=== PATIENT | female | born 1940 | race American Indian/Alaskan Native ===

== ENCOUNTER 2018-04-25 12:19 | Inpatient (IN) | payer MEDICARE ==
--- NOTE | 2018-04-25 12:48 | ED PDOC ---
Arrival/HPI - General Chief Complaint: Shortness Of Breath Time Seen by Provider: 04/25/18 12:19 Historian: Patient, Family (daughter), EMS - Critical Care Critical Care Minutes: 30 minutes - History of Present Illness Narrative History of Present Illness (Text): 04/25/18 12:19 77 year old female, on Eliquis, whose past medical history includes COPD, CHF, and DVT, s/p kidney transplant who presents to the emergency department complaining of shortness of breath. Daughter states her mother was short of breath earlier this morning, patient took medication and had breakfast, but her symptoms progressively worsened, daughter called 911. EMS found patient in rapid A-fib at 170bpm, tachypenic at 40, and short of breath. EMS placed her on bipap, gave her a nitro drip, and 20mg of Lasix. Patient symptoms improved after medication. Daughter notes her mother is compliant with home O2. She denies fevers, chills, headache, dizziness, chest pain, abdominal pain, nausea, vomiting, diarrhea, back pain, neck pain, or any other complaint. PMD: DR. Whipple 04/25/18 15:20 Time/Duration: Prior to Arrival Symptom Onset: Gradual Symptom Course: Improving Activities at Onset: Light Context: Home Past Medical History - Provider Review Nursing Documentation Reviewed: Yes - Cardiac Hx Congestive Heart Failure: Yes Hx Hypertension: Yes - Endocrine/Metabolic Hx Systemic Lupus Erythematosus: Yes - Musculoskeletal/Rheumatological Hx Arthritis: Yes - Psychiatric Hx Substance Use: No - Surgical History Hx Kidney Transplant: Yes (2007 / no longer dyalisis pt) - Anesthesia Hx Anesthesia: Yes Hx Anesthesia Reactions: No Hx Malignant Hyperthermia: No Family/Social History - Physician Review Nursing Documentation Reviewed: Yes Family/Social History: No Known Family HX Smoking Status: Never Smoked Hx Alcohol Use: No Hx Substance Use: No Allergies/Home Meds Allergies/Adverse Reactions: Allergies No Known Allergies Allergy (Verified 04/25/18 12:21) Home Medications: Home Meds Medication Instructions Recorded Confirmed Cinacalcet [Sensipar] 90 mg PO DAILY 04/25/18 04/25/18 Prednisone 10 mg PO DAILY 04/25/18 04/25/18 RX: Apixaban [Eliquis] 1 tab PO BID 04/25/18 04/25/18 RX: Furosemide [Lasix] 1 tab PO DAILY 04/25/18 04/25/18 RX: Polyethylene Glycol [Polyox 17 g PO BID 04/25/18 04/25/18 [id number] RX: Tacrolimus [Prograf Cap] 3 mg PO BID 04/25/18 04/25/18 RX: cloNIDine [Catapres] 1 mg PO BID 04/25/18 04/25/18 Sevelamer Carbonate [Renvela] 0.8 gm PO DAILY 04/25/18 04/25/18 Sodium Bicarbonate 1 tab PO BID 04/25/18 04/25/18 Review of Systems - Review of Systems Systems not reviewed;Unavailable: Respiratory Distress Constitutional: absent: Fevers Eyes: absent: Vision Changes ENT: absent: Sore Throat Respiratory: SOB Cardiovascular: absent: Chest Pain Gastrointestinal: absent: Abdominal Pain, Diarrhea, Nausea, Vomiting Genitourinary Female: absent: Dysuria, Frequency Musculoskeletal: absent: Back Pain, Neck Pain Skin: absent: Rash Neurological: absent: Headache, Dizziness Endocrine: absent: Diaphoresis Physical Exam Vital Signs Reviewed: Yes Temperature: Afebrile Blood Pressure: Normal Pulse: Tachycardic Respiratory Rate: Tachypneic Appearance: Positive for: Non-Toxic, Ill-Appearing Pain Distress: None Mental Status: Positive for: Alert and Oriented X 3 - Systems Exam Head: Present: Atraumatic, Normocephalic Pupils: Present: PERRL Extroacular Muscles: Present: EOMI Conjunctiva: Present: Normal Mouth: Present: Moist Mucous Membranes Neck: Present: Normal Range of Motion Respiratory/Chest: Present: Decreased Breath Sounds, Rales, Tachypneic, Other (speaking in 2 word sentences) Cardiovascular: Present: Irregular Rhythm. No: Regular Rate and Rhythm (irregularly irregular), Murmurs Abdomen: No: Tenderness, Distention, Peritoneal Signs Back: Present: Normal Inspection Upper Extremity: Present: Other (right AV fistula). No: Cyanosis, Edema Lower Extremity: Present: Normal Inspection. No: Edema Neurological: Present: GCS=15, CN II-XII Intact, Speech Normal Skin: Present: Warm, Dry, Normal Color. No: Rashes Psychiatric: Present: Alert, Oriented x 3, Normal Insight, Normal Concentration Medical Decision Making ED Course and Treatment: 04/25/18 12:19 Impression: 77 year old female who presents to the emergency department complaining of shortness of breath. Plan: -- ABG -- EKG -- Labs -- Chest X-ray -- Aspirin -- Lasix -- Nitrostat -- Blood Culture -- Urine Culture -- BIPAP/CPAP -- Urinalysis -- Reassess and disposition Progress Notes: 04/25/18 12:59 Chest X-ray reviewed by radiologist, shows: IMPRESSION: Limited portable examination. Sever cardiomegaly and moderate pulmonary venous congestion. 04/25/18 13:03 Patient's lactate is elevated to 2.7, SIRS criteria are tachypneic and tachycardia but think this is more likely secondary to the CHF as both are improving with bipap. Temp 99.3 rectally 04/25/18 13:19 Records reviewed from [facility]. Patient had admission in [facility] for COPD and pna. Patient has hx of DVT of LUE, on eliquis, SLE and was anemia from 7.8 to 8.6 and creatinine of 2.8 on chart review 04/25/18 14:[address] Lobo, tree and shrub worker, who will evaluate patient at bedside. 04/25/18 14:26 Accepted by ICU - Critical Care Critical Care Minutes: 30 minutes - Lab Interpretations I have reviewed the lab results: Yes - RAD Interpretation Radiology Orders: 04/25/18 12:26 CHEST PORTABLE [RAD] Stat - Medication Orders Current Medication Orders: Discontinued Medications Aspirin (Aspirin Chewable) 81 mg PO STAT STA Stop: 04/25/18 12:28 Furosemide (Lasix) 20 mg IVP STAT STA Stop: 04/25/18 12:28 Nitroglycerin (Nitrostat Sl Tab) 0.3 mg SL STAT STA Stop: 04/25/18 12:32 - Scribe Statement The provider has reviewed the documentation as recorded by the Ivory Thomas Provider Scribe Attestation: All medical record entries made by the Scribe were at my direction and personally dictated by me. I have reviewed the chart and agree that the record accurately reflects my personal performance of the history, physical exam, medical decision making, and the department course for this patient. I have also personally directed, reviewed, and agree with the discharge instructions and disposition. Disposition/Present on Arrival - Present on Arrival Any Indicators Present on Arrival: No History of DVT/PE: No History of Uncontrolled Diabetes: No Urinary Catheter: No History of Decub. Ulcer: No History Surgical Site Infection Following: None - Disposition Have Diagnosis and Disposition been Completed?: Yes Diagnosis: CHF (congestive heart failure), NSTEMI (non-ST elevated myocardial infarction), Respiratory distress Disposition: HOSPITALIZED Disposition Time: 12:29 Patient Plan: Admission, ICU Patient Problems: Current Active Problems Problem Status Onset CHF (congestive heart failure) Acute NSTEMI (non-ST elevated myocardial infarction) Acute Respiratory distress Acute Condition: CRITICAL
[2018-04-25 12:54] LABS: ARTERIAL BLOOD GAS HCO3 33.7 mmol/L (21-28); ARTERIAL BLOOD GAS O2 SAT 27.8 % (95-98); ARTERIAL BLOOD GAS PCO2 61 mm/Hg (35-45); ARTERIAL BLOOD GAS PH 7.35 (7.35-7.45); ARTERIAL BLOOD GAS TCO2 35.6 mmol.L (22-28)
--- NOTE | 2018-04-25 12:56 | RAD ---
Date of service: 04/25/2018 HISTORY: shortness of breath COMPARISON: No prior. FINDINGS: LUNGS: There is moderate pulmonary venous congestion. Examination is limited due to portable technique and patient positioning. PLEURA: Question of small effusions. No pneumothorax CARDIOVASCULAR: Severe cardiomegaly and prominent central vasculature. No aortic atherosclerotic calcifications present. OSSEOUS STRUCTURES: Within normal limits for the patient's age. VISUALIZED UPPER ABDOMEN: Normal. OTHER FINDINGS: None. IMPRESSION: Limited portable examination. Severe cardiomegaly and moderate pulmonary venous congestion.
[2018-04-25] MEDS ORDERED: Albuterol 0.042% Inhal Sol (1.25 mg/3 mL) UD IH STA (12:58)
[2018-04-25 13:04] LABS: BASO # 0.03 K/mm3 (0.0-2.0); BASO % 0.3 % (0.0-3.0); EOS % 0.1 % (1.5-5.0); HEMOGLOBIN 7.4 g/dL (12.0-16.0); LYMPH # 1.5 (1.2-3.4); LYMPH % 12.2 % (22.0-35.0); MEAN CELL VOLUME 105.2 fl (80.0-105.0); MEAN CORPUSCULAR HEMOGLOBIN 32.2 pg (25.0-35.0); MEAN CORPUSCULAR HGB CONC 30.6 g/dl (31.0-37.0); MEAN PLATELET VOLUME 10.7 fl (7.0-11.0); RBC 2.3 10^6/uL (3.5-6.1); RED CELL DISTRIBUTION WIDTH 14.9 % (11.5-14.5); WHITE BLOOD COUNT 11.9 10^3/uL (4.5-11.0)
[2018-04-25 13:13] LABS: ALB/GLOB RATIO 1.1 (1.1-1.8); ALBUMIN 3.6 g/dL (3.0-4.8); CALCIUM 10.5 mg/dL (8.4-10.5)
[2018-04-25 13:14] LABS: INR 1.88; PARTIAL THROMBOPLASTIN TIME 31.5 Seconds (26.9-38.3); PROTHROMBIN TIME 21.2 SECONDS (9.4-12.5)
[2018-04-25 13:46] LABS: TROPONIN I 0.27 ng/mL
[2018-04-25 14:18] LABS: ARTERIAL BLOOD GAS HCO3 31.1 mmol/L (21-28); ARTERIAL BLOOD GAS HEMOGLOBIN 6.7 g/dL (11.7-17.4); ARTERIAL BLOOD GAS O2 CAPACITY 10.2 mL/dl (16-24); ARTERIAL BLOOD GAS O2 CONTENT 10.3 ML/dl (15-23); ARTERIAL BLOOD GAS PCO2 48 mm/Hg (35-45); ARTERIAL BLOOD GAS PH 7.42 (7.35-7.45); ARTERIAL BLOOD GAS TCO2 32.6 mmol.L (22-28)
[2018-04-25] MEDS ORDERED: cefTRIAXone 1 gm 1 GM/100 ML BAG IVPB SCH (15:00)
[2018-04-25 15:51] LABS: VENOUS BLOOD GAS BASE EXCESS 5.2 mmol/L (0.0-2.0); VENOUS BLOOD GAS PO2 37 mm/Hg (30-55); VENOUS BLOOD PH 7.35 (7.32-7.43)
[2018-04-25 16:02] LABS: URINE BILIRUBIN NEGATIVE (NEGATIVE); URINE BLOOD TRACE-INTACT (NEGATIVE); URINE GLUCOSE (UA) 100 mg/dL (NEGATIVE); URINE LEUKOCYTE ESTERASE NEGATIVE Leu/uL (NEGATIVE); URINE PROTEIN 30 mg/dL (<30 mg/dL); URINE UROBILINOGEN 0.2 E.U./dL (<1 E.U./dL)
[2018-04-25 16:03] LABS: URINE APPEARANCE CLEAR (CLEAR); URINE COLOR YELLOW (YELLOW)
[2018-04-25 16:07] LABS: URINE BACTERIA NEG /hpf; URINE EPITHELIAL CELLS 0 - 2 /hpf (0-5); URINE HYALINE CAST 0 - 2 /hpf; URINE RBC 0 - 2 /hpf (0-2)
--- NOTE | 2018-04-25 16:14 | CP.PCM.HP ---
History of Present Illness - History of Present Illness History of Present Illness: Miguel A Means DO, PGY-1 Hospitalist Admission History and Physical for Dr. Hinton CC: worsening SOB HPI: Patient is a 77 year old female with PMH of CHF (last Echo with EF of 50%), COPD, LUE DVT (on eliquis), SLE, lupus nephritis (previously on dialysis, s/p renal transplant), and osteoporosis was BIBA per daughter's request for concern of worsening, labored breathing. Per daughter, patient has not been at her baseline since a recent, long hospitalization at [facility] where she was admitted for similar concerns. Daughter states that patient was admitted at [facility] from January 2018 through March 2018. Patient has not been ambulatory since then even though her breathing improved initially. Since this AM, patient's daughter became concerned that her breathing was labored and she was wheezing. She did not complain of recent fever/chills, sick contacts, CP, cough, abdominal pain/nausea/vomiting, or urinary complaints. PMD: [facility] Past Medical Hx: CHF, COPD, LUE DVT, SLE, lupus nephritis, and osteoporosis Past Surgical Hx: kidney transplant in 2007 Allergies: NKA Home medications: Prograf 3 mg BID, Sodium bicarbonate 325 mg daily, Sevelamer 0.8 gm PO TID w/meals, prednisone 10 mg daily, polyethylene glycol 17 g BID, clonidine 0.1 mg BID, Lasix 40 mg daily, cinacalcet 90 mg daily, eliquis 5 mg BID Family Hx: daughter has SLE Social Hx: denies current or prior tobacco, EtOH, illicit drug use Present on Admission - Present on Admission Any Indicators Present on Admission: Yes History of DVT/PE: Yes History of Uncontrolled Diabetes: No Urinary Catheter: No Decubitus Ulcer Present: No Review of Systems - Constitutional Constitutional: absent: Chills, Fever - EENT Eyes: absent: Change in Vision - Cardiovascular Cardiovascular: Diaphoresis, Dyspnea, Dyspnea on Exertion. absent: Chest Pain, Palpitations - Respiratory Respiratory: Dyspnea, Wheezing. absent: Cough - Gastrointestinal Gastrointestinal: absent: Abdominal Pain, Nausea, Vomiting - Genitourinary Genitourinary: absent: Change in Urinary Stream, Difficulty Urinating Past Patient History - Past Social History Smoking Status: Never Smoked - CARDIAC Hx Congestive Heart Failure: Yes Hx Hypertension: Yes - ENDOCRINE/METABOLIC Hx Systemic Lupus Erythematosus: Yes - MUSCULOSKELETAL/RHEUMATOLOGICAL Hx Arthritis: Yes - PSYCHIATRIC Hx Substance Use: No - SURGICAL HISTORY Hx Kidney Transplant: Yes (2008 / no longer dyalisis pt) - ANESTHESIA Hx Anesthesia: Yes Hx Anesthesia Reactions: No Hx Malignant Hyperthermia: No Meds Allergies/Adverse Reactions: Allergies Allergy/AdvReac Type Severity Reaction Status Date / Time No Known Allergies Allergy Verified 04/25/18 12:21 Physical Exam - Constitutional Additional comments: on Bipap, responsive to verbal stimuli, opens eyes, but somnolent - Head Exam Head Exam: ATRAUMATIC, NORMOCEPHALIC - Eye Exam Eye Exam: EOMI, PERRL Pupil Exam: PERRL - ENT Exam ENT Exam: Mucous Membranes Dry - Neck Exam Neck exam: Negative for: Tenderness - Respiratory Exam Respiratory Exam: Accessory Muscle Use, Decreased Breath Sounds, Rhonchi (coarse breath sounds b/l), Wheezes (faint end expiratory wheezes b/l). absent: Chest Wall Tenderness, Rales - Cardiovascular Exam Cardiovascular Exam: REGULAR RHYTHM, RRR, +S1, +S2. absent: Diastolic murmur, Gallop, Rubs, Systolic Murmur - GI/Abdominal Exam GI & Abdominal Exam: Normal Bowel Sounds, Soft. absent: Organomegaly - Extremities Exam Extremities exam: Positive for: normal capillary refill, pedal pulses present. Negative for: calf tenderness, pedal edema - Neurological Exam Neurological exam: Alert - Psychiatric Exam Psychiatric exam: Flat Affect - Skin Skin Exam: Dry, Intact, Warm Results - Vital Signs Recent Vital Signs: Last Vital Signs Temp 99.3 F 04/25/18 13:35 Pulse 93 H 04/25/18 15:34 Resp 27 H 04/25/18 15:34 BP 162/82 H 04/25/18 15:34 Pulse Ox 100 04/25/18 15:34 - Labs Result Diagrams: 04/25/18 12:35 04/25/18 12:35 Labs: Laboratory Results - last 24 hr 04/25/18 04/25/18 04/25/18 12:35 12:35 12:35 WBC 11.9 H RBC 2.30 L Hgb 7.4 L Hct 24.2 L MCV 105.2 H MCH 32.2 MCHC 30.6 L RDW 14.9 H Plt Count 183 MPV 10.7 Neut % (Auto) 79.4 H Lymph % (Auto) 12.2 L Sierra % (Auto) 8.0 H Eos % (Auto) 0.1 L Baso % (Auto) 0.3 Lymph # (Auto) 1.5 Sierra # (Auto) 1.0 H Eos # (Auto) 0.0 Baso # (Auto) 0.03 Absolute Neuts (auto) 9.42 H PT 21.2 H INR 1.88 APTT 31.5 pCO2 pO2 HCO3 ABG pH ABG Total CO2 ABG O2 Saturation ABG O2 Content ABG Base Excess ABG Hemoglobin ABG Carboxyhemoglobin POC ABG HHb (Measured) ABG Methemoglobin ABG O2 Capacity ABG Potassium VBG pH VBG pCO2 VBG HCO3 VBG Total CO2 VBG O2 Sat (Calc) VBG Base Excess VBG Potassium Hgb O2 Saturation Glucose Lactate FiO2 Pressure Support Inspiratory BiPAP Blood Gas Comments Crit Value Called To Crit Value Called By Blood Gas Notified Time Sodium 140 Potassium 4.0 Chloride 100 Carbon Dioxide 30 Anion Gap 14 BUN 42 H Creatinine 2.6 H Est GFR ( Amer) 22 Est GFR (Non-Af Amer) 18 Random Glucose 134 H Calcium 10.5 Phosphorus 3.2 Magnesium 2.0 Total Bilirubin 0.5 AST 65 H ALT 52 Alkaline Phosphatase 107 Total Creatine Kinase 35 Troponin I 0.27 H* NT-Pro-B Natriuret Pep 43953 H Total Protein 6.8 Albumin 3.6 Globulin 3.3 Albumin/Globulin Ratio 1.1 Arterial Blood Potassium Venous Blood Potassium Urine Color Urine Appearance Urine pH Ur Specific [place] Urine Protein Urine Glucose (UA) Urine Ketones Urine Blood Urine Nitrate Urine Bilirubin Urine Urobilinogen Ur Leukocyte Esterase 04/25/18 04/25/18 04/25/18 12:40 14:10 15:30 WBC RBC Hgb Hct MCV MCH MCHC RDW Plt Count MPV Neut % (Auto) Lymph % (Auto) Sierra % (Auto) Eos % (Auto) Baso % (Auto) Lymph # (Auto) Sierra # (Auto) Eos # (Auto) Baso # (Auto) Absolute Neuts (auto) PT INR APTT pCO2 61 H 48 H pO2 18.0 L* 361.0 H 37 HCO3 33.7 H 31.1 H ABG pH 7.35 7.42 ABG Total CO2 35.6 H 32.6 H ABG O2 Saturation 27.8 L 101.0 H ABG O2 Content 10.3 L ABG Base Excess 6.1 H 6.0 H ABG Hemoglobin 6.7 L ABG Carboxyhemoglobin 1.9 H POC ABG HHb (Measured) -1.0 L ABG Methemoglobin 0.2 ABG O2 Capacity 10.2 L ABG Potassium 4.1 VBG pH 7.35 VBG pCO2 59.0 VBG HCO3 32.6 H VBG Total CO2 34.4 H VBG O2 Sat (Calc) 78.2 H VBG Base Excess 5.2 H VBG Potassium 4.3 Hgb O2 Saturation 98.9 H Glucose 130 H 129 H Lactate 2.7 H 1.6 FiO2 100.0 100.0 21.0 Pressure Support 7 Inspiratory BiPAP 12 Blood Gas Comments Possible venous. notified po2,pco2,lactate cv reported Crit Value Called To Chris alarcon Crit Value Called By Rst Blood Gas Notified Time 1250 Sodium 142.0 141.0 Potassium Chloride 106.0 105.0 Carbon Dioxide Anion Gap BUN Creatinine Est GFR ( Amer) Est GFR (Non-Af Amer) Random Glucose Calcium Phosphorus Magnesium Total Bilirubin AST ALT Alkaline Phosphatase Total Creatine Kinase Troponin I NT-Pro-B Natriuret Pep Total Protein Albumin Globulin Albumin/Globulin Ratio Arterial Blood Potassium 4.1 Venous Blood Potassium 4.3 Urine Color Urine Appearance Urine pH Ur Specific [place] Urine Protein Urine Glucose (UA) Urine Ketones Urine Blood Urine Nitrate Urine Bilirubin Urine Urobilinogen Ur Leukocyte Esterase 04/25/18 15:52 WBC RBC Hgb Hct MCV MCH MCHC RDW Plt Count MPV Neut % (Auto) Lymph % (Auto) Sierra % (Auto) Eos % (Auto) Baso % (Auto) Lymph # (Auto) Sierra # (Auto) Eos # (Auto) Baso # (Auto) Absolute Neuts (auto) PT INR APTT pCO2 pO2 HCO3 ABG pH ABG Total CO2 ABG O2 Saturation ABG O2 Content ABG Base Excess ABG Hemoglobin ABG Carboxyhemoglobin POC ABG HHb (Measured) ABG Methemoglobin ABG O2 Capacity ABG Potassium VBG pH VBG pCO2 VBG HCO3 VBG Total CO2 VBG O2 Sat (Calc) VBG Base Excess VBG Potassium Hgb O2 Saturation Glucose Lactate FiO2 Pressure Support Inspiratory BiPAP Blood Gas Comments Crit Value Called To Crit Value Called By Blood Gas Notified Time Sodium Potassium Chloride Carbon Dioxide Anion Gap BUN Creatinine Est GFR ( Amer) Est GFR (Non-Af Amer) Random Glucose Calcium Phosphorus Magnesium Total Bilirubin AST ALT Alkaline Phosphatase Total Creatine Kinase Troponin I NT-Pro-B Natriuret Pep Total Protein Albumin Globulin Albumin/Globulin Ratio Arterial Blood Potassium Venous Blood Potassium Urine Color Yellow Urine Appearance Clear Urine pH 6.0 Ur Specific [place] 1.020 Urine Protein 30 H Urine Glucose (UA) 100 H Urine Ketones Negative Urine Blood Trace-intact H Urine Nitrate Negative Urine Bilirubin Negative Urine Urobilinogen 0.2 Ur Leukocyte Esterase Negative Assessment & Plan - Assessment and Plan (Free Text) Assessment: 77 yo F with PMH of CHF, COPD, LUE DVT, SLE, lupus nephritis, and osteoporosis presents in acute hypoxic respiratory failure 2/2 worsening pulmonary edema likely from uncontrolled CHF. Patient also has positive troponin and AFib on admission. She was evaluated and accepted by ICU for monitoring. Plan: Acute hypoxic respiratory failure Likely 2/2 pulmonary edema from uncontrolled CHF vs NSTEMI vs PNA Bipap management per ICU team Add PRN duo-neb in addition to scheduled Will start lasix 40 mg IVP q12h, hold if SBP < 100 Also started on solumedrol 20 mg IVP q12h per ICU F/u influenza, legionella, procal Start empiric doxycycline, rocephin for PNA, f/u procal and serology results F/u additional ID recs Monitor airway closely NSTEMI Trop positive at 0.27 BNP also elevated Will trend trop q6h overnight Consider heparin drip if worsening, continue home eliquis until then F/u additional cardiology recs AFib Found on EKG on admission, may be contributing to positive trop Anticoagulation with home eliquis Hold if starting heparin drip F/u additional cardiology recs Hx Lupus nephritis s/p renal transplant Restart prograf, will likely be on additional steroids per ICU management Will restart phosphate binders once patient is more stable Monitor UOP closely BUN/Cr appear to be close to baseline per [facility] records Continue to monitor closely Nephrology consulted, recs appreciated Hx LUE DVT Restart home eliquis, but hold if heparin drip started for NSTEMI Hx COPD Duo-neb scheduled and PRN Likely contributing to worsening respiratory status, although CXR shows b/l pulmonary edema Repeat CXR Continue Bipap management per ICU team DVT/GI PPX: Home eliquis/protonix Full Code NPO Monitor in MICU Patient seen, examined, and plan discussed with my attending Dr. Jamaal Means D.O. IM Resident PGY-1 Pager: [phone]
[2018-04-25] MEDS: Albuterol-Ipratrop 3 mg / 0.5 (3 ml) UD IH SCH ×2 (16:25→21:03)
[2018-04-25 17:49] VITALS: BMI 10.6
--- NOTE | 2018-04-25 22:08 | CARD ---
APPROVED REPORT Date of service: 04/25/2018 EKG Measurement Heart [id number] <Conclusion> Atrial fibrillation Diffuse NDSTT abnormalities Abnormal ECG
--- NOTE | 2018-04-25 22:09 | CARD ---
APPROVED REPORT Date of service: 04/25/2018 EKG Measurement Heart [id number] <Conclusion> Atrial fibrillation Nonspecific T wave abnormalities Abnormal ECG
[2018-04-25] MEDS: MethylPREDNISolone 40 mg Vial IVP SCH (22:30)
[2018-04-25] MEDS ORDERED: Heparin25000 units/250ml 1/2NS 25,000 UNITS/250 ML BAG IV SCH (23:45)
--- NOTE | 2018-04-26 02:29 | CON ---
DATE: 04/25/2018 HISTORY OF PRESENT ILLNESS: The patient is a 77-year-old lady with history of kidney transplant in 2007, on immunosuppressive regimen including tacrolimus 3 mg p.o. b.i.d. and prednisone 10 mg daily, who started feeling shortness of breath yesterday morning without any associated, alleviating or aggravating factors. During the course of the day, her shortness of breath deteriorated to the point that she had hard time to breathe even at rest. In the emergency room, the patient was put on BiPAP, given Lasix, and nitro drip started. The patient was found to have proBNP in 10,000s and troponin elevated. The patient is on Eliquis at home for stroke prevention in the setting of atrial fibrillation. The patient also reports substantial sweats associated with it, but no fever. PAST MEDICAL HISTORY: COPD, CHF, DVT, status post kidney transplant. ALLERGIES: NKDA. SOCIAL HISTORY: The patient is a lifelong nonsmoker. No alcohol or illicit drug abuse. FAMILY HISTORY: Noncontributory. REVIEW OF SYSTEMS: Review of 12-organ system other than mentioned in history of present illness is negative. HOME MEDICATIONS: Eliquis, Sensipar, Lasix, prednisone 10 mg p.o. daily, sevelamer, sodium bicarbonate, clonidine, tacrolimus. PHYSICAL EXAMINATION: VITAL SIGNS: Blood pressure 118/75; heart rate, atrial fibrillation, varies between 70 and 90; oxygen saturation 100% on 60% FiO2. The patient is on BiPAP 14/5 with FiO2 60%. She is pulling about 750-780 tidal volume and respiratory rate is 14. ENT, HEAD AND NECK: Atraumatic. LUNGS: Few crackles bibasilar. HEART: Irregular rate and rhythm. S1, S2 distant. ABDOMEN: Soft, nontender, nondistended. MUSCULOSKELETAL: No C/C/E. NEUROLOGIC: The patient moves all extremities spontaneously. SKIN: Moist. PSYCHIATRIC: The patient is somnolent, however, easily arousable, and when so, alert, awake and oriented x3. LABORATORY DATA: WBC 11.9, hemoglobin 7.4, platelet count 183, eosinophil 0.1. Sodium 140, potassium 4, chloride 100, carbon dioxide 20, BUN 42, creatinine 2.6, glucose 134, calcium 10.5. Troponin 0.27. ProBNP 34,900. AST 65, ALT 52 with total bilirubin 0.5. ABG: pH of 7.42 (up from 7.35), pCO2 of 48 (down from 61), pO2 of 361 on 100% FiO2 (FiO2 went down to 60%). Lactic acid 2.7. EKG, no specific ischemic changes, atrial fibrillation with controlled heart rate. Chest x-ray showed cardiomegaly with bilateral vascular congestion. ASSESSMENT AND PLAN: This is a 78-year-old lady who presented with increased shortness of breath and hypercapnic respiratory failure requiring BiPAP in the setting of what appears to be congestive heart failure exacerbation versus bilobar community-acquired/interstitial pneumonia in the setting of immunosuppressive therapy for transplanted kidney in 2007. At present time, we will proceed with continuation of BiPAP, low-dose steroids and nebulizers. The doses of immunosuppressive regimen were run by Nephrology service, and we will continue with tacrolimus 3 mg p.o. b.i.d. I will continue with conservative fluid management. The patient received dose of Lasix. Pierson catheter will be placed. Echocardiogram ordered. Cardiology consult ordered. Aspirin will be continued. If heart rate is controlled, I will hold on beta-blockers, and because of potential for substantial piix-gb-luka interaction, I will hold statins as well until commented on by Cardiology service and Nephrology service together. We will also proceed with antibiotics and septic workup including blood and urine culture, procalcitonin, urine for Legionella and streptococcal antigen. We will have low threshold for intubation. We will continue to target euvolemia, euglycemia, normothermia and oxygen saturation more than 90%. We will try to avoid hyperchloremia and maintain mean arterial pressure more than 65. We will try to avoid nephrotoxic medication but not at expense of treating underlying disease. We will maintain blood glucose within 140-180 range according to night sugar trial. The patient will be on GI prophylaxis and n.p.o. for now until her respiratory status stabilizes enough to wean off noninvasive positive pressure ventilation. The patient is on therapeutic anticoagulation with adjusted dose of Eliquis. Further dose adjustment will be as per Nephrology and Cardiology service based on renal function and potential interaction with immunosuppressive medication. We will also get ID consult. Cole Lobo MD
[2018-04-26] MEDS: Albuterol-Ipratrop 3 mg / 0.5 (3 ml) UD IH SCH (03:00)
[2018-04-26] MEDS ORDERED: Vancomycin 750mg 750 MG/250 ML BAG IVPB STA (06:38)
[2018-04-26] MEDS: Albuterol-Ipratrop 3 mg / 0.5 (3 ml) UD IH PRN ×2 (07:09→19:20)
[2018-04-26 07:18] LABS: BASO # 0.01 K/mm3 (0.0-2.0); BASO % 0.1 % (0.0-3.0); LYMPH # 1.3 (1.2-3.4); LYMPH % 16.5 % (22.0-35.0); MEAN CELL VOLUME 105.7 fl (80.0-105.0); MEAN CORPUSCULAR HEMOGLOBIN 32.1 pg (25.0-35.0); MEAN CORPUSCULAR HGB CONC 30.4 g/dl (31.0-37.0); MEAN PLATELET VOLUME 10.8 fl (7.0-11.0); MONO # 0.1 (0.1-0.6); MONO % 1.6 % (1.0-6.0); PLATELET COUNT 158 10^3/uL (120.0-450.0); RBC 2.12 10^6/uL (3.5-6.1); WHITE BLOOD COUNT 7.6 10^3/uL (4.5-11.0)
[2018-04-26 07:25] LABS: IRON 62 ug/dL (45-180)
[2018-04-26 07:34] LABS: % IRON SATURATION 33 % (20-55); ALB/GLOB RATIO 1.1 (1.1-1.8); ALBUMIN 3.4 g/dL (3.0-4.8); CALCIUM 10.2 mg/dL (8.4-10.5); TOTAL IRON BINDING CAPACITY 187 ug/dL (265-497)
[2018-04-26 07:41] LABS: HEMOGLOBIN 6.8 g/dL (12.0-16.0)
[2018-04-26] MEDS: Cefepime 1gm in NS 100ml 1 GM/100 ML BAG IVPB SCH (07:49)
[2018-04-26 08:16] LABS: TROPONIN I 1.21 ng/mL
--- NOTE | 2018-04-26 08:59 | CP.CCUPN ---
<Marivel Simental - Last Filed: 04/26/18 10:07> CCU Subjective - Physician Review Subjective (Free Text): Marivel Simental, PGY-1, ICU Progress Note for Dr. Gutierrez Patient seen and evaluated at bedside. Patient had no acute overnight events. Patient is AAOx1 at bedside and has diffuse tremor. Patient reports feeling "woozy" but has no other complaints at this time including shortness of breath, chest pain, nausea, vomiting, constipation, diarrhea, dysuria, hematuria. 12- point ROS was unreliable due to patient's mental status. CCU Objective - Vital Signs / Intake & Output Vital Signs (Last 4 hours): Vital Signs Pulse Resp BP Pulse Ox 04/26/18 07:00 83 28 H 139/78 100 04/26/18 06:00 76 33 H 128/76 100 04/26/18 05:40 123/74 04/26/18 05:39 79 19 126/74 100 04/26/18 05:00 97 H 32 H 92 L Intake and Output (Last 8hrs): Intake & Output 04/25/18 04/26/18 04/26/18 22:59 06:59 14:59 Intake Total 160 7 Output Total 50 500 Balance 110 -493 Weight 50 lb 12.8 oz 50 lb Intake: IV 100 7 Left Antecubital 100 7 Oral 60 Output: Urine 50 500 Urethral (Pierson) 50 500 Stool 0 Other: Voiding Method Indwelling Catheter # Bowel Movements 0 - Physical Exam Head: Positive for: Atraumatic, Normocephalic Pupils: Positive for: PERRL Extroacular Muscles: Positive for: EOMI Conjunctiva: Positive for: Normal Mouth: Positive for: Moist Mucous Membranes Neck: Positive for: Normal Range of Motion Respiratory/Chest: Positive for: Clear to Auscultation. Negative for: Good Air Exchange Cardiovascular: Positive for: Regular Rate and Rhythm (irregularly irregular). Negative for: Murmurs Abdomen: Positive for: Normal Bowel Sounds. Negative for: Tenderness, Distention, Peritoneal Signs Back: Positive for: Other (kyphosis) Upper Extremity: Positive for: Other (right AV fistula). Negative for: Cya nosis, Edema Lower Extremity: Positive for: Normal Inspection. Negative for: Edema Neurological: Positive for: GCS=15, CN II-XII Intact, Speech Normal Skin: Positive for: Warm, Dry, Normal Color. Negative for: Rashes Psychiatric: Positive for: Alert. Negative for: Oriented x 3, Normal Insight, Normal Concentration - Medications Active Medications: Active Medications Generic Name Dose Route Start Last Admin Trade Name Freq PRN Reason Stop Dose Admin Albuterol/Ipratropium 3 ml 04/25/18 15:35 04/26/18 07:09 Duoneb 3 Mg/0.5 Mg (3 Ml) Ud IH 3 ml Q4H PRN Administration Shortness of Breath Apixaban 2.5 mg 04/25/18 18:00 04/25/18 17:03 Eliquis PO 2.5 mg BID BIJAN Administration Protocol Aspirin 81 mg 04/26/18 10:00 Aspirin Chewable PO DAILY BIJAN Furosemide 40 mg 04/25/18 18:00 04/26/18 05:40 Lasix IVP 40 mg Q12H BIJAN Administration Doxycycline Hyclate 100 mg/ 100 mls @ 100 mls/hr 04/25/18 22:00 04/25/18 22:30 Sodium Chloride IVPB 100 mls/hr Q12 BIJAN Administration Protocol Heparin Sodium/Sodium Chloride 25,000 units in 250 mls @ 2.765 mls/hr 04/25/18 23:45 04/26/18 00:36 Heparin 09109 Units/250ml 1/2 Normal Saline IV 12 units/kg/hr .Q24H BIJAN 2.765 mls/hr Administration Protocol 12 UNITS/KG/HR Cefepime HCl 1 gm in 100 mls @ 100 mls/hr 04/26/18 06:45 04/26/18 07:49 Maxipime 1gm IVPB 100 mls/hr Q24H BIJAN Administration Protocol Methylprednisolone 20 mg 04/25/18 22:00 04/25/18 22:30 Solu-Medrol IVP 20 mg Q12 BIJAN Administration Oseltamivir Phosphate 30 mg 04/25/18 15:15 04/25/18 16:14 Tamiflu Cap PO 30 mg DAILY BIJAN Administration Protocol Pantoprazole Sodium 40 mg 04/25/18 15:15 04/25/18 16:15 Protonix Inj IVP 40 mg DAILY BIJAN Administration Sodium Bicarbonate 325 mg 04/25/18 16:00 04/25/18 17:01 Sodium Bicarbonate Tab PO Not Given BID BIJAN Tacrolimus 3 mg 04/25/18 18:00 04/25/18 17:03 Prograf Cap PO 3 mg BID BIJAN Administration - Patient Studies Lab Studies: Lab Studies 04/26/18 04/26/18 04/26/18 Range/Units 06:44 06:01 06:00 WBC (4.5-11.0) 10^3/uL RBC (3.5-6.1) 10^6/uL Hgb (12.0-16.0) g/dL Hct (36.0-48.0) % MCV (80.0-105.0) fl MCH (25.0-35.0) pg MCHC (31.0-37.0) g/dl RDW (11.5-14.5) % Plt Count (120.0-450.0) 10^3/uL MPV (7.0-11.0) fl Neut % (Auto) (50.0-68.0) % Lymph % (Auto) (22.0-35.0) % [place] % (Auto) (1.0-6.0) % Eos % (Auto) (1.5-5.0) % Baso % (Auto) (0.0-3.0) % Lymph # (Auto) (1.2-3.4) [place] # (Auto) (0.1-0.6) Eos # (Auto) (0.0-0.7) Baso # (Auto) (0.0-2.0) K/mm3 Absolute Neuts (auto) (1.4-6.5) Retic Count (0.5-1.5) % PT (9.4-12.5) SECONDS INR APTT (26.9-38.3) Seconds pCO2 (35-45) mm/Hg pO2 (80-100) mm/Hg HCO3 (21-28) mmol/L ABG pH (7.35-7.45) ABG Total CO2 (22-28) mmol.L ABG O2 Saturation (95-98) % ABG O2 Content (15-23) ML/dl ABG Base Excess (-2.0-3.0) mmol/L ABG Hemoglobin (11.7-17.4) g/dL ABG Carboxyhemoglobin (0.5-1.5) % POC ABG HHb (Measured) (0-5) % ABG Methemoglobin (0.0-3.0) % ABG O2 Capacity (16-24) mL/dl ABG Potassium (3.6-5.2) mmol/L VBG pH (7.32-7.43) VBG pCO2 (40-60) VBG HCO3 (21-28) mmol/l VBG Total CO2 (22-28) mmol.L VBG O2 Sat (Calc) (40-65) % VBG Base Excess (0.0-2.0) mmol/L VBG Potassium (3.6-5.2) mmol/L Hgb O2 Saturation (95.0-98.0) % Glucose (65-105) mg/dl Lactate (0.7-2.1) mmol/L FiO2 % Pressure Support Inspiratory BiPAP Blood Gas Comments Crit Value Called To Crit Value Called By Blood Gas Notified Time Sodium (132-148) mmol/L Potassium (3.6-5.0) mmol/L Chloride (98-107) mmol/L Carbon Dioxide (21-33) mmol/L Anion Gap (10-20) BUN (7-21) mg/dL Creatinine (0.7-1.2) mg/dl Est GFR ( Amer) Est GFR (Non-Af Amer) POC Glucose (mg/dL) 117 H (65-110) mg/dL Random Glucose (70-110) mg/dL Calcium (8.4-10.5) mg/dL Phosphorus (2.5-4.5) mg/dL Magnesium (1.7-2.2) mg/dL Iron (45-180) ug/dL TIBC (265-497) ug/dL % Saturation (20-55) % Total Bilirubin (0.2-1.3) mg/dL AST (14-36) U/L ALT (7-56) U/L Alkaline Phosphatase (38-126) U/L Lactate Dehydrogenase 630 (333-699) U/L Total Creatine Kinase (35-230) U/L Troponin I ng/mL NT-Pro-B Natriuret Pep (0-450) pg/mL Total Protein (5.8-8.3) g/dL Albumin (3.0-4.8) g/dL Globulin gm/dL Albumin/Globulin Ratio (1.1-1.8) Procalcitonin (0.19-0.49) NG/ML TSH 3rd Generation (0.46-4.68) mIU/mL Arterial Blood Potassium (3.6-5.2) mmol/L Venous Blood Potassium (3.6-5.2) mmol/L Urine Color (YELLOW) Urine Appearance (CLEAR) Urine pH (4.7-8.0) Ur Specific Scheller (1.005-1.035) Urine Protein (<30 mg/dL) mg/dL Urine Glucose (UA) (NEGATIVE) mg/dL Urine Ketones (NEGATIVE) mg/dL Urine Blood (NEGATIVE) Urine Nitrate (NEGATIVE) Urine Bilirubin (NEGATIVE) Urine Urobilinogen (<1 E.U./dL) E.U./dL Ur Leukocyte Esterase (NEGATIVE) Nicky/uL Urine RBC (0-2) /hpf Urine WBC (0-6) /hpf Ur Epithelial Cells (0-5) /hpf Urine Bacteria (NONE) /hpf Hyaline Casts (NONE) /hpf Influenza Typ A,B (EIA) (NEGATIVE) Ur L.pneumophila Ag (NEGATIVE) Blood Type O POSITIVE Antibody Screen Negative Crossmatch See Detail BBK History Checked No verified bt 04/26/18 04/26/18 04/26/18 Range/Units 06:00 05:50 05:50 WBC (4.5-11.0) 10^3/uL RBC (3.5-6.1) 10^6/uL Hgb (12.0-16.0) g/dL Hct (36.0-48.0) % MCV (80.0-105.0) fl MCH (25.0-35.0) pg MCHC (31.0-37.0) g/dl RDW (11.5-14.5) % Plt Count (120.0-450.0) 10^3/uL MPV (7.0-11.0) fl Neut % (Auto) (50.0-68.0) % Lymph % (Auto) (22.0-35.0) % [place] % (Auto) (1.0-6.0) % Eos % (Auto) (1.5-5.0) % Baso % (Auto) (0.0-3.0) % Lymph # (Auto) (1.2-3.4) [place] # (Auto) (0.1-0.6) Eos # (Auto) (0.0-0.7) Baso # (Auto) (0.0-2.0) K/mm3 Absolute Neuts (auto) (1.4-6.5) Retic Count 2.44 H (0.5-1.5) % PT (9.4-12.5) SECONDS INR APTT 35.1 (26.9-38.3) Seconds pCO2 (35-45) mm/Hg pO2 (80-100) mm/Hg HCO3 (21-28) mmol/L ABG pH (7.35-7.45) ABG Total CO2 (22-28) mmol.L ABG O2 Saturation (95-98) % ABG O2 Content (15-23) ML/dl ABG Base Excess (-2.0-3.0) mmol/L ABG Hemoglobin (11.7-17.4) g/dL ABG Carboxyhemoglobin (0.5-1.5) % POC ABG HHb (Measured) (0-5) % ABG Methemoglobin (0.0-3.0) % ABG O2 Capacity (16-24) mL/dl ABG Potassium (3.6-5.2) mmol/L VBG pH (7.32-7.43) VBG pCO2 (40-60) VBG HCO3 (21-28) mmol/l VBG Total CO2 (22-28) mmol.L VBG O2 Sat (Calc) (40-65) % VBG Base Excess (0.0-2.0) mmol/L VBG Potassium (3.6-5.2) mmol/L Hgb O2 Saturation (95.0-98.0) % Glucose (65-105) mg/dl Lactate (0.7-2.1) mmol/L FiO2 % Pressure Support Inspiratory BiPAP Blood Gas Comments Crit Value Called To Crit Value Called By Blood Gas Notified Time Sodium (132-148) mmol/L Potassium (3.6-5.0) mmol/L Chloride (98-107) mmol/L Carbon Dioxide (21-33) mmol/L Anion Gap (10-20) BUN (7-21) mg/dL Creatinine (0.7-1.2) mg/dl Est GFR ( Amer) Est GFR (Non-Af Amer) POC Glucose (mg/dL) (65-110) mg/dL Random Glucose (70-110) mg/dL Calcium (8.4-10.5) mg/dL Phosphorus (2.5-4.5) mg/dL Magnesium (1.7-2.2) mg/dL Iron 62 (45-180) ug/dL TIBC 187 L (265-497) ug/dL % Saturation 33 (20-55) % Total Bilirubin (0.2-1.3) mg/dL AST (14-36) U/L ALT (7-56) U/L Alkaline Phosphatase (38-126) U/L Lactate Dehydrogenase (333-699) U/L Total Creatine Kinase (35-230) U/L Troponin I ng/mL NT-Pro-B Natriuret Pep (0-450) pg/mL Total Protein (5.8-8.3) g/dL Albumin (3.0-4.8) g/dL Globulin gm/dL Albumin/Globulin Ratio (1.1-1.8) Procalcitonin (0.19-0.49) NG/ML TSH 3rd Generation (0.46-4.68) mIU/mL Arterial Blood Potassium (3.6-5.2) mmol/L Venous Blood Potassium (3.6-5.2) mmol/L Urine Color (YELLOW) Urine Appearance (CLEAR) Urine pH (4.7-8.0) Ur Specific Scheller (1.005-1.035) Urine Protein (<30 mg/dL) mg/dL Urine Glucose (UA) (NEGATIVE) mg/dL Urine Ketones (NEGATIVE) mg/dL Urine Blood (NEGATIVE) Urine Nitrate (NEGATIVE) Urine Bilirubin (NEGATIVE) Urine Urobilinogen (<1 E.U./dL) E.U./dL Ur Leukocyte Esterase (NEGATIVE) Nicky/uL Urine RBC (0-2) /hpf Urine WBC (0-6) /hpf Ur Epithelial Cells (0-5) /hpf Urine Bacteria (NONE) /hpf Hyaline Casts (NONE) /hpf Influenza Typ A,B (EIA) (NEGATIVE) Ur L.pneumophila Ag (NEGATIVE) Blood Type Antibody Screen Crossmatch BBK History Checked 04/26/18 04/26/1819 Range/Units 05:50 05:50 05:50 WBC 7.6 D (4.5-11.0) 10^3/uL RBC 2.12 L (3.5-6.1) 10^6/uL Hgb 6.8 L* (12.0-16.0) g/dL Hct 22.4 L (36.0-48.0) % MCV 105.7 H (80.0-105.0) fl MCH 32.1 (25.0-35.0) pg MCHC 30.4 L (31.0-37.0) g/dl RDW 15.0 H (11.5-14.5) % Plt Count 158 (120.0-450.0) 10^3/uL MPV 10.8 (7.0-11.0) fl Neut % (Auto) 81.8 H (50.0-68.0) % Lymph % (Auto) 16.5 L (22.0-35.0) % [place] % (Auto) 1.6 (1.0-6.0) % Eos % (Auto) 0.0 L (1.5-5.0) % Baso % (Auto) 0.1 (0.0-3.0) % Lymph # (Auto) 1.3 (1.2-3.4) [place] # (Auto) 0.1 (0.1-0.6) Eos # (Auto) 0.0 (0.0-0.7) Baso # (Auto) 0.01 (0.0-2.0) K/mm3 Absolute Neuts (auto) 6.21 (1.4-6.5) Retic Count (0.5-1.5) % PT (9.4-12.5) SECONDS INR APTT (26.9-38.3) Seconds pCO2 (35-45) mm/Hg pO2 (80-100) mm/Hg HCO3 (21-28) mmol/L ABG pH (7.35-7.45) ABG Total CO2 (22-28) mmol.L ABG O2 Saturation (95-98) % ABG O2 Content (15-23) ML/dl ABG Base Excess (-2.0-3.0) mmol/L ABG Hemoglobin (11.7-17.4) g/dL ABG Carboxyhemoglobin (0.5-1.5) % POC ABG HHb (Measured) (0-5) % ABG Methemoglobin (0.0-3.0) % ABG O2 Capacity (16-24) mL/dl ABG Potassium (3.6-5.2) mmol/L VBG pH (7.32-7.43) VBG pCO2 (40-60) VBG HCO3 (21-28) mmol/l VBG Total CO2 (22-28) mmol.L VBG O2 Sat (Calc) (40-65) % VBG Base Excess (0.0-2.0) mmol/L VBG Potassium (3.6-5.2) mmol/L Hgb O2 Saturation (95.0-98.0) % Glucose (65-105) mg/dl Lactate (0.7-2.1) mmol/L FiO2 % Pressure Support Inspiratory BiPAP Blood Gas Comments Crit Value Called To Crit Value Called By Blood Gas Notified Time Sodium 141 (132-148) mmol/L Potassium 4.9 (3.6-5.0) mmol/L Chloride 101 (98-107) mmol/L Carbon Dioxide 29 (21-33) mmol/L Anion Gap 16 (10-20) BUN 46 H (7-21) mg/dL Creatinine 3.2 H (0.7-1.2) mg/dl Est GFR ( Amer) 17 Est GFR (Non-Af Amer) 14 POC Glucose (mg/dL) (65-110) mg/dL Random Glucose 103 (70-110) mg/dL Calcium 10.2 (8.4-10.5) mg/dL Phosphorus 3.7 (2.5-4.5) mg/dL Magnesium 2.0 (1.7-2.2) mg/dL Iron (45-180) ug/dL TIBC (265-497) ug/dL % Saturation (20-55) % Total Bilirubin 0.5 (0.2-1.3) mg/dL AST 48 H D (14-36) U/L ALT 49 (7-56) U/L Alkaline Phosphatase 97 (38-126) U/L Lactate Dehydrogenase (333-699) U/L Total Creatine Kinase (35-230) U/L Troponin I 1.21 H* D ng/mL NT-Pro-B Natriuret Pep (0-450) pg/mL Total Protein 6.3 (5.8-8.3) g/dL Albumin 3.4 (3.0-4.8) g/dL Globulin 2.9 gm/dL Albumin/Globulin Ratio 1.1 (1.1-1.8) Procalcitonin (0.19-0.49) NG/ML TSH 3rd Generation 1.11 (0.46-4.68) mIU/mL Arterial Blood Potassium (3.6-5.2) mmol/L Venous Blood Potassium (3.6-5.2) mmol/L Urine Color (YELLOW) Urine Appearance (CLEAR) Urine pH (4.7-8.0) Ur Specific Scheller (1.005-1.035) Urine Protein (<30 mg/dL) mg/dL Urine Glucose (UA) (NEGATIVE) mg/dL Urine Ketones (NEGATIVE) mg/dL Urine Blood (NEGATIVE) Urine Nitrate (NEGATIVE) Urine Bilirubin (NEGATIVE) Urine Urobilinogen (<1 E.U./dL) E.U./dL Ur Leukocyte Esterase (NEGATIVE) Nicky/uL Urine RBC (0-2) /hpf Urine WBC (0-6) /hpf Ur Epithelial Cells (0-5) /hpf Urine Bacteria (NONE) /hpf Hyaline Casts (NONE) /hpf Influenza Typ A,B (EIA) (NEGATIVE) Ur L.pneumophila Ag (NEGATIVE) Blood Type Antibody Screen Crossmatch BBK History Checked 04/26/18 04/26/18 04/25/18 Range/Units 00:25 00:25 23:59 WBC (4.5-11.0) 10^3/uL RBC (3.5-6.1) 10^6/uL Hgb (12.0-16.0) g/dL Hct (36.0-48.0) % MCV (80.0-105.0) fl MCH (25.0-35.0) pg MCHC (31.0-37.0) g/dl RDW (11.5-14.5) % Plt Count (120.0-450.0) 10^3/uL MPV (7.0-11.0) fl Neut % (Auto) (50.0-68.0) % Lymph % (Auto) (22.0-35.0) % [place] % (Auto) (1.0-6.0) % Eos % (Auto) (1.5-5.0) % Baso % (Auto) (0.0-3.0) % Lymph # (Auto) (1.2-3.4) [place] # (Auto) (0.1-0.6) Eos # (Auto) (0.0-0.7) Baso # (Auto) (0.0-2.0) K/mm3 Absolute Neuts (auto) (1.4-6.5) Retic Count (0.5-1.5) % PT (9.4-12.5) SECONDS INR APTT 35.7 (26.9-38.3) Seconds pCO2 (35-45) mm/Hg pO2 (80-100) mm/Hg HCO3 (21-28) mmol/L ABG pH (7.35-7.45) ABG Total CO2 (22-28) mmol.L ABG O2 Saturation (95-98) % ABG O2 Content (15-23) ML/dl ABG Base Excess (-2.0-3.0) mmol/L ABG Hemoglobin (11.7-17.4) g/dL ABG Carboxyhemoglobin (0.5-1.5) % POC ABG HHb (Measured) (0-5) % ABG Methemoglobin (0.0-3.0) % ABG O2 Capacity (16-24) mL/dl ABG Potassium (3.6-5.2) mmol/L VBG pH (7.32-7.43) VBG pCO2 (40-60) VBG HCO3 (21-28) mmol/l VBG Total CO2 (22-28) mmol.L VBG O2 Sat (Calc) (40-65) % VBG Base Excess (0.0-2.0) mmol/L VBG Potassium (3.6-5.2) mmol/L Hgb O2 Saturation (95.0-98.0) % Glucose (65-105) mg/dl Lactate (0.7-2.1) mmol/L FiO2 % Pressure Support Inspiratory BiPAP Blood Gas Comments Crit Value Called To Crit Value Called By Blood Gas Notified Time Sodium (132-148) mmol/L Potassium (3.6-5.0) mmol/L Chloride (98-107) mmol/L Carbon Dioxide (21-33) mmol/L Anion Gap (10-20) BUN (7-21) mg/dL Creatinine (0.7-1.2) mg/dl Est GFR ( Amer) Est GFR (Non-Af Amer) POC Glucose (mg/dL) 127 H (65-110) mg/dL Random Glucose (70-110) mg/dL Calcium (8.4-10.5) mg/dL Phosphorus (2.5-4.5) mg/dL Magnesium (1.7-2.2) mg/dL Iron (45-180) ug/dL TIBC (265-497) ug/dL % Saturation (20-55) % Total Bilirubin (0.2-1.3) mg/dL AST (14-36) U/L ALT (7-56) U/L Alkaline Phosphatase (38-126) U/L Lactate Dehydrogenase (333-699) U/L Total Creatine Kinase (35-230) U/L Troponin I 1.72 H* ng/mL NT-Pro-B Natriuret Pep (0-450) pg/mL Total Protein (5.8-8.3) g/dL Albumin (3.0-4.8) g/dL Globulin gm/dL Albumin/Globulin Ratio (1.1-1.8) Procalcitonin (0.19-0.49) NG/ML TSH 3rd Generation (0.46-4.68) mIU/mL Arterial Blood Potassium (3.6-5.2) mmol/L Venous Blood Potassium (3.6-5.2) mmol/L Urine Color (YELLOW) Urine Appearance (CLEAR) Urine pH (4.7-8.0) Ur Specific Scheller (1.005-1.035) Urine Protein (<30 mg/dL) mg/dL Urine Glucose (UA) (NEGATIVE) mg/dL Urine Ketones (NEGATIVE) mg/dL Urine Blood (NEGATIVE) Urine Nitrate (NEGATIVE) Urine Bilirubin (NEGATIVE) Urine Urobilinogen (<1 E.U./dL) E.U./dL Ur Leukocyte Esterase (NEGATIVE) Nicky/uL Urine RBC (0-2) /hpf Urine WBC (0-6) /hpf Ur Epithelial Cells (0-5) /hpf Urine Bacteria (NONE) /hpf Hyaline Casts (NONE) /hpf Influenza Typ A,B (EIA) (NEGATIVE) Ur L.pneumophila Ag (NEGATIVE) Blood Type Antibody Screen Crossmatch BBK History Checked 04/25/18 04/25/18 04/25/18 Range/Units 18:30 18:30 18:22 WBC (4.5-11.0) 10^3/uL RBC (3.5-6.1) 10^6/uL Hgb (12.0-16.0) g/dL Hct (36.0-48.0) % MCV (80.0-105.0) fl MCH (25.0-35.0) pg MCHC (31.0-37.0) g/dl RDW (11.5-14.5) % Plt Count (120.0-450.0) 10^3/uL MPV (7.0-11.0) fl Neut % (Auto) (50.0-68.0) % Lymph % (Auto) (22.0-35.0) % [place] % (Auto) (1.0-6.0) % Eos % (Auto) (1.5-5.0) % Baso % (Auto) (0.0-3.0) % Lymph # (Auto) (1.2-3.4) [place] # (Auto) (0.1-0.6) Eos # (Auto) (0.0-0.7) Baso # (Auto) (0.0-2.0) K/mm3 Absolute Neuts (auto) (1.4-6.5) Retic Count (0.5-1.5) % PT (9.4-12.5) SECONDS INR APTT (26.9-38.3) Seconds pCO2 (35-45) mm/Hg pO2 (80-100) mm/Hg HCO3 (21-28) mmol/L ABG pH (7.35-7.45) ABG Total CO2 (22-28) mmol.L ABG O2 Saturation (95-98) % ABG O2 Content (15-23) ML/dl ABG Base Excess (-2.0-3.0) mmol/L ABG Hemoglobin (11.7-17.4) g/dL ABG Carboxyhemoglobin (0.5-1.5) % POC ABG HHb (Measured) (0-5) % ABG Methemoglobin (0.0-3.0) % ABG O2 Capacity (16-24) mL/dl ABG Potassium (3.6-5.2) mmol/L VBG pH (7.32-7.43) VBG pCO2 (40-60) VBG HCO3 (21-28) mmol/l VBG Total CO2 (22-28) mmol.L VBG O2 Sat (Calc) (40-65) % VBG Base Excess (0.0-2.0) mmol/L VBG Potassium (3.6-5.2) mmol/L Hgb O2 Saturation (95.0-98.0) % Glucose (65-105) mg/dl Lactate (0.7-2.1) mmol/L FiO2 % Pressure Support Inspiratory BiPAP Blood Gas Comments Crit Value Called To Crit Value Called By Blood Gas Notified Time Sodium (132-148) mmol/L Potassium (3.6-5.0) mmol/L Chloride (98-107) mmol/L Carbon Dioxide (21-33) mmol/L Anion Gap (10-20) BUN (7-21) mg/dL Creatinine (0.7-1.2) mg/dl Est GFR ( Amer) Est GFR (Non-Af Amer) POC Glucose (mg/dL) 127 H (65-110) mg/dL Random Glucose (70-110) mg/dL Calcium (8.4-10.5) mg/dL Phosphorus (2.5-4.5) mg/dL Magnesium (1.7-2.2) mg/dL Iron (45-180) ug/dL TIBC (265-497) ug/dL % Saturation (20-55) % Total Bilirubin (0.2-1.3) mg/dL AST (14-36) U/L ALT (7-56) U/L Alkaline Phosphatase (38-126) U/L Lactate Dehydrogenase (333-699) U/L Total Creatine Kinase (35-230) U/L Troponin I 1.64 H* D ng/mL NT-Pro-B Natriuret Pep (0-450) pg/mL Total Protein (5.8-8.3) g/dL Albumin (3.0-4.8) g/dL Globulin gm/dL Albumin/Globulin Ratio (1.1-1.8) Procalcitonin (0.19-0.49) NG/ML TSH 3rd Generation (0.46-4.68) mIU/mL Arterial Blood Potassium (3.6-5.2) mmol/L Venous Blood Potassium (3.6-5.2) mmol/L Urine Color (YELLOW) Urine Appearance (CLEAR) Urine pH (4.7-8.0) Ur Specific Scheller (1.005-1.035) Urine Protein (<30 mg/dL) mg/dL Urine Glucose (UA) (NEGATIVE) mg/dL Urine Ketones (NEGATIVE) mg/dL Urine Blood (NEGATIVE) Urine Nitrate (NEGATIVE) Urine Bilirubin (NEGATIVE) Urine Urobilinogen (<1 E.U./dL) E.U./dL Ur Leukocyte Esterase (NEGATIVE) Nicky/uL Urine RBC (0-2) /hpf Urine WBC (0-6) /hpf Ur Epithelial Cells (0-5) /hpf Urine Bacteria (NONE) /hpf Hyaline Casts (NONE) /hpf Influenza Typ A,B (EIA) Negative for flu a/b (NEGATIVE) Ur L.pneumophila Ag (NEGATIVE) Blood Type Antibody Screen Crossmatch BBK History Checked 04/25/18 04/25/18 04/25/18 Range/Units 15:52 15:52 15:30 WBC (4.5-11.0) 10^3/uL RBC (3.5-6.1) 10^6/uL Hgb (12.0-16.0) g/dL Hct (36.0-48.0) % MCV (80.0-105.0) fl MCH (25.0-35.0) pg MCHC (31.0-37.0) g/dl RDW (11.5-14.5) % Plt Count (120.0-450.0) 10^3/uL MPV (7.0-11.0) fl Neut % (Auto) (50.0-68.0) % Lymph % (Auto) (22.0-35.0) % [place] % (Auto) (1.0-6.0) % Eos % (Auto) (1.5-5.0) % Baso % (Auto) (0.0-3.0) % Lymph # (Auto) (1.2-3.4) [place] # (Auto) (0.1-0.6) Eos # (Auto) (0.0-0.7) Baso # (Auto) (0.0-2.0) K/mm3 Absolute Neuts (auto) (1.4-6.5) Retic Count (0.5-1.5) % PT (9.4-12.5) SECONDS INR APTT (26.9-38.3) Seconds pCO2 (35-45) mm/Hg pO2 37 (80-100) mm/Hg HCO3 (21-28) mmol/L ABG pH (7.35-7.45) ABG Total CO2 (22-28) mmol.L ABG O2 Saturation (95-98) % ABG O2 Content (15-23) ML/dl ABG Base Excess (-2.0-3.0) mmol/L ABG Hemoglobin (11.7-17.4) g/dL ABG Carboxyhemoglobin (0.5-1.5) % POC ABG HHb (Measured) (0-5) % ABG Methemoglobin (0.0-3.0) % ABG O2 Capacity (16-24) mL/dl ABG Potassium (3.6-5.2) mmol/L VBG pH 7.35 (7.32-7.43) VBG pCO2 59.0 (40-60) VBG HCO3 32.6 H (21-28) mmol/l VBG Total CO2 34.4 H (22-28) mmol.L VBG O2 Sat (Calc) 78.2 H (40-65) % VBG Base Excess 5.2 H (0.0-2.0) mmol/L VBG Potassium 4.3 (3.6-5.2) mmol/L Hgb O2 Saturation (95.0-98.0) % Glucose 129 H (65-105) mg/dl Lactate 1.6 (0.7-2.1) mmol/L FiO2 21.0 % Pressure Support Inspiratory BiPAP Blood Gas Comments Crit Value Called To Crit Value Called By Blood Gas Notified Time Sodium 141.0 (132-148) mmol/L Potassium (3.6-5.0) mmol/L Chloride 105.0 (98-107) mmol/L Carbon Dioxide (21-33) mmol/L Anion Gap (10-20) BUN (7-21) mg/dL Creatinine (0.7-1.2) mg/dl Est GFR ( Amer) Est GFR (Non-Af Amer) POC Glucose (mg/dL) (65-110) mg/dL Random Glucose (70-110) mg/dL Calcium (8.4-10.5) mg/dL Phosphorus (2.5-4.5) mg/dL Magnesium (1.7-2.2) mg/dL Iron (45-180) ug/dL TIBC (265-497) ug/dL % Saturation (20-55) % Total Bilirubin (0.2-1.3) mg/dL AST (14-36) U/L ALT (7-56) U/L Alkaline Phosphatase (38-126) U/L Lactate Dehydrogenase (333-699) U/L Total Creatine Kinase (35-230) U/L Troponin I ng/mL NT-Pro-B Natriuret Pep (0-450) pg/mL Total Protein (5.8-8.3) g/dL Albumin (3.0-4.8) g/dL Globulin gm/dL Albumin/Globulin Ratio (1.1-1.8) Procalcitonin (0.19-0.49) NG/ML TSH 3rd Generation (0.46-4.68) mIU/mL Arterial Blood Potassium (3.6-5.2) mmol/L Venous Blood Potassium 4.3 (3.6-5.2) mmol/L Urine Color Yellow (YELLOW) Urine Appearance Clear (CLEAR) Urine pH 6.0 (4.7-8.0) Ur Specific Scheller 1.020 (1.005-1.035) Urine Protein 30 H (<30 mg/dL) mg/dL Urine Glucose (UA) 100 H (NEGATIVE) mg/dL Urine Ketones Negative (NEGATIVE) mg/dL Urine Blood Trace-intact H (NEGATIVE) Urine Nitrate Negative (NEGATIVE) Urine Bilirubin Negative (NEGATIVE) Urine Urobilinogen 0.2 (<1 E.U./dL) E.U./dL Ur Leukocyte Esterase Negative (NEGATIVE) Nicky/uL Urine RBC 0 - 2 (0-2) /hpf Urine WBC None (0-6) /hpf Ur Epithelial Cells 0 - 2 (0-5) /hpf Urine Bacteria Neg (NONE) /hpf Hyaline Casts 0 - 2 (NONE) /hpf Influenza Typ A,B (EIA) (NEGATIVE) Ur L.pneumophila Ag Negative (NEGATIVE) Blood Type Antibody Screen Crossmatch BBK History Checked 04/25/18 04/25/18 04/25/18 Range/Units 14:10 14:00 12:40 WBC (4.5-11.0) 10^3/uL RBC (3.5-6.1) 10^6/uL Hgb (12.0-16.0) g/dL Hct (36.0-48.0) % MCV (80.0-105.0) fl MCH (25.0-35.0) pg MCHC (31.0-37.0) g/dl RDW (11.5-14.5) % Plt Count (120.0-450.0) 10^3/uL MPV (7.0-11.0) fl Neut % (Auto) (50.0-68.0) % Lymph % (Auto) (22.0-35.0) % [place] % (Auto) (1.0-6.0) % Eos % (Auto) (1.5-5.0) % Baso % (Auto) (0.0-3.0) % Lymph # (Auto) (1.2-3.4) [place] # (Auto) (0.1-0.6) Eos # (Auto) (0.0-0.7) Baso # (Auto) (0.0-2.0) K/mm3 Absolute Neuts (auto) (1.4-6.5) Retic Count (0.5-1.5) % PT (9.4-12.5) SECONDS INR APTT (26.9-38.3) Seconds pCO2 48 H 61 H (35-45) mm/Hg pO2 361.0 H 18.0 L* (80-100) mm/Hg HCO3 31.1 H 33.7 H (21-28) mmol/L ABG pH 7.42 7.35 (7.35-7.45) ABG Total CO2 32.6 H 35.6 H (22-28) mmol.L ABG O2 Saturation 101.0 H 27.8 L (95-98) % ABG O2 Content 10.3 L (15-23) ML/dl ABG Base Excess 6.0 H 6.1 H (-2.0-3.0) mmol/L ABG Hemoglobin 6.7 L (11.7-17.4) g/dL ABG Carboxyhemoglobin 1.9 H (0.5-1.5) % POC ABG HHb (Measured) -1.0 L (0-5) % ABG Methemoglobin 0.2 (0.0-3.0) % ABG O2 Capacity 10.2 L (16-24) mL/dl ABG Potassium 4.1 (3.6-5.2) mmol/L VBG pH (7.32-7.43) VBG pCO2 (40-60) VBG HCO3 (21-28) mmol/l VBG Total CO2 (22-28) mmol.L VBG O2 Sat (Calc) (40-65) % VBG Base Excess (0.0-2.0) mmol/L VBG Potassium (3.6-5.2) mmol/L Hgb O2 Saturation 98.9 H (95.0-98.0) % Glucose 130 H (65-105) mg/dl Lactate 2.7 H (0.7-2.1) mmol/L FiO2 100.0 100.0 % Pressure Support 7 Inspiratory BiPAP 12 Blood Gas Comments Possible venous. notified po2,pco2,lactate cv reported Crit Value Called To Chris alarcon Crit Value Called By Rst Blood Gas Notified Time 1250 Sodium 142.0 (132-148) mmol/L Potassium (3.6-5.0) mmol/L Chloride 106.0 (98-107) mmol/L Carbon Dioxide (21-33) mmol/L Anion Gap (10-20) BUN (7-21) mg/dL Creatinine (0.7-1.2) mg/dl Est GFR ( Amer) Est GFR (Non-Af Amer) POC Glucose (mg/dL) (65-110) mg/dL Random Glucose (70-110) mg/dL Calcium (8.4-10.5) mg/dL Phosphorus (2.5-4.5) mg/dL Magnesium (1.7-2.2) mg/dL Iron (45-180) ug/dL TIBC (265-497) ug/dL % Saturation (20-55) % Total Bilirubin (0.2-1.3) mg/dL AST (14-36) U/L ALT (7-56) U/L Alkaline Phosphatase (38-126) U/L Lactate Dehydrogenase (333-699) U/L Total Creatine Kinase (35-230) U/L Troponin I ng/mL NT-Pro-B Natriuret Pep (0-450) pg/mL Total Protein (5.8-8.3) g/dL Albumin (3.0-4.8) g/dL Globulin gm/dL Albumin/Globulin Ratio (1.1-1.8) Procalcitonin 0.69 H (0.19-0.49) NG/ML TSH 3rd Generation (0.46-4.68) mIU/mL Arterial Blood Potassium 4.1 (3.6-5.2) mmol/L Venous Blood Potassium (3.6-5.2) mmol/L Urine Color (YELLOW) Urine Appearance (CLEAR) Urine pH (4.7-8.0) Ur Specific Scheller (1.005-1.035) Urine Protein (<30 mg/dL) mg/dL Urine Glucose (UA) (NEGATIVE) mg/dL Urine Ketones (NEGATIVE) mg/dL Urine Blood (NEGATIVE) Urine Nitrate (NEGATIVE) Urine Bilirubin (NEGATIVE) Urine Urobilinogen (<1 E.U./dL) E.U./dL Ur Leukocyte Esterase (NEGATIVE) Nicky/uL Urine RBC (0-2) /hpf Urine WBC (0-6) /hpf Ur Epithelial Cells (0-5) /hpf Urine Bacteria (NONE) /hpf Hyaline Casts (NONE) /hpf Influenza Typ A,B (EIA) (NEGATIVE) Ur L.pneumophila Ag (NEGATIVE) Blood Type Antibody Screen Crossmatch BBK History Checked 04/25/18 04/25/18 04/25/18 Range/Units 12:35 12:35 12:35 WBC 11.9 H (4.5-11.0) 10^3/uL RBC 2.30 L (3.5-6.1) 10^6/uL Hgb 7.4 L (12.0-16.0) g/dL Hct 24.2 L (36.0-48.0) % MCV 105.2 H (80.0-105.0) fl MCH 32.2 (25.0-35.0) pg MCHC 30.6 L (31.0-37.0) g/dl RDW 14.9 H (11.5-14.5) % Plt Count 183 (120.0-450.0) 10^3/uL MPV 10.7 (7.0-11.0) fl Neut % (Auto) 79.4 H (50.0-68.0) % Lymph % (Auto) 12.2 L (22.0-35.0) % [place] % (Auto) 8.0 H (1.0-6.0) % Eos % (Auto) 0.1 L (1.5-5.0) % Baso % (Auto) 0.3 (0.0-3.0) % Lymph # (Auto) 1.5 (1.2-3.4) [place] # (Auto) 1.0 H (0.1-0.6) Eos # (Auto) 0.0 (0.0-0.7) Baso # (Auto) 0.03 (0.0-2.0) K/mm3 Absolute Neuts (auto) 9.42 H (1.4-6.5) Retic Count (0.5-1.5) % PT 21.2 H (9.4-12.5) SECONDS INR 1.88 APTT 31.5 (26.9-38.3) Seconds pCO2 (35-45) mm/Hg pO2 (80-100) mm/Hg HCO3 (21-28) mmol/L ABG pH (7.35-7.45) ABG Total CO2 (22-28) mmol.L ABG O2 Saturation (95-98) % ABG O2 Content (15-23) ML/dl ABG Base Excess (-2.0-3.0) mmol/L ABG Hemoglobin (11.7-17.4) g/dL ABG Carboxyhemoglobin (0.5-1.5) % POC ABG HHb (Measured) (0-5) % ABG Methemoglobin (0.0-3.0) % ABG O2 Capacity (16-24) mL/dl ABG Potassium (3.6-5.2) mmol/L VBG pH (7.32-7.43) VBG pCO2 (40-60) VBG HCO3 (21-28) mmol/l VBG Total CO2 (22-28) mmol.L VBG O2 Sat (Calc) (40-65) % VBG Base Excess (0.0-2.0) mmol/L VBG Potassium (3.6-5.2) mmol/L Hgb O2 Saturation (95.0-98.0) % Glucose (65-105) mg/dl Lactate (0.7-2.1) mmol/L FiO2 % Pressure Support Inspiratory BiPAP Blood Gas Comments Crit Value Called To Crit Value Called By Blood Gas Notified Time Sodium 140 (132-148) mmol/L Potassium 4.0 (3.6-5.0) mmol/L Chloride 100 (98-107) mmol/L Carbon Dioxide 30 (21-33) mmol/L Anion Gap 14 (10-20) BUN 42 H (7-21) mg/dL Creatinine 2.6 H (0.7-1.2) mg/dl Est GFR ( Amer) 22 Est GFR (Non-Af Amer) 18 POC Glucose (mg/dL) (65-110) mg/dL Random Glucose 134 H (70-110) mg/dL Calcium 10.5 (8.4-10.5) mg/dL Phosphorus 3.2 (2.5-4.5) mg/dL Magnesium 2.0 (1.7-2.2) mg/dL Iron (45-180) ug/dL TIBC (265-497) ug/dL % Saturation (20-55) % Total Bilirubin 0.5 (0.2-1.3) mg/dL AST 65 H (14-36) U/L ALT 52 (7-56) U/L Alkaline Phosphatase 107 (38-126) U/L Lactate Dehydrogenase (333-699) U/L Total Creatine Kinase 35 (35-230) U/L Troponin I 0.27 H* ng/mL NT-Pro-B Natriuret Pep [id number] H (0-450) pg/mL Total Protein 6.8 (5.8-8.3) g/dL Albumin 3.6 (3.0-4.8) g/dL Globulin 3.3 gm/dL Albumin/Globulin Ratio 1.1 (1.1-1.8) Procalcitonin (0.19-0.49) NG/ML TSH 3rd Generation (0.46-4.68) mIU/mL Arterial Blood Potassium (3.6-5.2) mmol/L Venous Blood Potassium (3.6-5.2) mmol/L Urine Color (YELLOW) Urine Appearance (CLEAR) Urine pH (4.7-8.0) Ur Specific Scheller (1.005-1.035) Urine Protein (<30 mg/dL) mg/dL Urine Glucose (UA) (NEGATIVE) mg/dL Urine Ketones (NEGATIVE) mg/dL Urine Blood (NEGATIVE) Urine Nitrate (NEGATIVE) Urine Bilirubin (NEGATIVE) Urine Urobilinogen (<1 E.U./dL) E.U./dL Ur Leukocyte Esterase (NEGATIVE) Nicky/uL Urine RBC (0-2) /hpf Urine WBC (0-6) /hpf Ur Epithelial Cells (0-5) /hpf Urine Bacteria (NONE) /hpf Hyaline Casts (NONE) /hpf Influenza Typ A,B (EIA) (NEGATIVE) Ur L.pneumophila Ag (NEGATIVE) Blood Type Antibody Screen Crossmatch BBK History Checked Laboratory Results - last 24 hr 04/25/18 04/25/18 04/25/18 12:35 12:35 12:35 WBC 11.9 H RBC 2.30 L Hgb 7.4 L Hct 24.2 L MCV 105.2 H MCH 32.2 MCHC 30.6 L RDW 14.9 H Plt Count 183 MPV 10.7 Neut % (Auto) 79.4 H Lymph % (Auto) 12.2 L [place] % (Auto) 8.0 H Eos % (Auto) 0.1 L Baso % (Auto) 0.3 Lymph # (Auto) 1.5 [place] # (Auto) 1.0 H Eos # (Auto) 0.0 Baso # (Auto) 0.03 Absolute Neuts (auto) 9.42 H Retic Count PT 21.2 H INR 1.88 APTT 31.5 pCO2 pO2 HCO3 ABG pH ABG Total CO2 ABG O2 Saturation ABG O2 Content ABG Base Excess ABG Hemoglobin ABG Carboxyhemoglobin POC ABG HHb (Measured) ABG Methemoglobin ABG O2 Capacity ABG Potassium VBG pH VBG pCO2 VBG HCO3 VBG Total CO2 VBG O2 Sat (Calc) VBG Base Excess VBG Potassium Hgb O2 Saturation Glucose Lactate FiO2 Pressure Support Inspiratory BiPAP Blood Gas Comments Crit Value Called To Crit Value Called By Blood Gas Notified Time Sodium 140 Potassium 4.0 Chloride 100 Carbon Dioxide 30 Anion Gap 14 BUN 42 H Creatinine 2.6 H Est GFR ( Amer) 22 Est GFR (Non-Af Amer) 18 POC Glucose (mg/dL) Random Glucose 134 H Calcium 10.5 Phosphorus 3.2 Magnesium 2.0 Iron TIBC % Saturation Total Bilirubin 0.5 AST 65 H ALT 52 Alkaline Phosphatase 107 Lactate Dehydrogenase Total Creatine Kinase 35 Troponin I 0.27 H* NT-Pro-B Natriuret Pep 58229 H Total Protein 6.8 Albumin 3.6 Globulin 3.3 Albumin/Globulin Ratio 1.1 Procalcitonin TSH 3rd Generation Arterial Blood Potassium Venous Blood Potassium Urine Color Urine Appearance Urine pH Ur Specific Scheller Urine Protein Urine Glucose (UA) Urine Ketones Urine Blood Urine Nitrate Urine Bilirubin Urine Urobilinogen Ur Leukocyte Esterase Urine RBC Urine WBC Ur Epithelial Cells Urine Bacteria Hyaline Casts Influenza Typ A,B (EIA) Ur L.pneumophila Ag Blood Type Antibody Screen Crossmatch BBK History Checked 04/25/18 04/25/18 04/25/18 12:40 14:00 14:10 WBC RBC Hgb Hct MCV MCH MCHC RDW Plt Count MPV Neut % (Auto) Lymph % (Auto) [place] % (Auto) Eos % (Auto) Baso % (Auto) Lymph # (Auto) [place] # (Auto) Eos # (Auto) Baso # (Auto) Absolute Neuts (auto) Retic Count PT INR APTT pCO2 61 H 48 H pO2 18.0 L* 361.0 H HCO3 33.7 H 31.1 H ABG pH 7.35 7.42 ABG Total CO2 35.6 H 32.6 H ABG O2 Saturation 27.8 L 101.0 H ABG O2 Content 10.3 L ABG Base Excess 6.1 H 6.0 H ABG Hemoglobin 6.7 L ABG Carboxyhemoglobin 1.9 H POC ABG HHb (Measured) -1.0 L ABG Methemoglobin 0.2 ABG O2 Capacity 10.2 L ABG Potassium 4.1 VBG pH VBG pCO2 VBG HCO3 VBG Total CO2 VBG O2 Sat (Calc) VBG Base Excess VBG Potassium Hgb O2 Saturation 98.9 H Glucose 130 H Lactate 2.7 H FiO2 100.0 100.0 Pressure Support 7 Inspiratory BiPAP 12 Blood Gas Comments Possible venous. notified po2,pco2,lactate cv reported Crit Value Called To Chris alarcon Crit Value Called By Rst Blood Gas Notified Time 1250 Sodium 142.0 Potassium Chloride 106.0 Carbon Dioxide Anion Gap BUN Creatinine Est GFR ( Amer) Est GFR (Non-Af Amer) POC Glucose (mg/dL) Random Glucose Calcium Phosphorus Magnesium Iron TIBC % Saturation Total Bilirubin AST ALT Alkaline Phosphatase Lactate Dehydrogenase Total Creatine Kinase Troponin I NT-Pro-B Natriuret Pep Total Protein Albumin Globulin Albumin/Globulin Ratio Procalcitonin 0.69 H TSH 3rd Generation Arterial Blood Potassium 4.1 Venous Blood Potassium Urine Color Urine Appearance Urine pH Ur Specific Scheller Urine Protein Urine Glucose (UA) Urine Ketones Urine Blood Urine Nitrate Urine Bilirubin Urine Urobilinogen Ur Leukocyte Esterase Urine RBC Urine WBC Ur Epithelial Cells Urine Bacteria Hyaline Casts Influenza Typ A,B (EIA) Ur L.pneumophila Ag Blood Type Antibody Screen Crossmatch BBK History Checked 04/25/18 04/25/18 04/25/18 15:30 15:52 15:52 WBC RBC Hgb Hct MCV MCH MCHC RDW Plt Count MPV Neut % (Auto) Lymph % (Auto) [place] % (Auto) Eos % (Auto) Baso % (Auto) Lymph # (Auto) [place] # (Auto) Eos # (Auto) Baso # (Auto) Absolute Neuts (auto) Retic Count PT INR APTT pCO2 pO2 37 HCO3 ABG pH ABG Total CO2 ABG O2 Saturation ABG O2 Content ABG Base Excess ABG Hemoglobin ABG Carboxyhemoglobin POC ABG HHb (Measured) ABG Methemoglobin ABG O2 Capacity ABG Potassium VBG pH 7.35 VBG pCO2 59.0 VBG HCO3 32.6 H VBG Total CO2 34.4 H VBG O2 Sat (Calc) 78.2 H VBG Base Excess 5.2 H VBG Potassium 4.3 Hgb O2 Saturation Glucose 129 H Lactate 1.6 FiO2 21.0 Pressure Support Inspiratory BiPAP Blood Gas Comments Crit Value Called To Crit Value Called By Blood Gas Notified Time Sodium 141.0 Potassium Chloride 105.0 Carbon Dioxide Anion Gap BUN Creatinine Est GFR ( Amer) Est GFR (Non-Af Amer) POC Glucose (mg/dL) Random Glucose Calcium Phosphorus Magnesium Iron TIBC % Saturation Total Bilirubin AST ALT Alkaline Phosphatase Lactate Dehydrogenase Total Creatine Kinase Troponin I NT-Pro-B Natriuret Pep Total Protein Albumin Globulin Albumin/Globulin Ratio Procalcitonin TSH 3rd Generation Arterial Blood Potassium Venous Blood Potassium 4.3 Urine Color Yellow Urine Appearance Clear Urine pH 6.0 Ur Specific Scheller 1.020 Urine Protein 30 H Urine Glucose (UA) 100 H Urine Ketones Negative Urine Blood Trace-intact H Urine Nitrate Negative Urine Bilirubin Negative Urine Urobilinogen 0.2 Ur Leukocyte Esterase Negative Urine RBC 0 - 2 Urine WBC None Ur Epithelial Cells 0 - 2 Urine Bacteria Neg Hyaline Casts 0 - 2 Influenza Typ A,B (EIA) Ur L.pneumophila Ag Negative Blood Type Antibody Screen Crossmatch BBK History Checked 04/25/18 04/25/18 04/25/18 18:22 18:30 18:30 WBC RBC Hgb Hct MCV MCH MCHC RDW Plt Count MPV Neut % (Auto) Lymph % (Auto) [place] % (Auto) Eos % (Auto) Baso % (Auto) Lymph # (Auto) [place] # (Auto) Eos # (Auto) Baso # (Auto) Absolute Neuts (auto) Retic Count PT INR APTT pCO2 pO2 HCO3 ABG pH ABG Total CO2 ABG O2 Saturation ABG O2 Content ABG Base Excess ABG Hemoglobin ABG Carboxyhemoglobin POC ABG HHb (Measured) ABG Methemoglobin ABG O2 Capacity ABG Potassium VBG pH VBG pCO2 VBG HCO3 VBG Total CO2 VBG O2 Sat (Calc) VBG Base Excess VBG Potassium Hgb O2 Saturation Glucose Lactate FiO2 Pressure Support Inspiratory BiPAP Blood Gas Comments Crit Value Called To Crit Value Called By Blood Gas Notified Time Sodium Potassium Chloride Carbon Dioxide Anion Gap BUN Creatinine Est GFR ( Amer) Est GFR (Non-Af Amer) POC Glucose (mg/dL) 127 H Random Glucose Calcium Phosphorus Magnesium Iron TIBC % Saturation Total Bilirubin AST ALT Alkaline Phosphatase Lactate Dehydrogenase Total Creatine Kinase Troponin I 1.64 H* D NT-Pro-B Natriuret Pep Total Protein Albumin Globulin Albumin/Globulin Ratio Procalcitonin TSH 3rd Generation Arterial Blood Potassium Venous Blood Potassium Urine Color Urine Appearance Urine pH Ur Specific Scheller Urine Protein Urine Glucose (UA) Urine Ketones Urine Blood Urine Nitrate Urine Bilirubin Urine Urobilinogen Ur Leukocyte Esterase Urine RBC Urine WBC Ur Epithelial Cells Urine Bacteria Hyaline Casts Influenza Typ A,B (EIA) Negative for flu a/b Ur L.pneumophila Ag Blood Type Antibody Screen Crossmatch BBK History Checked 04/25/18 04/26/18 04/26/18 23:59 00:25 00:25 WBC RBC Hgb Hct MCV MCH MCHC RDW Plt Count MPV Neut % (Auto) Lymph % (Auto) [place] % (Auto) Eos % (Auto) Baso % (Auto) Lymph # (Auto) [place] # (Auto) Eos # (Auto) Baso # (Auto) Absolute Neuts (auto) Retic Count PT INR APTT 35.7 pCO2 pO2 HCO3 ABG pH ABG Total CO2 ABG O2 Saturation ABG O2 Content ABG Base Excess ABG Hemoglobin ABG Carboxyhemoglobin POC ABG HHb (Measured) ABG Methemoglobin ABG O2 Capacity ABG Potassium VBG pH VBG pCO2 VBG HCO3 VBG Total CO2 VBG O2 Sat (Calc) VBG Base Excess VBG Potassium Hgb O2 Saturation Glucose Lactate FiO2 Pressure Support Inspiratory BiPAP Blood Gas Comments Crit Value Called To Crit Value Called By Blood Gas Notified Time Sodium Potassium Chloride Carbon Dioxide Anion Gap BUN Creatinine Est GFR ( Amer) Est GFR (Non-Af Amer) POC Glucose (mg/dL) 127 H Random Glucose Calcium Phosphorus Magnesium Iron TIBC % Saturation Total Bilirubin AST ALT Alkaline Phosphatase Lactate Dehydrogenase Total Creatine Kinase Troponin I 1.72 H* NT-Pro-B Natriuret Pep Total Protein Albumin Globulin Albumin/Globulin Ratio Procalcitonin TSH 3rd Generation Arterial Blood Potassium Venous Blood Potassium Urine Color Urine Appearance Urine pH Ur Specific Scheller Urine Protein Urine Glucose (UA) Urine Ketones Urine Blood Urine Nitrate Urine Bilirubin Urine Urobilinogen Ur Leukocyte Esterase Urine RBC Urine WBC Ur Epithelial Cells Urine Bacteria Hyaline Casts Influenza Typ A,B (EIA) Ur L.pneumophila Ag Blood Type Antibody Screen Crossmatch BBK History Checked 04/26/18 04/26/18 04/26/18 05:50 05:50 05:50 WBC 7.6 D RBC 2.12 L Hgb 6.8 L* Hct 22.4 L MCV 105.7 H MCH 32.1 MCHC 30.4 L RDW 15.0 H Plt Count 158 MPV 10.8 Neut % (Auto) 81.8 H Lymph % (Auto) 16.5 L [place] % (Auto) 1.6 Eos % (Auto) 0.0 L Baso % (Auto) 0.1 Lymph # (Auto) 1.3 [place] # (Auto) 0.1 Eos # (Auto) 0.0 Baso # (Auto) 0.01 Absolute Neuts (auto) 6.21 Retic Count PT INR APTT pCO2 pO2 HCO3 ABG pH ABG Total CO2 ABG O2 Saturation ABG O2 Content ABG Base Excess ABG Hemoglobin ABG Carboxyhemoglobin POC ABG HHb (Measured) ABG Methemoglobin ABG O2 Capacity ABG Potassium VBG pH VBG pCO2 VBG HCO3 VBG Total CO2 VBG O2 Sat (Calc) VBG Base Excess VBG Potassium Hgb O2 Saturation Glucose Lactate FiO2 Pressure Support Inspiratory BiPAP Blood Gas Comments Crit Value Called To Crit Value Called By Blood Gas Notified Time Sodium 141 Potassium 4.9 Chloride 101 Carbon Dioxide 29 Anion Gap 16 BUN 46 H Creatinine 3.2 H Est GFR ( Amer) 17 Est GFR (Non-Af Amer) 14 POC Glucose (mg/dL) Random Glucose 103 Calcium 10.2 Phosphorus 3.7 Magnesium 2.0 Iron TIBC % Saturation Total Bilirubin 0.5 AST 48 H D ALT 49 Alkaline Phosphatase 97 Lactate Dehydrogenase Total Creatine Kinase Troponin I 1.21 H* D NT-Pro-B Natriuret Pep Total Protein 6.3 Albumin 3.4 Globulin 2.9 Albumin/Globulin Ratio 1.1 Procalcitonin TSH 3rd Generation 1.11 Arterial Blood Potassium Venous Blood Potassium Urine Color Urine Appearance Urine pH Ur Specific Scheller Urine Protein Urine Glucose (UA) Urine Ketones Urine Blood Urine Nitrate Urine Bilirubin Urine Urobilinogen Ur Leukocyte Esterase Urine RBC Urine WBC Ur Epithelial Cells Urine Bacteria Hyaline Casts Influenza Typ A,B (EIA) Ur L.pneumophila Ag Blood Type Antibody Screen Crossmatch BBK History Checked 04/26/18 04/26/18 04/26/18 05:50 05:50 06:00 WBC RBC Hgb Hct MCV MCH MCHC RDW Plt Count MPV Neut % (Auto) Lymph % (Auto) [place] % (Auto) Eos % (Auto) Baso % (Auto) Lymph # (Auto) [place] # (Auto) Eos # (Auto) Baso # (Auto) Absolute Neuts (auto) Retic Count 2.44 H PT INR APTT 35.1 pCO2 pO2 HCO3 ABG pH ABG Total CO2 ABG O2 Saturation ABG O2 Content ABG Base Excess ABG Hemoglobin ABG Carboxyhemoglobin POC ABG HHb (Measured) ABG Methemoglobin ABG O2 Capacity ABG Potassium VBG pH VBG pCO2 VBG HCO3 VBG Total CO2 VBG O2 Sat (Calc) VBG Base Excess VBG Potassium Hgb O2 Saturation Glucose Lactate FiO2 Pressure Support Inspiratory BiPAP Blood Gas Comments Crit Value Called To Crit Value Called By Blood Gas Notified Time Sodium Potassium Chloride Carbon Dioxide Anion Gap BUN Creatinine Est GFR ( Amer) Est GFR (Non-Af Amer) POC Glucose (mg/dL) Random Glucose Calcium Phosphorus Magnesium Iron 62 TIBC 187 L % Saturation 33 Total Bilirubin AST ALT Alkaline Phosphatase Lactate Dehydrogenase Total Creatine Kinase Troponin I NT-Pro-B Natriuret Pep Total Protein Albumin Globulin Albumin/Globulin Ratio Procalcitonin TSH 3rd Generation Arterial Blood Potassium Venous Blood Potassium Urine Color Urine Appearance Urine pH Ur Specific Scheller Urine Protein Urine Glucose (UA) Urine Ketones Urine Blood Urine Nitrate Urine Bilirubin Urine Urobilinogen Ur Leukocyte Esterase Urine RBC Urine WBC Ur Epithelial Cells Urine Bacteria Hyaline Casts Influenza Typ A,B (EIA) Ur L.pneumophila Ag Blood Type Antibody Screen Crossmatch BBK History Checked 04/26/18 04/26/18 04/26/18 06:00 06:01 06:44 WBC RBC Hgb Hct MCV MCH MCHC RDW Plt Count MPV Neut % (Auto) Lymph % (Auto) [place] % (Auto) Eos % (Auto) Baso % (Auto) Lymph # (Auto) [place] # (Auto) Eos # (Auto) Baso # (Auto) Absolute Neuts (auto) Retic Count PT INR APTT pCO2 pO2 HCO3 ABG pH ABG Total CO2 ABG O2 Saturation ABG O2 Content ABG Base Excess ABG Hemoglobin ABG Carboxyhemoglobin POC ABG HHb (Measured) ABG Methemoglobin ABG O2 Capacity ABG Potassium VBG pH VBG pCO2 VBG HCO3 VBG Total CO2 VBG O2 Sat (Calc) VBG Base Excess VBG Potassium Hgb O2 Saturation Glucose Lactate FiO2 Pressure Support Inspiratory BiPAP Blood Gas Comments Crit Value Called To Crit Value Called By Blood Gas Notified Time Sodium Potassium Chloride Carbon Dioxide Anion Gap BUN Creatinine Est GFR ( Amer) Est GFR (Non-Af Amer) POC Glucose (mg/dL) 117 H Random Glucose Calcium Phosphorus Magnesium Iron TIBC % Saturation Total Bilirubin AST ALT Alkaline Phosphatase Lactate Dehydrogenase 630 Total Creatine Kinase Troponin I NT-Pro-B Natriuret Pep Total Protein Albumin Globulin Albumin/Globulin Ratio Procalcitonin TSH 3rd Generation Arterial Blood Potassium Venous Blood Potassium Urine Color Urine Appearance Urine pH Ur Specific Scheller Urine Protein Urine Glucose (UA) Urine Ketones Urine Blood Urine Nitrate Urine Bilirubin Urine Urobilinogen Ur Leukocyte Esterase Urine RBC Urine WBC Ur Epithelial Cells Urine Bacteria Hyaline Casts Influenza Typ A,B (EIA) Ur L.pneumophila Ag Blood Type O POSITIVE Antibody Screen Negative Crossmatch See Detail BBK History Checked No verified bt Radiology Impressions: Radiology Impressions Chest X-Ray 04/25/18 12:26 IMPRESSION: Limited portable examination. Severe cardiomegaly and moderate pulmonary venous congestion. EKG/Cardiology Studies: Cardiology / EKG Studies 04/25/18 12:33 EKG [ELECTROCARDIOGRAM] Stat Comment: Reason For Exam: SOB 04/25/18 14:02 EKG [ELECTROCARDIOGRAM] Stat Comment: Reason For Exam: SOB Fingerstick Blood Sugar Results: 117 Review of Systems - Review of Systems Systems not reviewed;Unavailable: Altered Mental Status Review of Systems: negative except for what was mentioned in HPI Critical Care Progress Note - Ventilator Checklist Head of Bed 30 Degrees: Yes PUD Prophalyxis: Yes DVT Prophylaxis: Yes - Nutrition Nutrition: Nutrition Category Date Time Status NPO Diet [DIET] Diets 04/25/18 Dinner Ordered Assessment/Plan - Assessment and Plan (Free Text) Assessment: 77 year old female with past medical history of questionable congestive heart failure with last EF of 50%, COPD, LUE DVT currently on eliquis, SLE, lupus nephritis (currently on prednisone and prograf), and osteoporosis presents with worsened, labored breathing. Patient was admitted for hypoxic, hypercarbic respiratory failure 2/2 to CHF exacerbation vs. bilobar pneumonia in the setting of immunosuppresive therapy vs. COPD exacerbation. Plan: Hypoxic, hypercarbic respiratory failure likely 2/2 to CHF Exacerbation -Currently saturating well on 1 L of NC -CXR: severe cardiomegaly and pulmonary venous congestion, bilateral lower lobe effusion -BNP upon admission was 6[address] with baseline of around 3000 on prior admissions -Last echocardiogram from prior admission in 02/2018 showed EF of 50% with no diastolic dysfunction -Follow up CT chest without contrast ordered for better evaluation of cardiomegaly -Follow up echocardiogram due to new elevation in BNP -Repeat ABG to monitor for improvement. -Standing lasix stopped due to CKD with renal transplant -Lasix should be given as needed, however, and should be given between units of PRBCs given for anemia -Consider beta blockers for congestive heart failure -BiPap was stopped this morning. Atrial Fibrillation -Patient with documented history of atrial fibrillation -Heparin drip was stopped due to decrease in hemoglobin to less than 7 -Continue with cardizem 30 mg Q8 NSTEMI -EKG: atrial fibrillation with HR: 93 -Troponin: 0.27, 1.64, 1.72, 1.21 -Continue with aspirin, cardizem Q8 -Held heparin drip due to reduced hemoglobin. Normocytic Anemia -Hgb: 6.8 -Will transfuse 2 U of PRBCs -Unremarkable iron and ferritin levels. Low TIBC at 187. -Stool guiaic ordered to rule out GI bleed -Goal hemoglobin>8 due to cardiac issues Bilateral Interstitial Pneumonia -CXR: bilateral lower lobe effusion -Negative influenza, urine legionella -Procalcitonin: 0.69 -Lactate: last was 1.6 from 2.7 -Follow up BCx, UCx, strep urine antigen -Continue with doxycycline and cefepime day 2. Continue with renally dose vancomycin as per Dr. Jackelyn PALM COPD -Patient currently has hypoxic, hypercarbic respiratory failure. Likely COPD component involved -Continue with solumedrol 20 mg Q12, duonebs, and pulmicort -Taper down steroids daily as tolerated -Due to patient saturating at 100% while having a diagnosis of COPD, patient's O2 NC was reduced to 1L this morning. CKD Stage IV s/p renal transplant -BUN/Cr: 46/3.2 elevated from creatinine of 2.6 yesterday -Continue with home tacrolimus and prednisone -Avoid nephrotoxic agents such as lisinopril, losartan, IV contrast -Administer lasix on as needed basis. Standing dose discontinued GI prophylaxis: protonix 40 mg daily DVT prophylaxis: held due to possibility of active GI bleed Disposition: Palliative care has been consulted for further clarification of code status. Patient plan was discussed with attending. - Date & Time Date: 04/26/18 Time: 08:55 <Dequan Gutierrez - Last Filed: 04/26/18 11:11> CCU Objective - Vital Signs / Intake & Output Vital Signs (Last 4 hours): Vital Signs Temp Pulse Resp BP Pulse Ox 04/26/18 08:00 98.2 F 130/79 04/26/18 07:59 98 H 17 100 Intake and Output (Last 8hrs): Intake & Output 04/25/18 04/26/18 04/26/18 22:59 06:59 14:59 Intake Total 160 7 Output Total 50 500 Balance 110 -493 Weight 50 lb 12.8 oz 50 lb 111 lb 3.698 oz Intake: IV 100 7 Left Antecubital 100 7 Oral 60 Output: Urine 50 500 Urethral ([place]) 50 500 Stool 0 Other: Voiding Method Indwelling Catheter # Bowel Movements 0 - Medications Active Medications: Active Medications Generic Name Dose Route Start Last Admin Trade Name Freq PRN Reason Stop Dose Admin Albuterol/Ipratropium 3 ml 04/25/18 15:35 04/26/18 07:09 Duoneb 3 Mg/0.5 Mg (3 Ml) Ud IH 3 ml Q4H PRN Administration Shortness of Breath Apixaban 2.5 mg 04/25/18 18:00 04/25/18 17:03 Eliquis PO 2.5 mg BID BIJAN Administration Protocol Aspirin 81 mg 04/26/18 10:00 04/26/18 09:36 Aspirin Chewable PO 81 mg DAILY BIJAN Administration Budesonide 0.5 mg 04/26/18 20:00 Pulmicort Respules IH [id number] BIJAN Diltiazem HCl 30 mg 04/26/18 10:30 Cardizem PO Q8H BIJAN Doxycycline Hyclate 100 mg/ 100 mls @ 100 mls/hr 04/25/18 22:00 04/26/18 10:17 Sodium Chloride IVPB 100 mls/hr Q12 BIJAN Administration Protocol Heparin Sodium/Sodium Chloride 25,000 units in 250 mls @ 2.765 mls/hr 04/25/18 23:45 04/26/18 00:36 Heparin 27683 Units/250ml 1/2 Normal Saline IV 12 units/kg/hr .Q24H BIJAN 2.765 mls/hr Administration Protocol 12 UNITS/KG/HR Cefepime HCl 1 gm in 100 mls @ 100 mls/hr 04/26/18 06:45 04/26/18 07:49 Maxipime 1gm IVPB 100 mls/hr Q24H BIJAN Administration Protocol Methylprednisolone 20 mg 04/25/18 22:00 04/26/18 09:05 Solu-Medrol IVP 20 mg Q12 BIJAN Administration Oseltamivir Phosphate 30 mg 04/25/18 15:15 04/26/18 09:05 Tamiflu Cap PO 30 mg DAILY BIJAN Administration Protocol Pantoprazole Sodium 40 mg 04/25/18 15:15 04/26/18 09:05 Protonix Inj IVP 40 mg DAILY BIJAN Administration Sodium Bicarbonate 325 mg 04/25/18 16:00 04/26/18 09:04 Sodium Bicarbonate Tab PO 325 mg BID BIJAN Administration Tacrolimus 3 mg 04/25/18 18:00 04/26/18 09:05 Prograf Cap PO 3 mg BID BIJAN Administration - Patient Studies Lab Studies: Lab Studies 04/26/18 04/26/18 04/26/18 Range/Units 09:18 09:18 08:20 WBC (4.5-11.0) 10^3/uL RBC (3.5-6.1) 10^6/uL Hgb (12.0-16.0) g/dL Hct (36.0-48.0) % MCV (80.0-105.0) fl MCH (25.0-35.0) pg MCHC (31.0-37.0) g/dl RDW (11.5-14.5) % Plt Count (120.0-450.0) 10^3/uL MPV (7.0-11.0) fl Neut % (Auto) (50.0-68.0) % Lymph % (Auto) (22.0-35.0) % [place] % (Auto) (1.0-6.0) % Eos % (Auto) (1.5-5.0) % Baso % (Auto) (0.0-3.0) % Lymph # (Auto) (1.2-3.4) [place] # (Auto) (0.1-0.6) Eos # (Auto) (0.0-0.7) Baso # (Auto) (0.0-2.0) K/mm3 Absolute Neuts (auto) (1.4-6.5) Differential Comment Retic Count (0.5-1.5) % PT (9.4-12.5) SECONDS INR APTT (26.9-38.3) Seconds pCO2 (35-45) mm/Hg pO2 (80-100) mm/Hg HCO3 (21-28) mmol/L ABG pH (7.35-7.45) ABG Total CO2 (22-28) mmol.L ABG O2 Saturation (95-98) % ABG O2 Content (15-23) ML/dl ABG Base Excess (-2.0-3.0) mmol/L ABG Hemoglobin (11.7-17.4) g/dL ABG Carboxyhemoglobin (0.5-1.5) % POC ABG HHb (Measured) (0-5) % ABG Methemoglobin (0.0-3.0) % ABG O2 Capacity (16-24) mL/dl ABG Potassium (3.6-5.2) mmol/L VBG pH (7.32-7.43) VBG pCO2 (40-60) VBG HCO3 (21-28) mmol/l VBG Total CO2 (22-28) mmol.L VBG O2 Sat (Calc) (40-65) % VBG Base Excess (0.0-2.0) mmol/L VBG Potassium (3.6-5.2) mmol/L Hgb O2 Saturation (95.0-98.0) % Glucose (65-105) mg/dl Lactate (0.7-2.1) mmol/L FiO2 % Pressure Support Inspiratory BiPAP Blood Gas Comments Crit Value Called To Crit Value Called By Blood Gas Notified Time Sodium (132-148) mmol/L Potassium (3.6-5.0) mmol/L Chloride (98-107) mmol/L Carbon Dioxide (21-33) mmol/L Anion Gap (10-20) BUN (7-21) mg/dL Creatinine (0.7-1.2) mg/dl Est GFR ( Amer) Est GFR (Non-Af Amer) POC Glucose (mg/dL) (65-110) mg/dL Random Glucose (70-110) mg/dL Calcium (8.4-10.5) mg/dL Phosphorus (2.5-4.5) mg/dL Magnesium (1.7-2.2) mg/dL Iron (45-180) ug/dL TIBC (265-497) ug/dL % Saturation (20-55) % Total Bilirubin (0.2-1.3) mg/dL AST (14-36) U/L ALT (7-56) U/L Alkaline Phosphatase (38-126) U/L Lactate Dehydrogenase (333-699) U/L Total Creatine Kinase (35-230) U/L Troponin I ng/mL NT-Pro-B Natriuret Pep (0-450) pg/mL Total Protein (5.8-8.3) g/dL Albumin (3.0-4.8) g/dL Globulin gm/dL Albumin/Globulin Ratio (1.1-1.8) Procalcitonin (0.19-0.49) NG/ML TSH 3rd Generation (0.46-4.68) mIU/mL Arterial Blood Potassium (3.6-5.2) mmol/L Venous Blood Potassium (3.6-5.2) mmol/L Urine Color (YELLOW) Urine Appearance (CLEAR) Urine pH (4.7-8.0) Ur Specific Scheller (1.005-1.035) Urine Protein (<30 mg/dL) mg/dL Urine Glucose (UA) (NEGATIVE) mg/dL Urine Ketones (NEGATIVE) mg/dL Urine Blood (NEGATIVE) Urine Nitrate (NEGATIVE) Urine Bilirubin (NEGATIVE) Urine Urobilinogen (<1 E.U./dL) E.U./dL Ur Leukocyte Esterase (NEGATIVE) Nicky/uL Urine RBC (0-2) /hpf Urine WBC (0-6) /hpf Ur Epithelial Cells (0-5) /hpf Urine Bacteria (NONE) /hpf Hyaline Casts (NONE) /hpf Urine Eosinophils Negative Ur Random Creatinine 125 mg/dL U Random Total Protein 46 mg/L Influenza Typ A,B (EIA) (NEGATIVE) Ur L.pneumophila Ag (NEGATIVE) Blood Type Blood Type Confirm O POSITIVE Antibody Screen Crossmatch BBK History Checked 04/26/18 04/26/18 04/26/18 Range/Units 06:44 06:01 06:00 WBC (4.5-11.0) 10^3/uL RBC (3.5-6.1) 10^6/uL Hgb (12.0-16.0) g/dL Hct (36.0-48.0) % MCV (80.0-105.0) fl MCH (25.0-35.0) pg MCHC (31.0-37.0) g/dl RDW (11.5-14.5) % Plt Count (120.0-450.0) 10^3/uL MPV (7.0-11.0) fl Neut % (Auto) (50.0-68.0) % Lymph % (Auto) (22.0-35.0) % [place] % (Auto) (1.0-6.0) % Eos % (Auto) (1.5-5.0) % Baso % (Auto) (0.0-3.0) % Lymph # (Auto) (1.2-3.4) [place] # (Auto) (0.1-0.6) Eos # (Auto) (0.0-0.7) Baso # (Auto) (0.0-2.0) K/mm3 Absolute Neuts (auto) (1.4-6.5) Differential Comment Retic Count (0.5-1.5) % PT (9.4-12.5) SECONDS INR APTT (26.9-38.3) Seconds pCO2 (35-45) mm/Hg pO2 (80-100) mm/Hg HCO3 (21-28) mmol/L ABG pH (7.35-7.45) ABG Total CO2 (22-28) mmol.L ABG O2 Saturation (95-98) % ABG O2 Content (15-23) ML/dl ABG Base Excess (-2.0-3.0) mmol/L ABG Hemoglobin (11.7-17.4) g/dL ABG Carboxyhemoglobin (0.5-1.5) % POC ABG HHb (Measured) (0-5) % ABG Methemoglobin (0.0-3.0) % ABG O2 Capacity (16-24) mL/dl ABG Potassium (3.6-5.2) mmol/L VBG pH (7.32-7.43) VBG pCO2 (40-60) VBG HCO3 (21-28) mmol/l VBG Total CO2 (22-28) mmol.L VBG O2 Sat (Calc) (40-65) % VBG Base Excess (0.0-2.0) mmol/L VBG Potassium (3.6-5.2) mmol/L Hgb O2 Saturation (95.0-98.0) % Glucose (65-105) mg/dl Lactate (0.7-2.1) mmol/L FiO2 % Pressure Support Inspiratory BiPAP Blood Gas Comments Crit Value Called To Crit Value Called By Blood Gas Notified Time Sodium (132-148) mmol/L Potassium (3.6-5.0) mmol/L Chloride (98-107) mmol/L Carbon Dioxide (21-33) mmol/L Anion Gap (10-20) BUN (7-21) mg/dL Creatinine (0.7-1.2) mg/dl Est GFR ( Amer) Est GFR (Non-Af Amer) POC Glucose (mg/dL) 117 H (65-110) mg/dL Random Glucose (70-110) mg/dL Calcium (8.4-10.5) mg/dL Phosphorus (2.5-4.5) mg/dL Magnesium (1.7-2.2) mg/dL Iron (45-180) ug/dL TIBC (265-497) ug/dL % Saturation (20-55) % Total Bilirubin (0.2-1.3) mg/dL AST (14-36) U/L ALT (7-56) U/L Alkaline Phosphatase (38-126) U/L Lactate Dehydrogenase 630 (333-699) U/L Total Creatine Kinase (35-230) U/L Troponin I ng/mL NT-Pro-B Natriuret Pep (0-450) pg/mL Total Protein (5.8-8.3) g/dL Albumin (3.0-4.8) g/dL Globulin gm/dL Albumin/Globulin Ratio (1.1-1.8) Procalcitonin (0.19-0.49) NG/ML TSH 3rd Generation (0.46-4.68) mIU/mL Arterial Blood Potassium (3.6-5.2) mmol/L Venous Blood Potassium (3.6-5.2) mmol/L Urine Color (YELLOW) Urine Appearance (CLEAR) Urine pH (4.7-8.0) Ur Specific Scheller (1.005-1.035) Urine Protein (<30 mg/dL) mg/dL Urine Glucose (UA) (NEGATIVE) mg/dL Urine Ketones (NEGATIVE) mg/dL Urine Blood (NEGATIVE) Urine Nitrate (NEGATIVE) Urine Bilirubin (NEGATIVE) Urine Urobilinogen (<1 E.U./dL) E.U./dL Ur Leukocyte Esterase (NEGATIVE) Nicky/uL Urine RBC (0-2) /hpf Urine WBC (0-6) /hpf Ur Epithelial Cells (0-5) /hpf Urine Bacteria (NONE) /hpf Hyaline Casts (NONE) /hpf Urine Eosinophils Ur Random Creatinine mg/dL U Random Total Protein mg/L Influenza Typ A,B (EIA) (NEGATIVE) Ur L.pneumophila Ag (NEGATIVE) Blood Type O POSITIVE Blood Type Confirm Antibody Screen Negative Crossmatch See Detail BBK History Checked No verified bt 04/26/18 04/26/18 04/26/18 Range/Units 06:00 05:50 05:50 WBC (4.5-11.0) 10^3/uL RBC (3.5-6.1) 10^6/uL Hgb (12.0-16.0) g/dL Hct (36.0-48.0) % MCV (80.0-105.0) fl MCH (25.0-35.0) pg MCHC (31.0-37.0) g/dl RDW (11.5-14.5) % Plt Count (120.0-450.0) 10^3/uL MPV (7.0-11.0) fl Neut % (Auto) (50.0-68.0) % Lymph % (Auto) (22.0-35.0) % [place] % (Auto) (1.0-6.0) % Eos % (Auto) (1.5-5.0) % Baso % (Auto) (0.0-3.0) % Lymph # (Auto) (1.2-3.4) [place] # (Auto) (0.1-0.6) Eos # (Auto) (0.0-0.7) Baso # (Auto) (0.0-2.0) K/mm3 Absolute Neuts (auto) (1.4-6.5) Differential Comment Retic Count 2.44 H (0.5-1.5) % PT (9.4-12.5) SECONDS INR APTT 35.1 (26.9-38.3) Seconds pCO2 (35-45) mm/Hg pO2 (80-100) mm/Hg HCO3 (21-28) mmol/L ABG pH (7.35-7.45) ABG Total CO2 (22-28) mmol.L ABG O2 Saturation (95-98) % ABG O2 Content (15-23) ML/dl ABG Base Excess (-2.0-3.0) mmol/L ABG Hemoglobin (11.7-17.4) g/dL ABG Carboxyhemoglobin (0.5-1.5) % POC ABG HHb (Measured) (0-5) % ABG Methemoglobin (0.0-3.0) % ABG O2 Capacity (16-24) mL/dl ABG Potassium (3.6-5.2) mmol/L VBG pH (7.32-7.43) VBG pCO2 (40-60) VBG HCO3 (21-28) mmol/l VBG Total CO2 (22-28) mmol.L VBG O2 Sat (Calc) (40-65) % VBG Base Excess (0.0-2.0) mmol/L VBG Potassium (3.6-5.2) mmol/L Hgb O2 Saturation (95.0-98.0) % Glucose (65-105) mg/dl Lactate (0.7-2.1) mmol/L FiO2 % Pressure Support Inspiratory BiPAP Blood Gas Comments Crit Value Called To Crit Value Called By Blood Gas Notified Time Sodium (132-148) mmol/L Potassium (3.6-5.0) mmol/L Chloride (98-107) mmol/L Carbon Dioxide (21-33) mmol/L Anion Gap (10-20) BUN (7-21) mg/dL Creatinine (0.7-1.2) mg/dl Est GFR ( Amer) Est GFR (Non-Af Amer) POC Glucose (mg/dL) (65-110) mg/dL Random Glucose (70-110) mg/dL Calcium (8.4-10.5) mg/dL Phosphorus (2.5-4.5) mg/dL Magnesium (1.7-2.2) mg/dL Iron 62 (45-180) ug/dL TIBC 187 L (265-497) ug/dL % Saturation 33 (20-55) % Total Bilirubin (0.2-1.3) mg/dL AST (14-36) U/L ALT (7-56) U/L Alkaline Phosphatase (38-126) U/L Lactate Dehydrogenase (333-699) U/L Total Creatine Kinase (35-230) U/L Troponin I ng/mL NT-Pro-B Natriuret Pep (0-450) pg/mL Total Protein (5.8-8.3) g/dL Albumin (3.0-4.8) g/dL Globulin gm/dL Albumin/Globulin Ratio (1.1-1.8) Procalcitonin (0.19-0.49) NG/ML TSH 3rd Generation (0.46-4.68) mIU/mL Arterial Blood Potassium (3.6-5.2) mmol/L Venous Blood Potassium (3.6-5.2) mmol/L Urine Color (YELLOW) Urine Appearance (CLEAR) Urine pH (4.7-8.0) Ur Specific Scheller (1.005-1.035) Urine Protein (<30 mg/dL) mg/dL Urine Glucose (UA) (NEGATIVE) mg/dL Urine Ketones (NEGATIVE) mg/dL Urine Blood (NEGATIVE) Urine Nitrate (NEGATIVE) Urine Bilirubin (NEGATIVE) Urine Urobilinogen (<1 E.U./dL) E.U./dL Ur Leukocyte Esterase (NEGATIVE) Nicky/uL Urine RBC (0-2) /hpf Urine WBC (0-6) /hpf Ur Epithelial Cells (0-5) /hpf Urine Bacteria (NONE) /hpf Hyaline Casts (NONE) /hpf Urine Eosinophils Ur Random Creatinine mg/dL U Random Total Protein mg/L Influenza Typ A,B (EIA) (NEGATIVE) Ur L.pneumophila Ag (NEGATIVE) Blood Type Blood Type Confirm Antibody Screen Crossmatch BBK History Checked 04/26/18 04/26/18 04/26/18 Range/Units 05:50 05:50 05:50 WBC 7.6 D (4.5-11.0) 10^3/uL RBC 2.12 L (3.5-6.1) 10^6/uL Hgb 6.8 L* (12.0-16.0) g/dL Hct 22.4 L (36.0-48.0) % MCV 105.7 H (80.0-105.0) fl MCH 32.1 (25.0-35.0) pg MCHC 30.4 L (31.0-37.0) g/dl RDW 15.0 H (11.5-14.5) % Plt Count 158 (120.0-450.0) 10^3/uL MPV 10.8 (7.0-11.0) fl Neut % (Auto) 81.8 H (50.0-68.0) % Lymph % (Auto) 16.5 L (22.0-35.0) % [place] % (Auto) 1.6 (1.0-6.0) % Eos % (Auto) 0.0 L (1.5-5.0) % Baso % (Auto) 0.1 (0.0-3.0) % Lymph # (Auto) 1.3 (1.2-3.4) [place] # (Auto) 0.1 (0.1-0.6) Eos # (Auto) 0.0 (0.0-0.7) Baso # (Auto) 0.01 (0.0-2.0) K/mm3 Absolute Neuts (auto) 6.21 (1.4-6.5) Differential Comment See pathology report Retic Count (0.5-1.5) % PT (9.4-12.5) SECONDS INR APTT (26.9-38.3) Seconds pCO2 (35-45) mm/Hg pO2 (80-100) mm/Hg HCO3 (21-28) mmol/L ABG pH (7.35-7.45) ABG Total CO2 (22-28) mmol.L ABG O2 Saturation (95-98) % ABG O2 Content (15-23) ML/dl ABG Base Excess (-2.0-3.0) mmol/L ABG Hemoglobin (11.7-17.4) g/dL ABG Carboxyhemoglobin (0.5-1.5) % POC ABG HHb (Measured) (0-5) % ABG Methemoglobin (0.0-3.0) % ABG O2 Capacity (16-24) mL/dl ABG Potassium (3.6-5.2) mmol/L VBG pH (7.32-7.43) VBG pCO2 (40-60) VBG HCO3 (21-28) mmol/l VBG Total CO2 (22-28) mmol.L VBG O2 Sat (Calc) (40-65) % VBG Base Excess (0.0-2.0) mmol/L VBG Potassium (3.6-5.2) mmol/L Hgb O2 Saturation (95.0-98.0) % Glucose (65-105) mg/dl Lactate (0.7-2.1) mmol/L FiO2 % Pressure Support Inspiratory BiPAP Blood Gas Comments Crit Value Called To Crit Value Called By Blood Gas Notified Time Sodium 141 (132-148) mmol/L Potassium 4.9 (3.6-5.0) mmol/L Chloride 101 (98-107) mmol/L Carbon Dioxide 29 (21-33) mmol/L Anion Gap 16 (10-20) BUN 46 H (7-21) mg/dL Creatinine 3.2 H (0.7-1.2) mg/dl Est GFR ( Amer) 17 Est GFR (Non-Af Amer) 14 POC Glucose (mg/dL) (65-110) mg/dL Random Glucose 103 (70-110) mg/dL Calcium 10.2 (8.4-10.5) mg/dL Phosphorus 3.7 (2.5-4.5) mg/dL Magnesium 2.0 (1.7-2.2) mg/dL Iron (45-180) ug/dL TIBC (265-497) ug/dL % Saturation (20-55) % Total Bilirubin 0.5 (0.2-1.3) mg/dL AST 48 H D (14-36) U/L ALT 49 (7-56) U/L Alkaline Phosphatase 97 (38-126) U/L Lactate Dehydrogenase (333-699) U/L Total Creatine Kinase (35-230) U/L Troponin I 1.21 H* D ng/mL NT-Pro-B Natriuret Pep (0-450) pg/mL Total Protein 6.3 (5.8-8.3) g/dL Albumin 3.4 (3.0-4.8) g/dL Globulin 2.9 gm/dL Albumin/Globulin Ratio 1.1 (1.1-1.8) Procalcitonin (0.19-0.49) NG/ML TSH 3rd Generation 1.11 (0.46-4.68) mIU/mL Arterial Blood Potassium (3.6-5.2) mmol/L Venous Blood Potassium (3.6-5.2) mmol/L Urine Color (YELLOW) Urine Appearance (CLEAR) Urine pH (4.7-8.0) Ur Specific Scheller (1.005-1.035) Urine Protein (<30 mg/dL) mg/dL Urine Glucose (UA) (NEGATIVE) mg/dL Urine Ketones (NEGATIVE) mg/dL Urine Blood (NEGATIVE) Urine Nitrate (NEGATIVE) Urine Bilirubin (NEGATIVE) Urine Urobilinogen (<1 E.U./dL) E.U./dL Ur Leukocyte Esterase (NEGATIVE) Nicky/uL Urine RBC (0-2) /hpf Urine WBC (0-6) /hpf Ur Epithelial Cells (0-5) /hpf Urine Bacteria (NONE) /hpf Hyaline Casts (NONE) /hpf Urine Eosinophils Ur Random Creatinine mg/dL U Random Total Protein mg/L Influenza Typ A,B (EIA) (NEGATIVE) Ur L.pneumophila Ag (NEGATIVE) Blood Type Blood Type Confirm Antibody Screen Crossmatch BBK History Checked 04/26/18 04/26/18 04/25/18 Range/Units 00:25 00:25 23:59 WBC (4.5-11.0) 10^3/uL RBC (3.5-6.1) 10^6/uL Hgb (12.0-16.0) g/dL Hct (36.0-48.0) % MCV (80.0-105.0) fl MCH (25.0-35.0) pg MCHC (31.0-37.0) g/dl RDW (11.5-14.5) % Plt Count (120.0-450.0) 10^3/uL MPV (7.0-11.0) fl Neut % (Auto) (50.0-68.0) % Lymph % (Auto) (22.0-35.0) % [place] % (Auto) (1.0-6.0) % Eos % (Auto) (1.5-5.0) % Baso % (Auto) (0.0-3.0) % Lymph # (Auto) (1.2-3.4) [place] # (Auto) (0.1-0.6) Eos # (Auto) (0.0-0.7) Baso # (Auto) (0.0-2.0) K/mm3 Absolute Neuts (auto) (1.4-6.5) Differential Comment Retic Count (0.5-1.5) % PT (9.4-12.5) SECONDS INR APTT 35.7 (26.9-38.3) Seconds pCO2 (35-45) mm/Hg pO2 (80-100) mm/Hg HCO3 (21-28) mmol/L ABG pH (7.35-7.45) ABG Total CO2 (22-28) mmol.L ABG O2 Saturation (95-98) % ABG O2 Content (15-23) ML/dl ABG Base Excess (-2.0-3.0) mmol/L ABG Hemoglobin (11.7-17.4) g/dL ABG Carboxyhemoglobin (0.5-1.5) % POC ABG HHb (Measured) (0-5) % ABG Methemoglobin (0.0-3.0) % ABG O2 Capacity (16-24) mL/dl ABG Potassium (3.6-5.2) mmol/L VBG pH (7.32-7.43) VBG pCO2 (40-60) VBG HCO3 (21-28) mmol/l VBG Total CO2 (22-28) mmol.L VBG O2 Sat (Calc) (40-65) % VBG Base Excess (0.0-2.0) mmol/L VBG Potassium (3.6-5.2) mmol/L Hgb O2 Saturation (95.0-98.0) % Glucose (65-105) mg/dl Lactate (0.7-2.1) mmol/L FiO2 % Pressure Support Inspiratory BiPAP Blood Gas Comments Crit Value Called To Crit Value Called By Blood Gas Notified Time Sodium (132-148) mmol/L Potassium (3.6-5.0) mmol/L Chloride (98-107) mmol/L Carbon Dioxide (21-33) mmol/L Anion Gap (10-20) BUN (7-21) mg/dL Creatinine (0.7-1.2) mg/dl Est GFR ( Amer) Est GFR (Non-Af Amer) POC Glucose (mg/dL) 127 H (65-110) mg/dL Random Glucose (70-110) mg/dL Calcium (8.4-10.5) mg/dL Phosphorus (2.5-4.5) mg/dL Magnesium (1.7-2.2) mg/dL Iron (45-180) ug/dL TIBC (265-497) ug/dL % Saturation (20-55) % Total Bilirubin (0.2-1.3) mg/dL AST (14-36) U/L ALT (7-56) U/L Alkaline Phosphatase (38-126) U/L Lactate Dehydrogenase (333-699) U/L Total Creatine Kinase (35-230) U/L Troponin I 1.72 H* ng/mL NT-Pro-B Natriuret Pep (0-450) pg/mL Total Protein (5.8-8.3) g/dL Albumin (3.0-4.8) g/dL Globulin gm/dL Albumin/Globulin Ratio (1.1-1.8) Procalcitonin (0.19-0.49) NG/ML TSH 3rd Generation (0.46-4.68) mIU/mL Arterial Blood Potassium (3.6-5.2) mmol/L Venous Blood Potassium (3.6-5.2) mmol/L Urine Color (YELLOW) Urine Appearance (CLEAR) Urine pH (4.7-8.0) Ur Specific Scheller (1.005-1.035) Urine Protein (<30 mg/dL) mg/dL Urine Glucose (UA) (NEGATIVE) mg/dL Urine Ketones (NEGATIVE) mg/dL Urine Blood (NEGATIVE) Urine Nitrate (NEGATIVE) Urine Bilirubin (NEGATIVE) Urine Urobilinogen (<1 E.U./dL) E.U./dL Ur Leukocyte Esterase (NEGATIVE) Nicky/uL Urine RBC (0-2) /hpf Urine WBC (0-6) /hpf Ur Epithelial Cells (0-5) /hpf Urine Bacteria (NONE) /hpf Hyaline Casts (NONE) /hpf Urine Eosinophils Ur Random Creatinine mg/dL U Random Total Protein mg/L Influenza Typ A,B (EIA) (NEGATIVE) Ur L.pneumophila Ag (NEGATIVE) Blood Type Blood Type Confirm Antibody Screen Crossmatch BBK History Checked 04/25/18 04/25/18 04/25/18 Range/Units 18:30 18:30 18:22 WBC (4.5-11.0) 10^3/uL RBC (3.5-6.1) 10^6/uL Hgb (12.0-16.0) g/dL Hct (36.0-48.0) % MCV (80.0-105.0) fl MCH (25.0-35.0) pg MCHC (31.0-37.0) g/dl RDW (11.5-14.5) % Plt Count (120.0-450.0) 10^3/uL MPV (7.0-11.0) fl Neut % (Auto) (50.0-68.0) % Lymph % (Auto) (22.0-35.0) % [place] % (Auto) (1.0-6.0) % Eos % (Auto) (1.5-5.0) % Baso % (Auto) (0.0-3.0) % Lymph # (Auto) (1.2-3.4) [place] # (Auto) (0.1-0.6) Eos # (Auto) (0.0-0.7) Baso # (Auto) (0.0-2.0) K/mm3 Absolute Neuts (auto) (1.4-6.5) Differential Comment Retic Count (0.5-1.5) % PT (9.4-12.5) SECONDS INR APTT (26.9-38.3) Seconds pCO2 (35-45) mm/Hg pO2 (80-100) mm/Hg HCO3 (21-28) mmol/L ABG pH (7.35-7.45) ABG Total CO2 (22-28) mmol.L ABG O2 Saturation (95-98) % ABG O2 Content (15-23) ML/dl ABG Base Excess (-2.0-3.0) mmol/L ABG Hemoglobin (11.7-17.4) g/dL ABG Carboxyhemoglobin (0.5-1.5) % POC ABG HHb (Measured) (0-5) % ABG Methemoglobin (0.0-3.0) % ABG O2 Capacity (16-24) mL/dl ABG Potassium (3.6-5.2) mmol/L VBG pH (7.32-7.43) VBG pCO2 (40-60) VBG HCO3 (21-28) mmol/l VBG Total CO2 (22-28) mmol.L VBG O2 Sat (Calc) (40-65) % VBG Base Excess (0.0-2.0) mmol/L VBG Potassium (3.6-5.2) mmol/L Hgb O2 Saturation (95.0-98.0) % Glucose (65-105) mg/dl Lactate (0.7-2.1) mmol/L FiO2 % Pressure Support Inspiratory BiPAP Blood Gas Comments Crit Value Called To Crit Value Called By Blood Gas Notified Time Sodium (132-148) mmol/L Potassium (3.6-5.0) mmol/L Chloride (98-107) mmol/L Carbon Dioxide (21-33) mmol/L Anion Gap (10-20) BUN (7-21) mg/dL Creatinine (0.7-1.2) mg/dl Est GFR ( Amer) Est GFR (Non-Af Amer) POC Glucose (mg/dL) 127 H (65-110) mg/dL Random Glucose (70-110) mg/dL Calcium (8.4-10.5) mg/dL Phosphorus (2.5-4.5) mg/dL Magnesium (1.7-2.2) mg/dL Iron (45-180) ug/dL TIBC (265-497) ug/dL % Saturation (20-55) % Total Bilirubin (0.2-1.3) mg/dL AST (14-36) U/L ALT (7-56) U/L Alkaline Phosphatase (38-126) U/L Lactate Dehydrogenase (333-699) U/L Total Creatine Kinase (35-230) U/L Troponin I 1.64 H* D ng/mL NT-Pro-B Natriuret Pep (0-450) pg/mL Total Protein (5.8-8.3) g/dL Albumin (3.0-4.8) g/dL Globulin gm/dL Albumin/Globulin Ratio (1.1-1.8) Procalcitonin (0.19-0.49) NG/ML TSH 3rd Generation (0.46-4.68) mIU/mL Arterial Blood Potassium (3.6-5.2) mmol/L Venous Blood Potassium (3.6-5.2) mmol/L Urine Color (YELLOW) Urine Appearance (CLEAR) Urine pH (4.7-8.0) Ur Specific Scheller (1.005-1.035) Urine Protein (<30 mg/dL) mg/dL Urine Glucose (UA) (NEGATIVE) mg/dL Urine Ketones (NEGATIVE) mg/dL Urine Blood (NEGATIVE) Urine Nitrate (NEGATIVE) Urine Bilirubin (NEGATIVE) Urine Urobilinogen (<1 E.U./dL) E.U./dL Ur Leukocyte Esterase (NEGATIVE) Nicky/uL Urine RBC (0-2) /hpf Urine WBC (0-6) /hpf Ur Epithelial Cells (0-5) /hpf Urine Bacteria (NONE) /hpf Hyaline Casts (NONE) /hpf Urine Eosinophils Ur Random Creatinine mg/dL U Random Total Protein mg/L Influenza Typ A,B (EIA) Negative for flu a/b (NEGATIVE) Ur L.pneumophila Ag (NEGATIVE) Blood Type Blood Type Confirm Antibody Screen Crossmatch BBK History Checked 04/25/18 04/25/18 04/25/18 Range/Units 15:52 15:52 15:30 WBC (4.5-11.0) 10^3/uL RBC (3.5-6.1) 10^6/uL Hgb (12.0-16.0) g/dL Hct (36.0-48.0) % MCV (80.0-105.0) fl MCH (25.0-35.0) pg MCHC (31.0-37.0) g/dl RDW (11.5-14.5) % Plt Count (120.0-450.0) 10^3/uL MPV (7.0-11.0) fl Neut % (Auto) (50.0-68.0) % Lymph % (Auto) (22.0-35.0) % [place] % (Auto) (1.0-6.0) % Eos % (Auto) (1.5-5.0) % Baso % (Auto) (0.0-3.0) % Lymph # (Auto) (1.2-3.4) [place] # (Auto) (0.1-0.6) Eos # (Auto) (0.0-0.7) Baso # (Auto) (0.0-2.0) K/mm3 Absolute Neuts (auto) (1.4-6.5) Differential Comment Retic Count (0.5-1.5) % PT (9.4-12.5) SECONDS INR APTT (26.9-38.3) Seconds pCO2 (35-45) mm/Hg pO2 37 (80-100) mm/Hg HCO3 (21-28) mmol/L ABG pH (7.35-7.45) ABG Total CO2 (22-28) mmol.L ABG O2 Saturation (95-98) % ABG O2 Content (15-23) ML/dl ABG Base Excess (-2.0-3.0) mmol/L ABG Hemoglobin (11.7-17.4) g/dL ABG Carboxyhemoglobin (0.5-1.5) % POC ABG HHb (Measured) (0-5) % ABG Methemoglobin (0.0-3.0) % ABG O2 Capacity (16-24) mL/dl ABG Potassium (3.6-5.2) mmol/L VBG pH 7.35 (7.32-7.43) VBG pCO2 59.0 (40-60) VBG HCO3 32.6 H (21-28) mmol/l VBG Total CO2 34.4 H (22-28) mmol.L VBG O2 Sat (Calc) 78.2 H (40-65) % VBG Base Excess 5.2 H (0.0-2.0) mmol/L VBG Potassium 4.3 (3.6-5.2) mmol/L Hgb O2 Saturation (95.0-98.0) % Glucose 129 H (65-105) mg/dl Lactate 1.6 (0.7-2.1) mmol/L FiO2 21.0 % Pressure Support Inspiratory BiPAP Blood Gas Comments Crit Value Called To Crit Value Called By Blood Gas Notified Time Sodium 141.0 (132-148) mmol/L Potassium (3.6-5.0) mmol/L Chloride 105.0 (98-107) mmol/L Carbon Dioxide (21-33) mmol/L Anion Gap (10-20) BUN (7-21) mg/dL Creatinine (0.7-1.2) mg/dl Est GFR ( Amer) Est GFR (Non-Af Amer) POC Glucose (mg/dL) (65-110) mg/dL Random Glucose (70-110) mg/dL Calcium (8.4-10.5) mg/dL Phosphorus (2.5-4.5) mg/dL Magnesium (1.7-2.2) mg/dL Iron (45-180) ug/dL TIBC (265-497) ug/dL % Saturation (20-55) % Total Bilirubin (0.2-1.3) mg/dL AST (14-36) U/L ALT (7-56) U/L Alkaline Phosphatase (38-126) U/L Lactate Dehydrogenase (333-699) U/L Total Creatine Kinase (35-230) U/L Troponin I ng/mL NT-Pro-B Natriuret Pep (0-450) pg/mL Total Protein (5.8-8.3) g/dL Albumin (3.0-4.8) g/dL Globulin gm/dL Albumin/Globulin Ratio (1.1-1.8) Procalcitonin (0.19-0.49) NG/ML TSH 3rd Generation (0.46-4.68) mIU/mL Arterial Blood Potassium (3.6-5.2) mmol/L Venous Blood Potassium 4.3 (3.6-5.2) mmol/L Urine Color Yellow (YELLOW) Urine Appearance Clear (CLEAR) Urine pH 6.0 (4.7-8.0) Ur Specific Scheller 1.020 (1.005-1.035) Urine Protein 30 H (<30 mg/dL) mg/dL Urine Glucose (UA) 100 H (NEGATIVE) mg/dL Urine Ketones Negative (NEGATIVE) mg/dL Urine Blood Trace-intact H (NEGATIVE) Urine Nitrate Negative (NEGATIVE) Urine Bilirubin Negative (NEGATIVE) Urine Urobilinogen 0.2 (<1 E.U./dL) E.U./dL Ur Leukocyte Esterase Negative (NEGATIVE) Nicky/uL Urine RBC 0 - 2 (0-2) /hpf Urine WBC None (0-6) /hpf Ur Epithelial Cells 0 - 2 (0-5) /hpf Urine Bacteria Neg (NONE) /hpf Hyaline Casts 0 - 2 (NONE) /hpf Urine Eosinophils Ur Random Creatinine mg/dL U Random Total Protein mg/L Influenza Typ A,B (EIA) (NEGATIVE) Ur L.pneumophila Ag Negative (NEGATIVE) Blood Type Blood Type Confirm Antibody Screen Crossmatch BBK History Checked 04/25/18 04/25/18 04/25/18 Range/Units 14:10 14:00 12:40 WBC (4.5-11.0) 10^3/uL RBC (3.5-6.1) 10^6/uL Hgb (12.0-16.0) g/dL Hct (36.0-48.0) % MCV (80.0-105.0) fl MCH (25.0-35.0) pg MCHC (31.0-37.0) g/dl RDW (11.5-14.5) % Plt Count (120.0-450.0) 10^3/uL MPV (7.0-11.0) fl Neut % (Auto) (50.0-68.0) % Lymph % (Auto) (22.0-35.0) % [place] % (Auto) (1.0-6.0) % Eos % (Auto) (1.5-5.0) % Baso % (Auto) (0.0-3.0) % Lymph # (Auto) (1.2-3.4) [place] # (Auto) (0.1-0.6) Eos # (Auto) (0.0-0.7) Baso # (Auto) (0.0-2.0) K/mm3 Absolute Neuts (auto) (1.4-6.5) Differential Comment Retic Count (0.5-1.5) % PT (9.4-12.5) SECONDS INR APTT (26.9-38.3) Seconds pCO2 48 H 61 H (35-45) mm/Hg pO2 361.0 H 18.0 L* (80-100) mm/Hg HCO3 31.1 H 33.7 H (21-28) mmol/L ABG pH 7.42 7.35 (7.35-7.45) ABG Total CO2 32.6 H 35.6 H (22-28) mmol.L ABG O2 Saturation 101.0 H 27.8 L (95-98) % ABG O2 Content 10.3 L (15-23) ML/dl ABG Base Excess 6.0 H 6.1 H (-2.0-3.0) mmol/L ABG Hemoglobin 6.7 L (11.7-17.4) g/dL ABG Carboxyhemoglobin 1.9 H (0.5-1.5) % POC ABG HHb (Measured) -1.0 L (0-5) % ABG Methemoglobin 0.2 (0.0-3.0) % ABG O2 Capacity 10.2 L (16-24) mL/dl ABG Potassium 4.1 (3.6-5.2) mmol/L VBG pH (7.32-7.43) VBG pCO2 (40-60) VBG HCO3 (21-28) mmol/l VBG Total CO2 (22-28) mmol.L VBG O2 Sat (Calc) (40-65) % VBG Base Excess (0.0-2.0) mmol/L VBG Potassium (3.6-5.2) mmol/L Hgb O2 Saturation 98.9 H (95.0-98.0) % Glucose 130 H (65-105) mg/dl Lactate 2.7 H (0.7-2.1) mmol/L FiO2 100.0 100.0 % Pressure Support 7 Inspiratory BiPAP 12 Blood Gas Comments Possible venous. notified po2,pco2,lactate cv reported Crit Value Called To Chris alarcon Crit Value Called By Rst Blood Gas Notified Time 1250 Sodium 142.0 (132-148) mmol/L Potassium (3.6-5.0) mmol/L Chloride 106.0 (98-107) mmol/L Carbon Dioxide (21-33) mmol/L Anion Gap (10-20) BUN (7-21) mg/dL Creatinine (0.7-1.2) mg/dl Est GFR ( Amer) Est GFR (Non-Af Amer) POC Glucose (mg/dL) (65-110) mg/dL Random Glucose (70-110) mg/dL Calcium (8.4-10.5) mg/dL Phosphorus (2.5-4.5) mg/dL Magnesium (1.7-2.2) mg/dL Iron (45-180) ug/dL TIBC (265-497) ug/dL % Saturation (20-55) % Total Bilirubin (0.2-1.3) mg/dL AST (14-36) U/L ALT (7-56) U/L Alkaline Phosphatase (38-126) U/L Lactate Dehydrogenase (333-699) U/L Total Creatine Kinase (35-230) U/L Troponin I ng/mL NT-Pro-B Natriuret Pep (0-450) pg/mL Total Protein (5.8-8.3) g/dL Albumin (3.0-4.8) g/dL Globulin gm/dL Albumin/Globulin Ratio (1.1-1.8) Procalcitonin 0.69 H (0.19-0.49) NG/ML TSH 3rd Generation (0.46-4.68) mIU/mL Arterial Blood Potassium 4.1 (3.6-5.2) mmol/L Venous Blood Potassium (3.6-5.2) mmol/L Urine Color (YELLOW) Urine Appearance (CLEAR) Urine pH (4.7-8.0) Ur Specific Scheller (1.005-1.035) Urine Protein (<30 mg/dL) mg/dL Urine Glucose (UA) (NEGATIVE) mg/dL Urine Ketones (NEGATIVE) mg/dL Urine Blood (NEGATIVE) Urine Nitrate (NEGATIVE) Urine Bilirubin (NEGATIVE) Urine Urobilinogen (<1 E.U./dL) E.U./dL Ur Leukocyte Esterase (NEGATIVE) Nicky/uL Urine RBC (0-2) /hpf Urine WBC (0-6) /hpf Ur Epithelial Cells (0-5) /hpf Urine Bacteria (NONE) /hpf Hyaline Casts (NONE) /hpf Urine Eosinophils Ur Random Creatinine mg/dL U Random Total Protein mg/L Influenza Typ A,B (EIA) (NEGATIVE) Ur L.pneumophila Ag (NEGATIVE) Blood Type Blood Type Confirm Antibody Screen Crossmatch BBK History Checked 04/25/18 04/25/18 04/25/18 Range/Units 12:35 12:35 12:35 WBC 11.9 H (4.5-11.0) 10^3/uL RBC 2.30 L (3.5-6.1) 10^6/uL Hgb 7.4 L (12.0-16.0) g/dL Hct 24.2 L (36.0-48.0) % MCV 105.2 H (80.0-105.0) fl MCH 32.2 (25.0-35.0) pg MCHC 30.6 L (31.0-37.0) g/dl RDW 14.9 H (11.5-14.5) % Plt Count 183 (120.0-450.0) 10^3/uL MPV 10.7 (7.0-11.0) fl Neut % (Auto) 79.4 H (50.0-68.0) % Lymph % (Auto) 12.2 L (22.0-35.0) % [place] % (Auto) 8.0 H (1.0-6.0) % Eos % (Auto) 0.1 L (1.5-5.0) % Baso % (Auto) 0.3 (0.0-3.0) % Lymph # (Auto) 1.5 (1.2-3.4) [place] # (Auto) 1.0 H (0.1-0.6) Eos # (Auto) 0.0 (0.0-0.7) Baso # (Auto) 0.03 (0.0-2.0) K/mm3 Absolute Neuts (auto) 9.42 H (1.4-6.5) Differential Comment Retic Count (0.5-1.5) % PT 21.2 H (9.4-12.5) SECONDS INR 1.88 APTT 31.5 (26.9-38.3) Seconds pCO2 (35-45) mm/Hg pO2 (80-100) mm/Hg HCO3 (21-28) mmol/L ABG pH (7.35-7.45) ABG Total CO2 (22-28) mmol.L ABG O2 Saturation (95-98) % ABG O2 Content (15-23) ML/dl ABG Base Excess (-2.0-3.0) mmol/L ABG Hemoglobin (11.7-17.4) g/dL ABG Carboxyhemoglobin (0.5-1.5) % POC ABG HHb (Measured) (0-5) % ABG Methemoglobin (0.0-3.0) % ABG O2 Capacity (16-24) mL/dl ABG Potassium (3.6-5.2) mmol/L VBG pH (7.32-7.43) VBG pCO2 (40-60) VBG HCO3 (21-28) mmol/l VBG Total CO2 (22-28) mmol.L VBG O2 Sat (Calc) (40-65) % VBG Base Excess (0.0-2.0) mmol/L VBG Potassium (3.6-5.2) mmol/L Hgb O2 Saturation (95.0-98.0) % Glucose (65-105) mg/dl Lactate (0.7-2.1) mmol/L FiO2 % Pressure Support Inspiratory BiPAP Blood Gas Comments Crit Value Called To Crit Value Called By Blood Gas Notified Time Sodium 140 (132-148) mmol/L Potassium 4.0 (3.6-5.0) mmol/L Chloride 100 (98-107) mmol/L Carbon Dioxide 30 (21-33) mmol/L Anion Gap 14 (10-20) BUN 42 H (7-21) mg/dL Creatinine 2.6 H (0.7-1.2) mg/dl Est GFR ( Amer) 22 Est GFR (Non-Af Amer) 18 POC Glucose (mg/dL) (65-110) mg/dL Random Glucose 134 H (70-110) mg/dL Calcium 10.5 (8.4-10.5) mg/dL Phosphorus 3.2 (2.5-4.5) mg/dL Magnesium 2.0 (1.7-2.2) mg/dL Iron (45-180) ug/dL TIBC (265-497) ug/dL % Saturation (20-55) % Total Bilirubin 0.5 (0.2-1.3) mg/dL AST 65 H (14-36) U/L ALT 52 (7-56) U/L Alkaline Phosphatase 107 (38-126) U/L Lactate Dehydrogenase (333-699) U/L Total Creatine Kinase 35 (35-230) U/L Troponin I 0.27 H* ng/mL NT-Pro-B Natriuret Pep 97038 H (0-450) pg/mL Total Protein 6.8 (5.8-8.3) g/dL Albumin 3.6 (3.0-4.8) g/dL Globulin 3.3 gm/dL Albumin/Globulin Ratio 1.1 (1.1-1.8) Procalcitonin (0.19-0.49) NG/ML TSH 3rd Generation (0.46-4.68) mIU/mL Arterial Blood Potassium (3.6-5.2) mmol/L Venous Blood Potassium (3.6-5.2) mmol/L Urine Color (YELLOW) Urine Appearance (CLEAR) Urine pH (4.7-8.0) Ur Specific Scheller (1.005-1.035) Urine Protein (<30 mg/dL) mg/dL Urine Glucose (UA) (NEGATIVE) mg/dL Urine Ketones (NEGATIVE) mg/dL Urine Blood (NEGATIVE) Urine Nitrate (NEGATIVE) Urine Bilirubin (NEGATIVE) Urine Urobilinogen (<1 E.U./dL) E.U./dL Ur Leukocyte Esterase (NEGATIVE) Nicky/uL Urine RBC (0-2) /hpf Urine WBC (0-6) /hpf Ur Epithelial Cells (0-5) /hpf Urine Bacteria (NONE) /hpf Hyaline Casts (NONE) /hpf Urine Eosinophils Ur Random Creatinine mg/dL U Random Total Protein mg/L Influenza Typ A,B (EIA) (NEGATIVE) Ur L.pneumophila Ag (NEGATIVE) Blood Type Blood Type Confirm Antibody Screen Crossmatch BBK History Checked Laboratory Results - last 24 hr 04/25/18 04/25/18 04/25/18 12:35 12:35 12:35 WBC 11.9 H RBC 2.30 L Hgb 7.4 L Hct 24.2 L MCV 105.2 H MCH 32.2 MCHC 30.6 L RDW 14.9 H Plt Count 183 MPV 10.7 Neut % (Auto) 79.4 H Lymph % (Auto) 12.2 L [place] % (Auto) 8.0 H Eos % (Auto) 0.1 L Baso % (Auto) 0.3 Lymph # (Auto) 1.5 [place] # (Auto) 1.0 H Eos # (Auto) 0.0 Baso # (Auto) 0.03 Absolute Neuts (auto) 9.42 H Differential Comment Retic Count PT 21.2 H INR 1.88 APTT 31.5 pCO2 pO2 HCO3 ABG pH ABG Total CO2 ABG O2 Saturation ABG O2 Content ABG Base Excess ABG Hemoglobin ABG Carboxyhemoglobin POC ABG HHb (Measured) ABG Methemoglobin ABG O2 Capacity ABG Potassium VBG pH VBG pCO2 VBG HCO3 VBG Total CO2 VBG O2 Sat (Calc) VBG Base Excess VBG Potassium Hgb O2 Saturation Glucose Lactate FiO2 Pressure Support Inspiratory BiPAP Blood Gas Comments Crit Value Called To Crit Value Called By Blood Gas Notified Time Sodium 140 Potassium 4.0 Chloride 100 Carbon Dioxide 30 Anion Gap 14 BUN 42 H Creatinine 2.6 H Est GFR ( Amer) 22 Est GFR (Non-Af Amer) 18 POC Glucose (mg/dL) Random Glucose 134 H Calcium 10.5 Phosphorus 3.2 Magnesium 2.0 Iron TIBC % Saturation Total Bilirubin 0.5 AST 65 H ALT 52 Alkaline Phosphatase 107 Lactate Dehydrogenase Total Creatine Kinase 35 Troponin I 0.27 H* NT-Pro-B Natriuret Pep 19337 H Total Protein 6.8 Albumin 3.6 Globulin 3.3 Albumin/Globulin Ratio 1.1 Procalcitonin TSH 3rd Generation Arterial Blood Potassium Venous Blood Potassium Urine Color Urine Appearance Urine pH Ur Specific Scheller Urine Protein Urine Glucose (UA) Urine Ketones Urine Blood Urine Nitrate Urine Bilirubin Urine Urobilinogen Ur Leukocyte Esterase Urine RBC Urine WBC Ur Epithelial Cells Urine Bacteria Hyaline Casts Urine Eosinophils Ur Random Creatinine U Random Total Protein Influenza Typ A,B (EIA) Ur L.pneumophila Ag Blood Type Blood Type Confirm Antibody Screen Crossmatch BBK History Checked 04/25/18 04/25/18 04/25/18 12:40 14:00 14:10 WBC RBC Hgb Hct MCV MCH MCHC RDW Plt Count MPV Neut % (Auto) Lymph % (Auto) [place] % (Auto) Eos % (Auto) Baso % (Auto) Lymph # (Auto) [place] # (Auto) Eos # (Auto) Baso # (Auto) Absolute Neuts (auto) Differential Comment Retic Count PT INR APTT pCO2 61 H 48 H pO2 18.0 L* 361.0 H HCO3 33.7 H 31.1 H ABG pH 7.35 7.42 ABG Total CO2 35.6 H 32.6 H ABG O2 Saturation 27.8 L 101.0 H ABG O2 Content 10.3 L ABG Base Excess 6.1 H 6.0 H ABG Hemoglobin 6.7 L ABG Carboxyhemoglobin 1.9 H POC ABG HHb (Measured) -1.0 L ABG Methemoglobin 0.2 ABG O2 Capacity 10.2 L ABG Potassium 4.1 VBG pH VBG pCO2 VBG HCO3 VBG Total CO2 VBG O2 Sat (Calc) VBG Base Excess VBG Potassium Hgb O2 Saturation 98.9 H Glucose 130 H Lactate 2.7 H FiO2 100.0 100.0 Pressure Support 7 Inspiratory BiPAP 12 Blood Gas Comments Possible venous. notified po2,pco2,lactate cv reported Crit Value Called To Chris alarcon Crit Value Called By Rst Blood Gas Notified Time 1250 Sodium 142.0 Potassium Chloride 106.0 Carbon Dioxide Anion Gap BUN Creatinine Est GFR ( Amer) Est GFR (Non-Af Amer) POC Glucose (mg/dL) Random Glucose Calcium Phosphorus Magnesium Iron TIBC % Saturation Total Bilirubin AST ALT Alkaline Phosphatase Lactate Dehydrogenase Total Creatine Kinase Troponin I NT-Pro-B Natriuret Pep Total Protein Albumin Globulin Albumin/Globulin Ratio Procalcitonin 0.69 H TSH 3rd Generation Arterial Blood Potassium 4.1 Venous Blood Potassium Urine Color Urine Appearance Urine pH Ur Specific Scheller Urine Protein Urine Glucose (UA) Urine Ketones Urine Blood Urine Nitrate Urine Bilirubin Urine Urobilinogen Ur Leukocyte Esterase Urine RBC Urine WBC Ur Epithelial Cells Urine Bacteria Hyaline Casts Urine Eosinophils Ur Random Creatinine U Random Total Protein Influenza Typ A,B (EIA) Ur L.pneumophila Ag Blood Type Blood Type Confirm Antibody Screen Crossmatch BBK History Checked 04/25/18 04/25/18 04/25/18 15:30 15:52 15:52 WBC RBC Hgb Hct MCV MCH MCHC RDW Plt Count MPV Neut % (Auto) Lymph % (Auto) [place] % (Auto) Eos % (Auto) Baso % (Auto) Lymph # (Auto) [place] # (Auto) Eos # (Auto) Baso # (Auto) Absolute Neuts (auto) Differential Comment Retic Count PT INR APTT pCO2 pO2 37 HCO3 ABG pH ABG Total CO2 ABG O2 Saturation ABG O2 Content ABG Base Excess ABG Hemoglobin ABG Carboxyhemoglobin POC ABG HHb (Measured) ABG Methemoglobin ABG O2 Capacity ABG Potassium VBG pH 7.35 VBG pCO2 59.0 VBG HCO3 32.6 H VBG Total CO2 34.4 H VBG O2 Sat (Calc) 78.2 H VBG Base Excess 5.2 H VBG Potassium 4.3 Hgb O2 Saturation Glucose 129 H Lactate 1.6 FiO2 21.0 Pressure Support Inspiratory BiPAP Blood Gas Comments Crit Value Called To Crit Value Called By Blood Gas Notified Time Sodium 141.0 Potassium Chloride 105.0 Carbon Dioxide Anion Gap BUN Creatinine Est GFR ( Amer) Est GFR (Non-Af Amer) POC Glucose (mg/dL) Random Glucose Calcium Phosphorus Magnesium Iron TIBC % Saturation Total Bilirubin AST ALT Alkaline Phosphatase Lactate Dehydrogenase Total Creatine Kinase Troponin I NT-Pro-B Natriuret Pep Total Protein Albumin Globulin Albumin/Globulin Ratio Procalcitonin TSH 3rd Generation Arterial Blood Potassium Venous Blood Potassium 4.3 Urine Color Yellow Urine Appearance Clear Urine pH 6.0 Ur Specific [place] 1.020 Urine Protein 30 H Urine Glucose (UA) 100 H Urine Ketones Negative Urine Blood Trace-intact H Urine Nitrate Negative Urine Bilirubin Negative Urine Urobilinogen 0.2 Ur Leukocyte Esterase Negative Urine RBC 0 - 2 Urine WBC None Ur Epithelial Cells 0 - 2 Urine Bacteria Neg Hyaline Casts 0 - 2 Urine Eosinophils Ur Random Creatinine U Random Total Protein Influenza Typ A,B (EIA) Ur L.pneumophila Ag Negative Blood Type Blood Type Confirm Antibody Screen Crossmatch BBK History Checked 04/25/18 04/25/18 04/25/18 18:22 18:30 18:30 WBC RBC Hgb Hct MCV MCH MCHC RDW Plt Count MPV Neut % (Auto) Lymph % (Auto) [place] % (Auto) Eos % (Auto) Baso % (Auto) Lymph # (Auto) [place] # (Auto) Eos # (Auto) Baso # (Auto) Absolute Neuts (auto) Differential Comment Retic Count PT INR APTT pCO2 pO2 HCO3 ABG pH ABG Total CO2 ABG O2 Saturation ABG O2 Content ABG Base Excess ABG Hemoglobin ABG Carboxyhemoglobin POC ABG HHb (Measured) ABG Methemoglobin ABG O2 Capacity ABG Potassium VBG pH VBG pCO2 VBG HCO3 VBG Total CO2 VBG O2 Sat (Calc) VBG Base Excess VBG Potassium Hgb O2 Saturation Glucose Lactate FiO2 Pressure Support Inspiratory BiPAP Blood Gas Comments Crit Value Called To Crit Value Called By Blood Gas Notified Time Sodium Potassium Chloride Carbon Dioxide Anion Gap BUN Creatinine Est GFR ( Amer) Est GFR (Non-Af Amer) POC Glucose (mg/dL) 127 H Random Glucose Calcium Phosphorus Magnesium Iron TIBC % Saturation Total Bilirubin AST ALT Alkaline Phosphatase Lactate Dehydrogenase Total Creatine Kinase Troponin I 1.64 H* D NT-Pro-B Natriuret Pep Total Protein Albumin Globulin Albumin/Globulin Ratio Procalcitonin TSH 3rd Generation Arterial Blood Potassium Venous Blood Potassium Urine Color Urine Appearance Urine pH Ur Specific Scheller Urine Protein Urine Glucose (UA) Urine Ketones Urine Blood Urine Nitrate Urine Bilirubin Urine Urobilinogen Ur Leukocyte Esterase Urine RBC Urine WBC Ur Epithelial Cells Urine Bacteria Hyaline Casts Urine Eosinophils Ur Random Creatinine U Random Total Protein Influenza Typ A,B (EIA) Negative for flu a/b Ur L.pneumophila Ag Blood Type Blood Type Confirm Antibody Screen Crossmatch BBK History Checked 04/25/18 04/26/18 04/26/18 23:59 00:25 00:25 WBC RBC Hgb Hct MCV MCH MCHC RDW Plt Count MPV Neut % (Auto) Lymph % (Auto) [place] % (Auto) Eos % (Auto) Baso % (Auto) Lymph # (Auto) [place] # (Auto) Eos # (Auto) Baso # (Auto) Absolute Neuts (auto) Differential Comment Retic Count PT INR APTT 35.7 pCO2 pO2 HCO3 ABG pH ABG Total CO2 ABG O2 Saturation ABG O2 Content ABG Base Excess ABG Hemoglobin ABG Carboxyhemoglobin POC ABG HHb (Measured) ABG Methemoglobin ABG O2 Capacity ABG Potassium VBG pH VBG pCO2 VBG HCO3 VBG Total CO2 VBG O2 Sat (Calc) VBG Base Excess VBG Potassium Hgb O2 Saturation Glucose Lactate FiO2 Pressure Support Inspiratory BiPAP Blood Gas Comments Crit Value Called To Crit Value Called By Blood Gas Notified Time Sodium Potassium Chloride Carbon Dioxide Anion Gap BUN Creatinine Est GFR ( Amer) Est GFR (Non-Af Amer) POC Glucose (mg/dL) 127 H Random Glucose Calcium Phosphorus Magnesium Iron TIBC % Saturation Total Bilirubin AST ALT Alkaline Phosphatase Lactate Dehydrogenase Total Creatine Kinase Troponin I 1.72 H* NT-Pro-B Natriuret Pep Total Protein Albumin Globulin Albumin/Globulin Ratio Procalcitonin TSH 3rd Generation Arterial Blood Potassium Venous Blood Potassium Urine Color Urine Appearance Urine pH Ur Specific Scheller Urine Protein Urine Glucose (UA) Urine Ketones Urine Blood Urine Nitrate Urine Bilirubin Urine Urobilinogen Ur Leukocyte Esterase Urine RBC Urine WBC Ur Epithelial Cells Urine Bacteria Hyaline Casts Urine Eosinophils Ur Random Creatinine U Random Total Protein Influenza Typ A,B (EIA) Ur L.pneumophila Ag Blood Type Blood Type Confirm Antibody Screen Crossmatch BBK History Checked 04/26/18 04/26/18 04/26/18 05:50 05:50 05:50 WBC 7.6 D RBC 2.12 L Hgb 6.8 L* Hct 22.4 L MCV 105.7 H MCH 32.1 MCHC 30.4 L RDW 15.0 H Plt Count 158 MPV 10.8 Neut % (Auto) 81.8 H Lymph % (Auto) 16.5 L [place] % (Auto) 1.6 Eos % (Auto) 0.0 L Baso % (Auto) 0.1 Lymph # (Auto) 1.3 [place] # (Auto) 0.1 Eos # (Auto) 0.0 Baso # (Auto) 0.01 Absolute Neuts (auto) 6.21 Differential Comment See pathology report Retic Count PT INR APTT pCO2 pO2 HCO3 ABG pH ABG Total CO2 ABG O2 Saturation ABG O2 Content ABG Base Excess ABG Hemoglobin ABG Carboxyhemoglobin POC ABG HHb (Measured) ABG Methemoglobin ABG O2 Capacity ABG Potassium VBG pH VBG pCO2 VBG HCO3 VBG Total CO2 VBG O2 Sat (Calc) VBG Base Excess VBG Potassium Hgb O2 Saturation Glucose Lactate FiO2 Pressure Support Inspiratory BiPAP Blood Gas Comments Crit Value Called To Crit Value Called By Blood Gas Notified Time Sodium 141 Potassium 4.9 Chloride 101 Carbon Dioxide 29 Anion Gap 16 BUN 46 H Creatinine 3.2 H Est GFR ( Amer) 17 Est GFR (Non-Af Amer) 14 POC Glucose (mg/dL) Random Glucose 103 Calcium 10.2 Phosphorus 3.7 Magnesium 2.0 Iron TIBC % Saturation Total Bilirubin 0.5 AST 48 H D ALT 49 Alkaline Phosphatase 97 Lactate Dehydrogenase Total Creatine Kinase Troponin I 1.21 H* D NT-Pro-B Natriuret Pep Total Protein 6.3 Albumin 3.4 Globulin 2.9 Albumin/Globulin Ratio 1.1 Procalcitonin TSH 3rd Generation 1.11 Arterial Blood Potassium Venous Blood Potassium Urine Color Urine Appearance Urine pH Ur Specific Scheller Urine Protein Urine Glucose (UA) Urine Ketones Urine Blood Urine Nitrate Urine Bilirubin Urine Urobilinogen Ur Leukocyte Esterase Urine RBC Urine WBC Ur Epithelial Cells Urine Bacteria Hyaline Casts Urine Eosinophils Ur Random Creatinine U Random Total Protein Influenza Typ A,B (EIA) Ur L.pneumophila Ag Blood Type Blood Type Confirm Antibody Screen Crossmatch BBK History Checked 04/26/18 04/26/18 04/26/18 05:50 05:50 06:00 WBC RBC Hgb Hct MCV MCH MCHC RDW Plt Count MPV Neut % (Auto) Lymph % (Auto) [place] % (Auto) Eos % (Auto) Baso % (Auto) Lymph # (Auto) [place] # (Auto) Eos # (Auto) Baso # (Auto) Absolute Neuts (auto) Differential Comment Retic Count 2.44 H PT INR APTT 35.1 pCO2 pO2 HCO3 ABG pH ABG Total CO2 ABG O2 Saturation ABG O2 Content ABG Base Excess ABG Hemoglobin ABG Carboxyhemoglobin POC ABG HHb (Measured) ABG Methemoglobin ABG O2 Capacity ABG Potassium VBG pH VBG pCO2 VBG HCO3 VBG Total CO2 VBG O2 Sat (Calc) VBG Base Excess VBG Potassium Hgb O2 Saturation Glucose Lactate FiO2 Pressure Support Inspiratory BiPAP Blood Gas Comments Crit Value Called To Crit Value Called By Blood Gas Notified Time Sodium Potassium Chloride Carbon Dioxide Anion Gap BUN Creatinine Est GFR ( Amer) Est GFR (Non-Af Amer) POC Glucose (mg/dL) Random Glucose Calcium Phosphorus Magnesium Iron 62 TIBC 187 L % Saturation 33 Total Bilirubin AST ALT Alkaline Phosphatase Lactate Dehydrogenase Total Creatine Kinase Troponin I NT-Pro-B Natriuret Pep Total Protein Albumin Globulin Albumin/Globulin Ratio Procalcitonin TSH 3rd Generation Arterial Blood Potassium Venous Blood Potassium Urine Color Urine Appearance Urine pH Ur Specific Scheller Urine Protein Urine Glucose (UA) Urine Ketones Urine Blood Urine Nitrate Urine Bilirubin Urine Urobilinogen Ur Leukocyte Esterase Urine RBC Urine WBC Ur Epithelial Cells Urine Bacteria Hyaline Casts Urine Eosinophils Ur Random Creatinine U Random Total Protein Influenza Typ A,B (EIA) Ur L.pneumophila Ag Blood Type Blood Type Confirm Antibody Screen Crossmatch BBK History Checked 04/26/18 04/26/18 04/26/18 06:00 06:01 06:44 WBC RBC Hgb Hct MCV MCH MCHC RDW Plt Count MPV Neut % (Auto) Lymph % (Auto) [place] % (Auto) Eos % (Auto) Baso % (Auto) Lymph # (Auto) [place] # (Auto) Eos # (Auto) Baso # (Auto) Absolute Neuts (auto) Differential Comment Retic Count PT INR APTT pCO2 pO2 HCO3 ABG pH ABG Total CO2 ABG O2 Saturation ABG O2 Content ABG Base Excess ABG Hemoglobin ABG Carboxyhemoglobin POC ABG HHb (Measured) ABG Methemoglobin ABG O2 Capacity ABG Potassium VBG pH VBG pCO2 VBG HCO3 VBG Total CO2 VBG O2 Sat (Calc) VBG Base Excess VBG Potassium Hgb O2 Saturation Glucose Lactate FiO2 Pressure Support Inspiratory BiPAP Blood Gas Comments Crit Value Called To Crit Value Called By Blood Gas Notified Time Sodium Potassium Chloride Carbon Dioxide Anion Gap BUN Creatinine Est GFR ( Amer) Est GFR (Non-Af Amer) POC Glucose (mg/dL) 117 H Random Glucose Calcium Phosphorus Magnesium Iron TIBC % Saturation Total Bilirubin AST ALT Alkaline Phosphatase Lactate Dehydrogenase 630 Total Creatine Kinase Troponin I NT-Pro-B Natriuret Pep Total Protein Albumin Globulin Albumin/Globulin Ratio Procalcitonin TSH 3rd Generation Arterial Blood Potassium Venous Blood Potassium Urine Color Urine Appearance Urine pH Ur Specific Scheller Urine Protein Urine Glucose (UA) Urine Ketones Urine Blood Urine Nitrate Urine Bilirubin Urine Urobilinogen Ur Leukocyte Esterase Urine RBC Urine WBC Ur Epithelial Cells Urine Bacteria Hyaline Casts Urine Eosinophils Ur Random Creatinine U Random Total Protein Influenza Typ A,B (EIA) Ur L.pneumophila Ag Blood Type O POSITIVE Blood Type Confirm Antibody Screen Negative Crossmatch See Detail BBK History Checked No verified bt 04/26/18 04/26/18 04/26/18 08:20 09:18 09:18 WBC RBC Hgb Hct MCV MCH MCHC RDW Plt Count MPV Neut % (Auto) Lymph % (Auto) [place] % (Auto) Eos % (Auto) Baso % (Auto) Lymph # (Auto) [place] # (Auto) Eos # (Auto) Baso # (Auto) Absolute Neuts (auto) Differential Comment Retic Count PT INR APTT pCO2 pO2 HCO3 ABG pH ABG Total CO2 ABG O2 Saturation ABG O2 Content ABG Base Excess ABG Hemoglobin ABG Carboxyhemoglobin POC ABG HHb (Measured) ABG Methemoglobin ABG O2 Capacity ABG Potassium VBG pH VBG pCO2 VBG HCO3 VBG Total CO2 VBG O2 Sat (Calc) VBG Base Excess VBG Potassium Hgb O2 Saturation Glucose Lactate FiO2 Pressure Support Inspiratory BiPAP Blood Gas Comments Crit Value Called To Crit Value Called By Blood Gas Notified Time Sodium Potassium Chloride Carbon Dioxide Anion Gap BUN Creatinine Est GFR ( Amer) Est GFR (Non-Af Amer) POC Glucose (mg/dL) Random Glucose Calcium Phosphorus Magnesium Iron TIBC % Saturation Total Bilirubin AST ALT Alkaline Phosphatase Lactate Dehydrogenase Total Creatine Kinase Troponin I NT-Pro-B Natriuret Pep Total Protein Albumin Globulin Albumin/Globulin Ratio Procalcitonin TSH 3rd Generation Arterial Blood Potassium Venous Blood Potassium Urine Color Urine Appearance Urine pH Ur Specific Scheller Urine Protein Urine Glucose (UA) Urine Ketones Urine Blood Urine Nitrate Urine Bilirubin Urine Urobilinogen Ur Leukocyte Esterase Urine RBC Urine WBC Ur Epithelial Cells Urine Bacteria Hyaline Casts Urine Eosinophils Negative Ur Random Creatinine 125 U Random Total Protein 46 Influenza Typ A,B (EIA) Ur L.pneumophila Ag Blood Type Blood Type Confirm O POSITIVE Antibody Screen Crossmatch BBK History Checked Radiology Impressions: Radiology Impressions Chest X-Ray 04/25/18 12:26 IMPRESSION: Limited portable examination. Severe cardiomegaly and moderate pulmonary venous congestion. EKG/Cardiology Studies: Cardiology / EKG Studies 04/25/18 12:33 EKG [ELECTROCARDIOGRAM] Stat Comment: Reason For Exam: SOB 04/25/18 14:02 EKG [ELECTROCARDIOGRAM] Stat Comment: Reason For Exam: SOB Critical Care Progress Note - Nutrition Nutrition: Nutrition Category Date Time Status NPO Diet [DIET] Diets 04/25/18 Dinner Ordered Attending/Attestation - Attestation I have personally seen and examined this patient.: Yes I have fully participated in the care of the patient.: Yes I have reviewed all pertinent clinical information: Yes Notes (Text): 04/26/18 11:06 The patient was seen and examined at the bedside. Patient care was discussed with resident Medical records, lab studies were reviewed and management issues were discussed and formulated. Agree with above treatment plans as outlined in 's note with addition of the following: Acute Respiratory Failure \\ Hypoxemia \\ Hypercapnea \\ COPD \\ PNA \\ Afib with RVR \\ ho DVT \\ Renal Transplant \\ Anemia \\ NSTEMI \\ Lupus -hemodynamic monitoring to maintain MAP>65 -cardiology team f\\u -f\\u serial CE and ECG -continue ASA; start BBlocker and statin if OK by cardiology team -o2 supplementation and Bipap PRN and HS to maintain Spo2 90-92 Pao2>60 -f\\u repeat ABG -continue nebs and steroids -broad spectrum abx; f\\u cultures; ID eval -f\\u Bun\\Cr and U\\o; renal team f\\u -continu prograf -NPO diet; dysphagia eval and aspiration precautions -H\\H drop today to 6.8; hold heparin drip and monitor for bleeding -transfuse 2 PRBC; continue PPI and consider GI eval if signs of bleed -Palliative team eval -DVT \\ PUD prophylaxis CCM time 35min
[2018-04-26] MEDS: MethylPREDNISolone 40 mg Vial IVP SCH ×2 (09:05→21:35)
--- NOTE | 2018-04-26 09:10 | CP.PCM.PN ---
<Miguel A Means - Last Filed: 04/26/18 11:56> Subjective - Date & Time of Evaluation Date of Evaluation: 04/26/18 Time of Evaluation: 09:10 - Subjective Subjective: Miguel A Means DO, PGY-1 Hospitalist Progress Note for Dr. Choudhary Patient was seen and examined at bedside this AM. She appears more alert this AM and is no longer requiring bipap. She states she feels less short of breath this AM. 12-point ROS difficult to obtain as patient is still drowsy and has a history of dementia at baseline. Objective - Vital Signs/Intake and Output Vital Signs (last 24 hours): Temp Pulse Resp BP Pulse Ox 98.2 F 98 H 17 130/79 100 04/26/18 08:00 04/26/18 07:59 04/26/18 07:59 04/26/18 08:00 04/26/18 07:59 Intake and Output: 04/26/18 04/26/18 06:59 18:59 Intake Total 7 Output Total 500 Balance -493 - Medications Medications: Current Medications Albuterol/Ipratropium (Duoneb 3 Mg/0.5 Mg (3 Ml) Ud) 3 ml IH Q4H PRN PRN Reason: Shortness of Breath Last Admin: 04/26/18 07:09 Dose: 3 ml Apixaban (Eliquis) 2.5 mg PO BID [facility]; Protocol Last Admin: 04/25/18 17:03 Dose: 2.5 mg Aspirin (Aspirin Chewable) 81 mg PO DAILY [facility] Last Admin: 04/26/18 09:02 Dose: Not Given Doxycycline Hyclate 100 mg/ (Sodium Chloride) 100 mls @ 100 mls/hr IVPB Q12 [facility]; Protocol Last Admin: 04/25/18 22:30 Dose: 100 mls/hr Heparin Sodium/Sodium Chloride (Heparin 89392 Units/250ml 1/2 Normal Saline) 25,000 units in 250 mls @ 2.765 mls/hr IV .Q24H [facility]; Protocol Last Admin: 04/26/18 00:36 Dose: 12 units/kg/hr, 2.765 mls/hr Cefepime HCl (Maxipime 1gm) 1 gm in 100 mls @ 100 mls/hr IVPB Q24H [facility]; Protocol Last Admin: 04/26/18 07:49 Dose: 100 mls/hr Methylprednisolone (Solu-Medrol) 20 mg IVP Q12 [facility] Last Admin: 04/25/18 22:30 Dose: 20 mg Oseltamivir Phosphate (Tamiflu Cap) 30 mg PO DAILY [facility]; Protocol Last Admin: 04/25/18 16:14 Dose: 30 mg Pantoprazole Sodium (Protonix Inj) 40 mg IVP DAILY [facility] Last Admin: 04/25/18 16:15 Dose: 40 mg Sodium Bicarbonate (Sodium Bicarbonate Tab) 325 mg PO BID [facility] Last Admin: 04/25/18 17:01 Dose: Not Given Tacrolimus (Prograf Cap) 3 mg PO BID [facility] Last Admin: 04/25/18 17:03 Dose: 3 mg - Labs Labs: 04/26/18 05:50 04/26/18 05:50 PT 21.2 SECONDS (9.4-12.5) H 04/25/18 12:35 INR 1.88 04/25/18 12:35 APTT 35.1 Seconds (26.9-38.3) 04/26/18 05:50 - Constitutional Appears: Non-toxic, No Acute Distress - Head Exam Head Exam: ATRAUMATIC, NORMOCEPHALIC - Eye Exam Eye Exam: EOMI, PERRL - ENT Exam ENT Exam: Mucous Membranes Moist - Neck Exam Neck Exam: Full ROM - Respiratory Exam Respiratory Exam: Rhonchi (b/l coarse breath sounds). absent: Accessory Muscle Use, Chest Wall Tenderness, Rales, Wheezes, Respiratory Distress, Stridor - Cardiovascular Exam Cardiovascular Exam: Tachycardia, Irregular Rhythm. absent: Gallop, Rubs, Murmur - GI/Abdominal Exam GI & Abdominal Exam: Soft, Normal Bowel Sounds. absent: Tenderness - Extremities Exam Extremities Exam: Full ROM, Normal Inspection - Back Exam Back Exam: NORMAL INSPECTION - Neurological Exam Neurological Exam: Alert, Awake, Oriented x3 - Psychiatric Exam Psychiatric exam: Normal Affect, Normal Mood - Skin Skin Exam: Dry, Intact, Warm Assessment and Plan - Assessment and Plan (Free Text) Assessment: 77 yo F with PMH of CHF, COPD, LUE DVT, SLE, lupus nephritis, and osteoporosis presents in acute hypoxic respiratory failure 2/2 worsening pulmonary edema likely from uncontrolled CHF. Patient also has positive troponin and AFib on admission. She was evaluated and accepted by ICU for monitoring. Plan: Acute hypoxic respiratory failure Likely 2/2 pulmonary edema from uncontrolled CHF vs NSTEMI vs PNA Now off bipap, continue supplemental O2 Influenza, legionella serologies negative Lasix discontinued for concern of worsening renal function Continue empiric cefepime, doxycycline F/u additional ID recs Monitor airway closely Macrocytic Anemia H/H worsened this AM to 6.8/22.4 May be 2/2 anemia of chronic disease from renal failure/CHF vs nutrient deficiency Will transfuse 2 u PRBCs Recheck H/H 2 hours after transfusion Get iron studies, folate, B12 levels NSTEMI Trop increased this AM Heparin drip started Patient denies any symptoms of chest pain currently Will also start BB and statin Cardiology following, all recs appreciated AFib Found on EKG on admission and continued overnight when patient is awakened Start diltiazem 30 mg q8h Additional recs/adjustments per cardiology Hx Lupus nephritis s/p renal transplant BUN/Cr elevated above baseline this AM Continue prograf D/c lasix Obtaining complement levels, ANAI, anti-dsDNA per nephrology recs Monitor UOP closely Nephrology following, all recs appreciated Hx LUE DVT Continue heparin drip, eliquis when discontinued Hx COPD Continue duo-neb scheduled and PRN Chest CT completed, f/u official read DVT/GI PPX: Heparin drip/protonix Full Code NPO Monitor in MICU Patient seen, examined, and plan discussed with my attending Dr. Funmi Means, D.O. IM Resident PGY-1 Pager: [phone] <Carmine Choudhary - Last Filed: 04/26/18 17:28> Objective - Vital Signs/Intake and Output Vital Signs (last 24 hours): Temp Pulse Resp BP Pulse Ox 98.5 F 87 29 H 125/70 93 L 04/26/18 16:40 04/26/18 16:45 04/26/18 16:45 04/26/18 16:45 04/26/18 16:45 Intake and Output: 04/26/18 04/26/18 06:59 18:59 Intake Total 7 326 Output Total 500 Balance -493 326 - Medications Medications: Current Medications Albuterol/Ipratropium (Duoneb 3 Mg/0.5 Mg (3 Ml) Ud) 3 ml IH Q4H PRN PRN Reason: Shortness of Breath Last Admin: 04/26/18 07:09 Dose: 3 ml Apixaban (Eliquis) 2.5 mg PO BID [facility]; Protocol Last Admin: 04/25/18 17:03 Dose: 2.5 mg Aspirin (Aspirin Chewable) 81 mg PO DAILY [facility] Last Admin: 04/26/18 09:36 Dose: 81 mg Budesonide (Pulmicort Respules) 0.5 mg IH [id number] [facility] Diltiazem HCl (Cardizem) 30 mg PO Q8H [facility] Last Admin: 04/26/18 11:39 Dose: 30 mg Doxycycline Hyclate 100 mg/ (Sodium Chloride) 100 mls @ 100 mls/hr IVPB Q12 [facility]; Protocol Last Admin: 04/26/18 10:17 Dose: 100 mls/hr Heparin Sodium/Sodium Chloride (Heparin 82609 Units/250ml 1/2 Normal Saline) 25,000 units in 250 mls @ 2.765 mls/hr IV .Q24H [facility]; Protocol Last Admin: 04/26/18 00:36 Dose: 12 units/kg/hr, 2.765 mls/hr Cefepime HCl (Maxipime 1gm) 1 gm in 100 mls @ 100 mls/hr IVPB Q24H [facility]; Protocol Last Admin: 04/26/18 07:49 Dose: 100 mls/hr diltiaZEM IVPB 100mg in NS (Cardizem 100mg In Ns) 100 mls @ 5 mls/hr IV .Q20H PRN; Protocol PRN Reason: TITRATE PER MD ORDER Last Titration: 04/26/18 15:45 Dose: 10 mg/hr, 10 mls/hr Methylprednisolone (Solu-Medrol) 20 mg IVP Q12 [facility] Last Admin: 04/26/18 09:05 Dose: 20 mg Oseltamivir Phosphate (Tamiflu Cap) 30 mg PO DAILY [facility]; Protocol Last Admin: 04/26/18 09:05 Dose: 30 mg Pantoprazole Sodium (Protonix Inj) 40 mg IVP DAILY [facility] Last Admin: 04/26/18 09:05 Dose: 40 mg Sodium Bicarbonate (Sodium Bicarbonate Tab) 325 mg PO BID [facility] Last Admin: 04/26/18 09:04 Dose: 325 mg Tacrolimus (Prograf Cap) 3 mg PO BID [facility] Last Admin: 04/26/18 09:05 Dose: 3 mg - Labs Labs: 04/26/18 05:50 04/26/18 05:50 PT 21.2 SECONDS (9.4-12.5) H 04/25/18 12:35 INR 1.88 04/25/18 12:35 APTT 35.1 Seconds (26.9-38.3) 04/26/18 05:50 Attending/Attestation - Attestation I have personally seen and examined this patient.: Yes I have fully participated in the care of the patient.: Yes I have reviewed all pertinent clinical information, including history, physical exam and plan: Yes Notes (Text): 04/26/18 17:15 Acute hypoxemic resp failure 2/2 CHF exacerbation NSTEMI A.fib with RVR Start pt on cardizem PO Trop peaked at 1.72, trending down now f/u cardio c/w heparin gtt
[2018-04-26 09:51] LABS: CREATININE,RANDOM URINE 125 mg/dL; TOTAL PROTEIN,RANDOM URINE 46 mg/L
--- NOTE | 2018-04-26 11:22 | CP.PCM.CON ---
History of Present Illness - History of Present Illness History of Present Illness: Palliative consult requested by Dr Nimesh Nelson Reason: Goals of care 77 year old female with history of kidney transplant,COPD who was hospitalized([facility])with pneumonia one month ago. She presented to ED yesterday with weakness and increasing shortness if breath. BNP 15395 and troponins were elevated>0.27,1.64. Hgb 7.4. She was placed on BiPAP and transferred to MICU for further management Chest x ray: Severe cardiomegaly and moderate pulmonary hypertension Chest CT: Severe cardiomegaly> Small lung volumes. Bibasilar consolidation and small pleural effusions. PMHx: COPD on Cpap at home, CHF,A Fib on Elequis, DVT,CKD, SLE, kyphoscoliosis PSHx: kidney transplant, s/p dialysis in past Social History: Former smoker, no alcohol or drug use.Lives with family. Family History: Non contributory Advance Care Planning: The patient does not have and Advanced Directive Review of Systems: As per HPI, 12 point review negative Past Patient History - Past Social History Smoking Status: Never Smoked - CARDIAC Hx Congestive Heart Failure: Yes Hx Hypertension: Yes - PULMONARY Hx Respiratory Disorders: Yes Hx Asthma: No Hx Bronchitis: No Hx Chronic Obstructive Pulmonary Disease (COPD): Yes Hx Emphysema: No Hx Pneumonia: No Hx Respiratory Aspiration: No Hx Respiratory Tract Infection: Yes Hx Sleep Apnea: Yes (cpap at home) Hx Tuberculosis: No - NEUROLOGICAL Hx Neurological Disorder: No Hx Alzheimer's Disease: No HX Cerebrovascular Accident: No Hx Dementia: No Hx Dizziness: No Hx Meningitis: No Hx Migraine: No Hx Parkinson's Disease: No Hx Seizures: No Hx Transient Ischemic Attacks (TIA): No - HEENT Hx HEENT Problems: No Hx Blind: No Hx Cataracts: No Hx Deafness: No Hx Difficulty Chewing: No Hx Epistaxis: No Hx Glaucoma: No Hx Macular Degeneration: No - RENAL Hx Chronic Kidney Disease: No Hx Dialysis: No Hx Kidney Stones: No Hx Neurogenic Bladder: No Hx Pyelonephritis: No Hx Renal (Kidney) Cancer: No Hx Renal Failure: No - ENDOCRINE/METABOLIC Hx Systemic Lupus Erythematosus: Yes - HEMATOLOGICAL/ONCOLOGICAL Hx Blood Disorders: No Hx AIDS: No Hx Anemia: No Hx Cancer: No Hx Chemotherapy: No Hx Cirrhosis: No Hx Hemophilia: No Hx Hepatitis A: No Hx Hepatitis B: No Hx Hepatitis C: No Hx Human Immunodeficiency Virus (HIV): No Hx Metastesis: No Hx Shingles: No Hx Sickle Cell Disease: No Hx Unexplained Bleeding: No - INTEGUMENTARY Hx Dermatological Problems: No Hx Basil Cell: No Hx Eczema: No Hx Melanoma: No Hx Psoriasis: No Hx Squamous Cell: No - MUSCULOSKELETAL/RHEUMATOLOGICAL Hx Arthritis: Yes - GASTROINTESTINAL Hx Gastrointestinal Disorders: No Hx Colostomy: No Hx Crohn's Disease: No Hx Diverticulitis: No Hx Gall Bladder Disease: No Hx Gastroesophageal Reflux: No Hx Ileostomy: No Hx Liver Failure: No Hx Pancreatitis: No HX Swallowing Problems: No Hx Ulcer: No - GENITOURINARY/GYNECOLOGICAL Hx Genitourinary Disorders: No Hx Hematuria: No Hx Incontinence: No Hx Sexually Transmitted Disorders: No Hx Urinary Tract Infection: No - PSYCHIATRIC Hx Substance Use: No - SURGICAL HISTORY Hx Kidney Transplant: Yes (2007 / no longer dyalisis pt) - ANESTHESIA Hx Anesthesia: Yes Hx Anesthesia Reactions: No Hx Malignant Hyperthermia: No Meds Allergies/Adverse Reactions: Allergies Allergy/AdvReac Type Severity Reaction Status Date / Time No Known Allergies Allergy Verified 04/25/18 12:21 - Medications Medications: Current Medications Albuterol/Ipratropium (Duoneb 3 Mg/0.5 Mg (3 Ml) Ud) 3 ml IH Q4H PRN PRN Reason: Shortness of Breath Last Admin: 04/26/18 07:09 Dose: 3 ml Apixaban (Eliquis) 2.5 mg PO BID BIJAN; Protocol Last Admin: 04/25/18 17:03 Dose: 2.5 mg Aspirin (Aspirin Chewable) 81 mg PO DAILY [facility] Last Admin: 04/26/18 09:36 Dose: 81 mg Budesonide (Pulmicort Respules) 0.5 mg IH [id number] BIJAN Diltiazem HCl (Cardizem) 30 mg PO Q8H BIJAN Doxycycline Hyclate 100 mg/ (Sodium Chloride) 100 mls @ 100 mls/hr IVPB Q12 BIJAN; Protocol Last Admin: 04/26/18 10:17 Dose: 100 mls/hr Heparin Sodium/Sodium Chloride (Heparin 96718 Units/250ml 1/2 Normal Saline) 25,000 units in 250 mls @ 2.765 mls/hr IV .Q24H BIJAN; Protocol Last Admin: 04/26/18 00:36 Dose: 12 units/kg/hr, 2.765 mls/hr Cefepime HCl (Maxipime 1gm) 1 gm in 100 mls @ 100 mls/hr IVPB Q24H [facility]; Protocol Last Admin: 04/26/18 07:49 Dose: 100 mls/hr Methylprednisolone (Solu-Medrol) 20 mg IVP Q12 [facility] Last Admin: 04/26/18 09:05 Dose: 20 mg Oseltamivir Phosphate (Tamiflu Cap) 30 mg PO DAILY [facility]; Protocol Last Admin: 04/26/18 09:05 Dose: 30 mg Pantoprazole Sodium (Protonix Inj) 40 mg IVP DAILY [facility] Last Admin: 04/26/18 09:05 Dose: 40 mg Sodium Bicarbonate (Sodium Bicarbonate Tab) 325 mg PO BID [facility] Last Admin: 04/26/18 09:04 Dose: 325 mg Tacrolimus (Prograf Cap) 3 mg PO BID [facility] Last Admin: 04/26/18 09:05 Dose: 3 mg Physical Exam - Constitutional Appears: Cachectic, Chronically Ill - Head Exam Head Exam: NORMOCEPHALIC - Eye Exam Eye Exam: Normal appearance, PERRL - ENT Exam ENT Exam: Mucous Membranes Moist - Neck Exam Neck exam: Positive for: Normal Inspection - Respiratory Exam Respiratory Exam: Accessory Muscle Use, Decreased Breath Sounds, Rhonchi, Wheezes - Cardiovascular Exam Cardiovascular Exam: Irregular Rhythm, +S1 - GI/Abdominal Exam GI & Abdominal Exam: Normal Bowel Sounds, Soft - Extremities Exam Extremities exam: Positive for: pedal edema, pedal pulses present - Neurological Exam Neurological exam: Alert Additional comments: oriented to self - Skin Skin Exam: Dry, Pallor - Additional Findings Additional findings: Palliative performance scale rating 30% Results - Vital Signs Recent Vital Signs: Last Vital Signs Temp 98.2 F 04/26/18 08:00 Pulse 98 H 04/26/18 07:59 Resp 17 04/26/18 07:59 BP 130/79 04/26/18 08:00 Pulse Ox 100 04/26/18 07:59 - Labs Result Diagrams: 04/26/18 05:50 04/26/18 05:50 Labs: Laboratory Results - last 24 hr 04/25/18 04/25/18 04/25/18 12:35 12:35 12:35 WBC 11.9 H RBC 2.30 L Hgb 7.4 L Hct 24.2 L MCV 105.2 H MCH 32.2 MCHC 30.6 L RDW 14.9 H Plt Count 183 MPV 10.7 Neut % (Auto) 79.4 H Lymph % (Auto) 12.2 L [place] % (Auto) 8.0 H Eos % (Auto) 0.1 L Baso % (Auto) 0.3 Lymph # (Auto) 1.5 [place] # (Auto) 1.0 H Eos # (Auto) 0.0 Baso # (Auto) 0.03 Absolute Neuts (auto) 9.42 H Differential Comment Retic Count PT 21.2 H INR 1.88 APTT 31.5 pCO2 pO2 HCO3 ABG pH ABG Total CO2 ABG O2 Saturation ABG O2 Content ABG Base Excess ABG Hemoglobin ABG Carboxyhemoglobin POC ABG HHb (Measured) ABG Methemoglobin ABG O2 Capacity ABG Potassium VBG pH VBG pCO2 VBG HCO3 VBG Total CO2 VBG O2 Sat (Calc) VBG Base Excess VBG Potassium Hgb O2 Saturation Glucose Lactate FiO2 Pressure Support Inspiratory BiPAP Blood Gas Comments Crit Value Called To Crit Value Called By Blood Gas Notified Time Sodium 140 Potassium 4.0 Chloride 100 Carbon Dioxide 30 Anion Gap 14 BUN 42 H Creatinine 2.6 H Est GFR ( Amer) 22 Est GFR (Non-Af Amer) 18 POC Glucose (mg/dL) Random Glucose 134 H Calcium 10.5 Phosphorus 3.2 Magnesium 2.0 Iron TIBC % Saturation Total Bilirubin 0.5 AST 65 H ALT 52 Alkaline Phosphatase 107 Lactate Dehydrogenase Total Creatine Kinase 35 Troponin I 0.27 H* NT-Pro-B Natriuret Pep 07989 H Total Protein 6.8 Albumin 3.6 Globulin 3.3 Albumin/Globulin Ratio 1.1 Procalcitonin TSH 3rd Generation Arterial Blood Potassium Venous Blood Potassium Urine Color Urine Appearance Urine pH Ur Specific [place] Urine Protein Urine Glucose (UA) Urine Ketones Urine Blood Urine Nitrate Urine Bilirubin Urine Urobilinogen Ur Leukocyte Esterase Urine RBC Urine WBC Ur Epithelial Cells Urine Bacteria Hyaline Casts Urine Eosinophils Ur Random Creatinine U Random Total Protein Influenza Typ A,B (EIA) Ur L.pneumophila Ag Blood Type Blood Type Confirm Antibody Screen Crossmatch BBK History Checked 04/25/18 04/25/18 04/25/18 12:40 14:00 14:10 WBC RBC Hgb Hct MCV MCH MCHC RDW Plt Count MPV Neut % (Auto) Lymph % (Auto) [place] % (Auto) Eos % (Auto) Baso % (Auto) Lymph # (Auto) [place] # (Auto) Eos # (Auto) Baso # (Auto) Absolute Neuts (auto) Differential Comment Retic Count PT INR APTT pCO2 61 H 48 H pO2 18.0 L* 361.0 H HCO3 33.7 H 31.1 H ABG pH 7.35 7.42 ABG Total CO2 35.6 H 32.6 H ABG O2 Saturation 27.8 L 101.0 H ABG O2 Content 10.3 L ABG Base Excess 6.1 H 6.0 H ABG Hemoglobin 6.7 L ABG Carboxyhemoglobin 1.9 H POC ABG HHb (Measured) -1.0 L ABG Methemoglobin 0.2 ABG O2 Capacity 10.2 L ABG Potassium 4.1 VBG pH VBG pCO2 VBG HCO3 VBG Total CO2 VBG O2 Sat (Calc) VBG Base Excess VBG Potassium Hgb O2 Saturation 98.9 H Glucose 130 H Lactate 2.7 H FiO2 100.0 100.0 Pressure Support 7 Inspiratory BiPAP 12 Blood Gas Comments Possible venous. notified po2,pco2,lactate cv reported Crit Value Called To Chris alarcon Crit Value Called By Rst Blood Gas Notified Time 1250 Sodium 142.0 Potassium Chloride 106.0 Carbon Dioxide Anion Gap BUN Creatinine Est GFR ( Amer) Est GFR (Non-Af Amer) POC Glucose (mg/dL) Random Glucose Calcium Phosphorus Magnesium Iron TIBC % Saturation Total Bilirubin AST ALT Alkaline Phosphatase Lactate Dehydrogenase Total Creatine Kinase Troponin I NT-Pro-B Natriuret Pep Total Protein Albumin Globulin Albumin/Globulin Ratio Procalcitonin 0.69 H TSH 3rd Generation Arterial Blood Potassium 4.1 Venous Blood Potassium Urine Color Urine Appearance Urine pH Ur Specific [place] Urine Protein Urine Glucose (UA) Urine Ketones Urine Blood Urine Nitrate Urine Bilirubin Urine Urobilinogen Ur Leukocyte Esterase Urine RBC Urine WBC Ur Epithelial Cells Urine Bacteria Hyaline Casts Urine Eosinophils Ur Random Creatinine U Random Total Protein Influenza Typ A,B (EIA) Ur L.pneumophila Ag Blood Type Blood Type Confirm Antibody Screen Crossmatch BBK History Checked 04/25/18 04/25/18 04/25/18 15:30 15:52 15:52 WBC RBC Hgb Hct MCV MCH MCHC RDW Plt Count MPV Neut % (Auto) Lymph % (Auto) [place] % (Auto) Eos % (Auto) Baso % (Auto) Lymph # (Auto) [place] # (Auto) Eos # (Auto) Baso # (Auto) Absolute Neuts (auto) Differential Comment Retic Count PT INR APTT pCO2 pO2 37 HCO3 ABG pH ABG Total CO2 ABG O2 Saturation ABG O2 Content ABG Base Excess ABG Hemoglobin ABG Carboxyhemoglobin POC ABG HHb (Measured) ABG Methemoglobin ABG O2 Capacity ABG Potassium VBG pH 7.35 VBG pCO2 59.0 VBG HCO3 32.6 H VBG Total CO2 34.4 H VBG O2 Sat (Calc) 78.2 H VBG Base Excess 5.2 H VBG Potassium 4.3 Hgb O2 Saturation Glucose 129 H Lactate 1.6 FiO2 21.0 Pressure Support Inspiratory BiPAP Blood Gas Comments Crit Value Called To Crit Value Called By Blood Gas Notified Time Sodium 141.0 Potassium Chloride 105.0 Carbon Dioxide Anion Gap BUN Creatinine Est GFR ( Amer) Est GFR (Non-Af Amer) POC Glucose (mg/dL) Random Glucose Calcium Phosphorus Magnesium Iron TIBC % Saturation Total Bilirubin AST ALT Alkaline Phosphatase Lactate Dehydrogenase Total Creatine Kinase Troponin I NT-Pro-B Natriuret Pep Total Protein Albumin Globulin Albumin/Globulin Ratio Procalcitonin TSH 3rd Generation Arterial Blood Potassium Venous Blood Potassium 4.3 Urine Color Yellow Urine Appearance Clear Urine pH 6.0 Ur Specific [place] 1.020 Urine Protein 30 H Urine Glucose (UA) 100 H Urine Ketones Negative Urine Blood Trace-intact H Urine Nitrate Negative Urine Bilirubin Negative Urine Urobilinogen 0.2 Ur Leukocyte Esterase Negative Urine RBC 0 - 2 Urine WBC None Ur Epithelial Cells 0 - 2 Urine Bacteria Neg Hyaline Casts 0 - 2 Urine Eosinophils Ur Random Creatinine U Random Total Protein Influenza Typ A,B (EIA) Ur L.pneumophila Ag Negative Blood Type Blood Type Confirm Antibody Screen Crossmatch BBK History Checked 04/25/18 04/25/18 04/25/18 18:22 18:30 18:30 WBC RBC Hgb Hct MCV MCH MCHC RDW Plt Count MPV Neut % (Auto) Lymph % (Auto) [place] % (Auto) Eos % (Auto) Baso % (Auto) Lymph # (Auto) [place] # (Auto) Eos # (Auto) Baso # (Auto) Absolute Neuts (auto) Differential Comment Retic Count PT INR APTT pCO2 pO2 HCO3 ABG pH ABG Total CO2 ABG O2 Saturation ABG O2 Content ABG Base Excess ABG Hemoglobin ABG Carboxyhemoglobin POC ABG HHb (Measured) ABG Methemoglobin ABG O2 Capacity ABG Potassium VBG pH VBG pCO2 VBG HCO3 VBG Total CO2 VBG O2 Sat (Calc) VBG Base Excess VBG Potassium Hgb O2 Saturation Glucose Lactate FiO2 Pressure Support Inspiratory BiPAP Blood Gas Comments Crit Value Called To Crit Value Called By Blood Gas Notified Time Sodium Potassium Chloride Carbon Dioxide Anion Gap BUN Creatinine Est GFR ( Amer) Est GFR (Non-Af Amer) POC Glucose (mg/dL) 127 H Random Glucose Calcium Phosphorus Magnesium Iron TIBC % Saturation Total Bilirubin AST ALT Alkaline Phosphatase Lactate Dehydrogenase Total Creatine Kinase Troponin I 1.64 H* D NT-Pro-B Natriuret Pep Total Protein Albumin Globulin Albumin/Globulin Ratio Procalcitonin TSH 3rd Generation Arterial Blood Potassium Venous Blood Potassium Urine Color Urine Appearance Urine pH Ur Specific [place] Urine Protein Urine Glucose (UA) Urine Ketones Urine Blood Urine Nitrate Urine Bilirubin Urine Urobilinogen Ur Leukocyte Esterase Urine RBC Urine WBC Ur Epithelial Cells Urine Bacteria Hyaline Casts Urine Eosinophils Ur Random Creatinine U Random Total Protein Influenza Typ A,B (EIA) Negative for flu a/b Ur L.pneumophila Ag Blood Type Blood Type Confirm Antibody Screen Crossmatch BBK History Checked 04/25/18 04/26/18 04/26/18 23:59 00:25 00:25 WBC RBC Hgb Hct MCV MCH MCHC RDW Plt Count MPV Neut % (Auto) Lymph % (Auto) [place] % (Auto) Eos % (Auto) Baso % (Auto) Lymph # (Auto) [place] # (Auto) Eos # (Auto) Baso # (Auto) Absolute Neuts (auto) Differential Comment Retic Count PT INR APTT 35.7 pCO2 pO2 HCO3 ABG pH ABG Total CO2 ABG O2 Saturation ABG O2 Content ABG Base Excess ABG Hemoglobin ABG Carboxyhemoglobin POC ABG HHb (Measured) ABG Methemoglobin ABG O2 Capacity ABG Potassium VBG pH VBG pCO2 VBG HCO3 VBG Total CO2 VBG O2 Sat (Calc) VBG Base Excess VBG Potassium Hgb O2 Saturation Glucose Lactate FiO2 Pressure Support Inspiratory BiPAP Blood Gas Comments Crit Value Called To Crit Value Called By Blood Gas Notified Time Sodium Potassium Chloride Carbon Dioxide Anion Gap BUN Creatinine Est GFR ( Amer) Est GFR (Non-Af Amer) POC Glucose (mg/dL) 127 H Random Glucose Calcium Phosphorus Magnesium Iron TIBC % Saturation Total Bilirubin AST ALT Alkaline Phosphatase Lactate Dehydrogenase Total Creatine Kinase Troponin I 1.72 H* NT-Pro-B Natriuret Pep Total Protein Albumin Globulin Albumin/Globulin Ratio Procalcitonin TSH 3rd Generation Arterial Blood Potassium Venous Blood Potassium Urine Color Urine Appearance Urine pH Ur Specific [place] Urine Protein Urine Glucose (UA) Urine Ketones Urine Blood Urine Nitrate Urine Bilirubin Urine Urobilinogen Ur Leukocyte Esterase Urine RBC Urine WBC Ur Epithelial Cells Urine Bacteria Hyaline Casts Urine Eosinophils Ur Random Creatinine U Random Total Protein Influenza Typ A,B (EIA) Ur L.pneumophila Ag Blood Type Blood Type Confirm Antibody Screen Crossmatch BBK History Checked 04/26/18 04/26/18 04/26/18 05:50 05:50 05:50 WBC 7.6 D RBC 2.12 L Hgb 6.8 L* Hct 22.4 L MCV 105.7 H MCH 32.1 MCHC 30.4 L RDW 15.0 H Plt Count 158 MPV 10.8 Neut % (Auto) 81.8 H Lymph % (Auto) 16.5 L [place] % (Auto) 1.6 Eos % (Auto) 0.0 L Baso % (Auto) 0.1 Lymph # (Auto) 1.3 [place] # (Auto) 0.1 Eos # (Auto) 0.0 Baso # (Auto) 0.01 Absolute Neuts (auto) 6.21 Differential Comment See pathology report Retic Count PT INR APTT pCO2 pO2 HCO3 ABG pH ABG Total CO2 ABG O2 Saturation ABG O2 Content ABG Base Excess ABG Hemoglobin ABG Carboxyhemoglobin POC ABG HHb (Measured) ABG Methemoglobin ABG O2 Capacity ABG Potassium VBG pH VBG pCO2 VBG HCO3 VBG Total CO2 VBG O2 Sat (Calc) VBG Base Excess VBG Potassium Hgb O2 Saturation Glucose Lactate FiO2 Pressure Support Inspiratory BiPAP Blood Gas Comments Crit Value Called To Crit Value Called By Blood Gas Notified Time Sodium 141 Potassium 4.9 Chloride 101 Carbon Dioxide 29 Anion Gap 16 BUN 46 H Creatinine 3.2 H Est GFR ( Amer) 17 Est GFR (Non-Af Amer) 14 POC Glucose (mg/dL) Random Glucose 103 Calcium 10.2 Phosphorus 3.7 Magnesium 2.0 Iron TIBC % Saturation Total Bilirubin 0.5 AST 48 H D ALT 49 Alkaline Phosphatase 97 Lactate Dehydrogenase Total Creatine Kinase Troponin I 1.21 H* D NT-Pro-B Natriuret Pep Total Protein 6.3 Albumin 3.4 Globulin 2.9 Albumin/Globulin Ratio 1.1 Procalcitonin TSH 3rd Generation 1.11 Arterial Blood Potassium Venous Blood Potassium Urine Color Urine Appearance Urine pH Ur Specific [place] Urine Protein Urine Glucose (UA) Urine Ketones Urine Blood Urine Nitrate Urine Bilirubin Urine Urobilinogen Ur Leukocyte Esterase Urine RBC Urine WBC Ur Epithelial Cells Urine Bacteria Hyaline Casts Urine Eosinophils Ur Random Creatinine U Random Total Protein Influenza Typ A,B (EIA) Ur L.pneumophila Ag Blood Type Blood Type Confirm Antibody Screen Crossmatch BBK History Checked 04/26/18 04/26/18 04/26/18 05:50 05:50 06:00 WBC RBC Hgb Hct MCV MCH MCHC RDW Plt Count MPV Neut % (Auto) Lymph % (Auto) [place] % (Auto) Eos % (Auto) Baso % (Auto) Lymph # (Auto) [place] # (Auto) Eos # (Auto) Baso # (Auto) Absolute Neuts (auto) Differential Comment Retic Count 2.44 H PT INR APTT 35.1 pCO2 pO2 HCO3 ABG pH ABG Total CO2 ABG O2 Saturation ABG O2 Content ABG Base Excess ABG Hemoglobin ABG Carboxyhemoglobin POC ABG HHb (Measured) ABG Methemoglobin ABG O2 Capacity ABG Potassium VBG pH VBG pCO2 VBG HCO3 VBG Total CO2 VBG O2 Sat (Calc) VBG Base Excess VBG Potassium Hgb O2 Saturation Glucose Lactate FiO2 Pressure Support Inspiratory BiPAP Blood Gas Comments Crit Value Called To Crit Value Called By Blood Gas Notified Time Sodium Potassium Chloride Carbon Dioxide Anion Gap BUN Creatinine Est GFR ( Amer) Est GFR (Non-Af Amer) POC Glucose (mg/dL) Random Glucose Calcium Phosphorus Magnesium Iron 62 TIBC 187 L % Saturation 33 Total Bilirubin AST ALT Alkaline Phosphatase Lactate Dehydrogenase Total Creatine Kinase Troponin I NT-Pro-B Natriuret Pep Total Protein Albumin Globulin Albumin/Globulin Ratio Procalcitonin TSH 3rd Generation Arterial Blood Potassium Venous Blood Potassium Urine Color Urine Appearance Urine pH Ur Specific [place] Urine Protein Urine Glucose (UA) Urine Ketones Urine Blood Urine Nitrate Urine Bilirubin Urine Urobilinogen Ur Leukocyte Esterase Urine RBC Urine WBC Ur Epithelial Cells Urine Bacteria Hyaline Casts Urine Eosinophils Ur Random Creatinine U Random Total Protein Influenza Typ A,B (EIA) Ur L.pneumophila Ag Blood Type Blood Type Confirm Antibody Screen Crossmatch BBK History Checked 04/26/18 04/26/18 04/26/18 06:00 06:01 06:44 WBC RBC Hgb Hct MCV MCH MCHC RDW Plt Count MPV Neut % (Auto) Lymph % (Auto) [place] % (Auto) Eos % (Auto) Baso % (Auto) Lymph # (Auto) [place] # (Auto) Eos # (Auto) Baso # (Auto) Absolute Neuts (auto) Differential Comment Retic Count PT INR APTT pCO2 pO2 HCO3 ABG pH ABG Total CO2 ABG O2 Saturation ABG O2 Content ABG Base Excess ABG Hemoglobin ABG Carboxyhemoglobin POC ABG HHb (Measured) ABG Methemoglobin ABG O2 Capacity ABG Potassium VBG pH VBG pCO2 VBG HCO3 VBG Total CO2 VBG O2 Sat (Calc) VBG Base Excess VBG Potassium Hgb O2 Saturation Glucose Lactate FiO2 Pressure Support Inspiratory BiPAP Blood Gas Comments Crit Value Called To Crit Value Called By Blood Gas Notified Time Sodium Potassium Chloride Carbon Dioxide Anion Gap BUN Creatinine Est GFR ( Amer) Est GFR (Non-Af Amer) POC Glucose (mg/dL) 117 H Random Glucose Calcium Phosphorus Magnesium Iron TIBC % Saturation Total Bilirubin AST ALT Alkaline Phosphatase Lactate Dehydrogenase 630 Total Creatine Kinase Troponin I NT-Pro-B Natriuret Pep Total Protein Albumin Globulin Albumin/Globulin Ratio Procalcitonin TSH 3rd Generation Arterial Blood Potassium Venous Blood Potassium Urine Color Urine Appearance Urine pH Ur Specific [place] Urine Protein Urine Glucose (UA) Urine Ketones Urine Blood Urine Nitrate Urine Bilirubin Urine Urobilinogen Ur Leukocyte Esterase Urine RBC Urine WBC Ur Epithelial Cells Urine Bacteria Hyaline Casts Urine Eosinophils Ur Random Creatinine U Random Total Protein Influenza Typ A,B (EIA) Ur L.pneumophila Ag Blood Type O POSITIVE Blood Type Confirm Antibody Screen Negative Crossmatch See Detail BBK History Checked No verified bt 04/26/18 04/26/18 04/26/18 08:20 09:18 09:18 WBC RBC Hgb Hct MCV MCH MCHC RDW Plt Count MPV Neut % (Auto) Lymph % (Auto) [place] % (Auto) Eos % (Auto) Baso % (Auto) Lymph # (Auto) [place] # (Auto) Eos # (Auto) Baso # (Auto) Absolute Neuts (auto) Differential Comment Retic Count PT INR APTT pCO2 pO2 HCO3 ABG pH ABG Total CO2 ABG O2 Saturation ABG O2 Content ABG Base Excess ABG Hemoglobin ABG Carboxyhemoglobin POC ABG HHb (Measured) ABG Methemoglobin ABG O2 Capacity ABG Potassium VBG pH VBG pCO2 VBG HCO3 VBG Total CO2 VBG O2 Sat (Calc) VBG Base Excess VBG Potassium Hgb O2 Saturation Glucose Lactate FiO2 Pressure Support Inspiratory BiPAP Blood Gas Comments Crit Value Called To Crit Value Called By Blood Gas Notified Time Sodium Potassium Chloride Carbon Dioxide Anion Gap BUN Creatinine Est GFR ( Amer) Est GFR (Non-Af Amer) POC Glucose (mg/dL) Random Glucose Calcium Phosphorus Magnesium Iron TIBC % Saturation Total Bilirubin AST ALT Alkaline Phosphatase Lactate Dehydrogenase Total Creatine Kinase Troponin I NT-Pro-B Natriuret Pep Total Protein Albumin Globulin Albumin/Globulin Ratio Procalcitonin TSH 3rd Generation Arterial Blood Potassium Venous Blood Potassium Urine Color Urine Appearance Urine pH Ur Specific [place] Urine Protein Urine Glucose (UA) Urine Ketones Urine Blood Urine Nitrate Urine Bilirubin Urine Urobilinogen Ur Leukocyte Esterase Urine RBC Urine WBC Ur Epithelial Cells Urine Bacteria Hyaline Casts Urine Eosinophils Negative Ur Random Creatinine 125 U Random Total Protein 46 Influenza Typ A,B (EIA) Ur L.pneumophila Ag Blood Type Blood Type Confirm O POSITIVE Antibody Screen Crossmatch BBK History Checked Assessment & Plan - Assessment and Plan (Free Text) Assessment: 77 year old female with history of A Fib, SLE, kidney transplant,HTN, CKD who is admitted with bilobar pneumonia, CHF exacerbation, anemia, N STEMI, hypoxia and shortness of breath The patient is alert, confused. Able to follow simple command. Unable to tell me her wishes regarding CPR/intubation. Patient asked me to talk with her daughter Marbella. I spoke with patient's daughter Marbella Vazquez via phone. Daughter aware mother has "breathing problems but doesn't seem to understand the severity of her condition. Marbella admits that her mother's health has been declining. Advance care planning discussion ensued. I reminded Marbella that her mother was DNR/DNI in the past. Daughter states she 's not sure. Daughter expressed that if her mother were DNR/DNI, she would not receive any medical treatment. I explained that her mother would receive all treatment up until the point of resuscitation with CPR /intubation. Benefits and burdens of CPR/intubation explained in detail. Questions answered Marbella expressed that her mother is very delicate and is concerned that "CPR" would be to aggressive. She states she will discuss with her brothers and get back to me or the MICU staff. Time spent in goals of care and advance care planning discussion , 20 minutes Plan: Goals of care and advance care planning. Pulmonary: BiPAP on hold, presently on nasal cannula, monitor 02 sats. Negative H Flu and Legionella. Continue Solu medrol, nebulizers, Tamaflu, Cefepime and Doxycycline. N STEMI/ A Fib: Cardiology following Continue Heparin, diltiazem, Nicardipine. Lasix on hold Anemia: Transfuse as needed
--- NOTE | 2018-04-26 12:02 | CP.PCM.CON ---
<Kalani Giron - Last Filed: 04/26/18 17:01> History of Present Illness - History of Present Illness History of Present Illness: Nephrology Consult note for Dr. Yin Please note patient is a poor historian and history as per EMR 77 year old female with PMHx of CHF (last Echo with EF of 50%), COPD, LUE DVT (on eliquis), SLE, lupus nephritis (previously on dialysis, s/p renal transplant), and osteoporosis was BIBA per daughter's request for concern of worsening, labored breathing. Per EMR, patient's daughter noted the patient had not been at her baseline since a recent, long hospitalization at [facility] where she was admitted for similar concerns. Daughter states that patient was hospitalized Jan 2018 through Mar 2018. Patient has not been ambulatory since then even though her breathing improved initially. On day of admission, patient was showing concerning signs of labored breathing and wheezing. She did not complain of recent fever/chills, sick contacts, CP, cough, abdominal pain/nausea/vomiting, or urinary complaints. PMD: Sarabjit PMHx: CHF, COPD, LUE DVT, SLE, lupus nephritis, and osteoporosis PSurgHx: kidney transplant in 2007 All: NKDA Meds: Prograf 3 mg BID, Sodium bicarbonate 325 mg daily, Sevelamer 0.8 gm PO TID w/meals, prednisone 10 mg daily, polyethylene glycol 17 g BID, clonidine 0.1 mg BID, Lasix 40 mg daily, cinacalcet 90 mg daily, eliquis 5 mg BID FamHx: daughter has SLE SocHx: denies current or prior tobacco, EtOH, illicit drug use Review of Systems - Review of Systems All systems: reviewed and no additional remarkable complaints except Review of Systems: as per HPI Past Patient History - Past Social History Smoking Status: Never Smoked - CARDIAC Hx Congestive Heart Failure: Yes Hx Hypertension: Yes - PULMONARY Hx Respiratory Disorders: Yes Hx Asthma: No Hx Bronchitis: No Hx Chronic Obstructive Pulmonary Disease (COPD): Yes Hx Emphysema: No Hx Pneumonia: No Hx Respiratory Aspiration: No Hx Respiratory Tract Infection: Yes Hx Sleep Apnea: Yes (cpap at home) Hx Tuberculosis: No - NEUROLOGICAL Hx Neurological Disorder: No Hx Alzheimer's Disease: No HX Cerebrovascular Accident: No Hx Dementia: No Hx Dizziness: No Hx Meningitis: No Hx Migraine: No Hx Parkinson's Disease: No Hx Seizures: No Hx Transient Ischemic Attacks (TIA): No - HEENT Hx HEENT Problems: No Hx Blind: No Hx Cataracts: No Hx Deafness: No Hx Difficulty Chewing: No Hx Epistaxis: No Hx Glaucoma: No Hx Macular Degeneration: No - RENAL Hx Chronic Kidney Disease: No Hx Dialysis: No Hx Kidney Stones: No Hx Neurogenic Bladder: No Hx Pyelonephritis: No Hx Renal (Kidney) Cancer: No Hx Renal Failure: No - ENDOCRINE/METABOLIC Hx Systemic Lupus Erythematosus: Yes - HEMATOLOGICAL/ONCOLOGICAL Hx Blood Disorders: No Hx AIDS: No Hx Anemia: No Hx Cancer: No Hx Chemotherapy: No Hx Cirrhosis: No Hx Hemophilia: No Hx Hepatitis A: No Hx Hepatitis B: No Hx Hepatitis C: No Hx Human Immunodeficiency Virus (HIV): No Hx Metastesis: No Hx Shingles: No Hx Sickle Cell Disease: No Hx Unexplained Bleeding: No - INTEGUMENTARY Hx Dermatological Problems: No Hx Basil Cell: No Hx Eczema: No Hx Melanoma: No Hx Psoriasis: No Hx Squamous Cell: No - MUSCULOSKELETAL/RHEUMATOLOGICAL Hx Arthritis: Yes - GASTROINTESTINAL Hx Gastrointestinal Disorders: No Hx Colostomy: No Hx Crohn's Disease: No Hx Diverticulitis: No Hx Gall Bladder Disease: No Hx Gastroesophageal Reflux: No Hx Ileostomy: No Hx Liver Failure: No Hx Pancreatitis: No HX Swallowing Problems: No Hx Ulcer: No - GENITOURINARY/GYNECOLOGICAL Hx Genitourinary Disorders: No Hx Hematuria: No Hx Incontinence: No Hx Sexually Transmitted Disorders: No Hx Urinary Tract Infection: No - PSYCHIATRIC Hx Substance Use: No - SURGICAL HISTORY Hx Kidney Transplant: Yes (2007 / no longer dyalisis pt) - ANESTHESIA Hx Anesthesia: Yes Hx Anesthesia Reactions: No Hx Malignant Hyperthermia: No Meds Allergies/Adverse Reactions: Allergies Allergy/AdvReac Type Severity Reaction Status Date / Time No Known Allergies Allergy Verified 04/25/18 12:21 - Medications Medications: Current Medications Albuterol/Ipratropium (Duoneb 3 Mg/0.5 Mg (3 Ml) Ud) 3 ml IH Q4H PRN PRN Reason: Shortness of Breath Last Admin: 04/26/18 07:09 Dose: 3 ml Apixaban (Eliquis) 2.5 mg PO BID BIJAN; Protocol Last Admin: 04/25/18 17:03 Dose: 2.5 mg Aspirin (Aspirin Chewable) 81 mg PO DAILY [facility] Last Admin: 04/26/18 09:36 Dose: 81 mg Budesonide (Pulmicort Respules) 0.5 mg IH [id number] SCH Diltiazem HCl (Cardizem) 30 mg PO Q8H [facility] Last Admin: 04/26/18 11:39 Dose: 30 mg Doxycycline Hyclate 100 mg/ (Sodium Chloride) 100 mls @ 100 mls/hr IVPB Q12 [facility]; Protocol Last Admin: 04/26/18 10:17 Dose: 100 mls/hr Heparin Sodium/Sodium Chloride (Heparin 39711 Units/250ml 1/2 Normal Saline) 25,000 units in 250 mls @ 2.765 mls/hr IV .Q24H [facility]; Protocol Last Admin: 04/26/18 00:36 Dose: 12 units/kg/hr, 2.765 mls/hr Cefepime HCl (Maxipime 1gm) 1 gm in 100 mls @ 100 mls/hr IVPB Q24H [facility]; Protocol Last Admin: 04/26/18 07:49 Dose: 100 mls/hr Methylprednisolone (Solu-Medrol) 20 mg IVP Q12 [facility] Last Admin: 04/26/18 09:05 Dose: 20 mg Oseltamivir Phosphate (Tamiflu Cap) 30 mg PO DAILY [facility]; Protocol Last Admin: 04/26/18 09:05 Dose: 30 mg Pantoprazole Sodium (Protonix Inj) 40 mg IVP DAILY [facility] Last Admin: 04/26/18 09:05 Dose: 40 mg Sodium Bicarbonate (Sodium Bicarbonate Tab) 325 mg PO BID [facility] Last Admin: 04/26/18 09:04 Dose: 325 mg Tacrolimus (Prograf Cap) 3 mg PO BID [facility] Last Admin: 04/26/18 09:05 Dose: 3 mg Physical Exam - Constitutional Appears: Non-toxic, No Acute Distress, Chronically Ill - Head Exam Head Exam: ATRAUMATIC, NORMAL INSPECTION, NORMOCEPHALIC - Eye Exam Eye Exam: EOMI, Normal appearance. absent: Conjunctival injection, Scleral icterus - ENT Exam ENT Exam: Mucous Membranes Dry - Respiratory Exam Respiratory Exam: Rhonchi. absent: Accessory Muscle Use, Rales, Respiratory Distress - Cardiovascular Exam Cardiovascular Exam: Tachycardia, Irregular Rhythm, +S1, +S2 - GI/Abdominal Exam GI & Abdominal Exam: Normal Bowel Sounds, Soft. absent: Firm, Guarding, Rigid, Tenderness Additional comments: RLQ palpated kidney - Neurological Exam Neurological exam: Alert, CN II-XII Intact, Oriented x3 - Psychiatric Exam Psychiatric exam: Normal Affect, Normal Mood - Skin Skin Exam: Dry, Intact, Normal Color, Warm Results - Vital Signs Recent Vital Signs: Last Vital Signs Temp 97.6 F 04/26/18 11:58 Pulse 113 H 04/26/18 11:58 Resp 26 H 04/26/18 11:58 BP 123/77 04/26/18 11:58 Pulse Ox 100 04/26/18 07:59 - Labs Result Diagrams: 04/26/18 05:50 04/26/18 05:50 Labs: Laboratory Results - last 24 hr 04/25/18 04/25/18 04/25/18 12:35 12:35 12:35 WBC 11.9 H RBC 2.30 L Hgb 7.4 L Hct 24.2 L MCV 105.2 H MCH 32.2 MCHC 30.6 L RDW 14.9 H Plt Count 183 MPV 10.7 Neut % (Auto) 79.4 H Lymph % (Auto) 12.2 L E[place] % (Auto) 8.0 H Eos % (Auto) 0.1 L Baso % (Auto) 0.3 Lymph # (Auto) 1.5 Ector # (Auto) 1.0 H Eos # (Auto) 0.0 Baso # (Auto) 0.03 Absolute Neuts (auto) 9.42 H Differential Comment Retic Count Haptoglobin PT 21.2 H INR 1.88 APTT 31.5 pCO2 pO2 HCO3 ABG pH ABG Total CO2 ABG O2 Saturation ABG O2 Content ABG Base Excess ABG Hemoglobin ABG Carboxyhemoglobin POC ABG HHb (Measured) ABG Methemoglobin ABG O2 Capacity ABG Potassium VBG pH VBG pCO2 VBG HCO3 VBG Total CO2 VBG O2 Sat (Calc) VBG Base Excess VBG Potassium Hgb O2 Saturation Glucose Lactate FiO2 Pressure Support Inspiratory BiPAP Blood Gas Comments Crit Value Called To Crit Value Called By Blood Gas Notified Time Sodium 140 Potassium 4.0 Chloride 100 Carbon Dioxide 30 Anion Gap 14 BUN 42 H Creatinine 2.6 H Est GFR ( Amer) 22 Est GFR (Non-Af Amer) 18 POC Glucose (mg/dL) Random Glucose 134 H Calcium 10.5 Phosphorus 3.2 Magnesium 2.0 Iron TIBC % Saturation Total Bilirubin 0.5 AST 65 H ALT 52 Alkaline Phosphatase 107 Lactate Dehydrogenase Total Creatine Kinase 35 Troponin I 0.27 H* NT-Pro-B Natriuret Pep 70912 H Total Protein 6.8 Albumin 3.6 Globulin 3.3 Albumin/Globulin Ratio 1.1 Procalcitonin TSH 3rd Generation Arterial Blood Potassium Venous Blood Potassium Urine Color Urine Appearance Urine pH Ur Specific [place] Urine Protein Urine Glucose (UA) Urine Ketones Urine Blood Urine Nitrate Urine Bilirubin Urine Urobilinogen Ur Leukocyte Esterase Urine RBC Urine WBC Ur Epithelial Cells Urine Bacteria Hyaline Casts Urine Eosinophils Ur Random Creatinine U Random Total Protein Influenza Typ A,B (EIA) Ur L.pneumophila Ag Blood Type Blood Type Confirm Antibody Screen Crossmatch BBK History Checked 04/25/18 04/25/18 04/25/18 12:40 14:00 14:10 WBC RBC Hgb Hct MCV MCH MCHC RDW Plt Count MPV Neut % (Auto) Lymph % (Auto) [place] % (Auto) Eos % (Auto) Baso % (Auto) Lymph # (Auto) [place] # (Auto) Eos # (Auto) Baso # (Auto) Absolute Neuts (auto) Differential Comment Retic Count Haptoglobin PT INR APTT pCO2 61 H 48 H pO2 18.0 L* 361.0 H HCO3 33.7 H 31.1 H ABG pH 7.35 7.42 ABG Total CO2 35.6 H 32.6 H ABG O2 Saturation 27.8 L 101.0 H ABG O2 Content 10.3 L ABG Base Excess 6.1 H 6.0 H ABG Hemoglobin 6.7 L ABG Carboxyhemoglobin 1.9 H POC ABG HHb (Measured) -1.0 L ABG Methemoglobin 0.2 ABG O2 Capacity 10.2 L ABG Potassium 4.1 VBG pH VBG pCO2 VBG HCO3 VBG Total CO2 VBG O2 Sat (Calc) VBG Base Excess VBG Potassium Hgb O2 Saturation 98.9 H Glucose 130 H Lactate 2.7 H FiO2 100.0 100.0 Pressure Support 7 Inspiratory BiPAP 12 Blood Gas Comments Possible venous. notified po2,pco2,lactate cv reported Crit Value Called To Chris alarcon Crit Value Called By Rst Blood Gas Notified Time 1250 Sodium 142.0 Potassium Chloride 106.0 Carbon Dioxide Anion Gap BUN Creatinine Est GFR ( Amer) Est GFR (Non-Af Amer) POC Glucose (mg/dL) Random Glucose Calcium Phosphorus Magnesium Iron TIBC % Saturation Total Bilirubin AST ALT Alkaline Phosphatase Lactate Dehydrogenase Total Creatine Kinase Troponin I NT-Pro-B Natriuret Pep Total Protein Albumin Globulin Albumin/Globulin Ratio Procalcitonin 0.69 H TSH 3rd Generation Arterial Blood Potassium 4.1 Venous Blood Potassium Urine Color Urine Appearance Urine pH Ur Specific [place] Urine Protein Urine Glucose (UA) Urine Ketones Urine Blood Urine Nitrate Urine Bilirubin Urine Urobilinogen Ur Leukocyte Esterase Urine RBC Urine WBC Ur Epithelial Cells Urine Bacteria Hyaline Casts Urine Eosinophils Ur Random Creatinine U Random Total Protein Influenza Typ A,B (EIA) Ur L.pneumophila Ag Blood Type Blood Type Confirm Antibody Screen Crossmatch BBK History Checked 04/25/18 04/25/18 04/25/18 15:30 15:52 15:52 WBC RBC Hgb Hct MCV MCH MCHC RDW Plt Count MPV Neut % (Auto) Lymph % (Auto) [place] % (Auto) Eos % (Auto) Baso % (Auto) Lymph # (Auto) [place] # (Auto) Eos # (Auto) Baso # (Auto) Absolute Neuts (auto) Differential Comment Retic Count Haptoglobin PT INR APTT pCO2 pO2 37 HCO3 ABG pH ABG Total CO2 ABG O2 Saturation ABG O2 Content ABG Base Excess ABG Hemoglobin ABG Carboxyhemoglobin POC ABG HHb (Measured) ABG Methemoglobin ABG O2 Capacity ABG Potassium VBG pH 7.35 VBG pCO2 59.0 VBG HCO3 32.6 H VBG Total CO2 34.4 H VBG O2 Sat (Calc) 78.2 H VBG Base Excess 5.2 H VBG Potassium 4.3 Hgb O2 Saturation Glucose 129 H Lactate 1.6 FiO2 21.0 Pressure Support Inspiratory BiPAP Blood Gas Comments Crit Value Called To Crit Value Called By Blood Gas Notified Time Sodium 141.0 Potassium Chloride 105.0 Carbon Dioxide Anion Gap BUN Creatinine Est GFR ( Amer) Est GFR (Non-Af Amer) POC Glucose (mg/dL) Random Glucose Calcium Phosphorus Magnesium Iron TIBC % Saturation Total Bilirubin AST ALT Alkaline Phosphatase Lactate Dehydrogenase Total Creatine Kinase Troponin I NT-Pro-B Natriuret Pep Total Protein Albumin Globulin Albumin/Globulin Ratio Procalcitonin TSH 3rd Generation Arterial Blood Potassium Venous Blood Potassium 4.3 Urine Color Yellow Urine Appearance Clear Urine pH 6.0 Ur Specific [place] 1.020 Urine Protein 30 H Urine Glucose (UA) 100 H Urine Ketones Negative Urine Blood Trace-intact H Urine Nitrate Negative Urine Bilirubin Negative Urine Urobilinogen 0.2 Ur Leukocyte Esterase Negative Urine RBC 0 - 2 Urine WBC None Ur Epithelial Cells 0 - 2 Urine Bacteria Neg Hyaline Casts 0 - 2 Urine Eosinophils Ur Random Creatinine U Random Total Protein Influenza Typ A,B (EIA) Ur L.pneumophila Ag Negative Blood Type Blood Type Confirm Antibody Screen Crossmatch BBK History Checked 04/25/18 04/25/18 04/25/18 18:22 18:30 18:30 WBC RBC Hgb Hct MCV MCH MCHC RDW Plt Count MPV Neut % (Auto) Lymph % (Auto) [place] % (Auto) Eos % (Auto) Baso % (Auto) Lymph # (Auto) [place] # (Auto) Eos # (Auto) Baso # (Auto) Absolute Neuts (auto) Differential Comment Retic Count Haptoglobin PT INR APTT pCO2 pO2 HCO3 ABG pH ABG Total CO2 ABG O2 Saturation ABG O2 Content ABG Base Excess ABG Hemoglobin ABG Carboxyhemoglobin POC ABG HHb (Measured) ABG Methemoglobin ABG O2 Capacity ABG Potassium VBG pH VBG pCO2 VBG HCO3 VBG Total CO2 VBG O2 Sat (Calc) VBG Base Excess VBG Potassium Hgb O2 Saturation Glucose Lactate FiO2 Pressure Support Inspiratory BiPAP Blood Gas Comments Crit Value Called To Crit Value Called By Blood Gas Notified Time Sodium Potassium Chloride Carbon Dioxide Anion Gap BUN Creatinine Est GFR ( Amer) Est GFR (Non-Af Amer) POC Glucose (mg/dL) 127 H Random Glucose Calcium Phosphorus Magnesium Iron TIBC % Saturation Total Bilirubin AST ALT Alkaline Phosphatase Lactate Dehydrogenase Total Creatine Kinase Troponin I 1.64 H* D NT-Pro-B Natriuret Pep Total Protein Albumin Globulin Albumin/Globulin Ratio Procalcitonin TSH 3rd Generation Arterial Blood Potassium Venous Blood Potassium Urine Color Urine Appearance Urine pH Ur Specific [place] Urine Protein Urine Glucose (UA) Urine Ketones Urine Blood Urine Nitrate Urine Bilirubin Urine Urobilinogen Ur Leukocyte Esterase Urine RBC Urine WBC Ur Epithelial Cells Urine Bacteria Hyaline Casts Urine Eosinophils Ur Random Creatinine U Random Total Protein Influenza Typ A,B (EIA) Negative for flu a/b Ur L.pneumophila Ag Blood Type Blood Type Confirm Antibody Screen Crossmatch BBK History Checked 04/25/18 04/26/18 04/26/18 23:59 00:25 00:25 WBC RBC Hgb Hct MCV MCH MCHC RDW Plt Count MPV Neut % (Auto) Lymph % (Auto) [place] % (Auto) Eos % (Auto) Baso % (Auto) Lymph # (Auto) [place] # (Auto) Eos # (Auto) Baso # (Auto) Absolute Neuts (auto) Differential Comment Retic Count Haptoglobin PT INR APTT 35.7 pCO2 pO2 HCO3 ABG pH ABG Total CO2 ABG O2 Saturation ABG O2 Content ABG Base Excess ABG Hemoglobin ABG Carboxyhemoglobin POC ABG HHb (Measured) ABG Methemoglobin ABG O2 Capacity ABG Potassium VBG pH VBG pCO2 VBG HCO3 VBG Total CO2 VBG O2 Sat (Calc) VBG Base Excess VBG Potassium Hgb O2 Saturation Glucose Lactate FiO2 Pressure Support Inspiratory BiPAP Blood Gas Comments Crit Value Called To Crit Value Called By Blood Gas Notified Time Sodium Potassium Chloride Carbon Dioxide Anion Gap BUN Creatinine Est GFR ( Amer) Est GFR (Non-Af Amer) POC Glucose (mg/dL) 127 H Random Glucose Calcium Phosphorus Magnesium Iron TIBC % Saturation Total Bilirubin AST ALT Alkaline Phosphatase Lactate Dehydrogenase Total Creatine Kinase Troponin I 1.72 H* NT-Pro-B Natriuret Pep Total Protein Albumin Globulin Albumin/Globulin Ratio Procalcitonin TSH 3rd Generation Arterial Blood Potassium Venous Blood Potassium Urine Color Urine Appearance Urine pH Ur Specific [place] Urine Protein Urine Glucose (UA) Urine Ketones Urine Blood Urine Nitrate Urine Bilirubin Urine Urobilinogen Ur Leukocyte Esterase Urine RBC Urine WBC Ur Epithelial Cells Urine Bacteria Hyaline Casts Urine Eosinophils Ur Random Creatinine U Random Total Protein Influenza Typ A,B (EIA) Ur L.pneumophila Ag Blood Type Blood Type Confirm Antibody Screen Crossmatch BBK History Checked 04/26/18 04/26/18 04/26/18 05:50 05:50 05:50 WBC 7.6 D RBC 2.12 L Hgb 6.8 L* Hct 22.4 L MCV 105.7 H MCH 32.1 MCHC 30.4 L RDW 15.0 H Plt Count 158 MPV 10.8 Neut % (Auto) 81.8 H Lymph % (Auto) 16.5 L E[place] % (Auto) 1.6 Eos % (Auto) 0.0 L Baso % (Auto) 0.1 Lymph # (Auto) 1.3 E[place] # (Auto) 0.1 Eos # (Auto) 0.0 Baso # (Auto) 0.01 Absolute Neuts (auto) 6.21 Differential Comment See pathology report Retic Count Haptoglobin PT INR APTT pCO2 pO2 HCO3 ABG pH ABG Total CO2 ABG O2 Saturation ABG O2 Content ABG Base Excess ABG Hemoglobin ABG Carboxyhemoglobin POC ABG HHb (Measured) ABG Methemoglobin ABG O2 Capacity ABG Potassium VBG pH VBG pCO2 VBG HCO3 VBG Total CO2 VBG O2 Sat (Calc) VBG Base Excess VBG Potassium Hgb O2 Saturation Glucose Lactate FiO2 Pressure Support Inspiratory BiPAP Blood Gas Comments Crit Value Called To Crit Value Called By Blood Gas Notified Time Sodium 141 Potassium 4.9 Chloride 101 Carbon Dioxide 29 Anion Gap 16 BUN 46 H Creatinine 3.2 H Est GFR ( Amer) 17 Est GFR (Non-Af Amer) 14 POC Glucose (mg/dL) Random Glucose 103 Calcium 10.2 Phosphorus 3.7 Magnesium 2.0 Iron TIBC % Saturation Total Bilirubin 0.5 AST 48 H D ALT 49 Alkaline Phosphatase 97 Lactate Dehydrogenase Total Creatine Kinase Troponin I 1.21 H* D NT-Pro-B Natriuret Pep Total Protein 6.3 Albumin 3.4 Globulin 2.9 Albumin/Globulin Ratio 1.1 Procalcitonin TSH 3rd Generation 1.11 Arterial Blood Potassium Venous Blood Potassium Urine Color Urine Appearance Urine pH Ur Specific [place] Urine Protein Urine Glucose (UA) Urine Ketones Urine Blood Urine Nitrate Urine Bilirubin Urine Urobilinogen Ur Leukocyte Esterase Urine RBC Urine WBC Ur Epithelial Cells Urine Bacteria Hyaline Casts Urine Eosinophils Ur Random Creatinine U Random Total Protein Influenza Typ A,B (EIA) Ur L.pneumophila Ag Blood Type Blood Type Confirm Antibody Screen Crossmatch BBK History Checked 04/26/18 04/26/18 04/26/18 05:50 05:50 06:00 WBC RBC Hgb Hct MCV MCH MCHC RDW Plt Count MPV Neut % (Auto) Lymph % (Auto) [place] % (Auto) Eos % (Auto) Baso % (Auto) Lymph # (Auto) [place] # (Auto) Eos # (Auto) Baso # (Auto) Absolute Neuts (auto) Differential Comment Retic Count 2.44 H Haptoglobin PT INR APTT 35.1 pCO2 pO2 HCO3 ABG pH ABG Total CO2 ABG O2 Saturation ABG O2 Content ABG Base Excess ABG Hemoglobin ABG Carboxyhemoglobin POC ABG HHb (Measured) ABG Methemoglobin ABG O2 Capacity ABG Potassium VBG pH VBG pCO2 VBG HCO3 VBG Total CO2 VBG O2 Sat (Calc) VBG Base Excess VBG Potassium Hgb O2 Saturation Glucose Lactate FiO2 Pressure Support Inspiratory BiPAP Blood Gas Comments Crit Value Called To Crit Value Called By Blood Gas Notified Time Sodium Potassium Chloride Carbon Dioxide Anion Gap BUN Creatinine Est GFR ( Amer) Est GFR (Non-Af Amer) POC Glucose (mg/dL) Random Glucose Calcium Phosphorus Magnesium Iron 62 TIBC 187 L % Saturation 33 Total Bilirubin AST ALT Alkaline Phosphatase Lactate Dehydrogenase Total Creatine Kinase Troponin I NT-Pro-B Natriuret Pep Total Protein Albumin Globulin Albumin/Globulin Ratio Procalcitonin TSH 3rd Generation Arterial Blood Potassium Venous Blood Potassium Urine Color Urine Appearance Urine pH Ur Specific [place] Urine Protein Urine Glucose (UA) Urine Ketones Urine Blood Urine Nitrate Urine Bilirubin Urine Urobilinogen Ur Leukocyte Esterase Urine RBC Urine WBC Ur Epithelial Cells Urine Bacteria Hyaline Casts Urine Eosinophils Ur Random Creatinine U Random Total Protein Influenza Typ A,B (EIA) Ur L.pneumophila Ag Blood Type Blood Type Confirm Antibody Screen Crossmatch BBK History Checked 04/26/18 04/26/18 04/26/18 06:00 06:00 06:01 WBC RBC Hgb Hct MCV MCH MCHC RDW Plt Count MPV Neut % (Auto) Lymph % (Auto) [place] % (Auto) Eos % (Auto) Baso % (Auto) Lymph # (Auto) [place] # (Auto) Eos # (Auto) Baso # (Auto) Absolute Neuts (auto) Differential Comment Retic Count Haptoglobin 197.9 PT INR APTT pCO2 pO2 HCO3 ABG pH ABG Total CO2 ABG O2 Saturation ABG O2 Content ABG Base Excess ABG Hemoglobin ABG Carboxyhemoglobin POC ABG HHb (Measured) ABG Methemoglobin ABG O2 Capacity ABG Potassium VBG pH VBG pCO2 VBG HCO3 VBG Total CO2 VBG O2 Sat (Calc) VBG Base Excess VBG Potassium Hgb O2 Saturation Glucose Lactate FiO2 Pressure Support Inspiratory BiPAP Blood Gas Comments Crit Value Called To Crit Value Called By Blood Gas Notified Time Sodium Potassium Chloride Carbon Dioxide Anion Gap BUN Creatinine Est GFR ( Amer) Est GFR (Non-Af Amer) POC Glucose (mg/dL) Random Glucose Calcium Phosphorus Magnesium Iron TIBC % Saturation Total Bilirubin AST ALT Alkaline Phosphatase Lactate Dehydrogenase 630 Total Creatine Kinase Troponin I NT-Pro-B Natriuret Pep Total Protein Albumin Globulin Albumin/Globulin Ratio Procalcitonin TSH 3rd Generation Arterial Blood Potassium Venous Blood Potassium Urine Color Urine Appearance Urine pH Ur Specific [place] Urine Protein Urine Glucose (UA) Urine Ketones Urine Blood Urine Nitrate Urine Bilirubin Urine Urobilinogen Ur Leukocyte Esterase Urine RBC Urine WBC Ur Epithelial Cells Urine Bacteria Hyaline Casts Urine Eosinophils Ur Random Creatinine U Random Total Protein Influenza Typ A,B (EIA) Ur L.pneumophila Ag Blood Type O POSITIVE Blood Type Confirm Antibody Screen Negative Crossmatch See Detail BBK History Checked No verified bt 04/26/18 04/26/18 04/26/18 06:44 08:20 09:18 WBC RBC Hgb Hct MCV MCH MCHC RDW Plt Count MPV Neut % (Auto) Lymph % (Auto) [place] % (Auto) Eos % (Auto) Baso % (Auto) Lymph # (Auto) [place] # (Auto) Eos # (Auto) Baso # (Auto) Absolute Neuts (auto) Differential Comment Retic Count Haptoglobin PT INR APTT pCO2 pO2 HCO3 ABG pH ABG Total CO2 ABG O2 Saturation ABG O2 Content ABG Base Excess ABG Hemoglobin ABG Carboxyhemoglobin POC ABG HHb (Measured) ABG Methemoglobin ABG O2 Capacity ABG Potassium VBG pH VBG pCO2 VBG HCO3 VBG Total CO2 VBG O2 Sat (Calc) VBG Base Excess VBG Potassium Hgb O2 Saturation Glucose Lactate FiO2 Pressure Support Inspiratory BiPAP Blood Gas Comments Crit Value Called To Crit Value Called By Blood Gas Notified Time Sodium Potassium Chloride Carbon Dioxide Anion Gap BUN Creatinine Est GFR ( Amer) Est GFR (Non-Af Amer) POC Glucose (mg/dL) 117 H Random Glucose Calcium Phosphorus Magnesium Iron TIBC % Saturation Total Bilirubin AST ALT Alkaline Phosphatase Lactate Dehydrogenase Total Creatine Kinase Troponin I NT-Pro-B Natriuret Pep Total Protein Albumin Globulin Albumin/Globulin Ratio Procalcitonin TSH 3rd Generation Arterial Blood Potassium Venous Blood Potassium Urine Color Urine Appearance Urine pH Ur Specific [place] Urine Protein Urine Glucose (UA) Urine Ketones Urine Blood Urine Nitrate Urine Bilirubin Urine Urobilinogen Ur Leukocyte Esterase Urine RBC Urine WBC Ur Epithelial Cells Urine Bacteria Hyaline Casts Urine Eosinophils Ur Random Creatinine 125 U Random Total Protein 46 Influenza Typ A,B (EIA) Ur L.pneumophila Ag Blood Type Blood Type Confirm O POSITIVE Antibody Screen Crossmatch BBK History Checked 04/26/18 09:18 WBC RBC Hgb Hct MCV MCH MCHC RDW Plt Count MPV Neut % (Auto) Lymph % (Auto) [place] % (Auto) Eos % (Auto) Baso % (Auto) Lymph # (Auto) [place] # (Auto) Eos # (Auto) Baso # (Auto) Absolute Neuts (auto) Differential Comment Retic Count Haptoglobin PT INR APTT pCO2 pO2 HCO3 ABG pH ABG Total CO2 ABG O2 Saturation ABG O2 Content ABG Base Excess ABG Hemoglobin ABG Carboxyhemoglobin POC ABG HHb (Measured) ABG Methemoglobin ABG O2 Capacity ABG Potassium VBG pH VBG pCO2 VBG HCO3 VBG Total CO2 VBG O2 Sat (Calc) VBG Base Excess VBG Potassium Hgb O2 Saturation Glucose Lactate FiO2 Pressure Support Inspiratory BiPAP Blood Gas Comments Crit Value Called To Crit Value Called By Blood Gas Notified Time Sodium Potassium Chloride Carbon Dioxide Anion Gap BUN Creatinine Est GFR ( Amer) Est GFR (Non-Af Amer) POC Glucose (mg/dL) Random Glucose Calcium Phosphorus Magnesium Iron TIBC % Saturation Total Bilirubin AST ALT Alkaline Phosphatase Lactate Dehydrogenase Total Creatine Kinase Troponin I NT-Pro-B Natriuret Pep Total Protein Albumin Globulin Albumin/Globulin Ratio Procalcitonin TSH 3rd Generation Arterial Blood Potassium Venous Blood Potassium Urine Color Urine Appearance Urine pH Ur Specific [place] Urine Protein Urine Glucose (UA) Urine Ketones Urine Blood Urine Nitrate Urine Bilirubin Urine Urobilinogen Ur Leukocyte Esterase Urine RBC Urine WBC Ur Epithelial Cells Urine Bacteria Hyaline Casts Urine Eosinophils Negative Ur Random Creatinine U Random Total Protein Influenza Typ A,B (EIA) Ur L.pneumophila Ag Blood Type Blood Type Confirm Antibody Screen Crossmatch BBK History Checked Assessment & Plan - Assessment and Plan (Free Text) Assessment: -JAGDISH on CKD Stage IV -Anemia -NSTEMI -Rapid Afib -Respiratory tract infection- CAP vs HCAP -Acute on Chronic CHF exacerbation -Kidney transplant 2007 -COPD -LUE DVT -SLE -Lupus nephritis -Osteoporosis -Hard of hearing -Gait distrubance Plan: Patient's blood work, imaging, and vitals noted in chart. Patient is s/p kidney transplant at [facility] from donor. I attempted to call the transplant center to confirm transplant medications however the center is not open on Fridays. Will attempt calling on Sunday. As per chart patient had lupus nephritis. f/u urine Cr, urine protein, urine eosinophils, C3, C4, ANAI, dsDNA, AntiSmith, renal u/s. In light of JAGDISH will hold lasix. f/u anemia work up and recommend transfusing patient 2U PRBC. Elevated troponin noted- agree with heparin gtt. Apprecite cardio reccs. Patient on cardizem gtt for rapid Afib. Avoid nephrotoxic drugs and renally dose medications. Patient on IV abx for macy pected HCAP. f/u Echo ordered in light of acute CHF exacerbation. Maintain normotension, eurthermia, euglycemia. Continue management as per primary and MICU team. Appreciate reccs from Cardio and ID. Will continue to manage closely. Nephrology will continue to follow Discussed with Dr. Annamaria Giron PGY3 <Kenton Yin S - Last Filed: 04/29/18 21:04> Meds - Medications Medications: Current Medications Albuterol/Ipratropium (Duoneb 3 Mg/0.5 Mg (3 Ml) Ud) 3 ml IH Q4H PRN PRN Reason: Shortness of Breath Last Admin: 04/29/18 19:47 Dose: 3 ml Apixaban (Eliquis) 2.5 mg PO Q12 BIJAN; Protocol Last Admin: 04/29/18 09:58 Dose: 2.5 mg Aspirin (Aspirin Chewable) 81 mg PO DAILY BIJAN Last Admin: 04/29/18 10:02 Dose: 81 mg Budesonide (Pulmicort Respules) 0.5 mg IH [id number] [facility] Last Admin: 04/29/18 19:47 Dose: 0.5 mg Diltiazem HCl (Cardizem) 30 mg PO Q6H BIJAN Last Admin: 04/29/18 14:48 Dose: 30 mg Doxycycline Hyclate (Doryx) 100 mg PO Q12 BIJAN; Protocol Stop: 05/02/18 22:01 Last Admin: 04/29/18 10:01 Dose: 100 mg Cefepime HCl (Maxipime 1gm) 1 gm in 100 mls @ 100 mls/hr IVPB Q24H BIJAN; Protocol Last Admin: 04/29/18 06:15 Dose: 100 mls/hr diltiaZEM IVPB 100mg in NS (Cardizem 100mg In Ns) 100 mls @ 5 mls/hr IV .Q20H PRN; Protocol PRN Reason: TITRATE PER MD ORDER Last Admin: 04/29/18 12:42 Dose: 5 mg/hr, 5 mls/hr Methylprednisolone (Solu-Medrol) 20 mg IVP Q12 BIJAN Last Admin: 04/29/18 09:59 Dose: 20 mg Pantoprazole Sodium (Protonix Susp) 40 mg PO 0600 BIJAN Last Admin: 04/29/18 06:15 Dose: 40 mg Sodium Bicarbonate (Sodium Bicarbonate Tab) 325 mg PO BID BIJAN Last Admin: 04/29/18 17:46 Dose: 325 mg Tacrolimus (Prograf Cap) 3 mg PO BID [facility] Last Admin: 04/29/18 17:46 Dose: 3 mg Results - Vital Signs Recent Vital Signs: Last Vital Signs Temp 98.4 F 04/29/18 20:00 Pulse 108 H 04/29/18 20:00 Resp 25 H 04/29/18 20:00 BP 149/78 04/29/18 20:00 Pulse Ox 99 04/29/18 20:00 - Labs Result Diagrams: 04/29/18 06:30 04/29/18 06:30 Labs: Laboratory Results - last 24 hr 04/25/18 04/25/18 04/26/18 14:00 18:30 06:01 WBC RBC Hgb Hct MCV MCH MCHC RDW Plt Count MPV Neut % (Auto) Lymph % (Auto) Ector % (Auto) Eos % (Auto) Baso % (Auto) Lymph # (Auto) Ector # (Auto) Eos # (Auto) Baso # (Auto) Absolute Neuts (auto) pCO2 pO2 HCO3 ABG pH ABG Total CO2 ABG O2 Saturation ABG O2 Content ABG Base Excess ABG Hemoglobin ABG Carboxyhemoglobin POC ABG HHb (Measured) ABG Methemoglobin ABG O2 Capacity Hgb O2 Saturation FiO2 Sodium Potassium Chloride Carbon Dioxide Anion Gap BUN Creatinine Est GFR ( Amer) Est GFR (Non-Af Amer) POC Glucose (mg/dL) Random Glucose Calcium Total Bilirubin AST ALT Alkaline Phosphatase Total Protein Albumin Globulin Albumin/Globulin Ratio Influenza Type A Ab 1:64 H Influenza Type B Ab 1:16 H Pneumocystis Source Serum S. pneumoniae Antigen Not detected Crossmatch See Detail 04/28/18 04/29/18 04/29/18 21:54 06:30 06:30 WBC 8.9 D RBC 3.16 L Hgb 9.7 L Hct 31.8 L MCV 100.6 MCH 30.7 MCHC 30.5 L RDW 17.8 H Plt Count 156 MPV 11.3 H Neut % (Auto) 87.2 H Lymph % (Auto) 9.1 L Ector % (Auto) 3.6 Eos % (Auto) 0.0 L Baso % (Auto) 0.1 Lymph # (Auto) 0.8 L Ector # (Auto) 0.3 Eos # (Auto) 0.0 Baso # (Auto) 0.01 Absolute Neuts (auto) 7.76 H pCO2 pO2 HCO3 ABG pH ABG Total CO2 ABG O2 Saturation ABG O2 Content ABG Base Excess ABG Hemoglobin ABG Carboxyhemoglobin POC ABG HHb (Measured) ABG Methemoglobin ABG O2 Capacity Hgb O2 Saturation FiO2 Sodium 142 Potassium 4.7 Chloride 106 Carbon Dioxide 25 Anion Gap 16 BUN 69 H Creatinine 4.1 H Est GFR ( Amer) 13 Est GFR (Non-Af Amer) 11 POC Glucose (mg/dL) 180 H Random Glucose 184 H Calcium 10.1 Total Bilirubin 0.8 AST 46 H D ALT 61 H Alkaline Phosphatase 88 Total Protein 6.9 Albumin 3.8 Globulin 3.1 Albumin/Globulin Ratio 1.2 Influenza Type A Ab Influenza Type B Ab Pneumocystis Source S. pneumoniae Antigen Crossmatch 04/29/18 04/29/18 04/29/18 07:32 11:00 11:04 WBC RBC Hgb Hct MCV MCH MCHC RDW Plt Count MPV Neut % (Auto) Lymph % (Auto) Ector % (Auto) Eos % (Auto) Baso % (Auto) Lymph # (Auto) Ector # (Auto) Eos # (Auto) Baso # (Auto) Absolute Neuts (auto) pCO2 39 pO2 86.0 HCO3 24.2 ABG pH 7.40 ABG Total CO2 25.4 ABG O2 Saturation 99.2 H ABG O2 Content 13.0 L ABG Base Excess -0.5 ABG Hemoglobin 9.5 L ABG Carboxyhemoglobin 2.0 H POC ABG HHb (Measured) 0.8 ABG Methemoglobin 0.7 ABG O2 Capacity 13.1 L Hgb O2 Saturation 96.5 FiO2 28.0 Sodium Potassium Chloride Carbon Dioxide Anion Gap BUN Creatinine Est GFR ( Amer) Est GFR (Non-Af Amer) POC Glucose (mg/dL) 180 H 188 H Random Glucose Calcium Total Bilirubin AST ALT Alkaline Phosphatase Total Protein Albumin Globulin Albumin/Globulin Ratio Influenza Type A Ab Influenza Type B Ab Pneumocystis Source S. pneumoniae Antigen Crossmatch Assessment & Plan - Assessment and Plan (Free Text) Plan: Pt seen and examined by me. This is a late entry.I have reviewed the note of the director medical writing and I agree with it. I have discussed the assessment and plan with the resident. I have reviewed the medications and the last labs.Pt with kidney transplant. On steroids and Tacrolimus. Pt was given 2U transfusion. On Cardizem for A fib. follow Cr. Pt with Flu.
--- NOTE | 2018-04-26 12:23 | CT ---
Date of service: 04/26/2018 PROCEDURE: CT Chest without contrast HISTORY: evaluate lungs COMPARISON: None available. TECHNIQUE: Contiguous axial images were obtained through the chest without intravenous contrast enhancement. Sagittal and coronal reconstructions were performed. Radiation dose: Total exam DLP = 322.26 mGy-cm. This CT exam was performed using one or more of the following dose reduction techniques: Automated exposure control, adjustment of the mA and/or kV according to patient size, and/or use of iterative reconstruction technique. FINDINGS: LUNGS: Bibasilar infiltrates and small effusions are seen. Lung volumes are small. There is severe cardiomegaly MEDIASTINUM: Unremarkable thoracic aorta. No aneurysm. Severe cardiomegaly. Main pulmonary artery unremarkable. No vascular congestion. No lymphadenopathy. Aortic and coronary artery calcification PLEURA: No pleural fluid. No pneumothorax. BONES: There is a pattern of bony sclerosis in the vertebral bodies that is suggestive of Paget's disease. UPPER ABDOMEN: Grossly unremarkable. OTHER FINDINGS: None. IMPRESSION: Severe cardiomegaly. Small lung volumes. Bibasilar consolidation and small pleural effusions.
[2018-04-26 12:53] LABS: FOLATE > 20.0 ng/mL
[2018-04-26] MEDS ORDERED: Nicardipine 20 MG/200 ML 20 MG/200 ML BAG IV PRN (13:00)
--- NOTE | 2018-04-26 13:28 | CP.PCM.CON ---
<Sage Ford - Last Filed: 04/26/18 13:24> History of Present Illness - History of Present Illness History of Present Illness: Infectious disease consult note: 77-year-old female Past medical history of CHF with EF of 50%, COPD, DVT on Eliquis, lupus nephritis status post renal transplant, and osteoporosis presents with worsening shortness of breath. Patient is a poor historian therefore much of the HPI has been taken from prior notes and nursing notes. Patient was reportedly short of breath with labored breathing at home worse in the past few days. Her daughter also noted her with labored breathing and wheezing therefore she came to the ED. Of note patient was here from January 2018 until March 2018 for similar symptoms. Patient denies any coughing, fever, chills, body a ches, chest pain, abdominal pain, nausea, vomiting, diarrhea. ID was consulted for possible CAP. 12 point ROS performed however limited. PMH: As above PSH: Transplant of the kidney in 2007 Allergies: No known allergies FH: Denies SH: Denies any smoking, drug, alcohol use Review of Systems - Review of Systems All systems: reviewed and no additional remarkable complaints except Past Patient History - Past Social History Smoking Status: Never Smoked - CARDIAC Hx Congestive Heart Failure: Yes Hx Hypertension: Yes - PULMONARY Hx Chronic Obstructive Pulmonary Disease (COPD): Yes - NEUROLOGICAL Hx Neurological Disorder: No Hx Alzheimer's Disease: No HX Cerebrovascular Accident: No Hx Dementia: No Hx Dizziness: No Hx Meningitis: No Hx Migraine: No Hx Parkinson's Disease: No Hx Seizures: No Hx Transient Ischemic Attacks (TIA): No - HEENT Hx HEENT Problems: No Hx Blind: No Hx Cataracts: No Hx Deafness: No Hx Difficulty Chewing: No Hx Epistaxis: No Hx Glaucoma: No Hx Macular Degeneration: No - RENAL Hx Renal Failure: Yes (lupus nephritis; kidney transplant) - ENDOCRINE/METABOLIC Hx Systemic Lupus Erythematosus: Yes - HEMATOLOGICAL/ONCOLOGICAL Hx Blood Disorders: No Hx AIDS: No Hx Anemia: No Hx Cancer: No Hx Chemotherapy: No Hx Cirrhosis: No Hx Hemophilia: No Hx Hepatitis A: No Hx Hepatitis B: No Hx Hepatitis C: No Hx Human Immunodeficiency Virus (HIV): No Hx Metastesis: No Hx Shingles: No Hx Sickle Cell Disease: No Hx Unexplained Bleeding: No - INTEGUMENTARY Hx Dermatological Problems: No Hx Basil Cell: No Hx Eczema: No Hx Melanoma: No Hx Psoriasis: No Hx Squamous Cell: No - MUSCULOSKELETAL/RHEUMATOLOGICAL Hx Arthritis: Yes - GASTROINTESTINAL Hx Gastrointestinal Disorders: No Hx Colostomy: No Hx Crohn's Disease: No Hx Diverticulitis: No Hx Gall Bladder Disease: No Hx Gastroesophageal Reflux: No Hx Ileostomy: No Hx Liver Failure: No Hx Pancreatitis: No HX Swallowing Problems: No Hx Ulcer: No - GENITOURINARY/GYNECOLOGICAL Hx Genitourinary Disorders: No Hx Hematuria: No Hx Incontinence: No Hx Sexually Transmitted Disorders: No Hx Urinary Tract Infection: No - PSYCHIATRIC Hx Substance Use: No - SURGICAL HISTORY Hx Kidney Transplant: Yes (2007 / no longer dyalisis pt) - ANESTHESIA Hx Anesthesia: Yes Hx Anesthesia Reactions: No Hx Malignant Hyperthermia: No Meds Allergies/Adverse Reactions: Allergies Allergy/AdvReac Type Severity Reaction Status Date / Time No Known Allergies Allergy Verified 04/25/18 12:21 - Medications Medications: Current Medications Albuterol/Ipratropium (Duoneb 3 Mg/0.5 Mg (3 Ml) Ud) 3 ml IH Q4H PRN PRN Reason: Shortness of Breath Last Admin: 04/26/18 07:09 Dose: 3 ml Apixaban (Eliquis) 2.5 mg PO BID BIJAN; Protocol Last Admin: 04/25/18 17:03 Dose: 2.5 mg Aspirin (Aspirin Chewable) 81 mg PO DAILY [facility] Last Admin: 04/26/18 09:36 Dose: 81 mg Budesonide (Pulmicort Respules) 0.5 mg IH [id number] [facility] Diltiazem HCl (Cardizem) 30 mg PO Q8H BIJAN Last Admin: 04/26/18 11:39 Dose: 30 mg Doxycycline Hyclate 100 mg/ (Sodium Chloride) 100 mls @ 100 mls/hr IVPB Q12 BIJAN; Protocol Last Admin: 04/26/18 10:17 Dose: 100 mls/hr Heparin Sodium/Sodium Chloride (Heparin 56893 Units/250ml 1/2 Normal Saline) 25,000 units in 250 mls @ 2.765 mls/hr IV .Q24H BIJAN; Protocol Last Admin: 04/26/18 00:36 Dose: 12 units/kg/hr, 2.765 mls/hr Cefepime HCl (Maxipime 1gm) 1 gm in 100 mls @ 100 mls/hr IVPB Q24H BIJAN; Protocol Last Admin: 04/26/18 07:49 Dose: 100 mls/hr Nicardipine HCl (Cardene Iv Premix) 20 mg in 200 mls @ 50 mls/hr IV .Q4H PRN; Protocol PRN Reason: TITRATE PER MD ORDER diltiaZEM IVPB 100mg in NS (Cardizem 100mg In Ns) 100 mls @ 5 mls/hr IV .Q20H PRN; Protocol PRN Reason: TITRATE PER MD ORDER Methylprednisolone (Solu-Medrol) 20 mg IVP Q12 [facility] Last Admin: 04/26/18 09:05 Dose: 20 mg Oseltamivir Phosphate (Tamiflu Cap) 30 mg PO DAILY [facility]; Protocol Last Admin: 04/26/18 09:05 Dose: 30 mg Pantoprazole Sodium (Protonix Inj) 40 mg IVP DAILY [facility] Last Admin: 04/26/18 09:05 Dose: 40 mg Sodium Bicarbonate (Sodium Bicarbonate Tab) 325 mg PO BID [facility] Last Admin: 04/26/18 09:04 Dose: 325 mg Tacrolimus (Prograf Cap) 3 mg PO BID [facility] Last Admin: 04/26/18 09:05 Dose: 3 mg Physical Exam - Constitutional Appears: No Acute Distress - Head Exam Head Exam: ATRAUMATIC, NORMOCEPHALIC - Eye Exam Eye Exam: EOMI, PERRL - ENT Exam ENT Exam: Mucous Membranes Moist - Respiratory Exam Respiratory Exam: Clear to Auscultation Bilateral, Rales. absent: Wheezes Additional comments: mild, bases - Cardiovascular Exam Cardiovascular Exam: REGULAR RHYTHM, +S1, +S2 - GI/Abdominal Exam GI & Abdominal Exam: Normal Bowel Sounds, Soft. absent: Tenderness - Extremities Exam Extremities exam: Positive for: pedal edema. Negative for: calf tenderness Additional comments: 1+ - Neurological Exam Neurological exam: Alert, CN II-XII Intact - Psychiatric Exam Psychiatric exam: Normal Mood - Skin Skin Exam: Dry, Warm Results - Vital Signs Recent Vital Signs: Last Vital Signs Temp 97.6 F 04/26/18 13:02 Pulse 150 H 04/26/18 13:02 Resp 37 H 04/26/18 13:02 BP 143/93 H 04/26/18 13:02 Pulse Ox 100 04/26/18 07:59 - Labs Result Diagrams: 04/26/18 05:50 04/26/18 05:50 Labs: Laboratory Results - last 24 hr 04/25/18 04/25/18 04/25/18 12:35 14:00 14:10 WBC RBC Hgb Hct MCV MCH MCHC RDW Plt Count MPV Neut % (Auto) Lymph % (Auto) [place] % (Auto) Eos % (Auto) Baso % (Auto) Lymph # (Auto) [place] # (Auto) Eos # (Auto) Baso # (Auto) Absolute Neuts (auto) Differential Comment Retic Count Haptoglobin APTT pCO2 48 H pO2 361.0 H HCO3 31.1 H ABG pH 7.42 ABG Total CO2 32.6 H ABG O2 Saturation 101.0 H ABG O2 Content 10.3 L ABG Base Excess 6.0 H ABG Hemoglobin 6.7 L ABG Carboxyhemoglobin 1.9 H POC ABG HHb (Measured) -1.0 L ABG Methemoglobin 0.2 ABG O2 Capacity 10.2 L VBG pH VBG pCO2 VBG HCO3 VBG Total CO2 VBG O2 Sat (Calc) VBG Base Excess VBG Potassium Hgb O2 Saturation 98.9 H Sodium Chloride Glucose Lactate FiO2 100.0 Potassium Carbon Dioxide Anion Gap BUN Creatinine Est GFR ( Amer) Est GFR (Non-Af Amer) POC Glucose (mg/dL) Random Glucose Calcium Phosphorus Magnesium Iron TIBC % Saturation Total Bilirubin AST ALT Alkaline Phosphatase Lactate Dehydrogenase Troponin I 0.27 H* NT-Pro-B Natriuret Pep 89762 H Total Protein Albumin Globulin Albumin/Globulin Ratio Vitamin B12 Folate Procalcitonin 0.69 H TSH 3rd Generation Venous Blood Potassium Urine Color Urine Appearance Urine pH Ur Specific [place] Urine Protein Urine Glucose (UA) Urine Ketones Urine Blood Urine Nitrate Urine Bilirubin Urine Urobilinogen Ur Leukocyte Esterase Urine RBC Urine WBC Ur Epithelial Cells Urine Bacteria Hyaline Casts Urine Eosinophils Ur Random Creatinine U Random Total Protein Influenza Typ A,B (EIA) Ur L.pneumophila Ag Blood Type Blood Type Confirm Antibody Screen Crossmatch BBK History Checked 04/25/18 04/25/18 04/25/18 15:30 15:52 15:52 WBC RBC Hgb Hct MCV MCH MCHC RDW Plt Count MPV Neut % (Auto) Lymph % (Auto) [place] % (Auto) Eos % (Auto) Baso % (Auto) Lymph # (Auto) [place] # (Auto) Eos # (Auto) Baso # (Auto) Absolute Neuts (auto) Differential Comment Retic Count Haptoglobin APTT pCO2 pO2 37 HCO3 ABG pH ABG Total CO2 ABG O2 Saturation ABG O2 Content ABG Base Excess ABG Hemoglobin ABG Carboxyhemoglobin POC ABG HHb (Measured) ABG Methemoglobin ABG O2 Capacity VBG pH 7.35 VBG pCO2 59.0 VBG HCO3 32.6 H VBG Total CO2 34.4 H VBG O2 Sat (Calc) 78.2 H VBG Base Excess 5.2 H VBG Potassium 4.3 Hgb O2 Saturation Sodium 141.0 Chloride 105.0 Glucose 129 H Lactate 1.6 FiO2 21.0 Potassium Carbon Dioxide Anion Gap BUN Creatinine Est GFR ( Amer) Est GFR (Non-Af Amer) POC Glucose (mg/dL) Random Glucose Calcium Phosphorus Magnesium Iron TIBC % Saturation Total Bilirubin AST ALT Alkaline Phosphatase Lactate Dehydrogenase Troponin I NT-Pro-B Natriuret Pep Total Protein Albumin Globulin Albumin/Globulin Ratio Vitamin B12 Folate Procalcitonin TSH 3rd Generation Venous Blood Potassium 4.3 Urine Color Yellow Urine Appearance Clear Urine pH 6.0 Ur Specific [place] 1.020 Urine Protein 30 H Urine Glucose (UA) 100 H Urine Ketones Negative Urine Blood Trace-intact H Urine Nitrate Negative Urine Bilirubin Negative Urine Urobilinogen 0.2 Ur Leukocyte Esterase Negative Urine RBC 0 - 2 Urine WBC None Ur Epithelial Cells 0 - 2 Urine Bacteria Neg Hyaline Casts 0 - 2 Urine Eosinophils Ur Random Creatinine U Random Total Protein Influenza Typ A,B (EIA) Ur L.pneumophila Ag Negative Blood Type Blood Type Confirm Antibody Screen Crossmatch BBK History Checked 04/25/18 04/25/18 04/25/18 18:22 18:30 18:30 WBC RBC Hgb Hct MCV MCH MCHC RDW Plt Count MPV Neut % (Auto) Lymph % (Auto) [place] % (Auto) Eos % (Auto) Baso % (Auto) Lymph # (Auto) [place] # (Auto) Eos # (Auto) Baso # (Auto) Absolute Neuts (auto) Differential Comment Retic Count Haptoglobin APTT pCO2 pO2 HCO3 ABG pH ABG Total CO2 ABG O2 Saturation ABG O2 Content ABG Base Excess ABG Hemoglobin ABG Carboxyhemoglobin POC ABG HHb (Measured) ABG Methemoglobin ABG O2 Capacity VBG pH VBG pCO2 VBG HCO3 VBG Total CO2 VBG O2 Sat (Calc) VBG Base Excess VBG Potassium Hgb O2 Saturation Sodium Chloride Glucose Lactate FiO2 Potassium Carbon Dioxide Anion Gap BUN Creatinine Est GFR ( Amer) Est GFR (Non-Af Amer) POC Glucose (mg/dL) 127 H Random Glucose Calcium Phosphorus Magnesium Iron TIBC % Saturation Total Bilirubin AST ALT Alkaline Phosphatase Lactate Dehydrogenase Troponin I 1.64 H* D NT-Pro-B Natriuret Pep Total Protein Albumin Globulin Albumin/Globulin Ratio Vitamin B12 Folate Procalcitonin TSH 3rd Generation Venous Blood Potassium Urine Color Urine Appearance Urine pH Ur Specific [place] Urine Protein Urine Glucose (UA) Urine Ketones Urine Blood Urine Nitrate Urine Bilirubin Urine Urobilinogen Ur Leukocyte Esterase Urine RBC Urine WBC Ur Epithelial Cells Urine Bacteria Hyaline Casts Urine Eosinophils Ur Random Creatinine U Random Total Protein Influenza Typ A,B (EIA) Negative for flu a/b Ur L.pneumophila Ag Blood Type Blood Type Confirm Antibody Screen Crossmatch BBK History Checked 04/25/18 04/26/18 04/26/18 23:59 00:25 00:25 WBC RBC Hgb Hct MCV MCH MCHC RDW Plt Count MPV Neut % (Auto) Lymph % (Auto) [place] % (Auto) Eos % (Auto) Baso % (Auto) Lymph # (Auto) [place] # (Auto) Eos # (Auto) Baso # (Auto) Absolute Neuts (auto) Differential Comment Retic Count Haptoglobin APTT 35.7 pCO2 pO2 HCO3 ABG pH ABG Total CO2 ABG O2 Saturation ABG O2 Content ABG Base Excess ABG Hemoglobin ABG Carboxyhemoglobin POC ABG HHb (Measured) ABG Methemoglobin ABG O2 Capacity VBG pH VBG pCO2 VBG HCO3 VBG Total CO2 VBG O2 Sat (Calc) VBG Base Excess VBG Potassium Hgb O2 Saturation Sodium Chloride Glucose Lactate FiO2 Potassium Carbon Dioxide Anion Gap BUN Creatinine Est GFR ( Amer) Est GFR (Non-Af Amer) POC Glucose (mg/dL) 127 H Random Glucose Calcium Phosphorus Magnesium Iron TIBC % Saturation Total Bilirubin AST ALT Alkaline Phosphatase Lactate Dehydrogenase Troponin I 1.72 H* NT-Pro-B Natriuret Pep Total Protein Albumin Globulin Albumin/Globulin Ratio Vitamin B12 Folate Procalcitonin TSH 3rd Generation Venous Blood Potassium Urine Color Urine Appearance Urine pH Ur Specific [place] Urine Protein Urine Glucose (UA) Urine Ketones Urine Blood Urine Nitrate Urine Bilirubin Urine Urobilinogen Ur Leukocyte Esterase Urine RBC Urine WBC Ur Epithelial Cells Urine Bacteria Hyaline Casts Urine Eosinophils Ur Random Creatinine U Random Total Protein Influenza Typ A,B (EIA) Ur L.pneumophila Ag Blood Type Blood Type Confirm Antibody Screen Crossmatch BBK History Checked 04/26/18 04/26/18 04/26/18 05:50 05:50 05:50 WBC 7.6 D RBC 2.12 L Hgb 6.8 L* Hct 22.4 L MCV 105.7 H MCH 32.1 MCHC 30.4 L RDW 15.0 H Plt Count 158 MPV 10.8 Neut % (Auto) 81.8 H Lymph % (Auto) 16.5 L [place] % (Auto) 1.6 Eos % (Auto) 0.0 L Baso % (Auto) 0.1 Lymph # (Auto) 1.3 [place] # (Auto) 0.1 Eos # (Auto) 0.0 Baso # (Auto) 0.01 Absolute Neuts (auto) 6.21 Differential Comment See pathology report Retic Count Haptoglobin APTT pCO2 pO2 HCO3 ABG pH ABG Total CO2 ABG O2 Saturation ABG O2 Content ABG Base Excess ABG Hemoglobin ABG Carboxyhemoglobin POC ABG HHb (Measured) ABG Methemoglobin ABG O2 Capacity VBG pH VBG pCO2 VBG HCO3 VBG Total CO2 VBG O2 Sat (Calc) VBG Base Excess VBG Potassium Hgb O2 Saturation Sodium 141 Chloride 101 Glucose Lactate FiO2 Potassium 4.9 Carbon Dioxide 29 Anion Gap 16 BUN 46 H Creatinine 3.2 H Est GFR ( Amer) 17 Est GFR (Non-Af Amer) 14 POC Glucose (mg/dL) Random Glucose 103 Calcium 10.2 Phosphorus 3.7 Magnesium 2.0 Iron TIBC % Saturation Total Bilirubin 0.5 AST 48 H D ALT 49 Alkaline Phosphatase 97 Lactate Dehydrogenase Troponin I 1.21 H* D NT-Pro-B Natriuret Pep Total Protein 6.3 Albumin 3.4 Globulin 2.9 Albumin/Globulin Ratio 1.1 Vitamin B12 Folate Procalcitonin TSH 3rd Generation 1.11 Venous Blood Potassium Urine Color Urine Appearance Urine pH Ur Specific [place] Urine Protein Urine Glucose (UA) Urine Ketones Urine Blood Urine Nitrate Urine Bilirubin Urine Urobilinogen Ur Leukocyte Esterase Urine RBC Urine WBC Ur Epithelial Cells Urine Bacteria Hyaline Casts Urine Eosinophils Ur Random Creatinine U Random Total Protein Influenza Typ A,B (EIA) Ur L.pneumophila Ag Blood Type Blood Type Confirm Antibody Screen Crossmatch BBK History Checked 04/26/18 04/26/18 04/26/18 05:50 05:50 06:00 WBC RBC Hgb Hct MCV MCH MCHC RDW Plt Count MPV Neut % (Auto) Lymph % (Auto) [place] % (Auto) Eos % (Auto) Baso % (Auto) Lymph # (Auto) [place] # (Auto) Eos # (Auto) Baso # (Auto) Absolute Neuts (auto) Differential Comment Retic Count 2.44 H Haptoglobin APTT 35.1 pCO2 pO2 HCO3 ABG pH ABG Total CO2 ABG O2 Saturation ABG O2 Content ABG Base Excess ABG Hemoglobin ABG Carboxyhemoglobin POC ABG HHb (Measured) ABG Methemoglobin ABG O2 Capacity VBG pH VBG pCO2 VBG HCO3 VBG Total CO2 VBG O2 Sat (Calc) VBG Base Excess VBG Potassium Hgb O2 Saturation Sodium Chloride Glucose Lactate FiO2 Potassium Carbon Dioxide Anion Gap BUN Creatinine Est GFR ( Amer) Est GFR (Non-Af Amer) POC Glucose (mg/dL) Random Glucose Calcium Phosphorus Magnesium Iron 62 TIBC 187 L % Saturation 33 Total Bilirubin AST ALT Alkaline Phosphatase Lactate Dehydrogenase Troponin I NT-Pro-B Natriuret Pep Total Protein Albumin Globulin Albumin/Globulin Ratio Vitamin B12 Folate Procalcitonin TSH 3rd Generation Venous Blood Potassium Urine Color Urine Appearance Urine pH Ur Specific [place] Urine Protein Urine Glucose (UA) Urine Ketones Urine Blood Urine Nitrate Urine Bilirubin Urine Urobilinogen Ur Leukocyte Esterase Urine RBC Urine WBC Ur Epithelial Cells Urine Bacteria Hyaline Casts Urine Eosinophils Ur Random Creatinine U Random Total Protein Influenza Typ A,B (EIA) Ur L.pneumophila Ag Blood Type Blood Type Confirm Antibody Screen Crossmatch BBK History Checked 04/26/18 04/26/18 04/26/18 06:00 06:00 06:00 WBC RBC Hgb Hct MCV MCH MCHC RDW Plt Count MPV Neut % (Auto) Lymph % (Auto) [place] % (Auto) Eos % (Auto) Baso % (Auto) Lymph # (Auto) [place] # (Auto) Eos # (Auto) Baso # (Auto) Absolute Neuts (auto) Differential Comment Retic Count Haptoglobin 197.9 APTT pCO2 pO2 HCO3 ABG pH ABG Total CO2 ABG O2 Saturation ABG O2 Content ABG Base Excess ABG Hemoglobin ABG Carboxyhemoglobin POC ABG HHb (Measured) ABG Methemoglobin ABG O2 Capacity VBG pH VBG pCO2 VBG HCO3 VBG Total CO2 VBG O2 Sat (Calc) VBG Base Excess VBG Potassium Hgb O2 Saturation Sodium Chloride Glucose Lactate FiO2 Potassium Carbon Dioxide Anion Gap BUN Creatinine Est GFR ( Amer) Est GFR (Non-Af Amer) POC Glucose (mg/dL) Random Glucose Calcium Phosphorus Magnesium Iron TIBC % Saturation Total Bilirubin AST ALT Alkaline Phosphatase Lactate Dehydrogenase 630 Troponin I NT-Pro-B Natriuret Pep Total Protein Albumin Globulin Albumin/Globulin Ratio Vitamin B12 913 Folate > 20.0 Procalcitonin TSH 3rd Generation Venous Blood Potassium Urine Color Urine Appearance Urine pH Ur Specific [place] Urine Protein Urine Glucose (UA) Urine Ketones Urine Blood Urine Nitrate Urine Bilirubin Urine Urobilinogen Ur Leukocyte Esterase Urine RBC Urine WBC Ur Epithelial Cells Urine Bacteria Hyaline Casts Urine Eosinophils Ur Random Creatinine U Random Total Protein Influenza Typ A,B (EIA) Ur L.pneumophila Ag Blood Type Blood Type Confirm Antibody Screen Crossmatch BBK History Checked 04/26/18 04/26/18 04/26/18 06:01 06:44 08:20 WBC RBC Hgb Hct MCV MCH MCHC RDW Plt Count MPV Neut % (Auto) Lymph % (Auto) [place] % (Auto) Eos % (Auto) Baso % (Auto) Lymph # (Auto) [place] # (Auto) Eos # (Auto) Baso # (Auto) Absolute Neuts (auto) Differential Comment Retic Count Haptoglobin APTT pCO2 pO2 HCO3 ABG pH ABG Total CO2 ABG O2 Saturation ABG O2 Content ABG Base Excess ABG Hemoglobin ABG Carboxyhemoglobin POC ABG HHb (Measured) ABG Methemoglobin ABG O2 Capacity VBG pH VBG pCO2 VBG HCO3 VBG Total CO2 VBG O2 Sat (Calc) VBG Base Excess VBG Potassium Hgb O2 Saturation Sodium Chloride Glucose Lactate FiO2 Potassium Carbon Dioxide Anion Gap BUN Creatinine Est GFR ( Amer) Est GFR (Non-Af Amer) POC Glucose (mg/dL) 117 H Random Glucose Calcium Phosphorus Magnesium Iron TIBC % Saturation Total Bilirubin AST ALT Alkaline Phosphatase Lactate Dehydrogenase Troponin I NT-Pro-B Natriuret Pep Total Protein Albumin Globulin Albumin/Globulin Ratio Vitamin B12 Folate Procalcitonin TSH 3rd Generation Venous Blood Potassium Urine Color Urine Appearance Urine pH Ur Specific [place] Urine Protein Urine Glucose (UA) Urine Ketones Urine Blood Urine Nitrate Urine Bilirubin Urine Urobilinogen Ur Leukocyte Esterase Urine RBC Urine WBC Ur Epithelial Cells Urine Bacteria Hyaline Casts Urine Eosinophils Ur Random Creatinine U Random Total Protein Influenza Typ A,B (EIA) Ur L.pneumophila Ag Blood Type O POSITIVE Blood Type Confirm O POSITIVE Antibody Screen Negative Crossmatch See Detail BBK History Checked No verified bt 04/26/18 04/26/18 09:18 09:18 WBC RBC Hgb Hct MCV MCH MCHC RDW Plt Count MPV Neut % (Auto) Lymph % (Auto) [place] % (Auto) Eos % (Auto) Baso % (Auto) Lymph # (Auto) [place] # (Auto) Eos # (Auto) Baso # (Auto) Absolute Neuts (auto) Differential Comment Retic Count Haptoglobin APTT pCO2 pO2 HCO3 ABG pH ABG Total CO2 ABG O2 Saturation ABG O2 Content ABG Base Excess ABG Hemoglobin ABG Carboxyhemoglobin POC ABG HHb (Measured) ABG Methemoglobin ABG O2 Capacity VBG pH VBG pCO2 VBG HCO3 VBG Total CO2 VBG O2 Sat (Calc) VBG Base Excess VBG Potassium Hgb O2 Saturation Sodium Chloride Glucose Lactate FiO2 Potassium Carbon Dioxide Anion Gap BUN Creatinine Est GFR ( Amer) Est GFR (Non-Af Amer) POC Glucose (mg/dL) Random Glucose Calcium Phosphorus Magnesium Iron TIBC % Saturation Total Bilirubin AST ALT Alkaline Phosphatase Lactate Dehydrogenase Troponin I NT-Pro-B Natriuret Pep Total Protein Albumin Globulin Albumin/Globulin Ratio Vitamin B12 Folate Procalcitonin TSH 3rd Generation Venous Blood Potassium Urine Color Urine Appearance Urine pH Ur Specific [place] Urine Protein Urine Glucose (UA) Urine Ketones Urine Blood Urine Nitrate Urine Bilirubin Urine Urobilinogen Ur Leukocyte Esterase Urine RBC Urine WBC Ur Epithelial Cells Urine Bacteria Hyaline Casts Urine Eosinophils Negative Ur Random Creatinine 125 U Random Total Protein 46 Influenza Typ A,B (EIA) Ur L.pneumophila Ag Blood Type Blood Type Confirm Antibody Screen Crossmatch BBK History Checked Assessment & Plan - Assessment and Plan (Free Text) Assessment: 77-year-old female Past medical history of CHF with EF of 50%, COPD, DVT on Eliquis, lupus nephritis status post renal transplant, and osteoporosis presents with worsening shortness of breath. Patient is found to have elevated troponin and CHF exacerbation with BNP of 34,000. R/o CAP or any other respiratory tract infection. Continue Vanc, cefepime, and doxycycline Continue Tamiflu for 5 days Follow-up septic workup Pro-calcitonin of 0.69 however the patient has an JAGDISH Follow-up cardiology recommendations Chest x-ray shows severe cardiomegaly, and moderate pulmonary vascular congestion Follow-up CT chest pending read Continue to monitor for any changes Case and plan was reviewed and discussed with Dr. Hayden <Noah Hayden - Last Filed: 04/26/18 14:17> Meds - Medications Medications: Current Medications Albuterol/Ipratropium (Duoneb 3 Mg/0.5 Mg (3 Ml) Ud) 3 ml IH Q4H PRN PRN Reason: Shortness of Breath Last Admin: 04/26/18 07:09 Dose: 3 ml Apixaban (Eliquis) 2.5 mg PO BID BIJAN; Protocol Last Admin: 04/25/18 17:03 Dose: 2.5 mg Aspirin (Aspirin Chewable) 81 mg PO DAILY BIJAN Last Admin: 04/26/18 09:36 Dose: 81 mg Budesonide (Pulmicort Respules) 0.5 mg IH [id number] BIJAN Diltiazem HCl (Cardizem) 30 mg PO Q8H BIJAN Last Admin: 04/26/18 11:39 Dose: 30 mg Doxycycline Hyclate 100 mg/ (Sodium Chloride) 100 mls @ 100 mls/hr IVPB Q12 BIJAN; Protocol Last Admin: 04/26/18 10:17 Dose: 100 mls/hr Heparin Sodium/Sodium Chloride (Heparin 20837 Units/250ml 1/2 Normal Saline) 25,000 units in 250 mls @ 2.765 mls/hr IV .Q24H BIJAN; Protocol Last Admin: 04/26/18 00:36 Dose: 12 units/kg/hr, 2.765 mls/hr Cefepime HCl (Maxipime 1gm) 1 gm in 100 mls @ 100 mls/hr IVPB Q24H BIJAN; Protocol Last Admin: 04/26/18 07:49 Dose: 100 mls/hr diltiaZEM IVPB 100mg in NS (Cardizem 100mg In Ns) 100 mls @ 5 mls/hr IV .Q20H PRN; Protocol PRN Reason: TITRATE PER MD ORDER Methylprednisolone (Solu-Medrol) 20 mg IVP Q12 [facility] Last Admin: 04/26/18 09:05 Dose: 20 mg Oseltamivir Phosphate (Tamiflu Cap) 30 mg PO DAILY [facility]; Protocol Last Admin: 04/26/18 09:05 Dose: 30 mg Pantoprazole Sodium (Protonix Inj) 40 mg IVP DAILY [facility] Last Admin: 04/26/18 09:05 Dose: 40 mg Sodium Bicarbonate (Sodium Bicarbonate Tab) 325 mg PO BID BIJAN Last Admin: 04/26/18 09:04 Dose: 325 mg Tacrolimus (Prograf Cap) 3 mg PO BID [facility] Last Admin: 04/26/18 09:05 Dose: 3 mg Results - Vital Signs Recent Vital Signs: Last Vital Signs Temp 97.6 F 04/26/18 13:02 Pulse 150 H 04/26/18 13:02 Resp 37 H 04/26/18 13:02 BP 143/93 H 04/26/18 13:02 Pulse Ox 100 04/26/18 07:59 - Labs Result Diagrams: 04/26/18 05:50 04/26/18 05:50 Labs: Laboratory Results - last 24 hr 04/25/18 04/25/18 04/25/18 14:00 14:10 15:30 WBC RBC Hgb Hct MCV MCH MCHC RDW Plt Count MPV Neut % (Auto) Lymph % (Auto) [place] % (Auto) Eos % (Auto) Baso % (Auto) Lymph # (Auto) [place] # (Auto) Eos # (Auto) Baso # (Auto) Absolute Neuts (auto) Differential Comment Retic Count Haptoglobin APTT pCO2 48 H pO2 361.0 H 37 HCO3 31.1 H ABG pH 7.42 ABG Total CO2 32.6 H ABG O2 Saturation 101.0 H ABG O2 Content 10.3 L ABG Base Excess 6.0 H ABG Hemoglobin 6.7 L ABG Carboxyhemoglobin 1.9 H POC ABG HHb (Measured) -1.0 L ABG Methemoglobin 0.2 ABG O2 Capacity 10.2 L VBG pH 7.35 VBG pCO2 59.0 VBG HCO3 32.6 H VBG Total CO2 34.4 H VBG O2 Sat (Calc) 78.2 H VBG Base Excess 5.2 H VBG Potassium 4.3 Hgb O2 Saturation 98.9 H Sodium 141.0 Chloride 105.0 Glucose 129 H Lactate 1.6 FiO2 100.0 21.0 Potassium Carbon Dioxide Anion Gap BUN Creatinine Est GFR ( Amer) Est GFR (Non-Af Amer) POC Glucose (mg/dL) Random Glucose Calcium Phosphorus Magnesium Iron TIBC % Saturation Total Bilirubin AST ALT Alkaline Phosphatase Lactate Dehydrogenase Troponin I Total Protein Albumin Globulin Albumin/Globulin Ratio Vitamin B12 Folate Procalcitonin 0.69 H TSH 3rd Generation Venous Blood Potassium 4.3 Urine Color Urine Appearance Urine pH Ur Specific [place] Urine Protein Urine Glucose (UA) Urine Ketones Urine Blood Urine Nitrate Urine Bilirubin Urine Urobilinogen Ur Leukocyte Esterase Urine RBC Urine WBC Ur Epithelial Cells Urine Bacteria Hyaline Casts Urine Eosinophils Ur Random Creatinine U Random Total Protein Influenza Typ A,B (EIA) Ur L.pneumophila Ag Blood Type Blood Type Confirm Antibody Screen Crossmatch BBK History Checked 04/25/18 04/25/18 04/25/18 15:52 15:52 18:22 WBC RBC Hgb Hct MCV MCH MCHC RDW Plt Count MPV Neut % (Auto) Lymph % (Auto) [place] % (Auto) Eos % (Auto) Baso % (Auto) Lymph # (Auto) [place] # (Auto) Eos # (Auto) Baso # (Auto) Absolute Neuts (auto) Differential Comment Retic Count Haptoglobin APTT pCO2 pO2 HCO3 ABG pH ABG Total CO2 ABG O2 Saturation ABG O2 Content ABG Base Excess ABG Hemoglobin ABG Carboxyhemoglobin POC ABG HHb (Measured) ABG Methemoglobin ABG O2 Capacity VBG pH VBG pCO2 VBG HCO3 VBG Total CO2 VBG O2 Sat (Calc) VBG Base Excess VBG Potassium Hgb O2 Saturation Sodium Chloride Glucose Lactate FiO2 Potassium Carbon Dioxide Anion Gap BUN Creatinine Est GFR ( Amer) Est GFR (Non-Af Amer) POC Glucose (mg/dL) 127 H Random Glucose Calcium Phosphorus Magnesium Iron TIBC % Saturation Total Bilirubin AST ALT Alkaline Phosphatase Lactate Dehydrogenase Troponin I Total Protein Albumin Globulin Albumin/Globulin Ratio Vitamin B12 Folate Procalcitonin TSH 3rd Generation Venous Blood Potassium Urine Color Yellow Urine Appearance Clear Urine pH 6.0 Ur Specific [place] 1.020 Urine Protein 30 H Urine Glucose (UA) 100 H Urine Ketones Negative Urine Blood Trace-intact H Urine Nitrate Negative Urine Bilirubin Negative Urine Urobilinogen 0.2 Ur Leukocyte Esterase Negative Urine RBC 0 - 2 Urine WBC None Ur Epithelial Cells 0 - 2 Urine Bacteria Neg Hyaline Casts 0 - 2 Urine Eosinophils Ur Random Creatinine U Random Total Protein Influenza Typ A,B (EIA) Ur L.pneumophila Ag Negative Blood Type Blood Type Confirm Antibody Screen Crossmatch BBK History Checked 04/25/18 04/25/18 04/25/18 18:30 18:30 23:59 WBC RBC Hgb Hct MCV MCH MCHC RDW Plt Count MPV Neut % (Auto) Lymph % (Auto) [place] % (Auto) Eos % (Auto) Baso % (Auto) Lymph # (Auto) [place] # (Auto) Eos # (Auto) Baso # (Auto) Absolute Neuts (auto) Differential Comment Retic Count Haptoglobin APTT pCO2 pO2 HCO3 ABG pH ABG Total CO2 ABG O2 Saturation ABG O2 Content ABG Base Excess ABG Hemoglobin ABG Carboxyhemoglobin POC ABG HHb (Measured) ABG Methemoglobin ABG O2 Capacity VBG pH VBG pCO2 VBG HCO3 VBG Total CO2 VBG O2 Sat (Calc) VBG Base Excess VBG Potassium Hgb O2 Saturation Sodium Chloride Glucose Lactate FiO2 Potassium Carbon Dioxide Anion Gap BUN Creatinine Est GFR ( Amer) Est GFR (Non-Af Amer) POC Glucose (mg/dL) 127 H Random Glucose Calcium Phosphorus Magnesium Iron TIBC % Saturation Total Bilirubin AST ALT Alkaline Phosphatase Lactate Dehydrogenase Troponin I 1.64 H* D Total Protein Albumin Globulin Albumin/Globulin Ratio Vitamin B12 Folate Procalcitonin TSH 3rd Generation Venous Blood Potassium Urine Color Urine Appearance Urine pH Ur Specific [place] Urine Protein Urine Glucose (UA) Urine Ketones Urine Blood Urine Nitrate Urine Bilirubin Urine Urobilinogen Ur Leukocyte Esterase Urine RBC Urine WBC Ur Epithelial Cells Urine Bacteria Hyaline Casts Urine Eosinophils Ur Random Creatinine U Random Total Protein Influenza Typ A,B (EIA) Negative for flu a/b Ur L.pneumophila Ag Blood Type Blood Type Confirm Antibody Screen Crossmatch BBK History Checked 04/26/18 04/26/18 04/26/18 00:25 00:25 05:50 WBC 7.6 D RBC 2.12 L Hgb 6.8 L* Hct 22.4 L MCV 105.7 H MCH 32.1 MCHC 30.4 L RDW 15.0 H Plt Count 158 MPV 10.8 Neut % (Auto) 81.8 H Lymph % (Auto) 16.5 L [place] % (Auto) 1.6 Eos % (Auto) 0.0 L Baso % (Auto) 0.1 Lymph # (Auto) 1.3 [place] # (Auto) 0.1 Eos # (Auto) 0.0 Baso # (Auto) 0.01 Absolute Neuts (auto) 6.21 Differential Comment See pathology report Retic Count Haptoglobin APTT 35.7 pCO2 pO2 HCO3 ABG pH ABG Total CO2 ABG O2 Saturation ABG O2 Content ABG Base Excess ABG Hemoglobin ABG Carboxyhemoglobin POC ABG HHb (Measured) ABG Methemoglobin ABG O2 Capacity VBG pH VBG pCO2 VBG HCO3 VBG Total CO2 VBG O2 Sat (Calc) VBG Base Excess VBG Potassium Hgb O2 Saturation Sodium Chloride Glucose Lactate FiO2 Potassium Carbon Dioxide Anion Gap BUN Creatinine Est GFR ( Amer) Est GFR (Non-Af Amer) POC Glucose (mg/dL) Random Glucose Calcium Phosphorus Magnesium Iron TIBC % Saturation Total Bilirubin AST ALT Alkaline Phosphatase Lactate Dehydrogenase Troponin I 1.72 H* Total Protein Albumin Globulin Albumin/Globulin Ratio Vitamin B12 Folate Procalcitonin TSH 3rd Generation Venous Blood Potassium Urine Color Urine Appearance Urine pH Ur Specific [place] Urine Protein Urine Glucose (UA) Urine Ketones Urine Blood Urine Nitrate Urine Bilirubin Urine Urobilinogen Ur Leukocyte Esterase Urine RBC Urine WBC Ur Epithelial Cells Urine Bacteria Hyaline Casts Urine Eosinophils Ur Random Creatinine U Random Total Protein Influenza Typ A,B (EIA) Ur L.pneumophila Ag Blood Type Blood Type Confirm Antibody Screen Crossmatch BBK History Checked 04/26/18 04/26/18 04/26/18 05:50 05:50 05:50 WBC RBC Hgb Hct MCV MCH MCHC RDW Plt Count MPV Neut % (Auto) Lymph % (Auto) [place] % (Auto) Eos % (Auto) Baso % (Auto) Lymph # (Auto) [place] # (Auto) Eos # (Auto) Baso # (Auto) Absolute Neuts (auto) Differential Comment Retic Count Haptoglobin APTT 35.1 pCO2 pO2 HCO3 ABG pH ABG Total CO2 ABG O2 Saturation ABG O2 Content ABG Base Excess ABG Hemoglobin ABG Carboxyhemoglobin POC ABG HHb (Measured) ABG Methemoglobin ABG O2 Capacity VBG pH VBG pCO2 VBG HCO3 VBG Total CO2 VBG O2 Sat (Calc) VBG Base Excess VBG Potassium Hgb O2 Saturation Sodium 141 Chloride 101 Glucose Lactate FiO2 Potassium 4.9 Carbon Dioxide 29 Anion Gap 16 BUN 46 H Creatinine 3.2 H Est GFR ( Amer) 17 Est GFR (Non-Af Amer) 14 POC Glucose (mg/dL) Random Glucose 103 Calcium 10.2 Phosphorus 3.7 Magnesium 2.0 Iron TIBC % Saturation Total Bilirubin 0.5 AST 48 H D ALT 49 Alkaline Phosphatase 97 Lactate Dehydrogenase Troponin I 1.21 H* D Total Protein 6.3 Albumin 3.4 Globulin 2.9 Albumin/Globulin Ratio 1.1 Vitamin B12 Folate Procalcitonin TSH 3rd Generation 1.11 Venous Blood Potassium Urine Color Urine Appearance Urine pH Ur Specific [place] Urine Protein Urine Glucose (UA) Urine Ketones Urine Blood Urine Nitrate Urine Bilirubin Urine Urobilinogen Ur Leukocyte Esterase Urine RBC Urine WBC Ur Epithelial Cells Urine Bacteria Hyaline Casts Urine Eosinophils Ur Random Creatinine U Random Total Protein Influenza Typ A,B (EIA) Ur L.pneumophila Ag Blood Type Blood Type Confirm Antibody Screen Crossmatch BBK History Checked 04/26/18 04/26/18 04/26/18 05:50 06:00 06:00 WBC RBC Hgb Hct MCV MCH MCHC RDW Plt Count MPV Neut % (Auto) Lymph % (Auto) [place] % (Auto) Eos % (Auto) Baso % (Auto) Lymph # (Auto) [place] # (Auto) Eos # (Auto) Baso # (Auto) Absolute Neuts (auto) Differential Comment Retic Count 2.44 H Haptoglobin 197.9 APTT pCO2 pO2 HCO3 ABG pH ABG Total CO2 ABG O2 Saturation ABG O2 Content ABG Base Excess ABG Hemoglobin ABG Carboxyhemoglobin POC ABG HHb (Measured) ABG Methemoglobin ABG O2 Capacity VBG pH VBG pCO2 VBG HCO3 VBG Total CO2 VBG O2 Sat (Calc) VBG Base Excess VBG Potassium Hgb O2 Saturation Sodium Chloride Glucose Lactate FiO2 Potassium Carbon Dioxide Anion Gap BUN Creatinine Est GFR ( Amer) Est GFR (Non-Af Amer) POC Glucose (mg/dL) Random Glucose Calcium Phosphorus Magnesium Iron 62 TIBC 187 L % Saturation 33 Total Bilirubin AST ALT Alkaline Phosphatase Lactate Dehydrogenase Troponin I Total Protein Albumin Globulin Albumin/Globulin Ratio Vitamin B12 Folate Procalcitonin TSH 3rd Generation Venous Blood Potassium Urine Color Urine Appearance Urine pH Ur Specific [place] Urine Protein Urine Glucose (UA) Urine Ketones Urine Blood Urine Nitrate Urine Bilirubin Urine Urobilinogen Ur Leukocyte Esterase Urine RBC Urine WBC Ur Epithelial Cells Urine Bacteria Hyaline Casts Urine Eosinophils Ur Random Creatinine U Random Total Protein Influenza Typ A,B (EIA) Ur L.pneumophila Ag Blood Type Blood Type Confirm Antibody Screen Crossmatch BBK History Checked 04/26/18 04/26/18 04/26/18 06:00 06:00 06:01 WBC RBC Hgb Hct MCV MCH MCHC RDW Plt Count MPV Neut % (Auto) Lymph % (Auto) [place] % (Auto) Eos % (Auto) Baso % (Auto) Lymph # (Auto) [place] # (Auto) Eos # (Auto) Baso # (Auto) Absolute Neuts (auto) Differential Comment Retic Count Haptoglobin APTT pCO2 pO2 HCO3 ABG pH ABG Total CO2 ABG O2 Saturation ABG O2 Content ABG Base Excess ABG Hemoglobin ABG Carboxyhemoglobin POC ABG HHb (Measured) ABG Methemoglobin ABG O2 Capacity VBG pH VBG pCO2 VBG HCO3 VBG Total CO2 VBG O2 Sat (Calc) VBG Base Excess VBG Potassium Hgb O2 Saturation Sodium Chloride Glucose Lactate FiO2 Potassium Carbon Dioxide Anion Gap BUN Creatinine Est GFR ( Amer) Est GFR (Non-Af Amer) POC Glucose (mg/dL) Random Glucose Calcium Phosphorus Magnesium Iron TIBC % Saturation Total Bilirubin AST ALT Alkaline Phosphatase Lactate Dehydrogenase 630 Troponin I Total Protein Albumin Globulin Albumin/Globulin Ratio Vitamin B12 913 Folate > 20.0 Procalcitonin TSH 3rd Generation Venous Blood Potassium Urine Color Urine Appearance Urine pH Ur Specific [place] Urine Protein Urine Glucose (UA) Urine Ketones Urine Blood Urine Nitrate Urine Bilirubin Urine Urobilinogen Ur Leukocyte Esterase Urine RBC Urine WBC Ur Epithelial Cells Urine Bacteria Hyaline Casts Urine Eosinophils Ur Random Creatinine U Random Total Protein Influenza Typ A,B (EIA) Ur L.pneumophila Ag Blood Type O POSITIVE Blood Type Confirm Antibody Screen Negative Crossmatch See Detail BBK History Checked No verified bt 04/26/18 04/26/18 04/26/18 06:44 08:20 09:18 WBC RBC Hgb Hct MCV MCH MCHC RDW Plt Count MPV Neut % (Auto) Lymph % (Auto) [place] % (Auto) Eos % (Auto) Baso % (Auto) Lymph # (Auto) [place] # (Auto) Eos # (Auto) Baso # (Auto) Absolute Neuts (auto) Differential Comment Retic Count Haptoglobin APTT pCO2 pO2 HCO3 ABG pH ABG Total CO2 ABG O2 Saturation ABG O2 Content ABG Base Excess ABG Hemoglobin ABG Carboxyhemoglobin POC ABG HHb (Measured) ABG Methemoglobin ABG O2 Capacity VBG pH VBG pCO2 VBG HCO3 VBG Total CO2 VBG O2 Sat (Calc) VBG Base Excess VBG Potassium Hgb O2 Saturation Sodium Chloride Glucose Lactate FiO2 Potassium Carbon Dioxide Anion Gap BUN Creatinine Est GFR ( Amer) Est GFR (Non-Af Amer) POC Glucose (mg/dL) 117 H Random Glucose Calcium Phosphorus Magnesium Iron TIBC % Saturation Total Bilirubin AST ALT Alkaline Phosphatase Lactate Dehydrogenase Troponin I Total Protein Albumin Globulin Albumin/Globulin Ratio Vitamin B12 Folate Procalcitonin TSH 3rd Generation Venous Blood Potassium Urine Color Urine Appearance Urine pH Ur Specific [place] Urine Protein Urine Glucose (UA) Urine Ketones Urine Blood Urine Nitrate Urine Bilirubin Urine Urobilinogen Ur Leukocyte Esterase Urine RBC Urine WBC Ur Epithelial Cells Urine Bacteria Hyaline Casts Urine Eosinophils Ur Random Creatinine 125 U Random Total Protein 46 Influenza Typ A,B (EIA) Ur L.pneumophila Ag Blood Type Blood Type Confirm O POSITIVE Antibody Screen Crossmatch BBK History Checked 04/26/18 09:18 WBC RBC Hgb Hct MCV MCH MCHC RDW Plt Count MPV Neut % (Auto) Lymph % (Auto) [place] % (Auto) Eos % (Auto) Baso % (Auto) Lymph # (Auto) [place] # (Auto) Eos # (Auto) Baso # (Auto) Absolute Neuts (auto) Differential Comment Retic Count Haptoglobin APTT pCO2 pO2 HCO3 ABG pH ABG Total CO2 ABG O2 Saturation ABG O2 Content ABG Base Excess ABG Hemoglobin ABG Carboxyhemoglobin POC ABG HHb (Measured) ABG Methemoglobin ABG O2 Capacity VBG pH VBG pCO2 VBG HCO3 VBG Total CO2 VBG O2 Sat (Calc) VBG Base Excess VBG Potassium Hgb O2 Saturation Sodium Chloride Glucose Lactate FiO2 Potassium Carbon Dioxide Anion Gap BUN Creatinine Est GFR ( Amer) Est GFR (Non-Af Amer) POC Glucose (mg/dL) Random Glucose Calcium Phosphorus Magnesium Iron TIBC % Saturation Total Bilirubin AST ALT Alkaline Phosphatase Lactate Dehydrogenase Troponin I Total Protein Albumin Globulin Albumin/Globulin Ratio Vitamin B12 Folate Procalcitonin TSH 3rd Generation Venous Blood Potassium Urine Color Urine Appearance Urine pH Ur Specific [place] Urine Protein Urine Glucose (UA) Urine Ketones Urine Blood Urine Nitrate Urine Bilirubin Urine Urobilinogen Ur Leukocyte Esterase Urine RBC Urine WBC Ur Epithelial Cells Urine Bacteria Hyaline Casts Urine Eosinophils Negative Ur Random Creatinine U Random Total Protein Influenza Typ A,B (EIA) Ur L.pneumophila Ag Blood Type Blood Type Confirm Antibody Screen Crossmatch BBK History Checked Assessment & Plan - Assessment and Plan (Free Text) Assessment: Infectious diseases Attending Physician Attestation Patient seen and examined, discussed with family practice medical doctor. I have reviewed the patient's history of present illness, past medical, social, personal and family histories, pertinent physical exam findings, course so far in this hospital admission, pertinent laboratory and imaging results. I agree with the above findings, assessment and plan. In addition, started a dose of IV Vancomycin, Cefepime and Doxycycline for possible pneumonia in this patient with probable CHF exacerbation. Folliow up cultures and will monitor clinically. Patient has also been started on Tamiflu, R/O Influenza.
[2018-04-26] MEDS: diltiaZEM IVPB 100mg in NS 100 ML IV PRN (15:34)
[2018-04-26 15:59] LABS: COMPLEMENT C4 31.6 mg/dL (14.0-44.0)
--- NOTE | 2018-04-26 16:02 | CARD ---
APPROVED REPORT Date of service: 04/26/2018 EXAM: Two-dimensional and M-mode echocardiogram with Doppler and color Doppler. INDICATION Congestive Heart Failure 2D DIMENSIONS Left Atrium (2D)4.7 (1.6-4.0cm)IVSd1.7 (0.7-1.1cm) LVDd4.0 (3.9-5.9cm)PWd1.3 (0.7-1.1cm) LVDs3.1 (2.5-4.0cm)FS (%) 22.9 % LVEF (%)46.5 (>50%) M-Mode DIMENSIONS Aortic Root2.80 (2.2-3.7cm)Aortic Cusp Exc.1.50 (1.5-2.0cm) Aortic Valve AoV Peak Jywkyryc774.0cm/Yaya Peak GR.21mmHg Mitral Valve E/A ratio0.0 TDI E/Lateral E'0.0E/Medial E'0.0 Tricuspid Valve TR Peak [id number] [id number] Peak Gr.53mmHg [id number] LEFT VENTRICLE The left ventricle is normal size. There is moderate to severe concentric left ventricular hypertrophy. The systolic function is mildly impaired. Lateral wall hypokinesis RIGHT VENTRICLE The right ventricle is borderline dilated. The right ventricle is mildly hypertrophied. The right ventricular systolic function is normal. ATRIA The left atrium is moderately dilated. The right atrium is mildly dilated. AORTIC VALVE The aortic valve is moderately thickened. No aortic regurgitation is present. There is no aortic valvular stenosis. MITRAL VALVE The mitral valve is mildly thickened. Mitral regurgitation is moderate. There is no mitral valve stenosis. TRICUSPID VALVE There is moderate to severe tricuspid regurgitation. There is moderate to severe pulmonary hypertension. GREAT VESSELS The aortic root is normal in size. The IVC is normal in size and collapses >50% with inspiration. <Conclusion> The left ventricle is normal size. There is moderate to severe concentric left ventricular hypertrophy. The systolic function is mildly impaired. Lateral wall hypokinesis The left atrium is moderately dilated. Mitral regurgitation is moderate. There is moderate to severe tricuspid regurgitation. There is moderate to severe pulmonary hypertension.
--- NOTE | 2018-04-26 16:38 | US ---
Date of service: 04/26/2018 PROCEDURE: Ultrasound of the Kidneys HISTORY: ARF s/o renal transplant COMPARISON: None available. TECHNIQUE: Sonogram of the kidneys. FINDINGS: Examination limited by habitus, patient condition, and difficulty with breath hold and positioning. RIGHT KIDNEY: Measures: 7.9 x 3.9 x 4.3 cm. Pelvic kidney. Echogenic renal parenchyma. Nonobstructing renal calculi measuring approximately 5 mm at the mid: 4 mm at the lower pole. No obstructing calculus or hydronephrosis identified. LEFT KIDNEY: Measures: 10.2 x 5.1 x 4.1 cm. Echogenic renal parenchyma. 1.0 x 1.1 x 0.9 cm upper pole renal cyst. 1.0 x 1.2 x 0.8 cm lower pole renal cyst. No obstructing calculus or hydronephrosis identified. OTHER FINDINGS: None. IMPRESSION: Limited study. Bilateral echogenic renal parenchyma may be seen in the setting of medical renal disease. Right transplanted pelvic kidney. Right renal atrophy. Nonobstructing right renal calculi. Left renal cysts.
[2018-04-26] MEDS: Budesonide 0.5 mg/2 ml Inhal Susp UD IH SCH (19:20)
--- NOTE | 2018-04-26 20:46 | CON ---
DATE OF CONSULTATION: 04/26/2018 REASON FOR CONSULTATION: Review troponin. 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 The patient has a history of chronic atrial fibrillation and is on Eliquis therapy. She was admitted because of shortness of breath and rapid atrial fibrillation and proBNP was found to be in the 10,000. The patient denies any chest pain. The patient was unaware of any history of heart attack in the past. It is worth noting that the patient is confused on and off. The patient's daughter is not available at this time for detailed medical history and the medical history was obtained from Dr. Lobo, the medical insurance verifier team, and the previous admissions on the [employer] database. SOCIAL HISTORY: Nonsmoker. MEDICATIONS: Aspirin 81 mg once a day, Cardizem 30 mg every 8 hours. The patient was on Cardizem infusion, which was being withheld. The patient was on doxycycline 100 mg intravenously every 12 hours. The patient was on Eliquis 2.5 mg twice a day, which is on hold including intravenous heparin infusion. The patient was on Maxipime 1 g intravenously daily, Prograf 3 mg p.o. b.i.d., Protonix 40 mg intravenously once a day, Solu-Medrol 20 mg intravenously every 12 hours, Tamiflu 30 mg once a day. REVIEW OF SYSTEMS: No fever or chills. No reported hypotension and no reported melena. PHYSICAL EXAMINATION: GENERAL: The patient is an elderly female who is mildly tachypneic, but does not appear to be in acute distress. VITAL SIGNS: Blood pressure 126/74, heart rate 79, temperature 97.2, admitting temperature was 99.3, respirations 32. HEENT: Pale conjunctivae. CHEST: Absent breath sounds over the bases. HEART: S1 and S2 regular. ABDOMEN: Soft. EXTREMITIES: 1+ pitting edema. LABORATORY DATA: Yesterday's hemoglobin and hematocrit 7.4 and 24.2. Today's hemoglobin and hematocrit 6.8 and 22.4. Today's white count and platelet count are within normal limits. Reticulocyte count is elevated at 2.44. Yesterday's INR is 1.88 and PTT is 31.5. PT 21.2. Influenza type A and B serology is negative. Urine Legionella antigen is negative. Today's SMA-7 is within normal limits except for BUN and creatinine of 46 and 3.2. Troponin was 0.27, 1.64, 1.72 and 1.21. EKG revealed atrial fibrillation at rate of 93 with nonspecific T-wave changes. Peripheral smear: Platelets are adequate in number. No clumping of the platelets. RBCs were normocytic/normochromic was slight anisocytosis, few microcytes and ovalocytes, occasional nucleated red blood cells. Chest x-ray: Severe cardiomegaly and moderate pulmonary venous congestion. Chest CT scan without contrast, severe cardiomegaly, small lung volume, bibasilar consolidation, and small pleural effusion. ASSESSMENT: 1. Exacerbation of congestive heart failure. 2. Small bilateral pleural effusion. 3. Chronic atrial fibrillation. 4. Worsening anemia. 5. Chronic insufficiency, status post renal transplant in 2007. 5. Borderline troponin elevation, consider [id number] myocardial infarction. RECOMMENDATIONS: Case was discussed at length with the medical team. Continue aspirin 81 mg once a day, Cardizem 30 mg every 8 hours. Hold Eliquis and heparin until stool guaiac is obtained. Continue current IV Maxipime and oral Tamiflu. Obtain a bedside echocardiograph study. The patient is not a suitable candidate for cardiac catheterization at this time, and once stability is achieved, that will be considered. Jamin Baldwin MD
[2018-04-26 22:28] LABS: ALB/GLOB RATIO 1.1 (1.1-1.8); ALBUMIN 3.7 g/dL (3.0-4.8); CALCIUM 9.9 mg/dL (8.4-10.5)
[2018-04-27 02:35] LABS: BASO # 0.01 K/mm3 (0.0-2.0); BASO % 0.1 % (0.0-3.0); LYMPH # 0.7 (1.2-3.4); LYMPH % 8.5 % (22.0-35.0); MEAN CORPUSCULAR HGB CONC 32.3 g/dl (31.0-37.0); MEAN PLATELET VOLUME 10.9 fl (7.0-11.0); MONO # 0.2 (0.1-0.6); MONO % 2.6 % (1.0-6.0); RBC 2.94 10^6/uL (3.5-6.1); RED CELL DISTRIBUTION WIDTH 18.9 % (11.5-14.5); WHITE BLOOD COUNT 8.5 10^3/uL (4.5-11.0)
[2018-04-27 02:41] LABS: HEMOGLOBIN 9.4 g/dL (12.0-16.0)
[2018-04-27] MEDS: Cefepime 1gm in NS 100ml 1 GM/100 ML BAG IVPB SCH (06:01)
[2018-04-27 06:03] LABS: BASO # 0.01 K/mm3 (0.0-2.0); BASO % 0.1 % (0.0-3.0); HEMOGLOBIN 9.2 g/dL (12.0-16.0); LYMPH # 0.8 (1.2-3.4); LYMPH % 10.4 % (22.0-35.0); MEAN CELL VOLUME 97.9 fl (80.0-105.0); MEAN CORPUSCULAR HEMOGLOBIN 31.5 pg (25.0-35.0); MEAN CORPUSCULAR HGB CONC 32.2 g/dl (31.0-37.0); MEAN PLATELET VOLUME 9.8 fl (7.0-11.0); MONO # 0.1 (0.1-0.6); MONO % 1.6 % (1.0-6.0); RBC 2.92 10^6/uL (3.5-6.1); RED CELL DISTRIBUTION WIDTH 18.8 % (11.5-14.5)
[2018-04-27 06:35] LABS: ALB/GLOB RATIO 1.2 (1.1-1.8); ALBUMIN 3.6 g/dL (3.0-4.8); CALCIUM 9.7 mg/dL (8.4-10.5)
[2018-04-27] MEDS: diltiaZEM IVPB 100mg in NS 100 ML IV PRN (07:13)
[2018-04-27] MEDS: Budesonide 0.5 mg/2 ml Inhal Susp UD IH SCH ×2 (07:47→19:57)
[2018-04-27] MEDS: MethylPREDNISolone 40 mg Vial IVP SCH ×2 (08:51→21:13)
[2018-04-27] MEDS ORDERED: Sodium Chloride 0.9% 1,000 ML IV SCH (09:30)
--- NOTE | 2018-04-27 11:27 | PN ---
DATE: 04/27/2018 SUBJECTIVE: The patient has no complaints of any chest pain. No shortness of breath. PHYSICAL EXAMINATION: GENERAL: The patient is lying in bed, flat, comfortable. VITAL SIGNS: Temperature is 98, pulse of 113, blood pressure 146/85, respirations 30. HEENT: No oral lesion. Anicteric sclerae. Moist mucosa. NECK: No JVD, adenopathy, or thyromegaly. CARDIOVASCULAR: S1 and S2, regular. No murmurs, rubs, or gallops. LUNGS: Clear to auscultation bilaterally. No wheeze, rales, or rhonchi. ABDOMEN: Bowel sounds are positive, soft, nontender and nondistended. EXTREMITIES: No cyanosis, clubbing or edema. Lower extremity, there is 1+ edema. LABORATORY DATA: White count of 8.0, hemoglobin 9.2, creatinine is 3.7. Echo done shows LV is normal size. There is moderate to severe concentric LVH. There is a left atrium that is moderately dilated. There is [id number] tricuspid regurgitation and [id number] pulmonary hypertension. ASSESSMENT: 1. This is a donor kidney transplant. 2. Acute kidney injury with chronic kidney disease stage IV. 3. Acute anemia . 4. Influenza infection. 5. Atrial fibrillation. 6. Lupus nephritis. 7. Systemic lupus erythematosus. 8. [place] impairment. 9. Right non-obstructing renal calculi, also left renal cyst. PLAN: The patient is on contact isolation, because of flu. She is on heparin for atrial fibrillation. She is also on diltiazem. The patient had acute anemia and was transfused. The patient had a creatinine that is increasing from her baseline. She has ferritin that is also elevated, iron saturation is 33%. The patient is going to continue doxycycline for antibiotics. She is on cefepime for antibiotics as well. She is receiving her immunosuppressant medications with Prograf, Prednisone. She is not on mycophenolate according to the admission that was provided by the family. The patient's sodium bicarb this will be continued as she is on Solu-Medrol. She is getting BiPAP for her breathing. She is on aspirin daily for her coronary artery disease. A renal ultrasound was done and showed bilateral echogenic renal parenchyma showing medical renal disease. There is right transplant pelvic kidney with right renal atrophy and a non-obstructing right renal calculi. The patient does have trans kidney disease, even though she has had kidney transplant. Her underlying cause of her renal failure is lupus nephritis. She has been placed on increased doses of steroid with Solu-Medrol. I agree with this, Prograf level time is sent, but most likely will take a few days to return. I do not suspect if this is a lupus flare, ANAI had been ordered. C3 and C4 has been done and are within normal limits. The patient's tacrolimus levels is 8.2 in review of the patient's records. We will continue the current dosage. We will continue with supportive care. Prognosis is guarded regarding the patient's transplant. She is euvolemic; at this point I do not feel she needs further volume. I do not suspect tacrolimus toxicity because it is acceptable. I do not think she is having rejection. I think this is the acute kidney injury secondary to the underlying flu, acute anemia, comorbidities. Kenton Yin MD
--- NOTE | 2018-04-27 12:16 | PN ---
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 The patient has some respiratory insufficiency, on O2 via nasal cannula, off of BiPAP at this point, but still tachypneic. Hemodynamically stable and O2 saturations are 100%. PHYSICAL EXAMINATION: VITAL SIGNS: Temperature of 98.6, pulse of 95, respirations of 30, and BP is 146/85. SKIN: Warm and dry. HEENT: Head atraumatic, normocephalic. Eyes reactive to light. Ear, nose, and throat seemed to be within normal limits. NECK: Supple. No JVD. No thyroid enlargement. No lymph nodes. HEART: Irregular rate and rhythm. Normal S1, S2. LUNGS: Reveal rare rhonchi at the bases. ABDOMEN: Soft. Decreased bowel sounds. GENITALIA AND RECTAL: Deferred. MUSCULOSKELETAL: No joint deformities. EXTREMITIES: Reveal trace lower extremity edema. NEUROLOGIC: She seemed to be grossly intact. LABORATORY DATA: As far as her laboratories are concerned, the patient's white count is 8, hemoglobin is 9.2 and hematocrit is 28.6 with platelets of 140,000. Sodium is 140, potassium 4.9, chloride 103, CO2 of 26 with a BUN of 54, creatinine of 3.7, and glucose of 168. IMPRESSION: As far as my impression, this patient has congestive heart failure and noted to have atrial fibrillation with rapid ventricular response, is on Cardizem intravenous at this time. The patient has myocardial infarction with a history of chronic obstructive pulmonary disease, lupus as well as renal failure and is status post renal transplant. She has anemia. PLAN: As far as our plan, we will continue with O2 support. Continue with aggressive pulmonary toilet. Continue with bronchodilators. The patient is on aspirin as well as IV Cardizem. She is on Vibramycin, DuoNeb as well as cefepime, Prograf, Protonix, Pulmicort, sodium bicarb tabs as well as Solu-Medrol, Tamiflu. We will continue to treat aggressively along with the other consultants and the primary care doctor. Amado Tovar MD
--- NOTE | 2018-04-27 13:18 | PN ---
DATE: 04/27/2018 SUBJECTIVE: The patient is in bed in no acute distress, was seen earlier today in room 129, bed 2. OBJECTIVE: VITAL SIGNS: On exam, the patient's temperature is 98, blood pressure is 149/70, respiratory rate of 30 and heart rate is 94. HEENT: Unremarkable. NECK: Supple. LUNGS: Have decreased breath sounds. HEART: Normal S1 and S2. ABDOMEN: Soft, nontender. LABORATORY EXAMINATION: Reveals a white count of 8.0, hemoglobin of 9, platelets of 140. Chemistries reveals a BUN of 54, creatinine of 3.7. Urinalysis is noted. Toxicology is noted. Immunology is reviewed. Serology is noted. Microbiology cultures are negative. MRSA screen is negative. Urine cultures negative. Review of orders reveals the patient to be on doxycycline IV, cefepime, Solu-Medrol and Tamiflu. ASSESSMENT AND PLAN: This is a 77-year-old female seen earlier today in room 129, bed 2 with a history of congestive heart failure with ejection fraction of 50%, chronic obstructive lung disease, deep vein thrombosis on Eliquis, lupus nephritis, elevated troponin, congestive heart failure exacerbation with an elevated BNP. The patient had a CAT scan of the chest bibasilar infiltrates and few small effusions, cardiomegaly with bibasilar consolidation with negative methicillin-resistant Staphylococcus aureus screen, negative blood cultures, negative urine cultures with an elevated procalcitonin. With a negative blood cultures, negative methicillin-resistant Staphylococcus aureus screen will make methicillin-resistant Staphylococcus aureus pneumonia unlikely. We will discontinue the vancomycin, continue the Tamiflu for now, although the patient has never documented any fevers and influenza rapid test is negative, the patient is on cefepime day #2. We will change the doxycycline to p.o. and follow the procalcitonin and initial workup results. We will follow with you. Sha Zapata MD
--- NOTE | 2018-04-27 19:06 | CP.PCM.PN ---
<Larissa Ernst - Last Filed: 04/27/18 22:11> Subjective - Date & Time of Evaluation Date of Evaluation: 04/27/18 Time of Evaluation: 10:30 - Subjective Subjective: Larissa Ernst DO, PGY-1 Hospitalist Progress Note for Dr. Choudhary Patient was seen and examined at bedside this AM. She appears more alert this AM but is placed on bipap this AM. She states she continues to feel short of breath this AM. 12-point ROS difficult to obtain as patient is has a history of dementia at baseline. Objective - Vital Signs/Intake and Output Vital Signs (last 24 hours): Temp Pulse Resp BP Pulse Ox 98.4 F 92 H 32 H 131/72 98 04/27/18 16:00 04/27/18 18:45 04/27/18 18:45 04/27/18 18:45 04/27/18 18:45 Intake and Output: 04/27/18 04/27/18 06:59 18:59 Intake Total 331 515 Output Total 100 100 Balance 231 415 - Medications Medications: Current Medications Albuterol/Ipratropium (Duoneb 3 Mg/0.5 Mg (3 Ml) Ud) 3 ml IH Q4H PRN PRN Reason: Shortness of Breath Last Admin: 04/26/18 19:20 Dose: 3 ml Apixaban (Eliquis) 2.5 mg PO BID [facility]; Protocol Last Admin: 04/25/18 17:03 Dose: 2.5 mg Aspirin (Aspirin Chewable) 81 mg PO DAILY [facility] Last Admin: 04/27/18 08:56 Dose: 81 mg Budesonide (Pulmicort Respules) 0.5 mg IH [id number] [facility] Last Admin: 04/27/18 07:47 Dose: 0.5 mg Diltiazem HCl (Cardizem) 30 mg PO Q8H [facility] Last Admin: 04/26/18 11:39 Dose: 30 mg Doxycycline Hyclate (Doryx) 100 mg PO Q12 [facility]; Protocol Stop: 05/02/18 22:01 Heparin Sodium/Sodium Chloride (Heparin 75558 Units/250ml 1/2 Normal Saline) 25,000 units in 250 mls @ 2.765 mls/hr IV .Q24H [facility]; Protocol Last Admin: 04/26/18 00:36 Dose: 12 units/kg/hr, 2.765 mls/hr Cefepime HCl (Maxipime 1gm) 1 gm in 100 mls @ 100 mls/hr IVPB Q24H [facility]; Protocol Last Admin: 04/27/18 06:01 Dose: 100 mls/hr diltiaZEM IVPB 100mg in NS (Cardizem 100mg In Ns) 100 mls @ 5 mls/hr IV .Q20H [facility]; Protocol PRN Reason: TITRATE PER MD ORDER Last Titration: 04/27/18 07:45 Dose: 2 mg/hr, 2 mls/hr Sodium Chloride (Sodium Chloride 0.9%) 1,000 mls @ 50 mls/hr IV .Q20H [facility] Stop: 04/28/18 05:29 Last Admin: 04/27/18 09:30 Dose: 50 mls/hr Methylprednisolone (Solu-Medrol) 20 mg IVP Q12 [facility] Last Admin: 04/27/18 08:51 Dose: 20 mg Oseltamivir Phosphate (Tamiflu Cap) 30 mg PO DAILY [facility]; Protocol Last Admin: 04/27/18 08:53 Dose: 30 mg Pantoprazole Sodium (Protonix Inj) 40 mg IVP DAILY [facility] Last Admin: 04/27/18 08:50 Dose: 40 mg Sodium Bicarbonate (Sodium Bicarbonate Tab) 325 mg PO BID [facility] Last Admin: 04/27/18 18:01 Dose: 325 mg Tacrolimus (Prograf Cap) 3 mg PO BID [facility] Last Admin: 04/27/18 08:52 Dose: 3 mg - Labs Labs: 04/27/18 05:00 04/27/18 05:00 PT 21.2 SECONDS (9.4-12.5) H 04/25/18 12:35 INR 1.88 04/25/18 12:35 APTT 35.1 Seconds (26.9-38.3) 04/26/18 05:50 - Constitutional Appears: Non-toxic, No Acute Distress - Head Exam Head Exam: ATRAUMATIC, NORMAL INSPECTION, NORMOCEPHALIC - Eye Exam Eye Exam: EOMI, Normal appearance - Respiratory Exam Respiratory Exam: Rhonchi (present b/l), NORMAL BREATHING PATTERN. absent: Accessory Muscle Use, Decreased Breath Sounds, Clear to Ausculation Bilateral, Rales, Wheezes - Cardiovascular Exam Cardiovascular Exam: Tachycardia, REGULAR RHYTHM, +S1, +S2. absent: Gallop, Rubs - GI/Abdominal Exam GI & Abdominal Exam: Soft, Normal Bowel Sounds. absent: Guarding, Rigid, Tenderness - Extremities Exam Extremities Exam: Full ROM, Normal Capillary Refill. absent: Calf Tenderness - Back Exam Back Exam: NORMAL INSPECTION. absent: CVA tenderness (L), CVA tenderness (R) - Neurological Exam Neurological Exam: Alert, Awake, Oriented x3 - Psychiatric Exam Psychiatric exam: Normal Affect, Normal Mood - Skin Skin Exam: Dry, Normal Color, Warm Assessment and Plan - Assessment and Plan (Free Text) Assessment: 77 yo F with PMH of CHF, COPD, LUE DVT, SLE, lupus nephritis, and osteoporosis presents in acute hypoxic respiratory failure 2/2 worsening pulmonary edema likely from uncontrolled CHF. Patient also has positive troponin and AFib on admission. She was evaluated and accepted by ICU for monitoring. Pt had echo done yesterday which showed an EF of 46.5. Awaiting stool guiac results. Plan: 1) Acute hypoxic respiratory failure - Likely 2/2 pulmonary edema from uncontrolled CHF vs NSTEMI vs PNA - Still on bipap this AM - Influenza, legionella serologies negative - Lasix discontinued for concern of worsening renal function - Continue empiric cefepime, doxycycline - ID recs, appreciated - Cont to monitor airway closely 2) Macrocytic Anemia - H/H worsened this AM to 9.2/28.6 - May be 2/2 anemia of chronic disease from renal failure/CHF vs nutrient deficiency - pt responded appropriately to transfusion of 2 u PRBCs - Fe: TIBC is low, % sat is normal - B12, folate is normal 3) NSTEMI - Heparin drip started - Patient denies any symptoms of chest pain currently - Will also start BB and statin - Cardiology following, all recs appreciated 4) AFib - Found on EKG on admission and continued overnight when patient is awakened - Pt on cardizem drip - Additional recs/adjustments per cardiology 5) Hx Lupus nephritis s/p renal transplant - BUN/Cr elevated above baseline this AM - Continue prograf - D/c lasix - Obtaining complement levels, ANAI, anti-dsDNA per nephrology recs - Monitor UOP closely - Nephrology following, all recs appreciated 6) Hx LUE DVT - Continue heparin drip, eliquis when discontinued 7) Hx COPD - Continue duo-neb scheduled and PRN - Chest CT completed, f/u official read DVT/GI PPX: Heparin drip/protonix Full Code NPO Monitor in MICU Patient seen, examined, and plan discussed with my attending Dr. Funmi Ernst D.O. IM Resident PGY-1 <Carmine Choudhary - Last Filed: 04/28/18 15:16> Objective - Vital Signs/Intake and Output Vital Signs (last 24 hours): Temp Pulse Resp BP Pulse Ox 97.7 F 100 H 28 H 161/95 H 100 04/28/18 12:00 04/28/18 14:00 04/28/18 14:00 04/28/18 13:59 04/28/18 14:00 Intake and Output: 04/28/18 04/28/18 06:59 18:59 Intake Total 745 70 Output Total 100 Balance 645 70 - Medications Medications: Current Medications Albuterol/Ipratropium (Duoneb 3 Mg/0.5 Mg (3 Ml) Ud) 3 ml IH Q4H PRN PRN Reason: Shortness of Breath Last Admin: 04/28/18 12:43 Dose: 3 ml Apixaban (Eliquis) 2.5 mg PO BID [facility]; Protocol Last Admin: 04/25/18 17:03 Dose: 2.5 mg Apixaban (Eliquis) 2.5 mg PO Q12 [facility]; Protocol Last Admin: 04/28/18 10:17 Dose: 2.5 mg Aspirin (Aspirin Chewable) 81 mg PO DAILY [facility] Last Admin: 04/28/18 10:18 Dose: 81 mg Budesonide (Pulmicort Respules) 0.5 mg IH [id number] [facility] Last Admin: 04/28/18 07:22 Dose: 0.5 mg Diltiazem HCl (Cardizem) 30 mg PO Q8H [facility] Last Admin: 04/26/18 11:39 Dose: 30 mg Doxycycline Hyclate (Doryx) 100 mg PO Q12 [facility]; Protocol Stop: 05/02/18 22:01 Last Admin: 04/28/18 10:17 Dose: 100 mg Heparin Sodium/Sodium Chloride (Heparin 37027 Units/250ml 1/2 Normal Saline) 25,000 units in 250 mls @ 2.765 mls/hr IV .Q24H [facility]; Protocol Last Admin: 04/26/18 00:36 Dose: 12 units/kg/hr, 2.765 mls/hr Cefepime HCl (Maxipime 1gm) 1 gm in 100 mls @ 100 mls/hr IVPB Q24H [facility]; Protocol Last Admin: 04/28/18 06:38 Dose: 100 mls/hr diltiaZEM IVPB 100mg in NS (Cardizem 100mg In Ns) 100 mls @ 5 mls/hr IV .Q20H [facility]; Protocol PRN Reason: TITRATE PER MD ORDER Last Titration: 04/28/18 12:25 Dose: 10 mg/hr, 10 mls/hr Sodium Chloride (Sodium Chloride 0.9%) 1,000 mls @ 50 mls/hr IV .Q20H [facility] Stop: 04/29/18 06:59 Last Admin: 04/28/18 11:01 Dose: 50 mls/hr Methylprednisolone (Solu-Medrol) 20 mg IVP Q12 [facility] Last Admin: 04/28/18 10:16 Dose: 20 mg Oseltamivir Phosphate (Tamiflu Cap) 30 mg PO DAILY [facility]; Protocol Last Admin: 04/28/18 10:16 Dose: 30 mg Pantoprazole Sodium (Protonix Susp) 40 mg PO 0600 [facility] Last Admin: 04/28/18 06:39 Dose: 40 mg Sodium Bicarbonate (Sodium Bicarbonate Tab) 325 mg PO BID [facility] Last Admin: 04/28/18 10:17 Dose: 325 mg Tacrolimus (Prograf Cap) 3 mg PO BID [facility] Last Admin: 04/28/18 10:17 Dose: 3 mg - Labs Labs: 04/28/18 05:00 04/28/18 05:00 PT 21.2 SECONDS (9.4-12.5) H 04/25/18 12:35 INR 1.88 04/25/18 12:35 APTT 35.1 Seconds (26.9-38.3) 04/26/18 05:50 Attending/Attestation - Attestation I have personally seen and examined this patient.: Yes I have fully participated in the care of the patient.: Yes I have reviewed all pertinent clinical information, including history, physical exam and plan: Yes Notes (Text): 04/27/18 15:10 Acute hypoxemic resp failure 2/2 CHF exacerbation NSTEMI A.fib with RVR Anemia Lupus Nephritis s/p Liver transplant LUE DVT Pt Hgb noted to drop overnight, will hold anticoagulation for now. Send FOBT. Pt was transfused 2u PRBC with improvement in Hgb to 9.2 Cardizem was switched to drip as pt remained in A fib with RVR Trop peaked at 1.72 and trended down. Cardio recommending cath when more stable c/w duo nebs and Bipap PRN
[2018-04-27] MEDS: Albuterol-Ipratrop 3 mg / 0.5 (3 ml) UD IH PRN (19:56)
--- NOTE | 2018-04-27 22:02 | PN ---
DATE: 04/27/2018 SUBJECTIVE: The patient denies any chest pain. She is currently in mild rapid atrial fibrillation. PHYSICAL EXAMINATION: VITAL SIGNS: Blood pressure 149/73, heart rate 94, temperature 98.6. HEENT: Pale conjunctivae. CHEST: Absent breath sounds over the bases. HEART: S1 and S2 regular. EXTREMITIES: Trace leg edema. LABORATORY DATA: Pacemaker . Hemoglobin and hematocrit 9.2 and 28.6. White count and platelet count are within normal limits. The patient did receive 2 units of packed RBC transfusion. Today's BUN and creatinine are 54 and 3.7 respectively. Glucose is 186. Echocardiograph study revealed moderate to severe concentric LVH with lateral hypokinesis. Mildly reduced left ventricular systolic function and moderate to severe pulmonary hypertension. ASSESSMENT: 1. Consider non-ST elevation myocardial infarction. 2. Chronic atrial fibrillation. 3. Anemia, requiring packed red blood cell transfusion, rule out gastrointestinal bleeding. 4. History of renal transplant. The patient has currently worsening of chronic renal insufficiency. 5. Moderate to severe pulmonary hypertension. Consider underlying interstitial lung disease. 6. left ventricular systolic function with segmental lateral wall hypokinesis. 7. History of lupus. 8. Rule out gastrointestinal bleeding. RECOMMENDATIONS: Case was discussed with the offal roller and with the medical team. The patient will be kept off anticoagulation for now until GI workup and clearance is done. In the meantime, continue aspirin 81 mg once a day, continue Cardizem infusion at 5 mg per hour. Continue doxycycline 100 mg p.o. twice a day. Eliquis 2.5 mg twice a day, Maxipime 1 g intravenously daily, Prograf 3 mg p.o. twice a day, Protonix 40 mg intravenously once a day, Solu-Medrol 20 mg intravenously every 12 hours. Jamin Baldwin MD
[2018-04-28] MEDS: diltiaZEM IVPB 100mg in NS 100 ML IV PRN ×2 (02:45→15:20)
[2018-04-28 05:45] LABS: BASO # 0.01 K/mm3 (0.0-2.0); BASO % 0.1 % (0.0-3.0); HEMOGLOBIN 9.2 g/dL (12.0-16.0); LYMPH # 0.8 (1.2-3.4); LYMPH % 11.9 % (22.0-35.0); MEAN CELL VOLUME 99.3 fl (80.0-105.0); MEAN CORPUSCULAR HGB CONC 31.2 g/dl (31.0-37.0); MEAN PLATELET VOLUME 10.4 fl (7.0-11.0); MONO # 0.3 (0.1-0.6); MONO % 3.9 % (1.0-6.0); RBC 2.97 10^6/uL (3.5-6.1); RED CELL DISTRIBUTION WIDTH 18.2 % (11.5-14.5)
[2018-04-28 05:55] LABS: ALB/GLOB RATIO 1.1 (1.1-1.8); ALBUMIN 3.5 g/dL (3.0-4.8)
[2018-04-28] MEDS: Cefepime 1gm in NS 100ml 1 GM/100 ML BAG IVPB SCH (06:38)
[2018-04-28] MEDS: Pantoprazole 40 mg Susp UD PO SCH (06:39)
[2018-04-28] MEDS: Budesonide 0.5 mg/2 ml Inhal Susp UD IH SCH ×2 (07:22→21:31)
[2018-04-28] MEDS ORDERED: Sodium Chloride 0.9% 500 ML IV STA (08:50)
[2018-04-28] MEDS: MethylPREDNISolone 40 mg Vial IVP SCH ×2 (10:16→22:39)
[2018-04-28] MEDS ORDERED: Sodium Chloride 0.9% 1,000 ML IV SCH (11:00)
--- NOTE | 2018-04-28 12:05 | PN ---
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 No obvious respiratory distress and hemodynamically stable. OBJECTIVE: VITAL SIGNS: Physical exam note that her temperature is 98.3, pulse is 85, respirations are 25 and BP is 120/91. SKIN: Warm and dry. HEENT: Head is atraumatic, normocephalic. Eyes, reactive to light. Ears, nose and throat seem to be within normal limits. NECK: Supple. No JVD. No thyroid enlargement. No lymph nodes. HEART: Regular rate and rhythm. Normal S1, S2. LUNGS: Reveal decreased breath sounds at the bases. ABDOMEN: Soft. Decreased bowel sounds. No organomegaly noted. GENITALIA AND RECTAL: Deferred. MUSCULOSKELETAL: No joint deformities. EXTREMITIES: Reveal trace lower extremity edema. NEUROLOGIC: She seems to be grossly intact. LABORATORY DATA: As far as her laboratories are concerned, her white count is 7.0, hemoglobin is 9.2, hematocrit 29.5 with platelets of 138,000. Sodium is 140, potassium 5.0, chloride 103, CO2 of 27 with a BUN of 64 and creatinine of 4.1 and glucose of 194. IMPRESSION: The patient has congestive heart failure and noted to have atrial fibrillation initially with rapid response. The patient is on Cardizem drip for that at this time. She has a myocardial infarction with a history of chronic obstructive pulmonary disease, lupus renal failure, status post renal transplant and anemia. PLAN: We will continue with O2 support. The patient will continue with her BIPAP and bronchodilators as well as aspirin, IV Cardizem, Vibramycin, DuoNeb, cefepime, Prograf, Protonix, Pulmicort, Solu-Medrol and Tamiflu. We will continue to treat aggressively along with the other consultants and the primary care doctor. Amado Tovar MD
[2018-04-28] MEDS: Albuterol-Ipratrop 3 mg / 0.5 (3 ml) UD IH PRN ×2 (12:43→21:31)
--- NOTE | 2018-04-28 13:09 | CP.PCM.PN ---
<Larissa Ernst - Last Filed: 04/28/18 13:34> Subjective - Date & Time of Evaluation Date of Evaluation: 04/28/18 Time of Evaluation: 08:30 - Subjective Subjective: Larissa Ernst DO, PGY-1 Hospitalist Progress Note for Dr. Choudhary Patient was seen and examined at bedside this AM. She appears more alert this AM and is no longer on Bipap. She had minimal urinary output last night and was given a 500cc bolus. She states her breathing has improved from yesterday. 12- point ROS difficult to obtain as patient is has a history of dementia at baseline. Objective - Vital Signs/Intake and Output Vital Signs (last 24 hours): Temp Pulse Resp BP Pulse Ox 97.7 F 107 H 34 H 161/92 H 97 04/28/18 12:00 04/28/18 12:26 04/28/18 12:26 04/28/18 12:26 04/28/18 12:26 Intake and Output: 04/28/18 04/28/18 06:59 18:59 Intake Total 745 70 Output Total 100 Balance 645 70 - Medications Medications: Current Medications Albuterol/Ipratropium (Duoneb 3 Mg/0.5 Mg (3 Ml) Ud) 3 ml IH Q4H PRN PRN Reason: Shortness of Breath Last Admin: 04/28/18 12:43 Dose: 3 ml Apixaban (Eliquis) 2.5 mg PO BID [facility]; Protocol Last Admin: 04/25/18 17:03 Dose: 2.5 mg Apixaban (Eliquis) 2.5 mg PO Q12 [facility]; Protocol Last Admin: 04/28/18 10:17 Dose: 2.5 mg Aspirin (Aspirin Chewable) 81 mg PO DAILY [facility] Last Admin: 04/28/18 10:18 Dose: 81 mg Budesonide (Pulmicort Respules) 0.5 mg IH [id number] [facility] Last Admin: 04/28/18 07:22 Dose: 0.5 mg Diltiazem HCl (Cardizem) 30 mg PO Q8H [facility] Last Admin: 04/26/18 11:39 Dose: 30 mg Doxycycline Hyclate (Doryx) 100 mg PO Q12 [facility]; Protocol Stop: 05/02/18 22:01 Last Admin: 04/28/18 10:17 Dose: 100 mg Heparin Sodium/Sodium Chloride (Heparin 75547 Units/250ml 1/2 Normal Saline) 25,000 units in 250 mls @ 2.765 mls/hr IV .Q24H [facility]; Protocol Last Admin: 04/26/18 00:36 Dose: 12 units/kg/hr, 2.765 mls/hr Cefepime HCl (Maxipime 1gm) 1 gm in 100 mls @ 100 mls/hr IVPB Q24H [facility]; Protocol Last Admin: 04/28/18 06:38 Dose: 100 mls/hr diltiaZEM IVPB 100mg in NS (Cardizem 100mg In Ns) 100 mls @ 5 mls/hr IV .Q20H PRN; Protocol PRN Reason: TITRATE PER MD ORDER Last Titration: 04/28/18 12:25 Dose: 10 mg/hr, 10 mls/hr Sodium Chloride (Sodium Chloride 0.9%) 1,000 mls @ 50 mls/hr IV .Q20H [facility] Stop: 04/29/18 06:59 Last Admin: 04/28/18 11:01 Dose: 50 mls/hr Methylprednisolone (Solu-Medrol) 20 mg IVP Q12 [facility] Last Admin: 04/28/18 10:16 Dose: 20 mg Oseltamivir Phosphate (Tamiflu Cap) 30 mg PO DAILY [facility]; Protocol Last Admin: 04/28/18 10:16 Dose: 30 mg Pantoprazole Sodium (Protonix Susp) 40 mg PO 0600 [facility] Last Admin: 04/28/18 06:39 Dose: 40 mg Sodium Bicarbonate (Sodium Bicarbonate Tab) 325 mg PO BID [facility] Last Admin: 04/28/18 10:17 Dose: 325 mg Tacrolimus (Prograf Cap) 3 mg PO BID [facility] Last Admin: 04/28/18 10:17 Dose: 3 mg - Labs Labs: 04/28/18 05:00 04/28/18 05:00 PT 21.2 SECONDS (9.4-12.5) H 04/25/18 12:35 INR 1.88 04/25/18 12:35 APTT 35.1 Seconds (26.9-38.3) 04/26/18 05:50 - Constitutional Appears: Non-toxic, No Acute Distress - Head Exam Head Exam: ATRAUMATIC, NORMAL INSPECTION, NORMOCEPHALIC - Eye Exam Eye Exam: EOMI, Normal appearance, PERRL - Respiratory Exam Respiratory Exam: Rhonchi (improved from yesterday). absent: Accessory Muscle Use, Rales, Wheezes, Respiratory Distress, Stridor - Cardiovascular Exam Cardiovascular Exam: Tachycardia, +S1, +S2. absent: Gallop, Rubs - GI/Abdominal Exam GI & Abdominal Exam: Soft, Normal Bowel Sounds. absent: Firm, Guarding, Rigid, Tenderness - Extremities Exam Extremities Exam: Full ROM, Normal Capillary Refill. absent: Calf Tenderness - Back Exam Back Exam: NORMAL INSPECTION. absent: CVA tenderness (L), CVA tenderness (R) - Neurological Exam Neurological Exam: Alert, Awake - Psychiatric Exam Psychiatric exam: Normal Affect, Normal Mood - Skin Skin Exam: Dry, Normal Color, Warm Assessment and Plan - Assessment and Plan (Free Text) Assessment: 77 yo F with PMH of CHF, COPD, LUE DVT, SLE, lupus nephritis, and osteoporosis presents in acute hypoxic respiratory failure 2/2 worsening pulmonary edema like ly from uncontrolled CHF. Patient also has positive troponin and AFib on admission. She was evaluated and accepted by ICU for monitoring. Pt had echo done yesterday which showed an EF of 46.5. Awaiting stool guiac results. Plan: 1) Acute hypoxic respiratory failure - Likely 2/2 pulmonary edema from uncontrolled CHF vs NSTEMI vs PNA - on O2 NC - Influenza, legionella serologies negative - Lasix discontinued for concern of worsening renal function - Continue empiric cefepime, doxycycline - ID recs, appreciated - Cont to monitor airway closely 2) Macrocytic Anemia - H/H stable this AM @ 9.2/29.5 - May be 2/2 anemia of chronic disease from renal failure/CHF - Pts stool guiac came back negative, Hgb stable - pt responded appropriately to transfusion of 2 u PRBCs - Fe: TIBC is low, % sat is normal - B12, folate is normal 3) NSTEMI - Heparin drip held due to decreasing Hgb levels - Patient denies any symptoms of chest pain currently - Will also start BB and statin - Cardiology following, all recs appreciated 4) AFib - Found on EKG on admission and continued overnight when patient is awakened - Pt on cardizem drip - Pt placed back on eliquis, which was previously held d/t concern for GI bleed. - Pts Hgb is stable since transfusion and stool guiac (-), will hold eliquis if hgb drops again - Additional recs/adjustments per cardiology 5) JAGDISH with hx of Lupus nephritis s/p renal transplant - BUN/Cr cont to trend up - Continue prograf, per nephro - Light IV hydration given per nephro; NS @ 50/hr - D/c lasix - Obtaining complement levels, ANAI, anti-dsDNA per nephrology recs - Monitor UOP closely - Nephrology following, all recs appreciated 6) Hx LUE DVT - Eliquis continued, since Hgb is stable since transfusion and stool guiac (-) - will cont to monitor 7) Hx COPD - Continue duo-neb scheduled and PRN - Chest CT completed, f/u official read DVT/GI PPX: eliquis/protonix Full Code NPO Monitor in MICU Patient seen, examined, and plan discussed with my attending Dr. Funmi Ernst D.O. IM Resident PGY-1 <Carmine Choudhary - Last Filed: 04/28/18 15:25> Objective - Vital Signs/Intake and Output Vital Signs (last 24 hours): Temp Pulse Resp BP Pulse Ox 97.7 F 100 H 28 H 161/95 H 100 04/28/18 12:00 04/28/18 14:00 04/28/18 14:00 04/28/18 13:59 04/28/18 14:00 Intake and Output: 04/28/18 04/28/18 06:59 18:59 Intake Total 745 70 Output Total 100 Balance 645 70 - Medications Medications: Current Medications Albuterol/Ipratropium (Duoneb 3 Mg/0.5 Mg (3 Ml) Ud) 3 ml IH Q4H PRN PRN Reason: Shortness of Breath Last Admin: 04/28/18 12:43 Dose: 3 ml Apixaban (Eliquis) 2.5 mg PO BID [facility]; Protocol Last Admin: 04/25/18 17:03 Dose: 2.5 mg Apixaban (Eliquis) 2.5 mg PO Q12 [facility]; Protocol Last Admin: 04/28/18 10:17 Dose: 2.5 mg Aspirin (Aspirin Chewable) 81 mg PO DAILY [facility] Last Admin: 04/28/18 10:18 Dose: 81 mg Budesonide (Pulmicort Respules) 0.5 mg IH [id number] [facility] Last Admin: 04/28/18 07:22 Dose: 0.5 mg Diltiazem HCl (Cardizem) 30 mg PO Q8H [facility] Last Admin: 04/26/18 11:39 Dose: 30 mg Doxycycline Hyclate (Doryx) 100 mg PO Q12 [facility]; Protocol Stop: 05/02/18 22:01 Last Admin: 04/28/18 10:17 Dose: 100 mg Heparin Sodium/Sodium Chloride (Heparin 43773 Units/250ml 1/2 Normal Saline) 25,000 units in 250 mls @ 2.765 mls/hr IV .Q24H [facility]; Protocol Last Admin: 04/26/18 00:36 Dose: 12 units/kg/hr, 2.765 mls/hr Cefepime HCl (Maxipime 1gm) 1 gm in 100 mls @ 100 mls/hr IVPB Q24H [facility]; Protocol Last Admin: 04/28/18 06:38 Dose: 100 mls/hr diltiaZEM IVPB 100mg in NS (Cardizem 100mg In Ns) 100 mls @ 5 mls/hr IV .Q20H PRN; Protocol PRN Reason: TITRATE PER MD ORDER Last Titration: 04/28/18 12:25 Dose: 10 mg/hr, 10 mls/hr Sodium Chloride (Sodium Chloride 0.9%) 1,000 mls @ 50 mls/hr IV .Q20H [facility] Stop: 04/29/18 06:59 Last Admin: 04/28/18 11:01 Dose: 50 mls/hr Methylprednisolone (Solu-Medrol) 20 mg IVP Q12 [facility] Last Admin: 04/28/18 10:16 Dose: 20 mg Pantoprazole Sodium (Protonix Susp) 40 mg PO 0600 [facility] Last Admin: 04/28/18 06:39 Dose: 40 mg Sodium Bicarbonate (Sodium Bicarbonate Tab) 325 mg PO BID [facility] Last Admin: 04/28/18 10:17 Dose: 325 mg Tacrolimus (Prograf Cap) 3 mg PO BID [facility] Last Admin: 04/28/18 10:17 Dose: 3 mg - Labs Labs: 04/28/18 05:00 04/28/18 05:00 PT 21.2 SECONDS (9.4-12.5) H 04/25/18 12:35 INR 1.88 04/25/18 12:35 APTT 35.1 Seconds (26.9-38.3) 04/26/18 05:50 Attending/Attestation - Attestation I have personally seen and examined this patient.: Yes I have fully participated in the care of the patient.: Yes I have reviewed all pertinent clinical information, including history, physical exam and plan: Yes Notes (Text): 04/28/18 15:17 Acute hypoxemic resp failure 2/2 CHF exacerbation NSTEMI A.fib with RVR Anemia Lupus Nephritis s/p Liver transplant LUE DVT Hgb has remained stable s/p transfusion. FOBT was negative Will resume anticoagulation c/w cardizem gtt Trop peaked at 1.72 and trended down. Cardio recommending cath when more stable Pt's urine output worsening, renal input appreciated c/w duo nebs and Bipap PRN
--- NOTE | 2018-04-28 13:21 | RAD ---
Date of service: 04/28/2018 HISTORY: evaluate congestion COMPARISON: 04/25/2018 FINDINGS: LUNGS: No active pulmonary disease. Diminished lung volume on the left secondary to cardiomegaly PLEURA: No significant pleural effusion identified, no pneumothorax apparent. CARDIOVASCULAR: Aortic calcification There is severe cardiomegaly. There is improvement in the degree of pulmonary vascular congestion OSSEOUS STRUCTURES: No significant abnormalities. VISUALIZED UPPER ABDOMEN: Normal. OTHER FINDINGS: None. IMPRESSION: There is severe cardiomegaly. There is improvement in the degree of pulmonary vascular congestion
--- NOTE | 2018-04-28 15:40 | CP.PCM.PN ---
Subjective - Date & Time of Evaluation Date of Evaluation: 04/28/18 Time of Evaluation: 08:40 - Subjective Subjective: Comfortable in bed, still with SOB at rest but better, cough is a but better, no fevers, no diarrhea. Objective - Vital Signs/Intake and Output Vital Signs (last 24 hours): Temp Pulse Resp BP Pulse Ox 97.7 F 100 H 28 H 161/95 H 100 04/28/18 12:00 04/28/18 14:00 04/28/18 14:00 04/28/18 13:59 04/28/18 14:00 Intake and Output: 04/28/18 04/28/18 06:59 18:59 Intake Total 745 100 Output Total 100 Balance 645 100 - Medications Medications: Current Medications Albuterol/Ipratropium (Duoneb 3 Mg/0.5 Mg (3 Ml) Ud) 3 ml IH Q4H PRN PRN Reason: Shortness of Breath Last Admin: 04/28/18 12:43 Dose: 3 ml Apixaban (Eliquis) 2.5 mg PO BID [facility]; Protocol Last Admin: 04/25/18 17:03 Dose: 2.5 mg Apixaban (Eliquis) 2.5 mg PO Q12 [facility]; Protocol Last Admin: 04/28/18 10:17 Dose: 2.5 mg Aspirin (Aspirin Chewable) 81 mg PO DAILY [facility] Last Admin: 04/28/18 10:18 Dose: 81 mg Budesonide (Pulmicort Respules) 0.5 mg IH [id number] [facility] Last Admin: 04/28/18 07:22 Dose: 0.5 mg Diltiazem HCl (Cardizem) 30 mg PO Q8H [facility] Last Admin: 04/26/18 11:39 Dose: 30 mg Doxycycline Hyclate (Doryx) 100 mg PO Q12 [facility]; Protocol Stop: 05/02/18 22:01 Last Admin: 04/28/18 10:17 Dose: 100 mg Heparin Sodium/Sodium Chloride (Heparin 25786 Units/250ml 1/2 Normal Saline) 25,000 units in 250 mls @ 2.765 mls/hr IV .Q24H [facility]; Protocol Last Admin: 04/26/18 00:36 Dose: 12 units/kg/hr, 2.765 mls/hr Cefepime HCl (Maxipime 1gm) 1 gm in 100 mls @ 100 mls/hr IVPB Q24H [facility]; Protocol Last Admin: 04/28/18 06:38 Dose: 100 mls/hr diltiaZEM IVPB 100mg in NS (Cardizem 100mg In Ns) 100 mls @ 5 mls/hr IV .Q20H PRN; Protocol PRN Reason: TITRATE PER MD ORDER Last Admin: 04/28/18 15:20 Dose: 10 mg/hr, 10 mls/hr Sodium Chloride (Sodium Chloride 0.9%) 1,000 mls @ 50 mls/hr IV .Q20H [facility] Stop: 04/29/18 06:59 Last Admin: 04/28/18 11:01 Dose: 50 mls/hr Methylprednisolone (Solu-Medrol) 20 mg IVP Q12 [facility] Last Admin: 04/28/18 10:16 Dose: 20 mg Pantoprazole Sodium (Protonix Susp) 40 mg PO 0600 [facility] Last Admin: 04/28/18 06:39 Dose: 40 mg Sodium Bicarbonate (Sodium Bicarbonate Tab) 325 mg PO BID [facility] Last Admin: 04/28/18 10:17 Dose: 325 mg Tacrolimus (Prograf Cap) 3 mg PO BID [facility] Last Admin: 04/28/18 10:17 Dose: 3 mg - Labs Labs: 04/28/18 05:00 04/28/18 05:00 PT 21.2 SECONDS (9.4-12.5) H 04/25/18 12:35 INR 1.88 04/25/18 12:35 APTT 35.1 Seconds (26.9-38.3) 04/26/18 05:50 - Constitutional Appears: Chronically Ill - Head Exam Head Exam: NORMAL INSPECTION - Respiratory Exam Respiratory Exam: Decreased Breath Sounds - Cardiovascular Exam Cardiovascular Exam: +S1, +S2 - GI/Abdominal Exam GI & Abdominal Exam: Soft. absent: Tenderness Assessment and Plan - Assessment and Plan (Free Text) Plan: Assessment possible pneumonia in this patient with probable CHF exacerbation, R/O Influenza chronic CHF with EF 50% COPD DVT on anticoagulation SLE with lupus nephritis S/P renal transplant osteoporosis Plan continue Cefepime and Doxycycline day 3 and Tamiflu day 3 will continue to monitor clinically follow up final culture results
--- NOTE | 2018-04-28 16:02 | PN ---
DATE: 04/28/2018 SUBJECTIVE: The patient is confused. She is in rapid atrial fibrillation and mildly tachypneic. PHYSICAL EXAMINATION VITAL SIGNS: Blood pressure 148/64, heart rate 100, temperature 98.3, and respirations 24. HEENT: Pale conjunctivae. CHEST: Absent breath sounds over the bases. HEART: S1 and S2, regular. EXTREMITIES: No edema. LABORATORY DATA: Hemoglobin and hematocrit 9.2 and 29.5. White count and platelet count are within normal limits. Today's BUN and creatinine are 64 and 4.1 respectively, glucose 194. Stool occult blood is negative. ASSESSMENT 1. non-ST elevation myocardial infarction. 2. Chronic atrial fibrillation. 3. Anemia, requiring packed red blood cell transfusion. 4. History of renal transplant, the patient has advanced renal insufficiency at this time. 5. Moderate to severe pulmonary hypertension. 6. Mildly depressed left ventricular systolic function. 7. History of lupus erythematosus. RECOMMENDATIONS: Continue aspirin 81 mg once a day, Cardizem infusion at 5 mg per hour. Resume Eliquis 2.5 mg twice a day. Continue Prograf 3 mg twice a day, Tamiflu at 30 mg once a day. Jamin Baldwin MD
[2018-04-29] MEDS: diltiaZEM IVPB 100mg in NS 100 ML IV PRN ×2 (03:05→12:42)
[2018-04-29 04:20] LABS: SOURCE SERUM
[2018-04-29] MEDS: Pantoprazole 40 mg Susp UD PO SCH (06:15)
[2018-04-29] MEDS: Cefepime 1gm in NS 100ml 1 GM/100 ML BAG IVPB SCH (06:15)
[2018-04-29 07:16] LABS: BASO # 0.01 K/mm3 (0.0-2.0); BASO % 0.1 % (0.0-3.0); HEMOGLOBIN 9.7 g/dL (12.0-16.0); LYMPH # 0.8 (1.2-3.4); LYMPH % 9.1 % (22.0-35.0); MEAN CELL VOLUME 100.6 fl (80.0-105.0); MEAN CORPUSCULAR HEMOGLOBIN 30.7 pg (25.0-35.0); MEAN CORPUSCULAR HGB CONC 30.5 g/dl (31.0-37.0); MEAN PLATELET VOLUME 11.3 fl (7.0-11.0); MONO # 0.3 (0.1-0.6); MONO % 3.6 % (1.0-6.0); RBC 3.16 10^6/uL (3.5-6.1); RED CELL DISTRIBUTION WIDTH 17.8 % (11.5-14.5); WHITE BLOOD COUNT 8.9 10^3/uL (4.5-11.0)
[2018-04-29] MEDS: Budesonide 0.5 mg/2 ml Inhal Susp UD IH SCH ×2 (07:40→19:47)
[2018-04-29] MEDS: Albuterol-Ipratrop 3 mg / 0.5 (3 ml) UD IH PRN ×3 (07:40→19:47)
[2018-04-29 07:54] LABS: ALB/GLOB RATIO 1.2 (1.1-1.8); ALBUMIN 3.8 g/dL (3.0-4.8); CALCIUM 10.1 mg/dL (8.4-10.5)
--- NOTE | 2018-04-29 08:35 | PN ---
DATE: 04/28/2018 SUBJECTIVE: The patient has no complaints of any chest pain. No shortness of breath. PHYSICAL EXAMINATION VITAL SIGNS: Temperature is 98.3, pulse of 86, blood pressure is 120/91, respirations 25. GENERAL: The patient is lying in bed, flat, comfortable. HEENT: No oral lesion. Anicteric sclerae. Moist mucosa. NECK: No JVD, adenopathy, or thyromegaly. CARDIOVASCULAR: S1 and S2, regular. No murmurs, rubs, or gallops. LUNGS: Clear to auscultation bilaterally. No wheeze, rales, or rhonchi. ABDOMEN: Bowel sounds are positive, soft, nontender and nondistended. EXTREMITIES: No cyanosis, clubbing or edema. LABORATORY DATA: White count of 7.0, hemoglobin 9.2, creatinine is 4.1. ASSESSMENT 1. Acute kidney injury with chronic kidney disease, stage IV. 2. Status post -donor kidney transplant. 3. Acute anemia. 4. Influenza infection. 5. Atrial fibrillation. 6. Lupus nephritis. 7. Systemic lupus erythematosus. 8. Hearing impairment. 9. Nephrolithiasis of the right kidney. 10. Left renal cyst. PLAN: The patient's creatinine continues to rise because of the sepsis the patient has. She does not have any acute lupus flare on clinical exam. Her tacrolimus levels are acceptable, so she is not toxic from her calcineurin inhibitor. Her blood cultures and urine cultures are negative. The patient is on Cardizem drip for her atrial fibrillation. She is on DVT prophylaxis. I will start her on low dose of IV fluids. If she does not improve, there is a danger that she may require dialysis. We will continue to follow labs and continue with supportive care. Kenton Yin MD
[2018-04-29] MEDS ORDERED: Darbepoetin Alfa 100 mcg/ml Inj SC ONE (09:28)
[2018-04-29] MEDS: MethylPREDNISolone 40 mg Vial IVP SCH ×3 (09:59→22:24)
[2018-04-29 11:11] LABS: ARTERIAL BLOOD GAS HCO3 24.2 mmol/L (21-28); ARTERIAL BLOOD GAS HEMOGLOBIN 9.5 g/dL (11.7-17.4); ARTERIAL BLOOD GAS O2 CAPACITY 13.1 mL/dl (16-24); ARTERIAL BLOOD GAS O2 SAT 99.2 % (95-98); ARTERIAL BLOOD GAS PCO2 39 mm/Hg (35-45); ARTERIAL BLOOD GAS TCO2 25.4 mmol.L (22-28)
--- NOTE | 2018-04-29 12:03 | CP.PCM.PN ---
Subjective - Date & Time of Evaluation Date of Evaluation: 04/29/18 Time of Evaluation: 07:00 - Subjective Subjective: Nephrology progress note: Patient seen and examined at bedside. No acute events overnight. Patient states that her shortness of breath has improved. Currently on BiPAP. Denies any other symptoms. 12 point ROS performed and negative other than stated above. Objective - Vital Signs/Intake and Output Vital Signs (last 24 hours): Temp Pulse Resp BP Pulse Ox 98.8 F 123 H 31 H 153/90 H 99 04/29/18 04:00 04/29/18 09:50 04/29/18 07:00 04/29/18 09:50 04/29/18 07:00 Intake and Output: 04/29/18 04/29/18 06:59 18:59 Intake Total 1027 58 Output Total 200 Balance 827 58 - Medications Medications: Current Medications Albuterol/Ipratropium (Duoneb 3 Mg/0.5 Mg (3 Ml) Ud) 3 ml IH Q4H PRN PRN Reason: Shortness of Breath Last Admin: 04/29/18 07:40 Dose: 3 ml Apixaban (Eliquis) 2.5 mg PO Q12 [facility]; Protocol Last Admin: 04/29/18 09:58 Dose: 2.5 mg Aspirin (Aspirin Chewable) 81 mg PO DAILY [facility] Last Admin: 04/29/18 10:02 Dose: 81 mg Budesonide (Pulmicort Respules) 0.5 mg IH [id number] [facility] Last Admin: 04/29/18 07:40 Dose: 0.5 mg Diltiazem HCl (Cardizem) 30 mg PO Q6H [facility] Last Admin: 04/29/18 09:50 Dose: 30 mg Doxycycline Hyclate (Doryx) 100 mg PO Q12 [facility]; Protocol Stop: 05/02/18 22:01 Last Admin: 04/29/18 10:01 Dose: 100 mg Heparin Sodium/Sodium Chloride (Heparin 23022 Units/250ml 1/2 Normal Saline) 25,000 units in 250 mls @ 2.765 mls/hr IV .Q24H [facility]; Protocol Last Admin: 04/26/18 00:36 Dose: 12 units/kg/hr, 2.765 mls/hr Cefepime HCl (Maxipime 1gm) 1 gm in 100 mls @ 100 mls/hr IVPB Q24H [facility]; Protocol Last Admin: 04/29/18 06:15 Dose: 100 mls/hr diltiaZEM IVPB 100mg in NS (Cardizem 100mg In Ns) 100 mls @ 5 mls/hr IV .Q20H [facility]N; Protocol PRN Reason: TITRATE PER MD ORDER Last Titration: 04/29/18 11:31 Dose: 10 mg/hr, 10 mls/hr Methylprednisolone (Solu-Medrol) 20 mg IVP Q12 [facility] Last Admin: 04/29/18 09:59 Dose: 20 mg Pantoprazole Sodium (Protonix Susp) 40 mg PO 0600 [facility] Last Admin: 04/29/18 06:15 Dose: 40 mg Sodium Bicarbonate (Sodium Bicarbonate Tab) 325 mg PO BID [facility] Last Admin: 04/29/18 09:58 Dose: 325 mg Tacrolimus (Prograf Cap) 3 mg PO BID [facility] Last Admin: 04/29/18 10:02 Dose: 3 mg - Labs Labs: 04/29/18 06:30 04/29/18 06:30 PT 21.2 SECONDS (9.4-12.5) H 04/25/18 12:35 INR 1.88 04/25/18 12:35 APTT 35.1 Seconds (26.9-38.3) 04/26/18 05:50 - Constitutional Appears: No Acute Distress - Head Exam Head Exam: ATRAUMATIC, NORMOCEPHALIC - Eye Exam Eye Exam: EOMI - ENT Exam ENT Exam: Mucous Membranes Moist - Respiratory Exam Respiratory Exam: Clear to Ausculation Bilateral. absent: Rales, Wheezes - Cardiovascular Exam Cardiovascular Exam: REGULAR RHYTHM, +S1, +S2 - GI/Abdominal Exam GI & Abdominal Exam: Soft. absent: Tenderness - Extremities Exam Extremities Exam: absent: Calf Tenderness, Pedal Edema - Neurological Exam Neurological Exam: Alert, Awake - Psychiatric Exam Psychiatric exam: Normal Mood - Skin Skin Exam: Dry, Warm Assessment and Plan - Assessment and Plan (Free Text) Assessment: 1. Acute kidney injury with CKD, stage IV 2. Status post disease donor kidney transplant 3. Anemia 4. Influenza infection 5. Atrial fibrillation 6. Lupus nephritis 7. SLE 8. Nephrolithiasis of the right kidney 9. Left renal cyst 10. Hearing impairment Reached out to Dr Link service in [facility] ([phone]) and confirmed patient only on tacrolimus and prednisone. Her baseline Creatinine in 12/2017 was 2.66. Patient's creatinine today is 4.1, will continue to monitor. Continue low-dose IV fluids. Monitor I's and O's and avoid any nephrotoxic medications. Patient was given 1 dose of Aranesp for her anemia. Will recheck with [facility] for baseline creatinine and more information regarding her immunosuppressive medications. For her atrial fibrillation will continue with Eliquis and Cardizem drip converted to PO, will follow-up cardiology recommendations. For her pneumonia continue with cefepime and doxycycline as per infectious disease. Continue her immunosuppressive regimen with tacrolimus and Solu-Medrol. Septic workup thus far negative. Immunologic workup thus far negative as well. Will cont to monitor. Case and plan was reviewed and discussed with Dr. Yin.
--- NOTE | 2018-04-29 13:20 | CP.PCM.PN ---
Subjective - Date & Time of Evaluation Date of Evaluation: 04/29/18 Time of Evaluation: 10:00 - Subjective Subjective: Patient is comfortable in bed, not in distress, no fevers. Objective - Vital Signs/Intake and Output Vital Signs (last 24 hours): Temp Pulse Resp BP Pulse Ox 97.7 F 100 H 28 H 161/95 H 100 04/28/18 12:00 04/28/18 14:00 04/28/18 14:00 04/28/18 13:59 04/28/18 14:00 Intake and Output: 04/28/18 04/28/18 06:59 18:59 Intake Total 745 100 Output Total 100 Balance 645 100 - Medications Medications: Current Medications Albuterol/Ipratropium (Duoneb 3 Mg/0.5 Mg (3 Ml) Ud) 3 ml IH Q4H PRN PRN Reason: Shortness of Breath Last Admin: 04/28/18 12:43 Dose: 3 ml Apixaban (Eliquis) 2.5 mg PO BID [facility]; Protocol Last Admin: 04/25/18 17:03 Dose: 2.5 mg Apixaban (Eliquis) 2.5 mg PO Q12 [facility]; Protocol Last Admin: 04/28/18 10:17 Dose: 2.5 mg Aspirin (Aspirin Chewable) 81 mg PO DAILY [facility] Last Admin: 04/28/18 10:18 Dose: 81 mg Budesonide (Pulmicort Respules) 0.5 mg IH [id number] [facility] Last Admin: 04/28/18 07:22 Dose: 0.5 mg Diltiazem HCl (Cardizem) 30 mg PO Q8H [facility] Last Admin: 04/26/18 11:39 Dose: 30 mg Doxycycline Hyclate (Doryx) 100 mg PO Q12 [facility]; Protocol Stop: 05/02/18 22:01 Last Admin: 04/28/18 10:17 Dose: 100 mg Heparin Sodium/Sodium Chloride (Heparin 00408 Units/250ml 1/2 Normal Saline) 25,000 units in 250 mls @ 2.765 mls/hr IV .Q24H [facility]; Protocol Last Admin: 04/26/18 00:36 Dose: 12 units/kg/hr, 2.765 mls/hr Cefepime HCl (Maxipime 1gm) 1 gm in 100 mls @ 100 mls/hr IVPB Q24H [facility]; Protocol Last Admin: 04/28/18 06:38 Dose: 100 mls/hr diltiaZEM IVPB 100mg in NS (Cardizem 100mg In Ns) 100 mls @ 5 mls/hr IV .Q20H [facility]; Protocol PRN Reason: TITRATE PER MD ORDER Last Admin: 04/28/18 15:20 Dose: 10 mg/hr, 10 mls/hr Sodium Chloride (Sodium Chloride 0.9%) 1,000 mls @ 50 mls/hr IV .Q20H [facility] Stop: 04/29/18 06:59 Last Admin: 04/28/18 11:01 Dose: 50 mls/hr Methylprednisolone (Solu-Medrol) 20 mg IVP Q12 [facility] Last Admin: 04/28/18 10:16 Dose: 20 mg Pantoprazole Sodium (Protonix Susp) 40 mg PO 0600 [facility] Last Admin: 04/28/18 06:39 Dose: 40 mg Sodium Bicarbonate (Sodium Bicarbonate Tab) 325 mg PO BID [facility] Last Admin: 04/28/18 10:17 Dose: 325 mg Tacrolimus (Prograf Cap) 3 mg PO BID [facility] Last Admin: 04/28/18 10:17 Dose: 3 mg - Labs Labs: 04/28/18 05:00 04/28/18 05:00 PT 21.2 SECONDS (9.4-12.5) H 04/25/18 12:35 INR 1.88 04/25/18 12:35 APTT 35.1 Seconds (26.9-38.3) 04/26/18 05:50 - Constitutional Appears: Chronically Ill - Head Exam Head Exam: NORMAL INSPECTION - Respiratory Exam Respiratory Exam: Decreased Breath Sounds - Cardiovascular Exam Cardiovascular Exam: +S1, +S2 - GI/Abdominal Exam GI & Abdominal Exam: Soft. absent: Tenderness Assessment and Plan - Assessment and Plan (Free Text) Plan: Assessment possible pneumonia in this patient with probable CHF exacerbation, R/O Influenza chronic CHF with EF 50% COPD DVT on anticoagulation SLE with lupus nephritis S/P renal transplant osteoporosis Plan continue Cefepime and Doxycycline day 4 and Tamiflu day 4 will continue to monitor clinically cultures have been negative
--- NOTE | 2018-04-29 13:29 | CP.PCM.PN ---
Subjective - Date & Time of Evaluation Date of Evaluation: 04/29/18 Time of Evaluation: 12:00 - Subjective Subjective: Alert,forgetful. No acute changes Objective - Vital Signs/Intake and Output Vital Signs (last 24 hours): Temp Pulse Resp BP Pulse Ox 98.8 F 123 H 31 H 153/90 H 99 04/29/18 04:00 04/29/18 09:50 04/29/18 07:00 04/29/18 09:50 04/29/18 07:00 Intake and Output: 04/29/18 04/29/18 06:59 18:59 Intake Total 1027 78 Output Total 200 Balance 827 78 - Medications Medications: Current Medications Albuterol/Ipratropium (Duoneb 3 Mg/0.5 Mg (3 Ml) Ud) 3 ml IH Q4H PRN PRN Reason: Shortness of Breath Last Admin: 04/29/18 07:40 Dose: 3 ml Apixaban (Eliquis) 2.5 mg PO Q12 BIJAN; Protocol Last Admin: 04/29/18 09:58 Dose: 2.5 mg Aspirin (Aspirin Chewable) 81 mg PO DAILY BIJAN Last Admin: 04/29/18 10:02 Dose: 81 mg Budesonide (Pulmicort Respules) 0.5 mg IH [id number] BIJAN Last Admin: 04/29/18 07:40 Dose: 0.5 mg Diltiazem HCl (Cardizem) 30 mg PO Q6H BIJAN Last Admin: 04/29/18 09:50 Dose: 30 mg Doxycycline Hyclate (Doryx) 100 mg PO Q12 BIJAN; Protocol Stop: 05/02/18 22:01 Last Admin: 04/29/18 10:01 Dose: 100 mg Cefepime HCl (Maxipime 1gm) 1 gm in 100 mls @ 100 mls/hr IVPB Q24H BIJAN; Protocol Last Admin: 04/29/18 06:15 Dose: 100 mls/hr diltiaZEM IVPB 100mg in NS (Cardizem 100mg In Ns) 100 mls @ 5 mls/hr IV .Q20H PRN; Protocol PRN Reason: TITRATE PER MD ORDER Last Admin: 04/29/18 12:42 Dose: 5 mg/hr, 5 mls/hr Methylprednisolone (Solu-Medrol) 20 mg IVP Q12 BIJAN Last Admin: 04/29/18 09:59 Dose: 20 mg Pantoprazole Sodium (Protonix Susp) 40 mg PO 0600 [facility] Last Admin: 04/29/18 06:15 Dose: 40 mg Sodium Bicarbonate (Sodium Bicarbonate Tab) 325 mg PO BID [facility] Last Admin: 04/29/18 09:58 Dose: 325 mg Tacrolimus (Prograf Cap) 3 mg PO BID [facility] Last Admin: 04/29/18 10:02 Dose: 3 mg - Labs Labs: 04/29/18 06:30 04/29/18 06:30 PT 21.2 SECONDS (9.4-12.5) H 04/25/18 12:35 INR 1.88 04/25/18 12:35 APTT 35.1 Seconds (26.9-38.3) 04/26/18 05:50 - Constitutional Appears: Chronically Ill - Head Exam Head Exam: NORMOCEPHALIC - Eye Exam Eye Exam: Normal appearance, PERRL - ENT Exam Additional comments: thrush resolving - Respiratory Exam Respiratory Exam: Decreased Breath Sounds, NORMAL BREATHING PATTERN - Cardiovascular Exam Cardiovascular Exam: REGULAR RHYTHM, +S1, +S2 - GI/Abdominal Exam GI & Abdominal Exam: Soft, Hypoactive Bowel Sounds - Extremities Exam Extremities Exam: Pedal Edema - Neurological Exam Neurological Exam: Alert - Skin Skin Exam: Dry, Pallor Assessment and Plan - Assessment and Plan (Free Text) Assessment: 77 year old female with history SLE, lupus nephritis s/p kidney transplant, CKD and demenatia who is admitted with N STEMI, pneumonia, A Fib, DOLORES on CKD, anemia. I spoke with patient's daughter Marbella via phone. Advance care plaining conversation revisited. Marbella states that she discussed resuscitation status w ith her aunt and her siblings. Marbella states that all are in agreement that they do not want CPR or intubation. Mother is to be DNR/DNI. I reiterated that the patient would receive all medical care but would not be resuscitated by CPR or with intubation. Marbella confirms that she is to be DNR/DNI Time spent in advance care planning discussion with daughter, 20 minutes Plan: Advance care planning; DNR/DNI A Fib: Continue Cardizem, Elequis Pneumonia: Continue Cefepime, Doxycycline. Dolores: Monitor labs, continue IVF's, avoid nephrotoxic medications. Continue immuno suppressive drug regimen
--- NOTE | 2018-04-29 13:47 | CP.PCM.PN ---
<Marivel Simental - Last Filed: 04/29/18 13:22> Subjective - Date & Time of Evaluation Date of Evaluation: 04/29/18 Time of Evaluation: 13:22 - Subjective Subjective: Marivel Simental, PGY-1, Internal Medicine Progress Note for Dr. Mckeon Patient seen and evaluated at bedside. Patient had no acute overnight events and was on Bipap on presentation. Patient was AAOx1 at bedside and reported improvement in respiratory status. Patient denied any other symptoms at this time. 12-point ROS was incomplete due to patient's mental status. Objective - Vital Signs/Intake and Output Vital Signs (last 24 hours): Temp Pulse Resp BP Pulse Ox 98.8 F 123 H 31 H 153/90 H 99 04/29/18 04:00 04/29/18 09:50 04/29/18 07:00 04/29/18 09:50 04/29/18 07:00 Intake and Output: 04/29/18 04/29/18 06:59 18:59 Intake Total 1027 78 Output Total 200 Balance 827 78 - Medications Medications: Current Medications Albuterol/Ipratropium (Duoneb 3 Mg/0.5 Mg (3 Ml) Ud) 3 ml IH Q4H PRN PRN Reason: Shortness of Breath Last Admin: 04/29/18 07:40 Dose: 3 ml Apixaban (Eliquis) 2.5 mg PO Q12 BIJAN; Protocol Last Admin: 04/29/18 09:58 Dose: 2.5 mg Aspirin (Aspirin Chewable) 81 mg PO DAILY BIJAN Last Admin: 04/29/18 10:02 Dose: 81 mg Budesonide (Pulmicort Respules) 0.5 mg IH [id number] BIJAN Last Admin: 04/29/18 07:40 Dose: 0.5 mg Diltiazem HCl (Cardizem) 30 mg PO Q6H BIJAN Last Admin: 04/29/18 09:50 Dose: 30 mg Doxycycline Hyclate (Doryx) 100 mg PO Q12 BIJAN; Protocol Stop: 05/02/18 22:01 Last Admin: 04/29/18 10:01 Dose: 100 mg Cefepime HCl (Maxipime 1gm) 1 gm in 100 mls @ 100 mls/hr IVPB Q24H BIJAN; Protocol Last Admin: 04/29/18 06:15 Dose: 100 mls/hr diltiaZEM IVPB 100mg in NS (Cardizem 100mg In Ns) 100 mls @ 5 mls/hr IV .Q20H PRN; Protocol PRN Reason: TITRATE PER MD ORDER Last Admin: 04/29/18 12:42 Dose: 5 mg/hr, 5 mls/hr Methylprednisolone (Solu-Medrol) 20 mg IVP Q12 [facility] Last Admin: 04/29/18 09:59 Dose: 20 mg Pantoprazole Sodium (Protonix Susp) 40 mg PO 0600 [facility] Last Admin: 04/29/18 06:15 Dose: 40 mg Sodium Bicarbonate (Sodium Bicarbonate Tab) 325 mg PO BID [facility] Last Admin: 04/29/18 09:58 Dose: 325 mg Tacrolimus (Prograf Cap) 3 mg PO BID [facility] Last Admin: 04/29/18 10:02 Dose: 3 mg - Labs Labs: 04/29/18 06:30 04/29/18 06:30 PT 21.2 SECONDS (9.4-12.5) H 04/25/18 12:35 INR 1.88 04/25/18 12:35 APTT 35.1 Seconds (26.9-38.3) 04/26/18 05:50 - Constitutional Appears: Well, Non-toxic, No Acute Distress - Head Exam Head Exam: ATRAUMATIC, NORMAL INSPECTION, NORMOCEPHALIC - Eye Exam Eye Exam: EOMI Pupil Exam: PERRL - Respiratory Exam Respiratory Exam: Clear to Ausculation Bilateral, NORMAL BREATHING PATTERN - Cardiovascular Exam Cardiovascular Exam: Tachycardia, REGULAR RHYTHM - GI/Abdominal Exam GI & Abdominal Exam: Soft, Normal Bowel Sounds. absent: Distended, Tenderness - Extremities Exam Extremities Exam: Full ROM - Back Exam Back Exam: Full ROM - Neurological Exam Neurological Exam: Alert, Awake. absent: Oriented x3 (AAOx1) - Skin Skin Exam: Dry, Intact Assessment and Plan - Assessment and Plan (Free Text) Assessment: 77 year old female with past medical history of questionable congestive heart failure with last EF of 50%, COPD, LUE DVT currently on eliquis, SLE, lupus nephritis (currently on prednisone and prograf), and osteoporosis presented with worsened, labored breathing. Patient was admitted for hypoxic, hypercarbic respiratory failure 2/2 to CHF exacerbation vs. bilobar pneumonia in the setting of immunosuppresive therapy vs. COPD exacerbation complicated by NSTEMI Plan: CKD Stage IV s/p renal transplant -BUN/Cr: 69/4.1 stable from creatinine of 4.1 yesterday. Worsened from baseline -Continue with immunosuppresive regimen of home tacrolimus and with current methylprednisone -Avoid nephrotoxic agents such as lisinopril, losartan, IV contrast -Administer lasix on as needed basis. Standing dose discontinued Hypoxic, hypercarbic respiratory failure likely 04/20 to CHF Exacerbation-resolved -ABG: improved today. pH: 7.40, pO2: 86, pCO2: 39 -CXR 04/28: severe cardiomegaly with improvement in pulmonary venous congestion -BNP upon admission was 58284 with baseline of around 3000 on prior admissions -Echocardiogram 04/26: LVEF of 46.5%, LVH, LA dilated, moderate to severe TR, pulmonary hypertension -Chest CT 04/26: severe cardiomegaly, mild bibasilar consolidation and pleural effusions -Standing lasix stopped due to CKD with renal transplant -Lasix should be given as needed -Consider beta blockers for congestive heart failure -Continue with Bipap as needed Atrial Fibrillation -Patient with documented history of atrial fibrillation -Continue with Eliquis 2.5 mg Q12 -Converted IV cardizem drip to PO cardizem. Continue with cardizem 30 mg Q6 NSTEMI -EKG: atrial fibrillation with HR: 93 -Troponin: 0.27, 1.64, 1.72, 1.21 -Continue with aspirin, cardizem Q6, eliquis Normocytic Anemia -Hgb: 9.7 -Status post 2 U of PRBCs -Unremarkable iron and ferritin levels. Low TIBC at 187. -Stool guiaic negative -Goal hemoglobin>8 due to cardiac issues Bilateral Interstitial Pneumonia -Blood culture was negative for 4 days, MRSA negative, urine culture negative. -Lactate: last was 1.6 from 2.7 -Negative influenza, urine legionella -Procalcitonin: 0.69 -CXR: bilateral lower lobe effusion -Continue with doxycycline and cefepime day 4. Continue with renally dose vancomycin as per Dr. Jackelyn PALM COPD -Continue with solumedrol 20 mg Q12, duonebs, and pulmicort -Taper down steroids daily as tolerated GI prophylaxis: protonix 40 mg daily DVT prophylaxis: eliquis 2.5 mg Q12 Disposition: Palliative care has been consulted and family now wants patient to be DNR/DNI Patient plan was discussed with attending. <Marlen Mckeon - Last Filed: 04/29/18 17:13> Objective - Vital Signs/Intake and Output Vital Signs (last 24 hours): Temp Pulse Resp BP Pulse Ox 98.4 F 104 H 33 H 170/95 H 96 04/29/18 15:53 04/29/18 15:53 04/29/18 14:50 04/29/18 14:50 04/29/18 14:50 Intake and Output: 04/29/18 04/29/18 06:59 18:59 Intake Total 1027 78 Output Total 200 Balance 827 78 - Medications Medications: Current Medications Albuterol/Ipratropium (Duoneb 3 Mg/0.5 Mg (3 Ml) Ud) 3 ml IH Q4H PRN PRN Reason: Shortness of Breath Last Admin: 04/29/18 14:30 Dose: 3 ml Apixaban (Eliquis) 2.5 mg PO Q12 BIJAN; Protocol Last Admin: 04/29/18 09:58 Dose: 2.5 mg Aspirin (Aspirin Chewable) 81 mg PO DAILY BIJAN Last Admin: 04/29/18 10:02 Dose: 81 mg Budesonide (Pulmicort Respules) 0.5 mg IH [id number] BIJAN Last Admin: 04/29/18 07:40 Dose: 0.5 mg Diltiazem HCl (Cardizem) 30 mg PO Q6H BIJAN Last Admin: 04/29/18 14:48 Dose: 30 mg Doxycycline Hyclate (Doryx) 100 mg PO Q12 BIJAN; Protocol Stop: 05/02/18 22:01 Last Admin: 04/29/18 10:01 Dose: 100 mg Cefepime HCl (Maxipime 1gm) 1 gm in 100 mls @ 100 mls/hr IVPB Q24H BIJAN; Protocol Last Admin: 04/29/18 06:15 Dose: 100 mls/hr diltiaZEM IVPB 100mg in NS (Cardizem 100mg In Ns) 100 mls @ 5 mls/hr IV .Q20H PRN; Protocol PRN Reason: TITRATE PER MD ORDER Last Admin: 04/29/18 12:42 Dose: 5 mg/hr, 5 mls/hr Methylprednisolone (Solu-Medrol) 20 mg IVP Q12 [facility] Last Admin: 04/29/18 09:59 Dose: 20 mg Pantoprazole Sodium (Protonix Susp) 40 mg PO 0600 [facility] Last Admin: 04/29/18 06:15 Dose: 40 mg Sodium Bicarbonate (Sodium Bicarbonate Tab) 325 mg PO BID [facility] Last Admin: 04/29/18 09:58 Dose: 325 mg Tacrolimus (Prograf Cap) 3 mg PO BID [facility] Last Admin: 04/29/18 10:02 Dose: 3 mg - Labs Labs: 04/29/18 06:30 04/29/18 06:30 PT 21.2 SECONDS (9.4-12.5) H 04/25/18 12:35 INR 1.88 04/25/18 12:35 APTT 35.1 Seconds (26.9-38.3) 04/26/18 05:50 Attending/Attestation - Attestation I have personally seen and examined this patient.: Yes I have fully participated in the care of the patient.: Yes I have reviewed all pertinent clinical information, including history, physical exam and plan: Yes Notes (Text): 04/29/18 17:08 77 year old female with past medical history of CHF, COPD, LUE DVT on eliquis, SLE, lupus nephritis and atrial fibrillation who presented with acute hypoxic/hypercapneic failure likely multifactorial secondary to CHF/COPD/pneumonia. Also found to have AFib with RVR and possible NSTEMI in addition to acute on chronic renal failure. Patient is on cardizem drip with transition to po. She is on eliquis. Will follow up with cardiology and nephrology recommendations. Marlen Mckeon MD Hospitalist.
--- NOTE | 2018-04-29 14:40 | CP.CCUPN ---
<Larissa Ernst - Last Filed: 04/29/18 14:27> CCU Subjective - Physician Review Subjective (Free Text): 04/29/18 14:27 Larissa Ernst, PGY-1 ICU Progress Note for Dr. Lee: Pt was seen and examined this AM with the ICU team. Pt remains AOx1 but states that today she is feeling good. Pt is on Bipap this AM, and cardizem drip is continuing to run. ROS is limited due to pts current status. CCU Objective - Vital Signs / Intake & Output Intake and Output (Last 8hrs): Intake & Output 04/28/18 04/29/18 04/29/18 22:59 06:59 14:59 Intake Total 140 1027 78 Output Total 200 Balance 140 827 78 Weight 122 lb 14.4 oz Intake: IV 40 847 78 Left Forearm 600 antibiotics 100 cardizem 125 Oral 180 Other 100 Output: Urine 200 Urethral (Fox) 200 Other: Voiding Method Indwelling Catheter # Bowel Movements 1 - Physical Exam Head: Positive for: Atraumatic, Normocephalic Pupils: Positive for: PERRL Extroacular Muscles: Positive for: EOMI Conjunctiva: Positive for: Normal Mouth: Positive for: Moist Mucous Membranes Neck: Positive for: Normal Range of Motion Respiratory/Chest: Positive for: Clear to Auscultation. Negative for: Good Air Exchange Cardiovascular: Positive for: Regular Rate and Rhythm (irregularly irregular). Negative for: Murmurs Abdomen: Positive for: Normal Bowel Sounds. Negative for: Tenderness, Distention, Peritoneal Signs Back: Positive for: Other (kyphosis) Upper Extremity: Positive for: Other (right AV fistula). Negative for: Cyanosis, Edema Lower Extremity: Positive for: Normal Inspection. Negative for: Edema Neurological: Positive for: GCS=15, CN II-XII Intact, Speech Normal Skin: Positive for: Warm, Dry, Normal Color. Negative for: Rashes Psychiatric: Positive for: Alert. Negative for: Oriented x 3, Normal Insight, Normal Concentration - Medications Active Medications: Active Medications Generic Name Dose Route Start Last Admin Trade Name Freq PRN Reason Stop Dose Admin Albuterol/Ipratropium 3 ml 04/25/18 15:35 04/29/18 07:40 Duoneb 3 Mg/0.5 Mg (3 Ml) Ud IH 3 ml Q4H PRN Administration Shortness of Breath Apixaban 2.5 mg 04/28/18 10:00 04/29/18 09:58 Eliquis PO 2.5 mg Q12 BIJAN Administration Protocol Aspirin 81 mg 04/26/18 10:00 04/29/18 10:02 Aspirin Chewable PO 81 mg DAILY BIJAN Administration Budesonide 0.5 mg 04/26/18 20:00 04/29/18 07:40 Pulmicort Respules IH 0.5 mg [id number] BIJAN Administration Diltiazem HCl 30 mg 04/29/18 08:45 04/29/18 09:50 Cardizem PO 30 mg Q6H BIJAN Administration Doxycycline Hyclate 100 mg 04/27/18 22:00 04/29/18 10:01 Doryx PO 05/02/18 22:01 100 mg Q12 BIJAN Administration Protocol Cefepime HCl 1 gm in 100 mls @ 100 mls/hr 04/26/18 06:45 04/29/18 06:15 Maxipime 1gm IVPB 100 mls/hr Q24H BIJAN Administration Protocol diltiaZEM IVPB 100mg in NS 100 mls @ 5 mls/hr 04/28/18 22:44 04/29/18 12:42 Cardizem 100mg In Ns IV 5 mg/hr .Q20H PRN 5 mls/hr TITRATE PER MD ORDER Administration Protocol 5 MG/HR Methylprednisolone 20 mg 04/25/18 22:00 04/29/18 09:59 Solu-Medrol IVP 20 mg Q12 BIJAN Administration Pantoprazole Sodium 40 mg 04/28/18 06:00 04/29/18 06:15 Protonix Susp PO 40 mg 0600 BIJAN Administration Sodium Bicarbonate 325 mg 04/25/18 16:00 04/29/18 09:58 Sodium Bicarbonate Tab PO 325 mg BID BIJAN Administration Tacrolimus 3 mg 04/25/18 18:00 04/29/18 10:02 Prograf Cap PO 3 mg BID BIJAN Administration - Patient Studies Lab Studies: Microbiology Studies 04/25/18 13:00 Blood Culture - Preliminary Blood NO GROWTH AFTER 4 DAYS 04/25/18 12:35 Blood Culture - Preliminary Blood NO GROWTH AFTER 4 DAYS Lab Studies 04/29/18 04/29/18 04/29/18 Range/Units 11:04 11:00 07:32 WBC (4.5-11.0) 10^3/uL RBC (3.5-6.1) 10^6/uL Hgb (12.0-16.0) g/dL Hct (36.0-48.0) % MCV (80.0-105.0) fl MCH (25.0-35.0) pg MCHC (31.0-37.0) g/dl RDW (11.5-14.5) % Plt Count (120.0-450.0) 10^3/uL MPV (7.0-11.0) fl Neut % (Auto) (50.0-68.0) % Lymph % (Auto) (22.0-35.0) % Crosby % (Auto) (1.0-6.0) % Eos % (Auto) (1.5-5.0) % Baso % (Auto) (0.0-3.0) % Lymph # (Auto) (1.2-3.4) Crosby # (Auto) (0.1-0.6) Eos # (Auto) (0.0-0.7) Baso # (Auto) (0.0-2.0) K/mm3 Absolute Neuts (auto) (1.4-6.5) pCO2 39 (35-45) mm/Hg pO2 86.0 (80-100) mm/Hg HCO3 24.2 (21-28) mmol/L ABG pH 7.40 (7.35-7.45) ABG Total CO2 25.4 (22-28) mmol.L ABG O2 Saturation 99.2 H (95-98) % ABG O2 Content 13.0 L (15-23) ML/dl ABG Base Excess -0.5 (-2.0-3.0) mmol/L ABG Hemoglobin 9.5 L (11.7-17.4) g/dL ABG Carboxyhemoglobin 2.0 H (0.5-1.5) % POC ABG HHb (Measured) 0.8 (0-5) % ABG Methemoglobin 0.7 (0.0-3.0) % ABG O2 Capacity 13.1 L (16-24) mL/dl Hgb O2 Saturation 96.5 (95.0-98.0) % FiO2 28.0 % Sodium (132-148) mmol/L Potassium (3.6-5.0) mmol/L Chloride (98-107) mmol/L Carbon Dioxide (21-33) mmol/L Anion Gap (10-20) BUN (7-21) mg/dL Creatinine (0.7-1.2) mg/dl Est GFR ( Amer) Est GFR (Non-Af Amer) POC Glucose (mg/dL) 188 H 180 H (65-110) mg/dL Random Glucose (70-110) mg/dL Calcium (8.4-10.5) mg/dL Total Bilirubin (0.2-1.3) mg/dL AST (14-36) U/L ALT (7-56) U/L Alkaline Phosphatase (38-126) U/L Total Protein (5.8-8.3) g/dL Albumin (3.0-4.8) g/dL Globulin gm/dL Albumin/Globulin Ratio (1.1-1.8) Pneumocystis Source S. pneumoniae Antigen Crossmatch 04/29/18 04/29/18 04/28/18 Range/Units 06:30 06:30 21:54 WBC 8.9 D (4.5-11.0) 10^3/uL RBC 3.16 L (3.5-6.1) 10^6/uL Hgb 9.7 L (12.0-16.0) g/dL Hct 31.8 L (36.0-48.0) % MCV 100.6 (80.0-105.0) fl MCH 30.7 (25.0-35.0) pg MCHC 30.5 L (31.0-37.0) g/dl RDW 17.8 H (11.5-14.5) % Plt Count 156 (120.0-450.0) 10^3/uL MPV 11.3 H (7.0-11.0) fl Neut % (Auto) 87.2 H (50.0-68.0) % Lymph % (Auto) 9.1 L (22.0-35.0) % Crosby % (Auto) 3.6 (1.0-6.0) % Eos % (Auto) 0.0 L (1.5-5.0) % Baso % (Auto) 0.1 (0.0-3.0) % Lymph # (Auto) 0.8 L (1.2-3.4) Crosby # (Auto) 0.3 (0.1-0.6) Eos # (Auto) 0.0 (0.0-0.7) Baso # (Auto) 0.01 (0.0-2.0) K/mm3 Absolute Neuts (auto) 7.76 H (1.4-6.5) pCO2 (35-45) mm/Hg pO2 (80-100) mm/Hg HCO3 (21-28) mmol/L ABG pH (7.35-7.45) ABG Total CO2 (22-28) mmol.L ABG O2 Saturation (95-98) % ABG O2 Content (15-23) ML/dl ABG Base Excess (-2.0-3.0) mmol/L ABG Hemoglobin (11.7-17.4) g/dL ABG Carboxyhemoglobin (0.5-1.5) % POC ABG HHb (Measured) (0-5) % ABG Methemoglobin (0.0-3.0) % ABG O2 Capacity (16-24) mL/dl Hgb O2 Saturation (95.0-98.0) % FiO2 % Sodium 142 (132-148) mmol/L Potassium 4.7 (3.6-5.0) mmol/L Chloride 106 (98-107) mmol/L Carbon Dioxide 25 (21-33) mmol/L Anion Gap 16 (10-20) BUN 69 H (7-21) mg/dL Creatinine 4.1 H (0.7-1.2) mg/dl Est GFR ( Amer) 13 Est GFR (Non-Af Amer) 11 POC Glucose (mg/dL) 180 H (65-110) mg/dL Random Glucose 184 H (70-110) mg/dL Calcium 10.1 (8.4-10.5) mg/dL Total Bilirubin 0.8 (0.2-1.3) mg/dL AST 46 H D (14-36) U/L ALT 61 H (7-56) U/L Alkaline Phosphatase 88 (38-126) U/L Total Protein 6.9 (5.8-8.3) g/dL Albumin 3.8 (3.0-4.8) g/dL Globulin 3.1 gm/dL Albumin/Globulin Ratio 1.2 (1.1-1.8) Pneumocystis Source S. pneumoniae Antigen Crossmatch 04/28/18 04/26/18 04/25/18 Range/Units 17:20 06:01 14:00 WBC (4.5-11.0) 10^3/uL RBC (3.5-6.1) 10^6/uL Hgb (12.0-16.0) g/dL Hct (36.0-48.0) % MCV (80.0-105.0) fl MCH (25.0-35.0) pg MCHC (31.0-37.0) g/dl RDW (11.5-14.5) % Plt Count (120.0-450.0) 10^3/uL MPV (7.0-11.0) fl Neut % (Auto) (50.0-68.0) % Lymph % (Auto) (22.0-35.0) % Crosby % (Auto) (1.0-6.0) % Eos % (Auto) (1.5-5.0) % Baso % (Auto) (0.0-3.0) % Lymph # (Auto) (1.2-3.4) Crosby # (Auto) (0.1-0.6) Eos # (Auto) (0.0-0.7) Baso # (Auto) (0.0-2.0) K/mm3 Absolute Neuts (auto) (1.4-6.5) pCO2 (35-45) mm/Hg pO2 (80-100) mm/Hg HCO3 (21-28) mmol/L ABG pH (7.35-7.45) ABG Total CO2 (22-28) mmol.L ABG O2 Saturation (95-98) % ABG O2 Content (15-23) ML/dl ABG Base Excess (-2.0-3.0) mmol/L ABG Hemoglobin (11.7-17.4) g/dL ABG Carboxyhemoglobin (0.5-1.5) % POC ABG HHb (Measured) (0-5) % ABG Methemoglobin (0.0-3.0) % ABG O2 Capacity (16-24) mL/dl Hgb O2 Saturation (95.0-98.0) % FiO2 % Sodium (132-148) mmol/L Potassium (3.6-5.0) mmol/L Chloride (98-107) mmol/L Carbon Dioxide (21-33) mmol/L Anion Gap (10-20) BUN (7-21) mg/dL Creatinine (0.7-1.2) mg/dl Est GFR ( Amer) Est GFR (Non-Af Amer) POC Glucose (mg/dL) 212 H (65-110) mg/dL Random Glucose (70-110) mg/dL Calcium (8.4-10.5) mg/dL Total Bilirubin (0.2-1.3) mg/dL AST (14-36) U/L ALT (7-56) U/L Alkaline Phosphatase (38-126) U/L Total Protein (5.8-8.3) g/dL Albumin (3.0-4.8) g/dL Globulin gm/dL Albumin/Globulin Ratio (1.1-1.8) Pneumocystis Source Serum S. pneumoniae Antigen Not detected Crossmatch See Detail Laboratory Results - last 24 hr 04/25/18 04/26/18 04/28/18 14:00 06:01 17:20 WBC RBC Hgb Hct MCV MCH MCHC RDW Plt Count MPV Neut % (Auto) Lymph % (Auto) Crosby % (Auto) Eos % (Auto) Baso % (Auto) Lymph # (Auto) Crosby # (Auto) Eos # (Auto) Baso # (Auto) Absolute Neuts (auto) pCO2 pO2 HCO3 ABG pH ABG Total CO2 ABG O2 Saturation ABG O2 Content ABG Base Excess ABG Hemoglobin ABG Carboxyhemoglobin POC ABG HHb (Measured) ABG Methemoglobin ABG O2 Capacity Hgb O2 Saturation FiO2 Sodium Potassium Chloride Carbon Dioxide Anion Gap BUN Creatinine Est GFR ( Amer) Est GFR (Non-Af Amer) POC Glucose (mg/dL) 212 H Random Glucose Calcium Total Bilirubin AST ALT Alkaline Phosphatase Total Protein Albumin Globulin Albumin/Globulin Ratio Pneumocystis Source Serum S. pneumoniae Antigen Not detected Crossmatch See Detail 04/28/18 04/29/18 04/29/18 21:54 06:30 06:30 WBC 8.9 D RBC 3.16 L Hgb 9.7 L Hct 31.8 L MCV 100.6 MCH 30.7 MCHC 30.5 L RDW 17.8 H Plt Count 156 MPV 11.3 H Neut % (Auto) 87.2 H Lymph % (Auto) 9.1 L Crosby % (Auto) 3.6 Eos % (Auto) 0.0 L Baso % (Auto) 0.1 Lymph # (Auto) 0.8 L Crosby # (Auto) 0.3 Eos # (Auto) 0.0 Baso # (Auto) 0.01 Absolute Neuts (auto) 7.76 H pCO2 pO2 HCO3 ABG pH ABG Total CO2 ABG O2 Saturation ABG O2 Content ABG Base Excess ABG Hemoglobin ABG Carboxyhemoglobin POC ABG HHb (Measured) ABG Methemoglobin ABG O2 Capacity Hgb O2 Saturation FiO2 Sodium 142 Potassium 4.7 Chloride 106 Carbon Dioxide 25 Anion Gap 16 BUN 69 H Creatinine 4.1 H Est GFR ( Amer) 13 Est GFR (Non-Af Amer) 11 POC Glucose (mg/dL) 180 H Random Glucose 184 H Calcium 10.1 Total Bilirubin 0.8 AST 46 H D ALT 61 H Alkaline Phosphatase 88 Total Protein 6.9 Albumin 3.8 Globulin 3.1 Albumin/Globulin Ratio 1.2 Pneumocystis Source S. pneumoniae Antigen Crossmatch 04/29/18 04/29/18 04/29/18 07:32 11:00 11:04 WBC RBC Hgb Hct MCV MCH MCHC RDW Plt Count MPV Neut % (Auto) Lymph % (Auto) Crosby % (Auto) Eos % (Auto) Baso % (Auto) Lymph # (Auto) Crosby # (Auto) Eos # (Auto) Baso # (Auto) Absolute Neuts (auto) pCO2 39 pO2 86.0 HCO3 24.2 ABG pH 7.40 ABG Total CO2 25.4 ABG O2 Saturation 99.2 H ABG O2 Content 13.0 L ABG Base Excess -0.5 ABG Hemoglobin 9.5 L ABG Carboxyhemoglobin 2.0 H POC ABG HHb (Measured) 0.8 ABG Methemoglobin 0.7 ABG O2 Capacity 13.1 L Hgb O2 Saturation 96.5 FiO2 28.0 Sodium Potassium Chloride Carbon Dioxide Anion Gap BUN Creatinine Est GFR ( Amer) Est GFR (Non-Af Amer) POC Glucose (mg/dL) 180 H 188 H Random Glucose Calcium Total Bilirubin AST ALT Alkaline Phosphatase Total Protein Albumin Globulin Albumin/Globulin Ratio Pneumocystis Source S. pneumoniae Antigen Crossmatch Fingerstick Blood Sugar Results: 180 Review of Systems - Review of Systems Systems not reviewed;Unavailable: Altered Mental Status (12 point ROS unable to be obtained) Critical Care Progress Note - Nutrition Nutrition: Nutrition Category Date Time Status Dysphagia/Modified Consistency Diet [DIET] Diets 04/28/18 Dinner Ordered Assessment/Plan - Assessment and Plan (Free Text) Assessment: 77 year old female with past medical history of questionable congestive heart failure with last EF of 50%, COPD, LUE DVT currently on eliquis, SLE, lupus nephritis (currently on prednisone and prograf), and osteoporosis presents with worsened, labored breathing. Patient was admitted for hypoxic, hypercarbic respiratory failure 2/2 to CHF exacerbation vs. bilobar pneumonia in the setting of immunosuppresive therapy vs. COPD exacerbation. Pt weaned off of bipap from this AM. Will f/u with renal about plans for dialysis vs conservative management. Plan: Neuro: - Pt remains AOx1 - Pt is awake and alert Pulm: Hypoxic, hypercarbic respiratory failure likely 2/2 to CHF Exacerbation - Currently saturating well on 2 L of NC - CXR: severe cardiomegaly and improvement in Pulm vasc congestion - Last echocardiogram from prior admission in 04/26/18 showed EF of 46.5% with mild impairment of systolic function - Repeat ABG to monitor for improvement. - Consider beta blockers for congestive heart failure - Bipap was stopped this morning and transitioned to 2L NC. Pt is sating 96-99 on NC - Maintain O2 sat >88% Bilateral Interstitial Pneumonia - CXR: bilateral lower lobe effusion - Negative influenza, urine legionella - Procalcitonin: 0.69 - Lactate: last was 1.6 from 2.7 - Follow up BCx, UCx, strep urine antigen - Continue with doxycycline and cefepime day 4. Continue with renally dose vancomycin as per ID, Dr. Hayden COPD - Continue with solumedrol 20 mg Q12, duonebs, and pulmicort - Taper down steroids daily as tolerated Cardio: Atrial Fibrillation - Patient with documented history of atrial fibrillation - Heparin drip was stopped due to decrease in hemoglobin to less than 7 - Transitioning pt off of cardizem drip and then onto cardizem PO 30 mg Q6 NSTEMI - EKG: atrial fibrillation with HR: 93 - Continue with aspirin, eliquis - Held heparin drip due to reduced hemoglobin. Heme Normocytic Anemia - Hgb: 6.8 - Will transfuse 2 U of PRBCs - Unremarkable iron and ferritin levels. Low TIBC at 187. - Stool guiaic (-), H&H is stable - Goal hemoglobin>8 due to cardiac issues Nephro: CKD Stage IV s/p renal transplant - BUN/Cr: 69/4.1 Cr is stable from yesterday and pt was given IV fluids. - Continue with home tacrolimus and prednisone - Avoid nephrotoxic agents such as lisinopril, losartan, IV contrast - Administer lasix on as needed basis. Standing dose discontinued - Nephro consulted, recs appreciated - cont gentle IV hydration - Pt output through fox was 200cc over the past 24 hours. GI prophylaxis: protonix 40 mg daily DVT prophylaxis: held due to possibility of active GI bleed Dispo: Discussion made by hospice team and confirmed by a separate call placed by myself that the pt will be made DNR/DNI as per all of the families wishes. <Peggy Lee - Last Filed: 04/29/18 16:50> CCU Objective - Vital Signs / Intake & Output Vital Signs (Last 4 hours): Vital Signs Temp Pulse Resp BP Pulse Ox 04/29/18 15:53 98.4 F 104 H 04/29/18 15:15 106 H 04/29/18 15:11 106 H 04/29/18 14:50 113 H 33 H 170/95 H 96 04/29/18 14:48 112 H 146/91 H 04/29/18 14:01 100 H 24 146/91 H 97 04/29/18 14:00 101 H 34 H 97 04/29/18 13:30 94 H 34 H 159/79 H 98 04/29/18 13:00 107 H 30 H 146/88 94 L Intake and Output (Last 8hrs): Intake & Output 04/29/18 04/29/18 04/29/18 06:59 14:59 22:59 Intake Total 1027 78 Output Total 200 Balance 827 78 Weight 55.747 kg Intake: IV 847 78 Left Forearm 600 antibiotics 100 cardizem 125 Oral 180 Output: Urine 200 Urethral (Fox) 200 Other: # Bowel Movements 1 - Medications Active Medications: Active Medications Generic Name Dose Route Start Last Admin Trade Name Freq PRN Reason Stop Dose Admin Albuterol/Ipratropium 3 ml 04/25/18 15:35 04/29/18 14:30 Duoneb 3 Mg/0.5 Mg (3 Ml) Ud IH 3 ml Q4H PRN Administration Shortness of Breath Apixaban 2.5 mg 04/28/18 10:00 04/29/18 09:58 Eliquis PO 2.5 mg Q12 BIJAN Administration Protocol Aspirin 81 mg 04/26/18 10:00 04/29/18 10:02 Aspirin Chewable PO 81 mg DAILY BIJAN Administration Budesonide 0.5 mg 04/26/18 20:00 04/29/18 07:40 Pulmicort Respules IH 0.5 mg [id number] BIJAN Administration Diltiazem HCl 30 mg 04/29/18 08:45 04/29/18 14:48 Cardizem PO 30 mg Q6H BIJAN Administration Doxycycline Hyclate 100 mg 04/27/18 22:00 04/29/18 10:01 Doryx PO 05/02/18 22:01 100 mg Q12 BIJAN Administration Protocol Cefepime HCl 1 gm in 100 mls @ 100 mls/hr 04/26/18 06:45 04/29/18 06:15 Maxipime 1gm IVPB 100 mls/hr Q24H BIJAN Administration Protocol diltiaZEM IVPB 100mg in NS 100 mls @ 5 mls/hr 04/28/18 22:44 04/29/18 12:42 Cardizem 100mg In Ns IV 5 mg/hr .Q20H PRN 5 mls/hr TITRATE PER MD ORDER Administration Protocol 5 MG/HR Methylprednisolone 20 mg 04/25/18 22:00 04/29/18 09:59 Solu-Medrol IVP 20 mg Q12 BIJAN Administration Pantoprazole Sodium 40 mg 04/28/18 06:00 04/29/18 06:15 Protonix Susp PO 40 mg 0600 BIJAN Administration Sodium Bicarbonate 325 mg 04/25/18 16:00 04/29/18 09:58 Sodium Bicarbonate Tab PO 325 mg BID BIJAN Administration Tacrolimus 3 mg 04/25/18 18:00 04/29/18 10:02 Prograf Cap PO 3 mg BID BIJAN Administration - Patient Studies Lab Studies: Microbiology Studies 04/25/18 13:00 Blood Culture - Preliminary Blood NO GROWTH AFTER 4 DAYS 04/25/18 12:35 Blood Culture - Preliminary Blood NO GROWTH AFTER 4 DAYS Lab Studies 04/29/18 04/29/18 04/29/18 Range/Units 11:04 11:00 07:32 WBC (4.5-11.0) 10^3/uL RBC (3.5-6.1) 10^6/uL Hgb (12.0-16.0) g/dL Hct (36.0-48.0) % MCV (80.0-105.0) fl MCH (25.0-35.0) pg MCHC (31.0-37.0) g/dl RDW (11.5-14.5) % Plt Count (120.0-450.0) 10^3/uL MPV (7.0-11.0) fl Neut % (Auto) (50.0-68.0) % Lymph % (Auto) (22.0-35.0) % Crosby % (Auto) (1.0-6.0) % Eos % (Auto) (1.5-5.0) % Baso % (Auto) (0.0-3.0) % Lymph # (Auto) (1.2-3.4) Crosby # (Auto) (0.1-0.6) Eos # (Auto) (0.0-0.7) Baso # (Auto) (0.0-2.0) K/mm3 Absolute Neuts (auto) (1.4-6.5) pCO2 39 (35-45) mm/Hg pO2 86.0 (80-100) mm/Hg HCO3 24.2 (21-28) mmol/L ABG pH 7.40 (7.35-7.45) ABG Total CO2 25.4 (22-28) mmol.L ABG O2 Saturation 99.2 H (95-98) % ABG O2 Content 13.0 L (15-23) ML/dl ABG Base Excess -0.5 (-2.0-3.0) mmol/L ABG Hemoglobin 9.5 L (11.7-17.4) g/dL ABG Carboxyhemoglobin 2.0 H (0.5-1.5) % POC ABG HHb (Measured) 0.8 (0-5) % ABG Methemoglobin 0.7 (0.0-3.0) % ABG O2 Capacity 13.1 L (16-24) mL/dl Hgb O2 Saturation 96.5 (95.0-98.0) % FiO2 28.0 % Sodium (132-148) mmol/L Potassium (3.6-5.0) mmol/L Chloride (98-107) mmol/L Carbon Dioxide (21-33) mmol/L Anion Gap (10-20) BUN (7-21) mg/dL Creatinine (0.7-1.2) mg/dl Est GFR ( Amer) Est GFR (Non-Af Amer) POC Glucose (mg/dL) 188 H 180 H (65-110) mg/dL Random Glucose (70-110) mg/dL Calcium (8.4-10.5) mg/dL Total Bilirubin (0.2-1.3) mg/dL AST (14-36) U/L ALT (7-56) U/L Alkaline Phosphatase (38-126) U/L Total Protein (5.8-8.3) g/dL Albumin (3.0-4.8) g/dL Globulin gm/dL Albumin/Globulin Ratio (1.1-1.8) Pneumocystis Source S. pneumoniae Antigen Crossmatch 04/29/18 04/29/18 04/28/18 Range/Units 06:30 06:30 21:54 WBC 8.9 D (4.5-11.0) 10^3/uL RBC 3.16 L (3.5-6.1) 10^6/uL Hgb 9.7 L (12.0-16.0) g/dL Hct 31.8 L (36.0-48.0) % MCV 100.6 (80.0-105.0) fl MCH 30.7 (25.0-35.0) pg MCHC 30.5 L (31.0-37.0) g/dl RDW 17.8 H (11.5-14.5) % Plt Count 156 (120.0-450.0) 10^3/uL MPV 11.3 H (7.0-11.0) fl Neut % (Auto) 87.2 H (50.0-68.0) % Lymph % (Auto) 9.1 L (22.0-35.0) % Crosby % (Auto) 3.6 (1.0-6.0) % Eos % (Auto) 0.0 L (1.5-5.0) % Baso % (Auto) 0.1 (0.0-3.0) % Lymph # (Auto) 0.8 L (1.2-3.4) Crosby # (Auto) 0.3 (0.1-0.6) Eos # (Auto) 0.0 (0.0-0.7) Baso # (Auto) 0.01 (0.0-2.0) K/mm3 Absolute Neuts (auto) 7.76 H (1.4-6.5) pCO2 (35-45) mm/Hg pO2 (80-100) mm/Hg HCO3 (21-28) mmol/L ABG pH (7.35-7.45) ABG Total CO2 (22-28) mmol.L ABG O2 Saturation (95-98) % ABG O2 Content (15-23) ML/dl ABG Base Excess (-2.0-3.0) mmol/L ABG Hemoglobin (11.7-17.4) g/dL ABG Carboxyhemoglobin (0.5-1.5) % POC ABG HHb (Measured) (0-5) % ABG Methemoglobin (0.0-3.0) % ABG O2 Capacity (16-24) mL/dl Hgb O2 Saturation (95.0-98.0) % FiO2 % Sodium 142 (132-148) mmol/L Potassium 4.7 (3.6-5.0) mmol/L Chloride 106 (98-107) mmol/L Carbon Dioxide 25 (21-33) mmol/L Anion Gap 16 (10-20) BUN 69 H (7-21) mg/dL Creatinine 4.1 H (0.7-1.2) mg/dl Est GFR ( Amer) 13 Est GFR (Non-Af Amer) 11 POC Glucose (mg/dL) 180 H (65-110) mg/dL Random Glucose 184 H (70-110) mg/dL Calcium 10.1 (8.4-10.5) mg/dL Total Bilirubin 0.8 (0.2-1.3) mg/dL AST 46 H D (14-36) U/L ALT 61 H (7-56) U/L Alkaline Phosphatase 88 (38-126) U/L Total Protein 6.9 (5.8-8.3) g/dL Albumin 3.8 (3.0-4.8) g/dL Globulin 3.1 gm/dL Albumin/Globulin Ratio 1.2 (1.1-1.8) Pneumocystis Source S. pneumoniae Antigen Crossmatch 04/28/18 04/26/18 04/25/18 Range/Units 17:20 06:01 14:00 WBC (4.5-11.0) 10^3/uL RBC (3.5-6.1) 10^6/uL Hgb (12.0-16.0) g/dL Hct (36.0-48.0) % MCV (80.0-105.0) fl MCH (25.0-35.0) pg MCHC (31.0-37.0) g/dl RDW (11.5-14.5) % Plt Count (120.0-450.0) 10^3/uL MPV (7.0-11.0) fl Neut % (Auto) (50.0-68.0) % Lymph % (Auto) (22.0-35.0) % Crosby % (Auto) (1.0-6.0) % Eos % (Auto) (1.5-5.0) % Baso % (Auto) (0.0-3.0) % Lymph # (Auto) (1.2-3.4) Crosby # (Auto) (0.1-0.6) Eos # (Auto) (0.0-0.7) Baso # (Auto) (0.0-2.0) K/mm3 Absolute Neuts (auto) (1.4-6.5) pCO2 (35-45) mm/Hg pO2 (80-100) mm/Hg HCO3 (21-28) mmol/L ABG pH (7.35-7.45) ABG Total CO2 (22-28) mmol.L ABG O2 Saturation (95-98) % ABG O2 Content (15-23) ML/dl ABG Base Excess (-2.0-3.0) mmol/L ABG Hemoglobin (11.7-17.4) g/dL ABG Carboxyhemoglobin (0.5-1.5) % POC ABG HHb (Measured) (0-5) % ABG Methemoglobin (0.0-3.0) % ABG O2 Capacity (16-24) mL/dl Hgb O2 Saturation (95.0-98.0) % FiO2 % Sodium (132-148) mmol/L Potassium (3.6-5.0) mmol/L Chloride (98-107) mmol/L Carbon Dioxide (21-33) mmol/L Anion Gap (10-20) BUN (7-21) mg/dL Creatinine (0.7-1.2) mg/dl Est GFR ( Amer) Est GFR (Non-Af Amer) POC Glucose (mg/dL) 212 H (65-110) mg/dL Random Glucose (70-110) mg/dL Calcium (8.4-10.5) mg/dL Total Bilirubin (0.2-1.3) mg/dL AST (14-36) U/L ALT (7-56) U/L Alkaline Phosphatase (38-126) U/L Total Protein (5.8-8.3) g/dL Albumin (3.0-4.8) g/dL Globulin gm/dL Albumin/Globulin Ratio (1.1-1.8) Pneumocystis Source Serum S. pneumoniae Antigen Not detected Crossmatch See Detail Laboratory Results - last 24 hr 04/25/18 04/26/18 04/28/18 14:00 06:01 17:20 WBC RBC Hgb Hct MCV MCH MCHC RDW Plt Count MPV Neut % (Auto) Lymph % (Auto) Crosby % (Auto) Eos % (Auto) Baso % (Auto) Lymph # (Auto) Crosby # (Auto) Eos # (Auto) Baso # (Auto) Absolute Neuts (auto) pCO2 pO2 HCO3 ABG pH ABG Total CO2 ABG O2 Saturation ABG O2 Content ABG Base Excess ABG Hemoglobin ABG Carboxyhemoglobin POC ABG HHb (Measured) ABG Methemoglobin ABG O2 Capacity Hgb O2 Saturation FiO2 Sodium Potassium Chloride Carbon Dioxide Anion Gap BUN Creatinine Est GFR ( Amer) Est GFR (Non-Af Amer) POC Glucose (mg/dL) 212 H Random Glucose Calcium Total Bilirubin AST ALT Alkaline Phosphatase Total Protein Albumin Globulin Albumin/Globulin Ratio Pneumocystis Source Serum S. pneumoniae Antigen Not detected Crossmatch See Detail 04/28/18 04/29/18 04/29/18 21:54 06:30 06:30 WBC 8.9 D RBC 3.16 L Hgb 9.7 L Hct 31.8 L MCV 100.6 MCH 30.7 MCHC 30.5 L RDW 17.8 H Plt Count 156 MPV 11.3 H Neut % (Auto) 87.2 H Lymph % (Auto) 9.1 L Crosby % (Auto) 3.6 Eos % (Auto) 0.0 L Baso % (Auto) 0.1 Lymph # (Auto) 0.8 L Crosby # (Auto) 0.3 Eos # (Auto) 0.0 Baso # (Auto) 0.01 Absolute Neuts (auto) 7.76 H pCO2 pO2 HCO3 ABG pH ABG Total CO2 ABG O2 Saturation ABG O2 Content ABG Base Excess ABG Hemoglobin ABG Carboxyhemoglobin POC ABG HHb (Measured) ABG Methemoglobin ABG O2 Capacity Hgb O2 Saturation FiO2 Sodium 142 Potassium 4.7 Chloride 106 Carbon Dioxide 25 Anion Gap 16 BUN 69 H Creatinine 4.1 H Est GFR ( Amer) 13 Est GFR (Non-Af Amer) 11 POC Glucose (mg/dL) 180 H Random Glucose 184 H Calcium 10.1 Total Bilirubin 0.8 AST 46 H D ALT 61 H Alkaline Phosphatase 88 Total Protein 6.9 Albumin 3.8 Globulin 3.1 Albumin/Globulin Ratio 1.2 Pneumocystis Source S. pneumoniae Antigen Crossmatch 04/29/18 04/29/18 04/29/18 07:32 11:00 11:04 WBC RBC Hgb Hct MCV MCH MCHC RDW Plt Count MPV Neut % (Auto) Lymph % (Auto) Crosby % (Auto) Eos % (Auto) Baso % (Auto) Lymph # (Auto) Crosby # (Auto) Eos # (Auto) Baso # (Auto) Absolute Neuts (auto) pCO2 39 pO2 86.0 HCO3 24.2 ABG pH 7.40 ABG Total CO2 25.4 ABG O2 Saturation 99.2 H ABG O2 Content 13.0 L ABG Base Excess -0.5 ABG Hemoglobin 9.5 L ABG Carboxyhemoglobin 2.0 H POC ABG HHb (Measured) 0.8 ABG Methemoglobin 0.7 ABG O2 Capacity 13.1 L Hgb O2 Saturation 96.5 FiO2 28.0 Sodium Potassium Chloride Carbon Dioxide Anion Gap BUN Creatinine Est GFR ( Amer) Est GFR (Non-Af Amer) POC Glucose (mg/dL) 180 H 188 H Random Glucose Calcium Total Bilirubin AST ALT Alkaline Phosphatase Total Protein Albumin Globulin Albumin/Globulin Ratio Pneumocystis Source S. pneumoniae Antigen Crossmatch Radiology Impressions: Radiology Impressions Chest X-Ray 04/29/18 12:44 IMPRESSION: Severe cardiomegaly. No focal [facility] Progress Note - Nutrition Nutrition: Nutrition Category Date Time Status Dysphagia/Modified Consistency Diet [DIET] Diets 04/28/18 Dinner Ordered Addendum Addendum: 04/29/18 16:50 ICU Attending Addendum Patient seen and examined. Case reviewed on round with housestaff. Agree with resident note above with the following additions/exceptions 77F with chf, COPD, LUE DVT currently on eliquis, SLE, lupus nephritis (currently on prednisone and prograf), and osteoporosis presents being managed for hypoxic, hypercarbic respiratory failure 2/2 to CHF exacerbation vs. bilobar pneumonia in the setting of immunosuppresive therapy vs. COPD exacerbation. much improved today now off bipap abx per ID cardizem drip on for afib uncontrolled rate resume PO cardizem 30mg q 6h which should allow titrating down cardizem drip follow nephro recs regarding renal failure and possible need for HD cont to monitor in ICU Rest of care as above in housestaff note Peggy Lee MD Pulmonary Critical Care Attending
--- NOTE | 2018-04-29 15:31 | RAD ---
Date of service: 04/29/2018 HISTORY: pneumonia COMPARISON: Severe cardiomegaly FINDINGS: LUNGS: No active pulmonary disease. PLEURA: No significant pleural effusion identified, no pneumothorax apparent. CARDIOVASCULAR: Aortic calcification Severe cardiomegaly no pulmonary vascular congestion. OSSEOUS STRUCTURES: No significant abnormalities. VISUALIZED UPPER ABDOMEN: Hiatal hernia OTHER FINDINGS: None. IMPRESSION: Severe cardiomegaly. No focal consolidation
--- NOTE | 2018-04-29 18:02 | PN ---
DATE: 04/29/2018 SUBJECTIVE: The patient is oriented to place. She denies any chest pain. She is tachypneic, on nasal O2. PHYSICAL EXAMINATION: GENERAL: Text. VITAL SIGNS: Blood pressure 153/90, heart rate 123, temperature 98.8, respiration 35. HEENT: Pale conjunctivae. CHEST: Absent breath sounds over both bases and diffuse bilateral rhonchi. NECK: Text. HEART: S1 and S2, regular. ABDOMEN: Soft. EXTREMITIES: 1+ pitting edema. LABORATORY DATA: Hemoglobin and hematocrit 9.7 and 31.8, white count 8.9, platelet count 156,000. BUN creatinine are 69 and 4.1 respectively. Glucose of 184. Yesterday's x-ray revealed significant cardiomegaly with moderate right pulmonary alveolar infiltrate with near total opacification of the left lung. ASSESSMENT: 1. Bilateral pneumonia. 2. Consider [id number] myocardial infarction. 3. Worsening renal insufficiency. 4. Anemia requiring packed RBC transfusion. 5. Moderate to severe pulmonary retention. 6. Mildly depressed ejection fraction with segmental lateral hypokinesis. PLAN: Continue current aspirin 81 mg once a day, Cardizem infusion 5 mg per hour and doxycycline 100 mg p.o. twice a day, Eliquis 2.5 mg twice a day. Discontinue intravenous heparin. Continue Prograf and Solu-Medrol. Repeat a portable chest x-ray. The patient is not a suitable candidate for invasive cardiac workup at least at this time. Jamin Baldwin MD
[2018-04-29 20:31] LABS: INFLUENZA TYPE B AB 1:16 titer (<1:8)
[2018-04-30] MEDS: Pantoprazole 40 mg Susp UD PO SCH (05:20)
[2018-04-30 06:25] LABS: BASO # 0.01 K/mm3 (0.0-2.0); BASO % 0.1 % (0.0-3.0); HEMOGLOBIN 9.3 g/dL (12.0-16.0); LYMPH # 0.7 (1.2-3.4); MEAN CORPUSCULAR HEMOGLOBIN 30.4 pg (25.0-35.0); MEAN CORPUSCULAR HGB CONC 30.4 g/dl (31.0-37.0); MEAN PLATELET VOLUME 11.2 fl (7.0-11.0); MONO # 0.9 (0.1-0.6); MONO % 9.6 % (1.0-6.0); RBC 3.06 10^6/uL (3.5-6.1); RED CELL DISTRIBUTION WIDTH 17.4 % (11.5-14.5); WHITE BLOOD COUNT 9.1 10^3/uL (4.5-11.0)
[2018-04-30 06:47] LABS: ALB/GLOB RATIO 1.2 (1.1-1.8); ALBUMIN 3.8 g/dL (3.0-4.8); CALCIUM 10.8 mg/dL (8.4-10.5)
[2018-04-30] MEDS: diltiaZEM IVPB 100mg in NS 100 ML IV PRN ×2 (06:51→18:15)
[2018-04-30] MEDS: Cefepime 1gm in NS 100ml 1 GM/100 ML BAG IVPB SCH (06:54)
--- NOTE | 2018-04-30 07:15 | CP.CCUPN ---
<Larissa Ernst - Last Filed: 04/30/18 13:45> CCU Subjective - Physician Review Subjective (Free Text): 04/30/18 07:05 Larissa Ernst, PGY-1 ICU Progress Note for Dr. Lee: Pt was seen and examined this AM with the ICU team. Pt remains AOx1 but states that today she is feeling good. Pt is on Bipap this AM, and cardizem drip is continuing to run. ROS is limited due to pts current status. Pt will be weaned off of Bipap today and will attempt to be taken off of cardizem drip. CCU Objective - Vital Signs / Intake & Output Vital Signs (Last 4 hours): Vital Signs Temp Pulse Resp BP Pulse Ox 04/30/18 06:00 113 H 04/30/18 05:19 70 121/68 04/30/18 04:00 98.5 F 112 H 26 H 147/87 98 Intake and Output (Last 8hrs): Intake & Output 04/29/18 04/30/18 04/30/18 22:59 06:59 14:59 Intake Total 671 311 Output Total 250 600 Balance 421 -289 Intake: IV 171 211 Left Antecubital 100 antibiotics 100 cardizem 71 11 Oral 500 100 Output: Urine 250 600 Urethral (Fox) 250 600 Other: # Bowel Movements 1 - Physical Exam Head: Positive for: Atraumatic, Normocephalic Pupils: Positive for: PERRL Extroacular Muscles: Positive for: EOMI Conjunctiva: Positive for: Normal Mouth: Positive for: Moist Mucous Membranes Neck: Positive for: Normal Range of Motion Respiratory/Chest: Positive for: Clear to Auscultation. Negative for: Good Air Exchange Cardiovascular: Positive for: Irregular Rhythm (irregularly irregular), Tachycardic. Negative for: Regular Rate and Rhythm, Murmurs, Rub, Gallop Abdomen: Positive for: Normal Bowel Sounds. Negative for: Tenderness, Distention, Peritoneal Signs Back: Positive for: Other (kyphosis) Upper Extremity: Positive for: Other (right AV fistula). Negative for: Cyanosis, Edema Lower Extremity: Positive for: Normal Inspection, Edema (trace pedal edema b/l) Neurological: Positive for: GCS=15, CN II-XII Intact, Speech Normal Skin: Positive for: Warm, Dry, Normal Color. Negative for: Rashes Psychiatric: Positive for: Alert. Negative for: Oriented x 3, Normal Insight, Normal Concentration - Medications Active Medications: Active Medications Generic Name Dose Route Start Last Admin Trade Name Freq PRN Reason Stop Dose Admin Albuterol/Ipratropium 3 ml 04/25/18 15:35 04/29/18 19:47 Duoneb 3 Mg/0.5 Mg (3 Ml) Ud IH 3 ml Q4H PRN Administration Shortness of Breath Apixaban 2.5 mg 04/28/18 10:00 04/29/18 22:17 Eliquis PO 2.5 mg Q12 BIJAN Administration Protocol Aspirin 81 mg 04/26/18 10:00 04/29/18 10:02 Aspirin Chewable PO 81 mg DAILY BIJAN Administration Budesonide 0.5 mg 04/26/18 20:00 04/29/18 19:47 Pulmicort Respules IH 0.5 mg [id number] BIJAN Administration Diltiazem HCl 30 mg 04/29/18 08:45 04/30/18 05:19 Cardizem PO 30 mg Q6H BIJAN Administration Doxycycline Hyclate 100 mg 04/27/18 22:00 04/29/18 22:17 Doryx PO 05/02/18 22:01 100 mg Q12 BIJAN Administration Protocol Cefepime HCl 1 gm in 100 mls @ 100 mls/hr 04/26/18 06:45 04/30/18 06:54 Maxipime 1gm IVPB 100 mls/hr Q24H BIJAN Administration Protocol diltiaZEM IVPB 100mg in NS 100 mls @ 5 mls/hr 04/28/18 22:44 04/30/18 06:51 Cardizem 100mg In Ns IV 5 mg/hr .Q20H PRN 5 mls/hr TITRATE PER MD ORDER Administration Protocol 5 MG/HR Methylprednisolone 20 mg 04/25/18 22:00 04/29/18 22:24 Solu-Medrol IVP 20 mg Q12 BIJAN Administration Pantoprazole Sodium 40 mg 04/28/18 06:00 04/30/18 05:20 Protonix Susp PO 40 mg 0600 BIJAN Administration Sodium Bicarbonate 325 mg 04/25/18 16:00 04/29/18 17:46 Sodium Bicarbonate Tab PO 325 mg BID BIJAN Administration Tacrolimus 3 mg 04/25/18 18:00 04/29/18 17:46 Prograf Cap PO 3 mg BID BIJAN Administration - Patient Studies Lab Studies: Microbiology Studies 04/25/18 13:00 Blood Culture - Preliminary Blood NO GROWTH AFTER 4 DAYS 04/25/18 12:35 Blood Culture - Preliminary Blood NO GROWTH AFTER 4 DAYS Lab Studies 04/30/18 04/30/18 04/29/18 Range/Units 05:30 05:30 16:15 WBC 9.1 (4.5-11.0) 10^3/uL RBC 3.06 L (3.5-6.1) 10^6/uL Hgb 9.3 L (12.0-16.0) g/dL Hct 30.6 L (36.0-48.0) % MCV 100.0 (80.0-105.0) fl MCH 30.4 (25.0-35.0) pg MCHC 30.4 L (31.0-37.0) g/dl RDW 17.4 H (11.5-14.5) % Plt Count 147 (120.0-450.0) 10^3/uL MPV 11.2 H (7.0-11.0) fl Neut % (Auto) 82.3 H (50.0-68.0) % Lymph % (Auto) 8.0 L (22.0-35.0) % Levy % (Auto) 9.6 H (1.0-6.0) % Eos % (Auto) 0.0 L (1.5-5.0) % Baso % (Auto) 0.1 (0.0-3.0) % Lymph # (Auto) 0.7 L (1.2-3.4) Levy # (Auto) 0.9 H (0.1-0.6) Eos # (Auto) 0.0 (0.0-0.7) Baso # (Auto) 0.01 (0.0-2.0) K/mm3 Absolute Neuts (auto) 7.49 H (1.4-6.5) pCO2 (35-45) mm/Hg pO2 (80-100) mm/Hg HCO3 (21-28) mmol/L ABG pH (7.35-7.45) ABG Total CO2 (22-28) mmol.L ABG O2 Saturation (95-98) % ABG O2 Content (15-23) ML/dl ABG Base Excess (-2.0-3.0) mmol/L ABG Hemoglobin (11.7-17.4) g/dL ABG Carboxyhemoglobin (0.5-1.5) % POC ABG HHb (Measured) (0-5) % ABG Methemoglobin (0.0-3.0) % ABG O2 Capacity (16-24) mL/dl Hgb O2 Saturation (95.0-98.0) % FiO2 % Sodium 143 (132-148) mmol/L Potassium 4.6 (3.6-5.0) mmol/L Chloride 108 H (98-107) mmol/L Carbon Dioxide 26 (21-33) mmol/L Anion Gap 14 (10-20) BUN 70 H (7-21) mg/dL Creatinine 4.3 H (0.7-1.2) mg/dl Est GFR ( Amer) 12 Est GFR (Non-Af Amer) 10 POC Glucose (mg/dL) 251 H (65-110) mg/dL Random Glucose 186 H (70-110) mg/dL Calcium 10.8 H (8.4-10.5) mg/dL Total Bilirubin 0.8 (0.2-1.3) mg/dL AST 37 H (14-36) U/L ALT 64 H (7-56) U/L Alkaline Phosphatase 85 (38-126) U/L Total Protein 6.9 (5.8-8.3) g/dL Albumin 3.8 (3.0-4.8) g/dL Globulin 3.1 gm/dL Albumin/Globulin Ratio 1.2 (1.1-1.8) Influenza Type A Ab (<1:8) titer Influenza Type B Ab (<1:8) titer Crossmatch 04/29/18 04/29/18 04/29/18 Range/Units 11:04 11:00 07:32 WBC (4.5-11.0) 10^3/uL RBC (3.5-6.1) 10^6/uL Hgb (12.0-16.0) g/dL Hct (36.0-48.0) % MCV (80.0-105.0) fl MCH (25.0-35.0) pg MCHC (31.0-37.0) g/dl RDW (11.5-14.5) % Plt Count (120.0-450.0) 10^3/uL MPV (7.0-11.0) fl Neut % (Auto) (50.0-68.0) % Lymph % (Auto) (22.0-35.0) % Levy % (Auto) (1.0-6.0) % Eos % (Auto) (1.5-5.0) % Baso % (Auto) (0.0-3.0) % Lymph # (Auto) (1.2-3.4) Levy # (Auto) (0.1-0.6) Eos # (Auto) (0.0-0.7) Baso # (Auto) (0.0-2.0) K/mm3 Absolute Neuts (auto) (1.4-6.5) pCO2 39 (35-45) mm/Hg pO2 86.0 (80-100) mm/Hg HCO3 24.2 (21-28) mmol/L ABG pH 7.40 (7.35-7.45) ABG Total CO2 25.4 (22-28) mmol.L ABG O2 Saturation 99.2 H (95-98) % ABG O2 Content 13.0 L (15-23) ML/dl ABG Base Excess -0.5 (-2.0-3.0) mmol/L ABG Hemoglobin 9.5 L (11.7-17.4) g/dL ABG Carboxyhemoglobin 2.0 H (0.5-1.5) % POC ABG HHb (Measured) 0.8 (0-5) % ABG Methemoglobin 0.7 (0.0-3.0) % ABG O2 Capacity 13.1 L (16-24) mL/dl Hgb O2 Saturation 96.5 (95.0-98.0) % FiO2 28.0 % Sodium (132-148) mmol/L Potassium (3.6-5.0) mmol/L Chloride (98-107) mmol/L Carbon Dioxide (21-33) mmol/L Anion Gap (10-20) BUN (7-21) mg/dL Creatinine (0.7-1.2) mg/dl Est GFR ( Amer) Est GFR (Non-Af Amer) POC Glucose (mg/dL) 188 H 180 H (65-110) mg/dL Random Glucose (70-110) mg/dL Calcium (8.4-10.5) mg/dL Total Bilirubin (0.2-1.3) mg/dL AST (14-36) U/L ALT (7-56) U/L Alkaline Phosphatase (38-126) U/L Total Protein (5.8-8.3) g/dL Albumin (3.0-4.8) g/dL Globulin gm/dL Albumin/Globulin Ratio (1.1-1.8) Influenza Type A Ab (<1:8) titer Influenza Type B Ab (<1:8) titer Crossmatch 04/29/18 04/29/18 04/28/18 Range/Units 06:30 06:30 21:54 WBC 8.9 D (4.5-11.0) 10^3/uL RBC 3.16 L (3.5-6.1) 10^6/uL Hgb 9.7 L (12.0-16.0) g/dL Hct 31.8 L (36.0-48.0) % MCV 100.6 (80.0-105.0) fl MCH 30.7 (25.0-35.0) pg MCHC 30.5 L (31.0-37.0) g/dl RDW 17.8 H (11.5-14.5) % Plt Count 156 (120.0-450.0) 10^3/uL MPV 11.3 H (7.0-11.0) fl Neut % (Auto) 87.2 H (50.0-68.0) % Lymph % (Auto) 9.1 L (22.0-35.0) % Levy % (Auto) 3.6 (1.0-6.0) % Eos % (Auto) 0.0 L (1.5-5.0) % Baso % (Auto) 0.1 (0.0-3.0) % Lymph # (Auto) 0.8 L (1.2-3.4) Levy # (Auto) 0.3 (0.1-0.6) Eos # (Auto) 0.0 (0.0-0.7) Baso # (Auto) 0.01 (0.0-2.0) K/mm3 Absolute Neuts (auto) 7.76 H (1.4-6.5) pCO2 (35-45) mm/Hg pO2 (80-100) mm/Hg HCO3 (21-28) mmol/L ABG pH (7.35-7.45) ABG Total CO2 (22-28) mmol.L ABG O2 Saturation (95-98) % ABG O2 Content (15-23) ML/dl ABG Base Excess (-2.0-3.0) mmol/L ABG Hemoglobin (11.7-17.4) g/dL ABG Carboxyhemoglobin (0.5-1.5) % POC ABG HHb (Measured) (0-5) % ABG Methemoglobin (0.0-3.0) % ABG O2 Capacity (16-24) mL/dl Hgb O2 Saturation (95.0-98.0) % FiO2 % Sodium 142 (132-148) mmol/L Potassium 4.7 (3.6-5.0) mmol/L Chloride 106 (98-107) mmol/L Carbon Dioxide 25 (21-33) mmol/L Anion Gap 16 (10-20) BUN 69 H (7-21) mg/dL Creatinine 4.1 H (0.7-1.2) mg/dl Est GFR ( Amer) 13 Est GFR (Non-Af Amer) 11 POC Glucose (mg/dL) 180 H (65-110) mg/dL Random Glucose 184 H (70-110) mg/dL Calcium 10.1 (8.4-10.5) mg/dL Total Bilirubin 0.8 (0.2-1.3) mg/dL AST 46 H D (14-36) U/L ALT 61 H (7-56) U/L Alkaline Phosphatase 88 (38-126) U/L Total Protein 6.9 (5.8-8.3) g/dL Albumin 3.8 (3.0-4.8) g/dL Globulin 3.1 gm/dL Albumin/Globulin Ratio 1.2 (1.1-1.8) Influenza Type A Ab (<1:8) titer Influenza Type B Ab (<1:8) titer Crossmatch 04/26/18 04/25/18 Range/Units 06:01 18:30 WBC (4.5-11.0) 10^3/uL RBC (3.5-6.1) 10^6/uL Hgb (12.0-16.0) g/dL Hct (36.0-48.0) % MCV (80.0-105.0) fl MCH (25.0-35.0) pg MCHC (31.0-37.0) g/dl RDW (11.5-14.5) % Plt Count (120.0-450.0) 10^3/uL MPV (7.0-11.0) fl Neut % (Auto) (50.0-68.0) % Lymph % (Auto) (22.0-35.0) % Levy % (Auto) (1.0-6.0) % Eos % (Auto) (1.5-5.0) % Baso % (Auto) (0.0-3.0) % Lymph # (Auto) (1.2-3.4) Levy # (Auto) (0.1-0.6) Eos # (Auto) (0.0-0.7) Baso # (Auto) (0.0-2.0) K/mm3 Absolute Neuts (auto) (1.4-6.5) pCO2 (35-45) mm/Hg pO2 (80-100) mm/Hg HCO3 (21-28) mmol/L ABG pH (7.35-7.45) ABG Total CO2 (22-28) mmol.L ABG O2 Saturation (95-98) % ABG O2 Content (15-23) ML/dl ABG Base Excess (-2.0-3.0) mmol/L ABG Hemoglobin (11.7-17.4) g/dL ABG Carboxyhemoglobin (0.5-1.5) % POC ABG HHb (Measured) (0-5) % ABG Methemoglobin (0.0-3.0) % ABG O2 Capacity (16-24) mL/dl Hgb O2 Saturation (95.0-98.0) % FiO2 % Sodium (132-148) mmol/L Potassium (3.6-5.0) mmol/L Chloride (98-107) mmol/L Carbon Dioxide (21-33) mmol/L Anion Gap (10-20) BUN (7-21) mg/dL Creatinine (0.7-1.2) mg/dl Est GFR ( Amer) Est GFR (Non-Af Amer) POC Glucose (mg/dL) (65-110) mg/dL Random Glucose (70-110) mg/dL Calcium (8.4-10.5) mg/dL Total Bilirubin (0.2-1.3) mg/dL AST (14-36) U/L ALT (7-56) U/L Alkaline Phosphatase (38-126) U/L Total Protein (5.8-8.3) g/dL Albumin (3.0-4.8) g/dL Globulin gm/dL Albumin/Globulin Ratio (1.1-1.8) Influenza Type A Ab 1:64 H (<1:8) titer Influenza Type B Ab 1:16 H (<1:8) titer Crossmatch See Detail Laboratory Results - last 24 hr 04/25/18 04/26/18 04/28/18 18:30 06:01 21:54 WBC RBC Hgb Hct MCV MCH MCHC RDW Plt Count MPV Neut % (Auto) Lymph % (Auto) Levy % (Auto) Eos % (Auto) Baso % (Auto) Lymph # (Auto) Levy # (Auto) Eos # (Auto) Baso # (Auto) Absolute Neuts (auto) pCO2 pO2 HCO3 ABG pH ABG Total CO2 ABG O2 Saturation ABG O2 Content ABG Base Excess ABG Hemoglobin ABG Carboxyhemoglobin POC ABG HHb (Measured) ABG Methemoglobin ABG O2 Capacity Hgb O2 Saturation FiO2 Sodium Potassium Chloride Carbon Dioxide Anion Gap BUN Creatinine Est GFR ( Amer) Est GFR (Non-Af Amer) POC Glucose (mg/dL) 180 H Random Glucose Calcium Total Bilirubin AST ALT Alkaline Phosphatase Total Protein Albumin Globulin Albumin/Globulin Ratio Influenza Type A Ab 1:64 H Influenza Type B Ab 1:16 H Crossmatch See Detail 04/29/18 04/29/18 04/29/18 06:30 06:30 07:32 WBC 8.9 D RBC 3.16 L Hgb 9.7 L Hct 31.8 L MCV 100.6 MCH 30.7 MCHC 30.5 L RDW 17.8 H Plt Count 156 MPV 11.3 H Neut % (Auto) 87.2 H Lymph % (Auto) 9.1 L Levy % (Auto) 3.6 Eos % (Auto) 0.0 L Baso % (Auto) 0.1 Lymph # (Auto) 0.8 L Levy # (Auto) 0.3 Eos # (Auto) 0.0 Baso # (Auto) 0.01 Absolute Neuts (auto) 7.76 H pCO2 pO2 HCO3 ABG pH ABG Total CO2 ABG O2 Saturation ABG O2 Content ABG Base Excess ABG Hemoglobin ABG Carboxyhemoglobin POC ABG HHb (Measured) ABG Methemoglobin ABG O2 Capacity Hgb O2 Saturation FiO2 Sodium 142 Potassium 4.7 Chloride 106 Carbon Dioxide 25 Anion Gap 16 BUN 69 H Creatinine 4.1 H Est GFR ( Amer) 13 Est GFR (Non-Af Amer) 11 POC Glucose (mg/dL) 180 H Random Glucose 184 H Calcium 10.1 Total Bilirubin 0.8 AST 46 H D ALT 61 H Alkaline Phosphatase 88 Total Protein 6.9 Albumin 3.8 Globulin 3.1 Albumin/Globulin Ratio 1.2 Influenza Type A Ab Influenza Type B Ab Crossmatch 04/29/18 04/29/18 04/29/18 11:00 11:04 16:15 WBC RBC Hgb Hct MCV MCH MCHC RDW Plt Count MPV Neut % (Auto) Lymph % (Auto) Levy % (Auto) Eos % (Auto) Baso % (Auto) Lymph # (Auto) Levy # (Auto) Eos # (Auto) Baso # (Auto) Absolute Neuts (auto) pCO2 39 pO2 86.0 HCO3 24.2 ABG pH 7.40 ABG Total CO2 25.4 ABG O2 Saturation 99.2 H ABG O2 Content 13.0 L ABG Base Excess -0.5 ABG Hemoglobin 9.5 L ABG Carboxyhemoglobin 2.0 H POC ABG HHb (Measured) 0.8 ABG Methemoglobin 0.7 ABG O2 Capacity 13.1 L Hgb O2 Saturation 96.5 FiO2 28.0 Sodium Potassium Chloride Carbon Dioxide Anion Gap BUN Creatinine Est GFR ( Amer) Est GFR (Non-Af Amer) POC Glucose (mg/dL) 188 H 251 H Random Glucose Calcium Total Bilirubin AST ALT Alkaline Phosphatase Total Protein Albumin Globulin Albumin/Globulin Ratio Influenza Type A Ab Influenza Type B Ab Crossmatch 04/30/18 04/30/18 05:30 05:30 WBC 9.1 RBC 3.06 L Hgb 9.3 L Hct 30.6 L MCV 100.0 MCH 30.4 MCHC 30.4 L RDW 17.4 H Plt Count 147 MPV 11.2 H Neut % (Auto) 82.3 H Lymph % (Auto) 8.0 L Levy % (Auto) 9.6 H Eos % (Auto) 0.0 L Baso % (Auto) 0.1 Lymph # (Auto) 0.7 L Levy # (Auto) 0.9 H Eos # (Auto) 0.0 Baso # (Auto) 0.01 Absolute Neuts (auto) 7.49 H pCO2 pO2 HCO3 ABG pH ABG Total CO2 ABG O2 Saturation ABG O2 Content ABG Base Excess ABG Hemoglobin ABG Carboxyhemoglobin POC ABG HHb (Measured) ABG Methemoglobin ABG O2 Capacity Hgb O2 Saturation FiO2 Sodium 143 Potassium 4.6 Chloride 108 H Carbon Dioxide 26 Anion Gap 14 BUN 70 H Creatinine 4.3 H Est GFR ( Amer) 12 Est GFR (Non-Af Amer) 10 POC Glucose (mg/dL) Random Glucose 186 H Calcium 10.8 H Total Bilirubin 0.8 AST 37 H ALT 64 H Alkaline Phosphatase 85 Total Protein 6.9 Albumin 3.8 Globulin 3.1 Albumin/Globulin Ratio 1.2 Influenza Type A Ab Influenza Type B Ab Crossmatch Radiology Impressions: Radiology Impressions Chest X-Ray 04/29/18 12:44 IMPRESSION: Severe cardiomegaly. No focal consolidation Fingerstick Blood Sugar Results: 180 Review of Systems - Review of Systems Systems not reviewed;Unavailable: Altered Mental Status (ROS limited due to pts current status.) Critical Care Progress Note - Nutrition Nutrition: Nutrition Category Date Time Status Dysphagia/Modified Consistency Diet [DIET] Diets 04/28/18 Dinner Ordered Assessment/Plan - Assessment and Plan (Free Text) Assessment: 77 year old female with past medical history of questionable congestive heart failure with last EF of 50%, COPD, LUE DVT currently on eliquis, SLE, lupus nephritis (currently on prednisone and prograf), and osteoporosis presents with worsened, labored breathing. Patient was admitted for hypoxic, hypercarbic respiratory failure 2/2 to CHF exacerbation vs. bilobar pneumonia in the setting of immunosuppresive therapy vs. COPD exacerbation. Pt weaned off of bipap from this AM. Will f/u with renal about plans for dialysis vs conservative management. Plan: Neuro: - Pt remains AOx1 - Pt is awake and alert Pulm: Hypercarbic respiratory failure likely 2/2 to CHF Exacerbation - Currently on Bipap, will be transitioned off and reassessed on NC - CXR: severe cardiomegaly and no consolidatoin - Last echocardiogram from prior admission in 04/26/18 showed EF of 46.5% with mild impairment of systolic function - Repeat ABG to monitor for improvement. - Consider beta blockers for congestive heart failure - Maintain O2 sat >88% Bilateral Interstitial Pneumonia - CXR: bilateral lower lobe effusion - Negative influenza, urine legionella - Procalcitonin: 0.69 - Lactate: last was 1.6 from 2.7 - Follow up BCx, UCx, strep urine antigen - Continue with doxycycline and cefepime day 5. Continue with renally dose vancomycin as per Dr. Jackelyn PALM COPD - Continue with solumedrol 20 mg Q12, duonebs, and pulmicort - Taper down steroids daily as tolerated Cardio: Atrial Fibrillation - Patient with documented history of atrial fibrillation - Heparin drip was stopped due to decrease in hemoglobin to less than 7 - Transitioning pt off of cardizem drip increased cardizem PO to 60 mg Q8 from 30 q6 NSTEMI - EKG: atrial fibrillation with HR: 93 - Continue with aspirin, eliquis - Held heparin drip due to reduced hemoglobin. - Cardio recs appreciated Heme Normocytic Anemia s/p 2u PRBC transfusion - Hgb: 9.3 and stable - Unremarkable iron and ferritin levels. Low TIBC at 187. - Stool guiaic (-), H&H is stable - Goal hemoglobin>8 due to cardiac issues Nephro: CKD Stage IV s/p renal transplant - BUN/Cr: 70/4.3 Cr is stable from yesterday and pt was given IV fluids. - Continue with home tacrolimus and prednisone - Avoid nephrotoxic agents such as lisinopril, losartan, IV contrast - Administer lasix on as needed basis. Standing dose discontinued - Nephro consulted, recs appreciated - cont to keep pt euvolemic - Pt output through fox was 600cc over the past 24 hours. - Maintain euvolemia GI prophylaxis: protonix 40 mg daily DVT prophylaxis: eliquis Dispo: Discussion made by hospice team and confirmed by a separate call placed by myself that the pt will be made DNR/DNI as per all of the families wishes. <Lee,Bilal - Last Filed: 04/30/18 14:24> CCU Objective - Vital Signs / Intake & Output Vital Signs (Last 4 hours): Vital Signs Pulse BP 04/30/18 13:31 104 H 144/119 H Intake and Output (Last 8hrs): Intake & Output 04/29/18 04/30/18 04/30/18 22:59 06:59 14:59 Intake Total 671 311 20 Output Total 250 600 Balance 421 -289 20 Intake: IV 171 211 20 Left Antecubital 100 antibiotics 100 cardizem 71 11 Oral 500 100 Output: Urine 250 600 Urethral (Fox) 250 600 Other: # Bowel Movements 1 - Medications Active Medications: Active Medications Generic Name Dose Route Start Last Admin Trade Name Freq PRN Reason Stop Dose Admin Albuterol/Ipratropium 3 ml 04/25/18 15:35 04/29/18 19:47 Duoneb 3 Mg/0.5 Mg (3 Ml) Ud IH 3 ml Q4H PRN Administration Shortness of Breath Apixaban 2.5 mg 04/28/18 10:00 04/30/18 13:35 Eliquis PO 2.5 mg Q12 BIJAN Administration Protocol Aspirin 81 mg 04/26/18 10:00 04/30/18 10:35 Aspirin Chewable PO Not Given DAILY BIJAN Budesonide 0.5 mg 04/26/18 20:00 04/30/18 07:27 Pulmicort Respules IH 0.5 mg [id number] BIJAN Administration Diltiazem HCl 60 mg 04/30/18 11:15 04/30/18 13:31 Cardizem PO 60 mg Q8H BIJAN Administration Doxycycline Hyclate 100 mg 04/27/18 22:00 04/30/18 10:35 Doryx PO 05/02/18 22:01 Not Given Q12 BIJAN Protocol Cefepime HCl 1 gm in 100 mls @ 100 mls/hr 04/26/18 06:45 04/30/18 06:54 Maxipime 1gm IVPB 100 mls/hr Q24H BIJAN Administration Protocol diltiaZEM IVPB 100mg in NS 100 mls @ 5 mls/hr 04/28/18 22:44 04/30/18 10:45 Cardizem 100mg In Ns IV 10 mg/hr .Q20H PRN 10 mls/hr TITRATE PER MD ORDER Titration Protocol 5 MG/HR Methylprednisolone 20 mg 04/25/18 22:00 04/30/18 10:06 Solu-Medrol IVP 20 mg Q12 BIJAN Administration Pantoprazole Sodium 40 mg 04/28/18 06:00 04/30/18 05:20 Protonix Susp PO 40 mg 0600 BIJAN Administration Tacrolimus 3 mg 04/25/18 18:00 04/30/18 10:35 Prograf Cap PO Not Given BID BIJAN - Patient Studies Lab Studies: Microbiology Studies 04/25/18 13:00 Blood Culture - Final Blood NO GROWTH AFTER 5 DAYS Gram Stain - Final TEST NOT PERFORMED 04/25/18 12:35 Blood Culture - Final Blood NO GROWTH AFTER 5 DAYS Gram Stain - Final TEST NOT PERFORMED Lab Studies 04/30/18 04/30/18 04/30/18 Range/Units 12:16 05:30 05:30 WBC 9.1 (4.5-11.0) 10^3/uL RBC 3.06 L (3.5-6.1) 10^6/uL Hgb 9.3 L (12.0-16.0) g/dL Hct 30.6 L (36.0-48.0) % MCV 100.0 (80.0-105.0) fl MCH 30.4 (25.0-35.0) pg MCHC 30.4 L (31.0-37.0) g/dl RDW 17.4 H (11.5-14.5) % Plt Count 147 (120.0-450.0) 10^3/uL MPV 11.2 H (7.0-11.0) fl Neut % (Auto) 82.3 H (50.0-68.0) % Lymph % (Auto) 8.0 L (22.0-35.0) % Levy % (Auto) 9.6 H (1.0-6.0) % Eos % (Auto) 0.0 L (1.5-5.0) % Baso % (Auto) 0.1 (0.0-3.0) % Lymph # (Auto) 0.7 L (1.2-3.4) Levy # (Auto) 0.9 H (0.1-0.6) Eos # (Auto) 0.0 (0.0-0.7) Baso # (Auto) 0.01 (0.0-2.0) K/mm3 Absolute Neuts (auto) 7.49 H (1.4-6.5) pCO2 38 (35-45) mm/Hg pO2 109.0 H (80-100) mm/Hg HCO3 24.1 (21-28) mmol/L ABG pH 7.41 (7.35-7.45) ABG Total CO2 25.3 (22-28) mmol.L ABG O2 Saturation 99.5 H (95-98) % ABG O2 Content 11.8 L (15-23) ML/dl ABG Base Excess -0.4 (-2.0-3.0) mmol/L ABG Hemoglobin 8.6 L (11.7-17.4) g/dL ABG Carboxyhemoglobin 2.1 H (0.5-1.5) % POC ABG HHb (Measured) 0.5 (0-5) % ABG Methemoglobin 1.3 (0.0-3.0) % ABG O2 Capacity 11.9 L (16-24) mL/dl Hgb O2 Saturation 96.1 (95.0-98.0) % FiO2 32.0 % Sodium 143 (132-148) mmol/L Potassium 4.6 (3.6-5.0) mmol/L Chloride 108 H (98-107) mmol/L Carbon Dioxide 26 (21-33) mmol/L Anion Gap 14 (10-20) BUN 70 H (7-21) mg/dL Creatinine 4.3 H (0.7-1.2) mg/dl Est GFR ( Amer) 12 Est GFR (Non-Af Amer) 10 POC Glucose (mg/dL) (65-110) mg/dL Random Glucose 186 H (70-110) mg/dL Calcium 10.8 H (8.4-10.5) mg/dL Total Bilirubin 0.8 (0.2-1.3) mg/dL AST 37 H (14-36) U/L ALT 64 H (7-56) U/L Alkaline Phosphatase 85 (38-126) U/L Total Protein 6.9 (5.8-8.3) g/dL Albumin 3.8 (3.0-4.8) g/dL Globulin 3.1 gm/dL Albumin/Globulin Ratio 1.2 (1.1-1.8) ANAI Screen (Negative) Influenza Type A Ab (<1:8) titer Influenza Type B Ab (<1:8) titer 04/29/18 04/27/18 04/25/18 Range/Units 16:15 05:00 18:30 WBC (4.5-11.0) 10^3/uL RBC (3.5-6.1) 10^6/uL Hgb (12.0-16.0) g/dL Hct (36.0-48.0) % MCV (80.0-105.0) fl MCH (25.0-35.0) pg MCHC (31.0-37.0) g/dl RDW (11.5-14.5) % Plt Count (120.0-450.0) 10^3/uL MPV (7.0-11.0) fl Neut % (Auto) (50.0-68.0) % Lymph % (Auto) (22.0-35.0) % Levy % (Auto) (1.0-6.0) % Eos % (Auto) (1.5-5.0) % Baso % (Auto) (0.0-3.0) % Lymph # (Auto) (1.2-3.4) Levy # (Auto) (0.1-0.6) Eos # (Auto) (0.0-0.7) Baso # (Auto) (0.0-2.0) K/mm3 Absolute Neuts (auto) (1.4-6.5) pCO2 (35-45) mm/Hg pO2 (80-100) mm/Hg HCO3 (21-28) mmol/L ABG pH (7.35-7.45) ABG Total CO2 (22-28) mmol.L ABG O2 Saturation (95-98) % ABG O2 Content (15-23) ML/dl ABG Base Excess (-2.0-3.0) mmol/L ABG Hemoglobin (11.7-17.4) g/dL ABG Carboxyhemoglobin (0.5-1.5) % POC ABG HHb (Measured) (0-5) % ABG Methemoglobin (0.0-3.0) % ABG O2 Capacity (16-24) mL/dl Hgb O2 Saturation (95.0-98.0) % FiO2 % Sodium (132-148) mmol/L Potassium (3.6-5.0) mmol/L Chloride (98-107) mmol/L Carbon Dioxide (21-33) mmol/L Anion Gap (10-20) BUN (7-21) mg/dL Creatinine (0.7-1.2) mg/dl Est GFR ( Amer) Est GFR (Non-Af Amer) POC Glucose (mg/dL) 251 H (65-110) mg/dL Random Glucose (70-110) mg/dL Calcium (8.4-10.5) mg/dL Total Bilirubin (0.2-1.3) mg/dL AST (14-36) U/L ALT (7-56) U/L Alkaline Phosphatase (38-126) U/L Total Protein (5.8-8.3) g/dL Albumin (3.0-4.8) g/dL Globulin gm/dL Albumin/Globulin Ratio (1.1-1.8) ANAI Screen Negative (Negative) Influenza Type A Ab 1:64 H (<1:8) titer Influenza Type B Ab 1:16 H (<1:8) titer Laboratory Results - last 24 hr 04/25/18 04/27/18 04/29/18 18:30 05:00 16:15 WBC RBC Hgb Hct MCV MCH MCHC RDW Plt Count MPV Neut % (Auto) Lymph % (Auto) Levy % (Auto) Eos % (Auto) Baso % (Auto) Lymph # (Auto) Levy # (Auto) Eos # (Auto) Baso # (Auto) Absolute Neuts (auto) pCO2 pO2 HCO3 ABG pH ABG Total CO2 ABG O2 Saturation ABG O2 Content ABG Base Excess ABG Hemoglobin ABG Carboxyhemoglobin POC ABG HHb (Measured) ABG Methemoglobin ABG O2 Capacity Hgb O2 Saturation FiO2 Sodium Potassium Chloride Carbon Dioxide Anion Gap BUN Creatinine Est GFR ( Amer) Est GFR (Non-Af Amer) POC Glucose (mg/dL) 251 H Random Glucose Calcium Total Bilirubin AST ALT Alkaline Phosphatase Total Protein Albumin Globulin Albumin/Globulin Ratio ANAI Screen Negative Influenza Type A Ab 1:64 H Influenza Type B Ab 1:16 H 04/30/18 04/30/18 04/30/18 05:30 05:30 12:16 WBC 9.1 RBC 3.06 L Hgb 9.3 L Hct 30.6 L MCV 100.0 MCH 30.4 MCHC 30.4 L RDW 17.4 H Plt Count 147 MPV 11.2 H Neut % (Auto) 82.3 H Lymph % (Auto) 8.0 L Levy % (Auto) 9.6 H Eos % (Auto) 0.0 L Baso % (Auto) 0.1 Lymph # (Auto) 0.7 L Levy # (Auto) 0.9 H Eos # (Auto) 0.0 Baso # (Auto) 0.01 Absolute Neuts (auto) 7.49 H pCO2 38 pO2 109.0 H HCO3 24.1 ABG pH 7.41 ABG Total CO2 25.3 ABG O2 Saturation 99.5 H ABG O2 Content 11.8 L ABG Base Excess -0.4 ABG Hemoglobin 8.6 L ABG Carboxyhemoglobin 2.1 H POC ABG HHb (Measured) 0.5 ABG Methemoglobin 1.3 ABG O2 Capacity 11.9 L Hgb O2 Saturation 96.1 FiO2 32.0 Sodium 143 Potassium 4.6 Chloride 108 H Carbon Dioxide 26 Anion Gap 14 BUN 70 H Creatinine 4.3 H Est GFR ( Amer) 12 Est GFR (Non-Af Amer) 10 POC Glucose (mg/dL) Random Glucose 186 H Calcium 10.8 H Total Bilirubin 0.8 AST 37 H ALT 64 H Alkaline Phosphatase 85 Total Protein 6.9 Albumin 3.8 Globulin 3.1 Albumin/Globulin Ratio 1.2 ANAI Screen Influenza Type A Ab Influenza Type B Ab Radiology Impressions: Radiology Impressions Chest X-Ray 04/29/18 12:44 IMPRESSION: Severe cardiomegaly. No focal consolidation Critical Care Progress Note - Nutrition Nutrition: Nutrition Category Date Time Status Dysphagia/Modified Consistency Diet [DIET] Diets 04/28/18 Dinner Ordered Addendum Addendum: 04/30/18 14:20 ICU Attending Addendum Patient seen and examined. Case reviewed on round with housestaff. Agree with resident note above with the following additions/exceptions 77F with chf, COPD, LUE DVT currently on eliquis, SLE, lupus nephritis (currently on prednisone and prograf), and osteoporosis presents being managed for hypoxic, hypercarbic respiratory failure 2/2 to CHF exacerbation vs. bilobar pneumonia in the setting of immunosuppresive therapy vs. COPD exacerbation. bipap overnight ABG 1 hour after taking off bipap shows no co2 retention with good oxygenation no longer need bipap in the day cont bipap QHS abx per ID cardizem drip on for afib uncontrolled rate resumed PO cardizem 30mg q 6h yesterday will increase to 60 q 8h today while weaning off the cardizem drip follow nephro recs regarding renal failure and possible need for HD cont to monitor in ICU Rest of care as above in housestaff note Peggy Lee MD Pulmonary Critical Care Attending
[2018-04-30] MEDS: Budesonide 0.5 mg/2 ml Inhal Susp UD IH SCH ×2 (07:27→21:10)
--- NOTE | 2018-04-30 09:28 | CP.PCM.PN ---
<Sage Ford - Last Filed: 04/30/18 09:30> Subjective - Date & Time of Evaluation Date of Evaluation: 04/30/18 Time of Evaluation: 06:50 - Subjective Subjective: Nephrology progress note: Patient seen and examined at bedside. No acute events overnight. Currently on BiPAP and states her sob has improved. Currently on BiPAP. Denies any other symptoms. 12 point ROS performed and negative other than stated above. Objective - Vital Signs/Intake and Output Vital Signs (last 24 hours): Temp Pulse Resp BP Pulse Ox 98.5 F 111 H 19 144/93 H 100 04/30/18 04:00 04/30/18 07:32 04/30/18 07:18 04/30/18 07:18 04/30/18 07:18 Intake and Output: 04/30/18 04/30/18 06:59 18:59 Intake Total 311 Output Total 600 Balance -289 - Medications Medications: Current Medications Albuterol/Ipratropium (Duoneb 3 Mg/0.5 Mg (3 Ml) Ud) 3 ml IH Q4H PRN PRN Reason: Shortness of Breath Last Admin: 04/29/18 19:47 Dose: 3 ml Apixaban (Eliquis) 2.5 mg PO Q12 [facility]; Protocol Last Admin: 04/29/18 22:17 Dose: 2.5 mg Aspirin (Aspirin Chewable) 81 mg PO DAILY [facility] Last Admin: 04/29/18 10:02 Dose: 81 mg Budesonide (Pulmicort Respules) 0.5 mg IH [id number] [facility] Last Admin: 04/30/18 07:27 Dose: 0.5 mg Diltiazem HCl (Cardizem) 30 mg PO Q6H [facility] Last Admin: 04/30/18 05:19 Dose: 30 mg Doxycycline Hyclate (Doryx) 100 mg PO Q12 [facility]; Protocol Stop: 05/02/18 22:01 Last Admin: 04/29/18 22:17 Dose: 100 mg Cefepime HCl (Maxipime 1gm) 1 gm in 100 mls @ 100 mls/hr IVPB Q24H [facility]; Protocol Last Admin: 04/30/18 06:54 Dose: 100 mls/hr diltiaZEM IVPB 100mg in NS (Cardizem 100mg In Ns) 100 mls @ 5 mls/hr IV .Q20H PRN; Protocol PRN Reason: TITRATE PER MD ORDER Last Admin: 04/30/18 06:51 Dose: 5 mg/hr, 5 mls/hr Methylprednisolone (Solu-Medrol) 20 mg IVP Q12 [facility] Last Admin: 04/29/18 22:24 Dose: 20 mg Pantoprazole Sodium (Protonix Susp) 40 mg PO 0600 [facility] Last Admin: 04/30/18 05:20 Dose: 40 mg Sodium Bicarbonate (Sodium Bicarbonate Tab) 325 mg PO BID [facility] Last Admin: 04/29/18 17:46 Dose: 325 mg Tacrolimus (Prograf Cap) 3 mg PO BID [facility] Last Admin: 04/29/18 17:46 Dose: 3 mg - Labs Labs: 04/30/18 05:30 04/30/18 05:30 PT 21.2 SECONDS (9.4-12.5) H 04/25/18 12:35 INR 1.88 04/25/18 12:35 APTT 35.1 Seconds (26.9-38.3) 04/26/18 05:50 - Constitutional Appears: No Acute Distress - Head Exam Head Exam: ATRAUMATIC, NORMOCEPHALIC - Eye Exam Eye Exam: EOMI - ENT Exam ENT Exam: Mucous Membranes Moist - Respiratory Exam Respiratory Exam: Clear to Ausculation Bilateral, Rales. absent: Wheezes Additional comments: bases - Cardiovascular Exam Cardiovascular Exam: Tachycardia, +S1, +S2 - GI/Abdominal Exam GI & Abdominal Exam: Soft. absent: Tenderness - Extremities Exam Extremities Exam: absent: Calf Tenderness, Pedal Edema - Neurological Exam Neurological Exam: Alert, Awake - Psychiatric Exam Psychiatric exam: Normal Mood - Skin Skin Exam: Dry, Warm Assessment and Plan - Assessment and Plan (Free Text) Assessment: 1. Acute kidney injury with CKD, stage IV 2. Status post donor kidney transplant 3. Anemia 4. Influenza infection 5. Atrial fibrillation 6. Lupus nephritis 7. SLE 8. Nephrolithiasis of the right kidney 9. Left renal cyst 10. Hearing impairment Reached out to Dr Link service in [facility] ([phone]) and confirmed patient only on tacrolimus and prednisone. Continue her immunosuppressive regimen with tacrolimus and Solu-Medrol. Her baseline Creatinine in 12/2017 was 2.66. Patient's creatinine today increased from 4.1--> 4.3, will continue to monitor. Discontinued low-dose IV fluids. Monitor I's and O's and avoid any nephrotoxic medications. Patient was given 1 dose of Aranesp yesterday for her anemia, cont to monitor. For her atrial fibrillation will continue with Eliquis. Cardizem drip converted to PO, will follow-up cardiology recommendations. For her pneumonia continue with cefepime and doxycycline as per infectious disease. Continue Tamiflu for Influenza. Septic workup thus far negative. Immunologic workup thus far negative as well. Will cont to monitor. Case and plan was reviewed and discussed with Dr. Yin. <Kenton Yin S - Last Filed: 04/30/18 14:16> Objective - Vital Signs/Intake and Output Vital Signs (last 24 hours): Temp Pulse Resp BP Pulse Ox 98.8 F 104 H 30 H 144/119 H 98 04/30/18 08:00 04/30/18 13:31 04/30/18 10:00 04/30/18 13:31 04/30/18 10:00 Intake and Output: 04/30/18 04/30/18 06:59 18:59 Intake Total 311 20 Output Total 600 Balance -289 20 - Medications Medications: Current Medications Albuterol/Ipratropium (Duoneb 3 Mg/0.5 Mg (3 Ml) Ud) 3 ml IH Q4H PRN PRN Reason: Shortness of Breath Last Admin: 04/29/18 19:47 Dose: 3 ml Apixaban (Eliquis) 2.5 mg PO Q12 [facility]; Protocol Last Admin: 04/30/18 13:35 Dose: 2.5 mg Aspirin (Aspirin Chewable) 81 mg PO DAILY [facility] Last Admin: 04/30/18 10:35 Dose: Not Given Budesonide (Pulmicort Respules) 0.5 mg IH [id number] [facility] Last Admin: 04/30/18 07:27 Dose: 0.5 mg Diltiazem HCl (Cardizem) 60 mg PO Q8H [facility] Last Admin: 04/30/18 13:31 Dose: 60 mg Doxycycline Hyclate (Doryx) 100 mg PO Q12 [facility]; Protocol Stop: 05/02/18 22:01 Last Admin: 04/30/18 10:35 Dose: Not Given Cefepime HCl (Maxipime 1gm) 1 gm in 100 mls @ 100 mls/hr IVPB Q24H [facility]; Protocol Last Admin: 04/30/18 06:54 Dose: 100 mls/hr diltiaZEM IVPB 100mg in NS (Cardizem 100mg In Ns) 100 mls @ 5 mls/hr IV .Q20H PRN; Protocol PRN Reason: TITRATE PER MD ORDER Last Titration: 04/30/18 10:45 Dose: 10 mg/hr, 10 mls/hr Methylprednisolone (Solu-Medrol) 20 mg IVP Q12 [facility] Last Admin: 04/30/18 10:06 Dose: 20 mg Pantoprazole Sodium (Protonix Susp) 40 mg PO 0600 [facility] Last Admin: 04/30/18 05:20 Dose: 40 mg Tacrolimus (Prograf Cap) 3 mg PO BID [facility] Last Admin: 04/30/18 10:35 Dose: Not Given - Labs Labs: 04/30/18 05:30 04/30/18 05:30 PT 21.2 SECONDS (9.4-12.5) H 04/25/18 12:35 INR 1.88 04/25/18 12:35 APTT 35.1 Seconds (26.9-38.3) 04/26/18 05:50 Assessment and Plan - Assessment and Plan (Free Text) Assessment: Patient was seen and examined by me. I have reviewed the note of the program medical director and have gone over the plan of care. I agree with the note. I have reviewed the medications and the last labs. Pt with JAGDISH. The pt has Flu and remains in the ICU. Cr has not stablized and continues to get worse. She may need to restart HD. She is on her immunosuppresive medications. She is DNR/DNI. She was given Aranesp for her anemia. She remains of Tamiflu. Unlikely to have lupus flare. Low level of proteinuria. ANAI and other serology are normal. Spoke to resident in ICU. May lose transplant. Prograf level were ok for this pt.
[2018-04-30] MEDS: MethylPREDNISolone 40 mg Vial IVP SCH ×2 (10:06→21:35)
--- NOTE | 2018-04-30 12:12 | CP.PCM.PN ---
Subjective - Date & Time of Evaluation Date of Evaluation: 04/30/18 Time of Evaluation: 08:20 - Subjective Subjective: No fevers, not in distress. Objective - Vital Signs/Intake and Output Vital Signs (last 24 hours): Temp Pulse Resp BP Pulse Ox 98.8 F 123 H 31 H 153/90 H 99 04/29/18 04:00 04/29/18 09:50 04/29/18 07:00 04/29/18 09:50 04/29/18 07:00 Intake and Output: 04/29/18 04/29/18 06:59 18:59 Intake Total 1027 78 Output Total 200 Balance 827 78 - Medications Medications: Current Medications Albuterol/Ipratropium (Duoneb 3 Mg/0.5 Mg (3 Ml) Ud) 3 ml IH Q4H PRN PRN Reason: Shortness of Breath Last Admin: 04/29/18 07:40 Dose: 3 ml Apixaban (Eliquis) 2.5 mg PO Q12 [facility]; Protocol Last Admin: 04/29/18 09:58 Dose: 2.5 mg Aspirin (Aspirin Chewable) 81 mg PO DAILY [facility] Last Admin: 04/29/18 10:02 Dose: 81 mg Budesonide (Pulmicort Respules) 0.5 mg IH [id number] [facility] Last Admin: 04/29/18 07:40 Dose: 0.5 mg Diltiazem HCl (Cardizem) 30 mg PO Q6H [facility] Last Admin: 04/29/18 09:50 Dose: 30 mg Doxycycline Hyclate (Doryx) 100 mg PO Q12 [facility]; Protocol Stop: 05/02/18 22:01 Last Admin: 04/29/18 10:01 Dose: 100 mg Cefepime HCl (Maxipime 1gm) 1 gm in 100 mls @ 100 mls/hr IVPB Q24H [facility]; Protocol Last Admin: 04/29/18 06:15 Dose: 100 mls/hr diltiaZEM IVPB 100mg in NS (Cardizem 100mg In Ns) 100 mls @ 5 mls/hr IV .Q20H PRN; Protocol PRN Reason: TITRATE PER MD ORDER Last Admin: 04/29/18 12:42 Dose: 5 mg/hr, 5 mls/hr Methylprednisolone (Solu-Medrol) 20 mg IVP Q12 [facility] Last Admin: 04/29/18 09:59 Dose: 20 mg Pantoprazole Sodium (Protonix Susp) 40 mg PO 0600 [facility] Last Admin: 04/29/18 06:15 Dose: 40 mg Sodium Bicarbonate (Sodium Bicarbonate Tab) 325 mg PO BID [facility] Last Admin: 04/29/18 09:58 Dose: 325 mg Tacrolimus (Prograf Cap) 3 mg PO BID [facility] Last Admin: 04/29/18 10:02 Dose: 3 mg - Labs Labs: 04/29/18 06:30 04/29/18 06:30 PT 21.2 SECONDS (9.4-12.5) H 04/25/18 12:35 INR 1.88 04/25/18 12:35 APTT 35.1 Seconds (26.9-38.3) 04/26/18 05:50 - Constitutional Appears: Chronically Ill - Head Exam Head Exam: NORMAL INSPECTION - Respiratory Exam Respiratory Exam: Decreased Breath Sounds - Cardiovascular Exam Cardiovascular Exam: +S1, +S2 - GI/Abdominal Exam GI & Abdominal Exam: Soft. absent: Tenderness Assessment and Plan - Assessment and Plan (Free Text) Plan: Assessment possible pneumonia in this patient with probable CHF exacerbation, R/O Influenza chronic CHF with EF 50% COPD DVT on anticoagulation SLE with lupus nephritis S/P renal transplant osteoporosis Plan continue Cefepime and Doxycycline day 5 and Tamiflu day 5 will continue to monitor clinically cultures have been negative
[2018-04-30 12:19] LABS: ARTERIAL BLOOD GAS HCO3 24.1 mmol/L (21-28); ARTERIAL BLOOD GAS HEMOGLOBIN 8.6 g/dL (11.7-17.4); ARTERIAL BLOOD GAS O2 CAPACITY 11.9 mL/dl (16-24); ARTERIAL BLOOD GAS O2 CONTENT 11.8 ML/dl (15-23); ARTERIAL BLOOD GAS O2 SAT 99.5 % (95-98); ARTERIAL BLOOD GAS PCO2 38 mm/Hg (35-45); ARTERIAL BLOOD GAS PH 7.41 (7.35-7.45); ARTERIAL BLOOD GAS TCO2 25.3 mmol.L (22-28)
--- NOTE | 2018-04-30 13:26 | CP.PCM.PN ---
<Marivel Simental - Last Filed: 04/30/18 13:20> Subjective - Date & Time of Evaluation Date of Evaluation: 04/30/18 Time of Evaluation: 13:20 - Subjective Subjective: Marivel Simental, PGY-1, Internal Medicine Progress Note for Dr. Mckeon Patient was seen and evaluated at bedside. Patient reports no acute overnight events. Patient was AAOx3 improved from yesterday. Patient was still confused however. Patient reported shortness of breath, but no cough or sputum production. Patient denied fever, chest pain, nausea, vomiting, constipation, diarrhea, dysuria, hematuria, abdominal pain. 12-point ROS was unremarkable except for what was mentioned above. Objective - Vital Signs/Intake and Output Vital Signs (last 24 hours): Temp Pulse Resp BP Pulse Ox 98.8 F 113 H 30 H 142/109 H 98 04/30/18 08:00 04/30/18 12:05 04/30/18 10:00 04/30/18 12:05 04/30/18 10:00 Intake and Output: 04/30/18 04/30/18 06:59 18:59 Intake Total 311 20 Output Total 600 Balance -289 20 - Medications Medications: Current Medications Albuterol/Ipratropium (Duoneb 3 Mg/0.5 Mg (3 Ml) Ud) 3 ml IH Q4H PRN PRN Reason: Shortness of Breath Last Admin: 04/29/18 19:47 Dose: 3 ml Apixaban (Eliquis) 2.5 mg PO Q12 [facility]; Protocol Last Admin: 04/30/18 10:28 Dose: Not Given Aspirin (Aspirin Chewable) 81 mg PO DAILY [facility] Last Admin: 04/30/18 10:35 Dose: Not Given Budesonide (Pulmicort Respules) 0.5 mg IH [id number] [facility] Last Admin: 04/30/18 07:27 Dose: 0.5 mg Diltiazem HCl (Cardizem) 60 mg PO Q8H [facility] Last Admin: 04/30/18 12:05 Dose: Not Given Doxycycline Hyclate (Doryx) 100 mg PO Q12 [facility]; Protocol Stop: 05/02/18 22:01 Last Admin: 04/30/18 10:35 Dose: Not Given Cefepime HCl (Maxipime 1gm) 1 gm in 100 mls @ 100 mls/hr IVPB Q24H [facility]; Protocol Last Admin: 04/30/18 06:54 Dose: 100 mls/hr diltiaZEM IVPB 100mg in NS (Cardizem 100mg In Ns) 100 mls @ 5 mls/hr IV .Q20H PRN; Protocol PRN Reason: TITRATE PER MD ORDER Last Titration: 04/30/18 10:45 Dose: 10 mg/hr, 10 mls/hr Methylprednisolone (Solu-Medrol) 20 mg IVP Q12 [facility] Last Admin: 04/30/18 10:06 Dose: 20 mg Pantoprazole Sodium (Protonix Susp) 40 mg PO 0600 [facility] Last Admin: 04/30/18 05:20 Dose: 40 mg Sodium Bicarbonate (Sodium Bicarbonate Tab) 325 mg PO BID [facility] Last Admin: 04/30/18 10:35 Dose: Not Given Tacrolimus (Prograf Cap) 3 mg PO BID [facility] Last Admin: 04/30/18 10:35 Dose: Not Given - Labs Labs: 04/30/18 05:30 04/30/18 05:30 PT 21.2 SECONDS (9.4-12.5) H 04/25/18 12:35 INR 1.88 04/25/18 12:35 APTT 35.1 Seconds (26.9-38.3) 04/26/18 05:50 - Constitutional Appears: Well, Non-toxic, No Acute Distress - Head Exam Head Exam: ATRAUMATIC, NORMAL INSPECTION, NORMOCEPHALIC - Eye Exam Eye Exam: EOMI Pupil Exam: PERRL - ENT Exam ENT Exam: Mucous Membranes Moist - Respiratory Exam Respiratory Exam: Clear to Ausculation Bilateral, NORMAL BREATHING PATTERN - Cardiovascular Exam Cardiovascular Exam: REGULAR RHYTHM, RRR - GI/Abdominal Exam GI & Abdominal Exam: Soft, Normal Bowel Sounds. absent: Tenderness - Extremities Exam Extremities Exam: Full ROM - Neurological Exam Neurological Exam: Alert, Awake, CN II-XII Intact, Oriented x3 - Skin Skin Exam: Dry, Intact, Normal Color Assessment and Plan - Assessment and Plan (Free Text) Assessment: 77 year old female with past medical history of questionable congestive heart failure with last EF of 50%, COPD, LUE DVT currently on eliquis, SLE, lupus nephritis (currently on prednisone and prograf), and osteoporosis presented with worsened, labored breathing. Patient was admitted for hypoxic, hypercarbic respiratory failure 04/20 to CHF exacerbation vs. bilobar pneumonia in the setting of immunosuppresive therapy vs. COPD exacerbation complicated by NSTEMI Plan: CKD Stage IV s/p renal transplant -BUN/Cr: 70/4.3 worsened from creatinine of 4.1 yesterday. Worsened from baseline -Continue with immunosuppresive regimen of home tacrolimus and with current methylprednisone -Avoid nephrotoxic agents such as lisinopril, losartan, IV contrast -Administer lasix on as needed basis. Standing dose discontinued -No plans for dialysis at this time. Hypoxic, hypercarbic respiratory failure likely 04/20 to CHF Exacerbation-resolved -Clinically improved -ABG 04/30: pH: 7.41, pO2: 109, pCO2: 38 -CXR 04/28: severe cardiomegaly with improvement in pulmonary venous congestion -B[place] admission [place] [id number] with baseline of around 3000 on prior admissions -Echocardiogram 04/26: LVEF of 46.5%, LVH, LA dilated, moderate to severe TR, pulmonary hypertension -Chest CT 04/26: severe cardiomegaly, mild bibasilar consolidation and pleural effusions -Standing lasix stopped due to CKD with renal transplant -Lasix should be given as needed -Consider beta blockers for congestive heart failure -Continue with Bipap as needed Atrial Fibrillation -Patient with documented history of atrial fibrillation -Continue with Eliquis 2.5 mg Q12 -Converted IV cardizem drip to PO cardizem. Continue with cardizem 60 mg Q8 NSTEMI -EKG: atrial fibrillation with HR: 93 -Troponin: 0.27, 1.64, 1.72, 1.21 -Continue with aspirin, cardizem 60 mg Q8, eliquis Normocytic Anemia -Hgb: 9.3 -Status post 2 U of PRBCs -Unremarkable iron and ferritin levels. Low TIBC at 187. -Stool guiaic negative -Goal hemoglobin>8 due to cardiac issues Bilateral Interstitial Pneumonia -Blood culture was negative for 5 days, MRSA negative, urine culture negative. -Lactate: last was 1.6 from 2.7 -Negative influenza, urine legionella -Procalcitonin: 0.69 -CXR: bilateral lower lobe effusion -Continue with doxycycline and cefepime day 5. Continue with renally dose vancomycin as per Dr. Jackelyn PALM COPD -Continue with solumedrol 20 mg Q12, duonebs, and pulmicort -Taper down steroids as tolerated GI prophylaxis: protonix 40 mg daily DVT prophylaxis: eliquis 2.5 mg Q12 Disposition: Palliative care has been consulted and family now wants patient to be DNR/DNI Patient plan was discussed with attending. <Marlen Mckeon - Last Filed: 04/30/18 17:11> Objective - Vital Signs/Intake and Output Vital Signs (last 24 hours): Temp Pulse Resp BP Pulse Ox 98.8 F 104 H 30 H 144/119 H 98 04/30/18 08:00 04/30/18 13:31 04/30/18 10:00 04/30/18 13:31 04/30/18 10:00 Intake and Output: 04/30/18 04/30/18 06:59 18:59 Intake Total 311 20 Output Total 600 Balance -289 20 - Medications Medications: Current Medications Albuterol/Ipratropium (Duoneb 3 Mg/0.5 Mg (3 Ml) Ud) 3 ml IH Q4H PRN PRN Reason: Shortness of Breath Last Admin: 04/29/18 19:47 Dose: 3 ml Apixaban (Eliquis) 2.5 mg PO Q12 [facility]; Protocol Last Admin: 04/30/18 13:35 Dose: 2.5 mg Aspirin (Aspirin Chewable) 81 mg PO DAILY [facility] Last Admin: 04/30/18 10:35 Dose: Not Given Budesonide (Pulmicort Respules) 0.5 mg IH [id number] [facility] Last Admin: 04/30/18 07:27 Dose: 0.5 mg Diltiazem HCl (Cardizem) 60 mg PO Q8H [facility] Last Admin: 04/30/18 13:31 Dose: 60 mg Doxycycline Hyclate (Doryx) 100 mg PO Q12 [facility]; Protocol Stop: 05/02/18 22:01 Last Admin: 04/30/18 10:35 Dose: Not Given Cefepime HCl (Maxipime 1gm) 1 gm in 100 mls @ 100 mls/hr IVPB Q24H [facility]; Protocol Last Admin: 04/30/18 06:54 Dose: 100 mls/hr diltiaZEM IVPB 100mg in NS (Cardizem 100mg In Ns) 100 mls @ 5 mls/hr IV .Q20H PRN; Protocol PRN Reason: TITRATE PER MD ORDER Last Titration: 04/30/18 10:45 Dose: 10 mg/hr, 10 mls/hr Methylprednisolone (Solu-Medrol) 20 mg IVP Q12 [facility] Last Admin: 04/30/18 10:06 Dose: 20 mg Pantoprazole Sodium (Protonix Susp) 40 mg PO 0600 [facility] Last Admin: 04/30/18 05:20 Dose: 40 mg Tacrolimus (Prograf Cap) 3 mg PO BID [facility] Last Admin: 04/30/18 10:35 Dose: Not Given - Labs Labs: 04/30/18 05:30 04/30/18 05:30 PT 21.2 SECONDS (9.4-12.5) H 04/25/18 12:35 INR 1.88 04/25/18 12:35 APTT 35.1 Seconds (26.9-38.3) 04/26/18 05:50 Attending/Attestation - Attestation I have personally seen and examined this patient.: Yes I have fully participated in the care of the patient.: Yes I have reviewed all pertinent clinical information, including history, physical exam and plan: Yes Notes (Text): 04/30/18 17:07 77 year old female with past medical history of CHF, COPD, LUE DVT on eliquis, SLE, lupus nephritis and atrial fibrillation who presented with acute hypoxic/hypercapneic failure likely multifactorial secondary to CHF/COPD/pneumonia. Also found to have AFib with RVR and possible NSTEMI in addition to acute on chronic renal failure. Patient is on cardizem drip with transition to po. She is on eliquis. Patient is DNR/DNI. Continue with conservative management as per cardiology. Nephrology is also following for acute on chronic renal failure. Will discuss with neprhology as creatinine continues to increase. Patient has on and off confusion; consider ICU delirium. Will monitor. Marlen Mckeon MD Hospitalist.
--- NOTE | 2018-04-30 14:28 | PN ---
DATE: 04/30/2018 CARDIOLOGY FOLLOWUP SUBJECTIVE: The patient in cachectic and weak in bed, unable to communicate verbally. PHYSICAL EXAMINATION: VITAL SIGNS: Blood pressure 138/83, heart rate is in the 90s. NECK: Negative JVD. LUNGS: Decreased breath sounds. HEART: Reveal S1, S2. EXTREMITIES: Diffuse muscle wasting. LABORATORY DATA: Laboratories revealed BUN and creatinine 70 and 4.3, glucose is 186. Troponins are elevated . Hemoglobin is 9.3. IMPRESSION: 1. Marked cachexia. 2. Non-ST elevation myocardial infarction. 3. Renal insufficiency. 4. Anemia. 5. Dementia. 6. Muscle wasting Given these findings, the patient is DNR/DNI. No aggressive measures will be taken. Comfort care and supportive care only. Travis Vides MD
[2018-05-01] MEDS ORDERED: Metoprolol 1 mg/ml Inj IVP ONE ×2 (05:09→11:43)
[2018-05-01] MEDS: Pantoprazole 40 mg Susp UD PO SCH (05:25)
[2018-05-01] MEDS: Cefepime 1gm in NS 100ml 1 GM/100 ML BAG IVPB SCH (06:00)
[2018-05-01 06:47] LABS: BASO # 0.04 K/mm3 (0.0-2.0); BASO % 0.4 % (0.0-3.0); HEMOGLOBIN 9.9 g/dL (12.0-16.0); LYMPH # 1.1 (1.2-3.4); LYMPH % 11.1 % (22.0-35.0); MEAN CELL VOLUME 100.9 fl (80.0-105.0); MEAN CORPUSCULAR HEMOGLOBIN 30.7 pg (25.0-35.0); MEAN CORPUSCULAR HGB CONC 30.4 g/dl (31.0-37.0); MEAN PLATELET VOLUME 11.4 fl (7.0-11.0); MONO # 0.5 (0.1-0.6); MONO % 4.5 % (1.0-6.0); RBC 3.23 10^6/uL (3.5-6.1); RED CELL DISTRIBUTION WIDTH 17.4 % (11.5-14.5)
[2018-05-01] MEDS: Budesonide 0.5 mg/2 ml Inhal Susp UD IH SCH ×2 (07:17→20:15)
[2018-05-01 08:12] LABS: ALB/GLOB RATIO 1.3 (1.1-1.8); CALCIUM 12.2 mg/dL (8.4-10.5)
[2018-05-01] MEDS: diltiaZEM IVPB 100mg in NS 100 ML IV PRN (08:25)
[2018-05-01 08:38] LABS: ARTERIAL BLOOD GAS HCO3 23.7 mmol/L (21-28); ARTERIAL BLOOD GAS HEMOGLOBIN 9.9 g/dL (11.7-17.4); ARTERIAL BLOOD GAS O2 CAPACITY 13.5 mL/dl (16-24); ARTERIAL BLOOD GAS O2 CONTENT 13.2 ML/dl (15-23); ARTERIAL BLOOD GAS O2 SAT 97.7 % (95-98); ARTERIAL BLOOD GAS PCO2 41 mm/Hg (35-45); ARTERIAL BLOOD GAS PH 7.37 (7.35-7.45)
--- NOTE | 2018-05-01 08:39 | CP.CCUPN ---
<Larissa Ernst - Last Filed: 05/01/18 12:43> CCU Subjective - Physician Review Subjective (Free Text): 05/01/18 11:17 Larissa Ernst, PGY-1 ICU Progress Note for Dr. Lopez: Pt was seen and examined this AM with the ICU team. Pt remains AOx0, and is lethargic but can awaken when called. Pt is currently on NC as bipap was weaned off of pt and the pt is sating well. Cardizem drip is continuing to run. ROS is limited due to pts current status. Attempt will be made have pt off of cardizem drip. CCU Objective - Vital Signs / Intake & Output Vital Signs (Last 4 hours): Vital Signs Pulse Resp BP Pulse Ox 05/01/18 08:01 115 H 34 H 159/92 H 95 05/01/18 08:00 104 H 36 H 93 L 05/01/18 07:00 112 H 35 H 133/107 H 92 L 05/01/18 06:00 110 H 71 H 156/98 H 92 L 05/01/18 05:01 140 H 44 H 170/88 H 94 L Intake and Output (Last 8hrs): Intake & Output 04/30/18 05/01/18 05/01/18 22:59 06:59 14:59 Intake Total 680 380 Output Total 450 500 Balance 230 -120 Intake: IV 180 380 Left Antecubital 100 antibiotics 100 cardizem 180 Oral 500 Output: Urine 450 500 Urethral (Fox) 450 500 Other: Voiding Method Indwelling Catheter # Bowel Movements 0 - Physical Exam Physical Exam Limitations: Positive for: Altered Mental Status Head: Positive for: Atraumatic, Normocephalic Pupils: Positive for: PERRL Extroacular Muscles: Positive for: EOMI Conjunctiva: Positive for: Normal Mouth: Positive for: Moist Mucous Membranes Neck: Positive for: Normal Range of Motion Respiratory/Chest: Positive for: Clear to Auscultation. Negative for: Good Air Exchange Cardiovascular: Positive for: Irregular Rhythm (irregularly irregular), Tachycardic. Negative for: Regular Rate and Rhythm, Murmurs, Rub, Gallop Abdomen: Positive for: Normal Bowel Sounds. Negative for: Tenderness, Distention, Peritoneal Signs Back: Positive for: Other (kyphosis) Upper Extremity: Positive for: Other (right AV fistula). Negative for: Cyanosis, Edema Lower Extremity: Positive for: Normal Inspection, Edema (trace pedal edema b/l) Neurological: Positive for: GCS=15, CN II-XII Intact, Speech Normal Skin: Positive for: Warm, Dry, Normal Color. Negative for: Rashes Psychiatric: Positive for: Alert. Negative for: Oriented x 3, Normal Insight, Normal Concentration - Medications Active Medications: Active Medications Generic Name Dose Route Start Last Admin Trade Name Freq PRN Reason Stop Dose Admin Albuterol/Ipratropium 3 ml 04/25/18 15:35 04/29/18 19:47 Duoneb 3 Mg/0.5 Mg (3 Ml) Ud IH 3 ml Q4H PRN Administration Shortness of Breath Apixaban 2.5 mg 04/28/18 10:00 04/30/18 21:35 Eliquis PO 2.5 mg Q12 BIJAN Administration Protocol Aspirin 81 mg 04/26/18 10:00 04/30/18 10:35 Aspirin Chewable PO Not Given DAILY BIJAN Budesonide 0.5 mg 04/26/18 20:00 05/01/18 07:17 Pulmicort Respules IH 0.5 mg [id number] BIAJN Administration Diltiazem HCl 90 mg 05/01/18 10:00 Cardizem PO QID BIJAN Doxycycline Hyclate 100 mg 04/27/18 22:00 04/30/18 21:35 Doryx PO 05/02/18 22:01 100 mg Q12 BIJAN Administration Protocol Cefepime HCl 1 gm in 100 mls @ 100 mls/hr 04/26/18 06:45 05/01/18 06:00 Maxipime 1gm IVPB 100 mls/hr Q24H BIJAN Administration Protocol diltiaZEM IVPB 100mg in NS 100 mls @ 5 mls/hr 04/28/18 22:44 05/01/18 08:25 Cardizem 100mg In Ns IV 10 mg/hr .Q20H PRN 10 mls/hr TITRATE PER MD ORDER Administration Protocol 5 MG/HR Methylprednisolone 20 mg 04/25/18 22:00 04/30/18 21:35 Solu-Medrol IVP 20 mg Q12 BIJAN Administration Pantoprazole Sodium 40 mg 04/28/18 06:00 05/01/18 05:25 Protonix Susp PO 40 mg 0600 BIJAN Administration Tacrolimus 3 mg 04/25/18 18:00 04/30/18 17:28 Prograf Cap PO 3 mg BID BIJAN Administration - Patient Studies Lab Studies: Microbiology Studies 04/25/18 13:00 Blood Culture - Final Blood NO GROWTH AFTER 5 DAYS Gram Stain - Final TEST NOT PERFORMED 04/25/18 12:35 Blood Culture - Final Blood NO GROWTH AFTER 5 DAYS Gram Stain - Final TEST NOT PERFORMED Lab Studies 05/01/18 05/01/18 05/01/18 Range/Units 08:30 05:40 05:40 WBC 10.0 (4.5-11.0) 10^3/uL RBC 3.23 L (3.5-6.1) 10^6/uL Hgb 9.9 L (12.0-16.0) g/dL Hct 32.6 L (36.0-48.0) % MCV 100.9 (80.0-105.0) fl MCH 30.7 (25.0-35.0) pg MCHC 30.4 L (31.0-37.0) g/dl RDW 17.4 H (11.5-14.5) % Plt Count 147 (120.0-450.0) 10^3/uL MPV 11.4 H (7.0-11.0) fl Neut % (Auto) 84.0 H (50.0-68.0) % Lymph % (Auto) 11.1 L (22.0-35.0) % Todd % (Auto) 4.5 (1.0-6.0) % Eos % (Auto) 0.0 L (1.5-5.0) % Baso % (Auto) 0.4 (0.0-3.0) % Lymph # (Auto) 1.1 L (1.2-3.4) Todd # (Auto) 0.5 (0.1-0.6) Eos # (Auto) 0.0 (0.0-0.7) Baso # (Auto) 0.04 (0.0-2.0) K/mm3 Absolute Neuts (auto) 8.44 H (1.4-6.5) pCO2 41 (35-45) mm/Hg pO2 76.0 L (80-100) mm/Hg HCO3 23.7 (21-28) mmol/L ABG pH 7.37 (7.35-7.45) ABG Total CO2 25.0 (22-28) mmol.L ABG O2 Saturation 97.7 (95-98) % ABG O2 Content 13.2 L (15-23) ML/dl ABG Base Excess -1.5 (-2.0-3.0) mmol/L ABG Hemoglobin 9.9 L (11.7-17.4) g/dL ABG Carboxyhemoglobin 2.2 H (0.5-1.5) % POC ABG HHb (Measured) 2.2 (0-5) % ABG Methemoglobin 1.1 (0.0-3.0) % ABG O2 Capacity 13.5 L (16-24) mL/dl Hgb O2 Saturation 94.5 L (95.0-98.0) % FiO2 36.0 % Sodium 146 (132-148) mmol/L Chloride 112 H (98-107) mmol/L Carbon Dioxide 24 (21-33) mmol/L Anion Gap 16 (10-20) BUN 72 H (7-21) mg/dL Creatinine 4.4 H (0.7-1.2) mg/dl Est GFR ( Amer) 12 Est GFR (Non-Af Amer) 10 POC Glucose (mg/dL) (65-110) mg/dL Random Glucose 222 H (70-110) mg/dL Calcium 12.2 H* (8.4-10.5) mg/dL Total Bilirubin 0.9 (0.2-1.3) mg/dL AST 50 H D (14-36) U/L ALT 71 H (7-56) U/L Alkaline Phosphatase 88 (38-126) U/L Total Protein 7.1 (5.8-8.3) g/dL Albumin 4.0 (3.0-4.8) g/dL Globulin 3.1 gm/dL Albumin/Globulin Ratio 1.3 (1.1-1.8) Rheumatoid Arth Interp (NEGATIVE) ANAI Screen (Negative) 04/30/18 04/30/18 04/30/18 Range/Units 16:16 12:16 11:12 WBC (4.5-11.0) 10^3/uL RBC (3.5-6.1) 10^6/uL Hgb (12.0-16.0) g/dL Hct (36.0-48.0) % MCV (80.0-105.0) fl MCH (25.0-35.0) pg MCHC (31.0-37.0) g/dl RDW (11.5-14.5) % Plt Count (120.0-450.0) 10^3/uL MPV (7.0-11.0) fl Neut % (Auto) (50.0-68.0) % Lymph % (Auto) (22.0-35.0) % Todd % (Auto) (1.0-6.0) % Eos % (Auto) (1.5-5.0) % Baso % (Auto) (0.0-3.0) % Lymph # (Auto) (1.2-3.4) Todd # (Auto) (0.1-0.6) Eos # (Auto) (0.0-0.7) Baso # (Auto) (0.0-2.0) K/mm3 Absolute Neuts (auto) (1.4-6.5) pCO2 38 (35-45) mm/Hg pO2 109.0 H (80-100) mm/Hg HCO3 24.1 (21-28) mmol/L ABG pH 7.41 (7.35-7.45) ABG Total CO2 25.3 (22-28) mmol.L ABG O2 Saturation 99.5 H (95-98) % ABG O2 Content 11.8 L (15-23) ML/dl ABG Base Excess -0.4 (-2.0-3.0) mmol/L ABG Hemoglobin 8.6 L (11.7-17.4) g/dL ABG Carboxyhemoglobin 2.1 H (0.5-1.5) % POC ABG HHb (Measured) 0.5 (0-5) % ABG Methemoglobin 1.3 (0.0-3.0) % ABG O2 Capacity 11.9 L (16-24) mL/dl Hgb O2 Saturation 96.1 (95.0-98.0) % FiO2 32.0 % Sodium (132-148) mmol/L Chloride (98-107) mmol/L Carbon Dioxide (21-33) mmol/L Anion Gap (10-20) BUN (7-21) mg/dL Creatinine (0.7-1.2) mg/dl Est GFR ( Amer) Est GFR (Non-Af Amer) POC Glucose (mg/dL) 170 H 128 H (65-110) mg/dL Random Glucose (70-110) mg/dL Calcium (8.4-10.5) mg/dL Total Bilirubin (0.2-1.3) mg/dL AST (14-36) U/L ALT (7-56) U/L Alkaline Phosphatase (38-126) U/L Total Protein (5.8-8.3) g/dL Albumin (3.0-4.8) g/dL Globulin gm/dL Albumin/Globulin Ratio (1.1-1.8) Rheumatoid Arth Interp (NEGATIVE) ANAI Screen (Negative) 04/30/18 04/29/18 04/27/18 Range/Units 07:17 14:00 05:00 WBC (4.5-11.0) 10^3/uL RBC (3.5-6.1) 10^6/uL Hgb (12.0-16.0) g/dL Hct (36.0-48.0) % MCV (80.0-105.0) fl MCH (25.0-35.0) pg MCHC (31.0-37.0) g/dl RDW (11.5-14.5) % Plt Count (120.0-450.0) 10^3/uL MPV (7.0-11.0) fl Neut % (Auto) (50.0-68.0) % Lymph % (Auto) (22.0-35.0) % Todd % (Auto) (1.0-6.0) % Eos % (Auto) (1.5-5.0) % Baso % (Auto) (0.0-3.0) % Lymph # (Auto) (1.2-3.4) Todd # (Auto) (0.1-0.6) Eos # (Auto) (0.0-0.7) Baso # (Auto) (0.0-2.0) K/mm3 Absolute Neuts (auto) (1.4-6.5) pCO2 (35-45) mm/Hg pO2 (80-100) mm/Hg HCO3 (21-28) mmol/L ABG pH (7.35-7.45) ABG Total CO2 (22-28) mmol.L ABG O2 Saturation (95-98) % ABG O2 Content (15-23) ML/dl ABG Base Excess (-2.0-3.0) mmol/L ABG Hemoglobin (11.7-17.4) g/dL ABG Carboxyhemoglobin (0.5-1.5) % POC ABG HHb (Measured) (0-5) % ABG Methemoglobin (0.0-3.0) % ABG O2 Capacity (16-24) mL/dl Hgb O2 Saturation (95.0-98.0) % FiO2 % Sodium (132-148) mmol/L Chloride (98-107) mmol/L Carbon Dioxide (21-33) mmol/L Anion Gap (10-20) BUN (7-21) mg/dL Creatinine (0.7-1.2) mg/dl Est GFR ( Amer) Est GFR (Non-Af Amer) POC Glucose (mg/dL) 158 H (65-110) mg/dL Random Glucose (70-110) mg/dL Calcium (8.4-10.5) mg/dL Total Bilirubin (0.2-1.3) mg/dL AST (14-36) U/L ALT (7-56) U/L Alkaline Phosphatase (38-126) U/L Total Protein (5.8-8.3) g/dL Albumin (3.0-4.8) g/dL Globulin gm/dL Albumin/Globulin Ratio (1.1-1.8) Rheumatoid Arth Interp Negative (NEGATIVE) ANAI Screen Negative (Negative) Laboratory Results - last 24 hr 04/27/18 04/29/18 04/30/18 05:00 14:00 07:17 WBC RBC Hgb Hct MCV MCH MCHC RDW Plt Count MPV Neut % (Auto) Lymph % (Auto) Todd % (Auto) Eos % (Auto) Baso % (Auto) Lymph # (Auto) Todd # (Auto) Eos # (Auto) Baso # (Auto) Absolute Neuts (auto) pCO2 pO2 HCO3 ABG pH ABG Total CO2 ABG O2 Saturation ABG O2 Content ABG Base Excess ABG Hemoglobin ABG Carboxyhemoglobin POC ABG HHb (Measured) ABG Methemoglobin ABG O2 Capacity Hgb O2 Saturation FiO2 Sodium Chloride Carbon Dioxide Anion Gap BUN Creatinine Est GFR ( Amer) Est GFR (Non-Af Amer) POC Glucose (mg/dL) 158 H Random Glucose Calcium Total Bilirubin AST ALT Alkaline Phosphatase Total Protein Albumin Globulin Albumin/Globulin Ratio Rheumatoid Arth Interp Negative ANAI Screen Negative 04/30/18 04/30/18 04/30/18 11:12 12:16 16:16 WBC RBC Hgb Hct MCV MCH MCHC RDW Plt Count MPV Neut % (Auto) Lymph % (Auto) Todd % (Auto) Eos % (Auto) Baso % (Auto) Lymph # (Auto) Todd # (Auto) Eos # (Auto) Baso # (Auto) Absolute Neuts (auto) pCO2 38 pO2 109.0 H HCO3 24.1 ABG pH 7.41 ABG Total CO2 25.3 ABG O2 Saturation 99.5 H ABG O2 Content 11.8 L ABG Base Excess -0.4 ABG Hemoglobin 8.6 L ABG Carboxyhemoglobin 2.1 H POC ABG HHb (Measured) 0.5 ABG Methemoglobin 1.3 ABG O2 Capacity 11.9 L Hgb O2 Saturation 96.1 FiO2 32.0 Sodium Chloride Carbon Dioxide Anion Gap BUN Creatinine Est GFR ( Amer) Est GFR (Non-Af Amer) POC Glucose (mg/dL) 128 H 170 H Random Glucose Calcium Total Bilirubin AST ALT Alkaline Phosphatase Total Protein Albumin Globulin Albumin/Globulin Ratio Rheumatoid Arth Interp ANAI Screen 05/01/18 05/01/18 05/01/18 05:40 05:40 08:30 WBC 10.0 RBC 3.23 L Hgb 9.9 L Hct 32.6 L MCV 100.9 MCH 30.7 MCHC 30.4 L RDW 17.4 H Plt Count 147 MPV 11.4 H Neut % (Auto) 84.0 H Lymph % (Auto) 11.1 L Todd % (Auto) 4.5 Eos % (Auto) 0.0 L Baso % (Auto) 0.4 Lymph # (Auto) 1.1 L Todd # (Auto) 0.5 Eos # (Auto) 0.0 Baso # (Auto) 0.04 Absolute Neuts (auto) 8.44 H pCO2 41 pO2 76.0 L HCO3 23.7 ABG pH 7.37 ABG Total CO2 25.0 ABG O2 Saturation 97.7 ABG O2 Content 13.2 L ABG Base Excess -1.5 ABG Hemoglobin 9.9 L ABG Carboxyhemoglobin 2.2 H POC ABG HHb (Measured) 2.2 ABG Methemoglobin 1.1 ABG O2 Capacity 13.5 L Hgb O2 Saturation 94.5 L FiO2 36.0 Sodium 146 Chloride 112 H Carbon Dioxide 24 Anion Gap 16 BUN 72 H Creatinine 4.4 H Est GFR ( Amer) 12 Est GFR (Non-Af Amer) 10 POC Glucose (mg/dL) Random Glucose 222 H Calcium 12.2 H* Total Bilirubin 0.9 AST 50 H D ALT 71 H Alkaline Phosphatase 88 Total Protein 7.1 Albumin 4.0 Globulin 3.1 Albumin/Globulin Ratio 1.3 Rheumatoid Arth Interp ANAI Screen Fingerstick Blood Sugar Results: 180 Review of Systems - Review of Systems Systems not reviewed;Unavailable: Altered Mental Status Critical Care Progress Note - Nutrition Nutrition: Nutrition Category Date Time Status Dysphagia/Modified Consistency Diet [DIET] Diets 04/28/18 Dinner Ordered Assessment/Plan - Assessment and Plan (Free Text) Assessment: 77 year old female with past medical history of questionable congestive heart failure with last EF of 50%, COPD, LUE DVT currently on eliquis, SLE, lupus nephritis (currently on prednisone and prograf), and osteoporosis presents with worsened, labored breathing. Patient was admitted for hypoxic, hypercarbic respiratory failure 2/2 to CHF exacerbation vs. bilobar pneumonia in the setting of immunosuppresive therapy vs. COPD exacerbation. Pt weaned off of bipap from this AM. Will f/u with renal about plans for dialysis vs conservative management. Plan: Neuro: - Pt remains AOx0 - Pt was given geodon @ 5 am for agitation, will continue to monitor once the medication wears off - Pt is easily arousable when called. - CT Head - pending official read Pulm: Hypercarbic respiratory failure likely 2/2 to CHF Exacerbation - Sating 99 on NC - CXR: severe cardiomegaly and mild vascular congestion - Last echocardiogram from prior admission in 04/26/18 showed EF of 46.5% with mild impairment of systolic function - Repeat ABG to monitor for improvement. - Consider beta blockers for congestive heart failure - Maintain O2 sat >88% Bilateral Interstitial Pneumonia - CXR: bilateral lower lobe effusion - Negative influenza, urine legionella - Procalcitonin: 0.69 - Lactate: last was 1.6 from 2.7 - Follow up BCx, UCx, strep urine antigen - Continue with doxycycline and cefepime day 6. Continue with renally dose vancomycin as per [facility], Dr. Hayden COPD - Continue with duonebs, and pulmicort - Steroids tapered Cardio: Atrial Fibrillation - Patient with documented history of atrial fibrillation - Heparin drip was stopped due to decrease in hemoglobin to less than 7 - Transitioning pt off of cardizem drip increased cardizem PO to 90 mg QID NSTEMI - EKG: atrial fibrillation with HR: 93 - Continue with aspirin, eliquis - Held heparin drip due to reduced hemoglobin. - Cardio recs appreciated Heme Normocytic Anemia s/p 2u PRBC transfusion - Hgb: 9.3 and stable - Unremarkable iron and ferritin levels. Low TIBC at 187. - Stool guiaic (-), H&H is stable - Goal hemoglobin>8 due to cardiac issues Nephro: CKD Stage IV s/p renal transplant - BUN/Cr: 72/4.4 Cr is stable from yesterday and pt was given IV fluids. - Continue with home tacrolimus and prednisone - Avoid nephrotoxic agents such as lisinopril, losartan, IV contrast - Administer lasix on as needed basis. Standing dose discontinued - Nephro consulted, recs appreciated - cont to keep pt euvolemic - Pt output through fox was 850cc over the past 24 hours. - Maintain euvolemia GI prophylaxis: protonix 40 mg daily DVT prophylaxis: eliquis Dispo: Discussion made by hospice team and confirmed by a separate call placed by myself that the pt will be made DNR/DNI as per all of the families wishes. Pt seen and discussed with Dr. Jessica Ernst, PGY-1 <Fausto Lopez - Last Filed: 05/01/18 12:58> CCU Objective - Vital Signs / Intake & Output Vital Signs (Last 4 hours): Vital Signs Pulse Resp BP Pulse Ox 05/01/18 10:00 100 H 36 H 144/94 H 98 05/01/18 09:00 98 H 36 H 145/93 H 98 Intake and Output (Last 8hrs): Intake & Output 04/30/18 05/01/18 05/01/18 22:59 06:59 14:59 Intake Total 680 380 Output Total 450 500 Balance 230 -120 Intake: IV 180 380 Left Antecubital 100 antibiotics 100 cardizem 180 Oral 500 Output: Urine 450 500 Urethral (Fox) 450 500 Other: Voiding Method Indwelling Catheter # Bowel Movements 0 - Medications Active Medications: Active Medications Generic Name Dose Route Start Last Admin Trade Name Freq PRN Reason Stop Dose Admin Albuterol/Ipratropium 3 ml 04/25/18 15:35 04/29/18 19:47 Duoneb 3 Mg/0.5 Mg (3 Ml) Ud IH 3 ml Q4H PRN Administration Shortness of Breath Apixaban 2.5 mg 04/28/18 10:00 05/01/18 09:35 Eliquis PO 2.5 mg Q12 BIJAN Administration Protocol Aspirin 81 mg 04/26/18 10:00 05/01/18 09:37 Aspirin Chewable PO 81 mg DAILY BIJAN Administration Budesonide 0.5 mg 04/26/18 20:00 05/01/18 07:17 Pulmicort Respules IH 0.5 mg [id number] BIJAN Administration Diltiazem HCl 90 mg 05/01/18 10:00 05/01/18 09:35 Cardizem PO 90 mg QID BIJAN Administration Doxycycline Hyclate 100 mg 04/27/18 22:00 05/01/18 09:34 Doryx PO 05/02/18 22:01 100 mg Q12 BIJAN Administration Protocol Cefepime HCl 1 gm in 100 mls @ 100 mls/hr 04/26/18 06:45 05/01/18 06:00 Maxipime 1gm IVPB 100 mls/hr Q24H BIJAN Administration Protocol diltiaZEM IVPB 100mg in NS 100 mls @ 5 mls/hr 04/28/18 22:44 05/01/18 08:25 Cardizem 100mg In Ns IV 10 mg/hr .Q20H PRN 10 mls/hr TITRATE PER MD ORDER Administration Protocol 5 MG/HR Pantoprazole Sodium 40 mg 04/28/18 06:00 02/13/19 05:25 Protonix Susp PO 40 mg 0600 BIJAN Administration Prednisone 20 mg 05/02/18 10:00 Prednisone Tab PO DAILY BIJAN Tacrolimus 3 mg 04/25/18 18:00 05/01/18 09:35 Prograf Cap PO 3 mg BID BIJAN Administration - Patient Studies Lab Studies: Microbiology Studies 04/25/18 13:00 Blood Culture - Final Blood NO GROWTH AFTER 5 DAYS Gram Stain - Final TEST NOT PERFORMED 04/25/18 12:35 Blood Culture - Final Blood NO GROWTH AFTER 5 DAYS Gram Stain - Final TEST NOT PERFORMED Lab Studies 05/01/18 05/01/18 05/01/18 Range/Units 08:30 05:40 05:40 WBC 10.0 (4.5-11.0) 10^3/uL RBC 3.23 L (3.5-6.1) 10^6/uL Hgb 9.9 L (12.0-16.0) g/dL Hct 32.6 L (36.0-48.0) % MCV 100.9 (80.0-105.0) fl MCH 30.7 (25.0-35.0) pg MCHC 30.4 L (31.0-37.0) g/dl RDW 17.4 H (11.5-14.5) % Plt Count 147 (120.0-450.0) 10^3/uL MPV 11.4 H (7.0-11.0) fl Neut % (Auto) 84.0 H (50.0-68.0) % Lymph % (Auto) 11.1 L (22.0-35.0) % Todd % (Auto) 4.5 (1.0-6.0) % Eos % (Auto) 0.0 L (1.5-5.0) % Baso % (Auto) 0.4 (0.0-3.0) % Lymph # (Auto) 1.1 L (1.2-3.4) Todd # (Auto) 0.5 (0.1-0.6) Eos # (Auto) 0.0 (0.0-0.7) Baso # (Auto) 0.04 (0.0-2.0) K/mm3 Absolute Neuts (auto) 8.44 H (1.4-6.5) pCO2 41 (35-45) mm/Hg pO2 76.0 L (80-100) mm/Hg HCO3 23.7 (21-28) mmol/L ABG pH 7.37 (7.35-7.45) ABG Total CO2 25.0 (22-28) mmol.L ABG O2 Saturation 97.7 (95-98) % ABG O2 Content 13.2 L (15-23) ML/dl ABG Base Excess -1.5 (-2.0-3.0) mmol/L ABG Hemoglobin 9.9 L (11.7-17.4) g/dL ABG Carboxyhemoglobin 2.2 H (0.5-1.5) % POC ABG HHb (Measured) 2.2 (0-5) % ABG Methemoglobin 1.1 (0.0-3.0) % ABG O2 Capacity 13.5 L (16-24) mL/dl Hgb O2 Saturation 94.5 L (95.0-98.0) % FiO2 36.0 % Sodium 146 (132-148) mmol/L Potassium 5.2 H (3.6-5.0) mmol/L Chloride 112 H (98-107) mmol/L Carbon Dioxide 24 (21-33) mmol/L Anion Gap 15 (10-20) BUN 72 H (7-21) mg/dL Creatinine 4.4 H (0.7-1.2) mg/dl Est GFR ( Amer) 12 Est GFR (Non-Af Amer) 10 POC Glucose (mg/dL) (65-110) mg/dL Random Glucose 222 H (70-110) mg/dL Calcium 12.2 H* (8.4-10.5) mg/dL Total Bilirubin 0.9 (0.2-1.3) mg/dL AST 50 H D (14-36) U/L ALT 71 H (7-56) U/L Alkaline Phosphatase 88 (38-126) U/L Total Protein 7.1 (5.8-8.3) g/dL Albumin 4.0 (3.0-4.8) g/dL Globulin 3.1 gm/dL Albumin/Globulin Ratio 1.3 (1.1-1.8) Rheumatoid Arth Interp (NEGATIVE) 02/03/0604/30/18 04/30/18 Range/Units 16:16 11:12 07:17 WBC (4.5-11.0) 10^3/uL RBC (3.5-6.1) 10^6/uL Hgb (12.0-16.0) g/dL Hct (36.0-48.0) % MCV (80.0-105.0) fl MCH (25.0-35.0) pg MCHC (31.0-37.0) g/dl RDW (11.5-14.5) % Plt Count (120.0-450.0) 10^3/uL MPV (7.0-11.0) fl Neut % (Auto) (50.0-68.0) % Lymph % (Auto) (22.0-35.0) % Todd % (Auto) (1.0-6.0) % Eos % (Auto) (1.5-5.0) % Baso % (Auto) (0.0-3.0) % Lymph # (Auto) (1.2-3.4) Todd # (Auto) (0.1-0.6) Eos # (Auto) (0.0-0.7) Baso # (Auto) (0.0-2.0) K/mm3 Absolute Neuts (auto) (1.4-6.5) pCO2 (35-45) mm/Hg pO2 (80-100) mm/Hg HCO3 (21-28) mmol/L ABG pH (7.35-7.45) ABG Total CO2 (22-28) mmol.L ABG O2 Saturation (95-98) % ABG O2 Content (15-23) ML/dl ABG Base Excess (-2.0-3.0) mmol/L ABG Hemoglobin (11.7-17.4) g/dL ABG Carboxyhemoglobin (0.5-1.5) % POC ABG HHb (Measured) (0-5) % ABG Methemoglobin (0.0-3.0) % ABG O2 Capacity (16-24) mL/dl Hgb O2 Saturation (95.0-98.0) % FiO2 % Sodium (132-148) mmol/L Potassium (3.6-5.0) mmol/L Chloride (98-107) mmol/L Carbon Dioxide (21-33) mmol/L Anion Gap (10-20) BUN (7-21) mg/dL Creatinine (0.7-1.2) mg/dl Est GFR ( Amer) Est GFR (Non-Af Amer) POC Glucose (mg/dL) 170 H 128 H 158 H (65-110) mg/dL Random Glucose (70-110) mg/dL Calcium (8.4-10.5) mg/dL Total Bilirubin (0.2-1.3) mg/dL AST (14-36) U/L ALT (7-56) U/L Alkaline Phosphatase (38-126) U/L Total Protein (5.8-8.3) g/dL Albumin (3.0-4.8) g/dL Globulin gm/dL Albumin/Globulin Ratio (1.1-1.8) Rheumatoid Arth Interp (NEGATIVE) 04/29/18 Range/Units 14:00 WBC (4.5-11.0) 10^3/uL RBC (3.5-6.1) 10^6/uL Hgb (12.0-16.0) g/dL Hct (36.0-48.0) % MCV (80.0-105.0) fl MCH (25.0-35.0) pg MCHC (31.0-37.0) g/dl RDW (11.5-14.5) % Plt Count (120.0-450.0) 10^3/uL MPV (7.0-11.0) fl Neut % (Auto) (50.0-68.0) % Lymph % (Auto) (22.0-35.0) % Todd % (Auto) (1.0-6.0) % Eos % (Auto) (1.5-5.0) % Baso % (Auto) (0.0-3.0) % Lymph # (Auto) (1.2-3.4) Todd # (Auto) (0.1-0.6) Eos # (Auto) (0.0-0.7) Baso # (Auto) (0.0-2.0) K/mm3 Absolute Neuts (auto) (1.4-6.5) pCO2 (35-45) mm/Hg pO2 (80-100) mm/Hg HCO3 (21-28) mmol/L ABG pH (7.35-7.45) ABG Total CO2 (22-28) mmol.L ABG O2 Saturation (95-98) % ABG O2 Content (15-23) ML/dl ABG Base Excess (-2.0-3.0) mmol/L ABG Hemoglobin (11.7-17.4) g/dL ABG Carboxyhemoglobin (0.5-1.5) % POC ABG HHb (Measured) (0-5) % ABG Methemoglobin (0.0-3.0) % ABG O2 Capacity (16-24) mL/dl Hgb O2 Saturation (95.0-98.0) % FiO2 % Sodium (132-148) mmol/L Potassium (3.6-5.0) mmol/L Chloride (98-107) mmol/L Carbon Dioxide (21-33) mmol/L Anion Gap (10-20) BUN (7-21) mg/dL Creatinine (0.7-1.2) mg/dl Est GFR ( Amer) Est GFR (Non-Af Amer) POC Glucose (mg/dL) (65-110) mg/dL Random Glucose (70-110) mg/dL Calcium (8.4-10.5) mg/dL Total Bilirubin (0.2-1.3) mg/dL AST (14-36) U/L ALT (7-56) U/L Alkaline Phosphatase (38-126) U/L Total Protein (5.8-8.3) g/dL Albumin (3.0-4.8) g/dL Globulin gm/dL Albumin/Globulin Ratio (1.1-1.8) Rheumatoid Arth Interp Negative (NEGATIVE) Laboratory Results - last 24 hr 04/29/18 04/30/18 04/30/18 14:00 07:17 11:12 WBC RBC Hgb Hct MCV MCH MCHC RDW Plt Count MPV Neut % (Auto) Lymph % (Auto) Todd % (Auto) Eos % (Auto) Baso % (Auto) Lymph # (Auto) Todd # (Auto) Eos # (Auto) Baso # (Auto) Absolute Neuts (auto) pCO2 pO2 HCO3 ABG pH ABG Total CO2 ABG O2 Saturation ABG O2 Content ABG Base Excess ABG Hemoglobin ABG Carboxyhemoglobin POC ABG HHb (Measured) ABG Methemoglobin ABG O2 Capacity Hgb O2 Saturation FiO2 Sodium Potassium Chloride Carbon Dioxide Anion Gap BUN Creatinine Est GFR ( Amer) Est GFR (Non-Af Amer) POC Glucose (mg/dL) 158 H 128 H Random Glucose Calcium Total Bilirubin AST ALT Alkaline Phosphatase Total Protein Albumin Globulin Albumin/Globulin Ratio Rheumatoid Arth Interp Negative 04/30/18 05/01/18 05/01/18 16:16 05:40 05:40 WBC 10.0 RBC 3.23 L Hgb 9.9 L Hct 32.6 L MCV 100.9 MCH 30.7 MCHC 30.4 L RDW 17.4 H Plt Count 147 MPV 11.4 H Neut % (Auto) 84.0 H Lymph % (Auto) 11.1 L Todd % (Auto) 4.5 Eos % (Auto) 0.0 L Baso % (Auto) 0.4 Lymph # (Auto) 1.1 L Todd # (Auto) 0.5 Eos # (Auto) 0.0 Baso # (Auto) 0.04 Absolute Neuts (auto) 8.44 H pCO2 pO2 HCO3 ABG pH ABG Total CO2 ABG O2 Saturation ABG O2 Content ABG Base Excess ABG Hemoglobin ABG Carboxyhemoglobin POC ABG HHb (Measured) ABG Methemoglobin ABG O2 Capacity Hgb O2 Saturation FiO2 Sodium 146 Potassium 5.2 H Chloride 112 H Carbon Dioxide 24 Anion Gap 15 BUN 72 H Creatinine 4.4 H Est GFR ( Amer) 12 Est GFR (Non-Af Amer) 10 POC Glucose (mg/dL) 170 H Random Glucose 222 H Calcium 12.2 H* Total Bilirubin 0.9 AST 50 H D ALT 71 H Alkaline Phosphatase 88 Total Protein 7.1 Albumin 4.0 Globulin 3.1 Albumin/Globulin Ratio 1.3 Rheumatoid Arth Interp 05/01/18 08:30 WBC RBC Hgb Hct MCV MCH MCHC RDW Plt Count MPV Neut % (Auto) Lymph % (Auto) Todd % (Auto) Eos % (Auto) Baso % (Auto) Lymph # (Auto) Todd # (Auto) Eos # (Auto) Baso # (Auto) Absolute Neuts (auto) pCO2 41 pO2 76.0 L HCO3 23.7 ABG pH 7.37 ABG Total CO2 25.0 ABG O2 Saturation 97.7 ABG O2 Content 13.2 L ABG Base Excess -1.5 ABG Hemoglobin 9.9 L ABG Carboxyhemoglobin 2.2 H POC ABG HHb (Measured) 2.2 ABG Methemoglobin 1.1 ABG O2 Capacity 13.5 L Hgb O2 Saturation 94.5 L FiO2 36.0 Sodium Potassium Chloride Carbon Dioxide Anion Gap BUN Creatinine Est GFR ( Amer) Est GFR (Non-Af Amer) POC Glucose (mg/dL) Random Glucose Calcium Total Bilirubin AST ALT Alkaline Phosphatase Total Protein Albumin Globulin Albumin/Globulin Ratio Rheumatoid Arth Interp Radiology Impressions: Radiology Impressions Chest X-Ray 05/01/18 08:22 IMPRESSION: Severe cardiomegaly Head CT 05/01/18 10:44 IMPRESSION: No acute intracranial findings Critical Care Progress Note - Nutrition Nutrition: Nutrition Category Date Time Status Dysphagia/Modified Consistency Diet [DIET] Diets 04/28/18 Dinner Ordered Assessment/Plan - Assessment and Plan (Free Text) Plan: Patient seen and examined on rounds with resident, agree with note with following additions/exceptions: Patient is 77 year old female wPMHX congestive heart failure with last EF of 50%, COPD, LUE DVT currently on eliquis, SLE, lupus nephritis (currently on prednisone and prograf), and osteoporosis, presented [facility] hypercapnic hypoxic resp failure, CHF exacerbation. Currently somewhat somnolent, but awakens to name, and answers simple questions On cadrizem Drip, difficult to control Afib Labs, imaging, chart reviewed Worsening renal function in setting of renal transplant hx, ?rejection, for renal biopsy by IR today Renal following CT head pending ABG normal Renal failure Hx of renal transplant CHF COPD Afib on A/C Lupus nephritis AMS Recommend: - Supp o2 as needed, duonebs PRN - would DC abx, cultures negative - BP control - would avoid sedatives, (anti-psychotics, Haldol, BZDs, etc) - rate control, Cardizem drip, overlap with Cardizem PO 90mg QID - Hold Eliquis, renal biopsy today - NPO - Hold LAsix, ACEI - follow up renal - CT head - GI ppx - DVT ppx - Monitor in MICU DNR/DNI Poor Prognosis Critical care time 35 minutes
[2018-05-01] MEDS: MethylPREDNISolone 40 mg Vial IVP SCH (09:38)
--- NOTE | 2018-05-01 10:51 | RAD ---
Date of service: 05/01/2018 HISTORY: SOB COMPARISON: 04/29/2018 FINDINGS: LUNGS: No active pulmonary disease. PLEURA: No significant pleural effusion identified, no pneumothorax apparent. CARDIOVASCULAR: Aortic calcification Severe cardiomegaly mild vascular congestion. Aortic tortuosity OSSEOUS STRUCTURES: No significant abnormalities. VISUALIZED UPPER ABDOMEN: Normal. OTHER FINDINGS: None. IMPRESSION: Severe cardiomegaly
[2018-05-01] MEDS ORDERED: Labetalol 5mg/ml (4ml) IVP ONE (11:45)
[2018-05-01] MEDS ORDERED: Insulin Regular 1 UNITS/0.01 ML ML SC ONE ×2 (11:47→14:15)
[2018-05-01] MEDS ORDERED: Dextrose 50% SYRINGE Inj (50 ml) IVP ONE ×2 (11:48→14:15)
--- NOTE | 2018-05-01 12:17 | CP.PCM.PN ---
Subjective - Date & Time of Evaluation Date of Evaluation: 05/01/18 Time of Evaluation: 09:10 - Subjective Subjective: Patient is somewhat lethargic today, no fevers, but is tachypneic as well. Objective - Vital Signs/Intake and Output Vital Signs (last 24 hours): Temp Pulse Resp BP Pulse Ox 98.8 F 113 H 30 H 142/109 H 98 04/30/18 08:00 04/30/18 12:05 04/30/18 10:00 04/30/18 12:05 04/30/18 10:00 Intake and Output: 04/30/18 04/30/18 06:59 18:59 Intake Total 311 20 Output Total 600 Balance -289 20 - Medications Medications: Current Medications Albuterol/Ipratropium (Duoneb 3 Mg/0.5 Mg (3 Ml) Ud) 3 ml IH Q4H PRN PRN Reason: Shortness of Breath Last Admin: 04/29/18 19:47 Dose: 3 ml Apixaban (Eliquis) 2.5 mg PO Q12 [facility]; Protocol Last Admin: 04/30/18 10:28 Dose: Not Given Aspirin (Aspirin Chewable) 81 mg PO DAILY [facility] Last Admin: 04/30/18 10:35 Dose: Not Given Budesonide (Pulmicort Respules) 0.5 mg IH [id number] [facility] Last Admin: 04/30/18 07:27 Dose: 0.5 mg Diltiazem HCl (Cardizem) 60 mg PO Q8H [facility] Last Admin: 04/30/18 12:05 Dose: Not Given Doxycycline Hyclate (Doryx) 100 mg PO Q12 [facility]; Protocol Stop: 05/02/18 22:01 Last Admin: 04/30/18 10:35 Dose: Not Given Cefepime HCl (Maxipime 1gm) 1 gm in 100 mls @ 100 mls/hr IVPB Q24H [facility]; Protocol Last Admin: 04/30/18 06:54 Dose: 100 mls/hr diltiaZEM IVPB 100mg in NS (Cardizem 100mg In Ns) 100 mls @ 5 mls/hr IV .Q20H PRN; Protocol PRN Reason: TITRATE PER MD ORDER Last Titration: 04/30/18 10:45 Dose: 10 mg/hr, 10 mls/hr Methylprednisolone (Solu-Medrol) 20 mg IVP Q12 [facility] Last Admin: 04/30/18 10:06 Dose: 20 mg Pantoprazole Sodium (Protonix Susp) 40 mg PO 0600 [facility] Last Admin: 04/30/18 05:20 Dose: 40 mg Sodium Bicarbonate (Sodium Bicarbonate Tab) 325 mg PO BID [facility] Last Admin: 04/30/18 10:35 Dose: Not Given Tacrolimus (Prograf Cap) 3 mg PO BID [facility] Last Admin: 04/30/18 10:35 Dose: Not Given - Labs Labs: 04/30/18 05:30 04/30/18 05:30 PT 21.2 SECONDS (9.4-12.5) H 04/25/18 12:35 INR 1.88 04/25/18 12:35 APTT 35.1 Seconds (26.9-38.3) 04/26/18 05:50 - Constitutional Appears: Other (tahcypneic, lethargic) - Neck Exam Neck Exam: absent: Meningismus - Respiratory Exam Respiratory Exam: Decreased Breath Sounds - Cardiovascular Exam Cardiovascular Exam: +S1, +S2 - GI/Abdominal Exam GI & Abdominal Exam: Soft. absent: Tenderness Assessment and Plan - Assessment and Plan (Free Text) Plan: Assessment possible pneumonia in this patient with probable CHF exacerbation, R/O Influenza lethargy and tachypnea, acute, etiology to be determined chronic CHF with EF 50% COPD DVT on anticoagulation SLE with lupus nephritis S/P renal transplant osteoporosis Plan continue Cefepime and Doxycycline day 6 and completed Tamiflu discussed with Dr. Lopez regarding tachypnea and lethargy - his ICU team will be following up ABG, CT head and they will continue to monitor patient in the ICU will continue to monitor clinically cultures have been negative
--- NOTE | 2018-05-01 12:21 | CT ---
Date of service: 05/01/2018 PROCEDURE: CT HEAD WITHOUT CONTRAST. HISTORY: r/o stroke COMPARISON: None available. TECHNIQUE: Axial computed tomography images were obtained through the head/brain without intravenous contrast. Radiation dose: Total exam DLP = 952.62 mGy-cm. This CT exam was performed using one or more of the following dose reduction techniques: Automated exposure control, adjustment of the mA and/or kV according to patient size, and/or use of iterative reconstruction technique. FINDINGS: HEMORRHAGE: No intracranial hemorrhage. BRAIN: No mass effect or edema. Severe chronic microvascular changes are seen in the periventricular white matter. 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 VENTRICLES: Unremarkable. No hydrocephalus. CALVARIUM: Unremarkable. PARANASAL SINUSES: Unremarkable as visualized. No significant inflammatory changes. MASTOID AIR CELLS: Unremarkable as visualized. No inflammatory changes. OTHER FINDINGS: None. IMPRESSION: No acute intracranial findings
--- NOTE | 2018-05-01 12:45 | CP.PCM.PN ---
<Sage Ford - Last Filed: 05/01/18 12:47> Subjective - Date & Time of Evaluation Date of Evaluation: 05/01/18 Time of Evaluation: 07:00 - Subjective Subjective: Nephrology progress note: Patient seen and examined at bedside. No acute events overnight. Resting in bed comfortably. Denies any shortness of breath or chest pain. 12 point ROS performed and negative other than stated above. Objective - Vital Signs/Intake and Output Vital Signs (last 24 hours): Temp Pulse Resp BP Pulse Ox 98.5 F 100 H 36 H 144/94 H 98 05/01/18 08:00 05/01/18 10:00 05/01/18 10:00 05/01/18 10:00 05/01/18 10:00 Intake and Output: 05/01/18 05/01/18 06:59 18:59 Intake Total 380 Output Total 500 Balance -120 - Medications Medications: Current Medications Albuterol/Ipratropium (Duoneb 3 Mg/0.5 Mg (3 Ml) Ud) 3 ml IH Q4H PRN PRN Reason: Shortness of Breath Last Admin: 04/29/18 19:47 Dose: 3 ml Apixaban (Eliquis) 2.5 mg PO Q12 [facility]; Protocol Last Admin: 05/01/18 09:35 Dose: 2.5 mg Aspirin (Aspirin Chewable) 81 mg PO DAILY [facility] Last Admin: 05/01/18 09:37 Dose: 81 mg Budesonide (Pulmicort Respules) 0.5 mg IH [id number] [facility] Last Admin: 05/01/18 07:17 Dose: 0.5 mg Diltiazem HCl (Cardizem) 90 mg PO QID [facility] Last Admin: 05/01/18 09:35 Dose: 90 mg Doxycycline Hyclate (Doryx) 100 mg PO Q12 [facility]; Protocol Stop: 05/02/18 22:01 Last Admin: 05/01/18 09:34 Dose: 100 mg Cefepime HCl (Maxipime 1gm) 1 gm in 100 mls @ 100 mls/hr IVPB Q24H [facility]; Protocol Last Admin: 05/01/18 06:00 Dose: 100 mls/hr diltiaZEM IVPB 100mg in NS (Cardizem 100mg In Ns) 100 mls @ 5 mls/hr IV .Q20H PRN; Protocol PRN Reason: TITRATE PER MD ORDER Last Admin: 05/01/18 08:25 Dose: 10 mg/hr, 10 mls/hr Methylprednisolone (Solu-Medrol) 20 mg IVP Q12 [facility] Last Admin: 05/01/18 09:38 Dose: 20 mg Pantoprazole Sodium (Protonix Susp) 40 mg PO 0600 [facility] Last Admin: 05/01/18 05:25 Dose: 40 mg Tacrolimus (Prograf Cap) 3 mg PO BID [facility] Last Admin: 05/01/18 09:35 Dose: 3 mg - Labs Labs: 05/01/18 05:40 05/01/18 05:40 PT 21.2 SECONDS (9.4-12.5) H 04/25/18 12:35 INR 1.88 04/25/18 12:35 APTT 35.1 Seconds (26.9-38.3) 04/26/18 05:50 - Constitutional Appears: No Acute Distress - Head Exam Head Exam: ATRAUMATIC, NORMOCEPHALIC - Eye Exam Eye Exam: EOMI - ENT Exam ENT Exam: Mucous Membranes Moist - Respiratory Exam Respiratory Exam: Clear to Ausculation Bilateral. absent: Rales, Wheezes - Cardiovascular Exam Cardiovascular Exam: REGULAR RHYTHM, +S1, +S2 - GI/Abdominal Exam GI & Abdominal Exam: Soft. absent: Tenderness - Extremities Exam Extremities Exam: absent: Calf Tenderness, Pedal Edema - Neurological Exam Neurological Exam: Alert, Awake - Psychiatric Exam Psychiatric exam: Normal Mood - Skin Skin Exam: Dry, Warm Assessment and Plan - Assessment and Plan (Free Text) Assessment: 1. Acute kidney injury with CKD, stage IV 2. Status post donor kidney transplant 3. Hypercalcemia 4. Anemia 5. Influenza infection 6. Atrial fibrillation 7. Lupus nephritis 8. SLE 9. Nephrolithiasis of the right kidney 10. Left renal cyst 11. Hearing impairment CT of the head was done this morning and showed no acute intra-cranial abnormality. Chest x-ray today showed cardiomegaly. Continue her immunosuppressive regimen with tacrolimus and Solu-Medrol. We will consider increase the dose of steroids to induce immunosuppression. We also recommend a kidney biopsy given the creatinine has increased to 4.4 today. We spoke to the patient's son agreed with the plan. IR was consulted for kidney biopsy. Her baseline Creatinine in 12/2017 was 2.66. We will restart low-dose of IV fluids for the hypercalcemia. Monitor I's and O's and avoid any nephrotoxic medications. 1 dose of Aranesp was given for her anemia, cont to monitor. We will hold Eliquis is given for A. fib for possible kidney biopsy. Cardizem drip converted to PO, will follow-up cardiology recommendations. For her pneumonia continue with cefepime and doxycycline as per infectious disease.Patient completed 5 days of Tamiflu for influenza. Septic workup thus far negative. Immunologic workup thus far negative as well. Will cont to monitor. Case and plan was reviewed and discussed with Dr. Yin. <Kenton Yin - Last Filed: 05/05/18 21:44> Objective - Vital Signs/Intake and Output Vital Signs (last 24 hours): Temp Pulse Resp BP Pulse Ox 99.4 F 114 H 20 145/106 H 100 05/05/18 16:00 05/05/18 21:29 05/05/18 16:00 05/05/18 21:29 05/05/18 16:00 Intake and Output: 05/05/18 05/06/18 18:59 06:59 Intake Total 902 Balance 902 - Medications Medications: Current Medications Acetaminophen (Tylenol 160mg/5ml Oral Soln) 320 mg PO Q6 PRN PRN Reason: Fever >100.4 F Last Admin: 05/05/18 11:24 Dose: 320 mg Albuterol/Ipratropium (Duoneb 3 Mg/0.5 Mg (3 Ml) Ud) 3 ml IH Q4H PRN PRN Reason: Shortness of Breath Last Admin: 05/05/18 07:53 Dose: 3 ml Amino Acid Protein (Prostat 15 G Packet) 15 gm GT DAILY [facility] Last Admin: 05/05/18 14:18 Dose: 15 gm Amlodipine Besylate (Norvasc) 5 mg PO DAILY [facility] Last Admin: 05/05/18 09:34 Dose: 5 mg Apixaban (Eliquis) 2.5 mg PO Q12 [facility]; Protocol Last Admin: 05/05/18 21:29 Dose: 2.5 mg Aspirin (Aspirin Chewable) 81 mg PO DAILY [facility] Last Admin: 05/05/18 09:33 Dose: 81 mg Budesonide (Pulmicort Respules) 0.5 mg IH [id number] [facility] Last Admin: 05/05/18 20:45 Dose: 0.5 mg Diltiazem HCl (Cardizem) 60 mg PO QID [facility] Last Admin: 05/05/18 21:29 Dose: 60 mg Furosemide (Lasix) 40 mg IVP DAILY [facility] Last Admin: 05/05/18 09:33 Dose: 40 mg Hydromorphone HCl (Dilaudid) 0.5 mg IVP Q4H PRN PRN Reason: Pain, moderate (4-7) Insulin Human Regular (Humulin R Low) 0 units SC ACHS [facility]; Protocol Last Admin: 05/05/18 21:28 Dose: 3 units Methylprednisolone (Solu-Medrol) 40 mg IVP Q12 [facility] Last Admin: 05/05/18 21:28 Dose: 40 mg Pantoprazole Sodium (Protonix Susp) 40 mg PO 0600 [facility] Last Admin: 05/05/18 05:12 Dose: 40 mg Quetiapine Fumarate (Seroquel) 12.5 mg PO HS PRN; Protocol PRN Reason: agitation Tacrolimus (Prograf Cap) 3 mg PO BID [facility] Last Admin: 05/05/18 17:47 Dose: 3 mg - Labs Labs: 05/05/18 05:20 05/05/18 05:20 PT 21.2 SECONDS (9.4-12.5) H 04/25/18 12:35 INR 1.88 04/25/18 12:35 APTT 35.1 Seconds (26.9-38.3) 04/26/18 05:50 Assessment and Plan - Assessment and Plan (Free Text) Assessment: Pt seen and examined by me. This is a late entry. I have reviewed the note of the medical record clerk and I agree with it. I have discussed the assessment and plan with the resident. I have reviewed the medications and the last labs. Pt with JAGDISH. She has a kidney transplant due to Lupus. She will need kidney bx to evaluate the cause of the JAGDISH. She is on Eliquis for Afib. She has the flu and is being treated with Tamiflu. She is on Solumedrol and Prograf for immunosuppre mukesh.
[2018-05-01] MEDS ORDERED: Sodium Chloride 0.9% 1,000 ML IV SCH (13:00)
--- NOTE | 2018-05-01 17:11 | CP.PCM.PN ---
<Marivel Simental - Last Filed: 05/01/18 17:07> Subjective - Date & Time of Evaluation Date of Evaluation: 05/01/18 Time of Evaluation: 17:08 - Subjective Subjective: Marivel Simental, PGY-1, Internal medicine note for Dr. Mckeon Patient was seen and evaluated at bedside. Patient was agitated yesterday and declined her PO medications yesterday. However, subsequently, she agreed to take PO medications. Overnight, patient continued to agitated and HR went to 180s so cardizem drip was increased with improvement in heart rate. Patient was agitated and geodon was given. This morning, patient was fatigued and in respiratory distress. Patient was using accessory muscles for respiration. However, patient's saturation was more than 90%. Patient was tachycardic in 110s and respiratory rate ranged from 30-40. 12-point ROS was unattainable due to patient's mental status. Objective - Vital Signs/Intake and Output Vital Signs (last 24 hours): Temp Pulse Resp BP Pulse Ox 99.9 F H 100 H 31 H 140/90 92 L 05/01/18 16:00 05/01/18 16:00 05/01/18 16:00 05/01/18 16:00 05/01/18 16:00 Intake and Output: 05/01/18 05/01/18 06:59 18:59 Intake Total 380 60 Output Total 500 Balance -120 60 - Medications Medications: Current Medications Albuterol/Ipratropium (Duoneb 3 Mg/0.5 Mg (3 Ml) Ud) 3 ml IH Q4H PRN PRN Reason: Shortness of Breath Last Admin: 04/29/18 19:47 Dose: 3 ml Amlodipine Besylate (Norvasc) 5 mg PO DAILY [facility] Last Admin: 05/01/18 15:54 Dose: Not Given Apixaban (Eliquis) 2.5 mg PO Q12 [facility]; Protocol Last Admin: 05/01/18 09:35 Dose: 2.5 mg Aspirin (Aspirin Chewable) 81 mg PO DAILY [facility] Last Admin: 05/01/18 09:37 Dose: 81 mg Atorvastatin Calcium (Lipitor) 10 mg PO DIN [facility] Last Admin: 05/01/18 16:29 Dose: Not Given Budesonide (Pulmicort Respules) 0.5 mg IH [id number] [facility] Last Admin: 05/01/18 07:17 Dose: 0.5 mg Diltiazem HCl (Cardizem) 90 mg PO QID [facility] Last Admin: 05/01/18 14:02 Dose: Not Given Doxycycline Hyclate (Doryx) 100 mg PO Q12 [facility]; Protocol Stop: 05/02/18 22:01 Last Admin: 05/01/18 09:34 Dose: 100 mg Cefepime HCl (Maxipime 1gm) 1 gm in 100 mls @ 100 mls/hr IVPB Q24H [facility]; Protocol Last Admin: 05/01/18 06:00 Dose: 100 mls/hr diltiaZEM IVPB 100mg in NS (Cardizem 100mg In Ns) 100 mls @ 5 mls/hr IV .Q20H PRN; Protocol PRN Reason: TITRATE PER MD ORDER Last Titration: 05/01/18 14:00 Dose: 0 mg/hr, 0 mls/hr Sodium Chloride (Sodium Chloride 0.9%) 1,000 mls @ 50 mls/hr IV .Q20H [facility] Last Admin: 05/01/18 15:54 Dose: 50 mls/hr Pantoprazole Sodium (Protonix Susp) 40 mg PO 0600 [facility] Last Admin: 05/01/18 05:25 Dose: 40 mg Prednisone (Prednisone Tab) 10 mg PO DAILY [facility] Tacrolimus (Prograf Cap) 3 mg PO BID [facility] Last Admin: 05/01/18 09:35 Dose: 3 mg - Labs Labs: 05/01/18 05:40 05/01/18 05:40 PT 21.2 SECONDS (9.4-12.5) H 04/25/18 12:35 INR 1.88 04/25/18 12:35 APTT 35.1 Seconds (26.9-38.3) 04/26/18 05:50 - Constitutional Appears: In Acute Distress, Older Than Stated Age, Agitated - Head Exam Head Exam: ATRAUMATIC, NORMAL INSPECTION, NORMOCEPHALIC - Eye Exam Eye Exam: EOMI, PERRL - ENT Exam ENT Exam: Mucous Membranes Dry - Neck Exam Neck Exam: Full ROM - Respiratory Exam Respiratory Exam: Decreased Breath Sounds, Respiratory Distress. absent: Rales, Rhonchi, Wheezes - Cardiovascular Exam Cardiovascular Exam: Tachycardia, Irregular Rhythm - GI/Abdominal Exam GI & Abdominal Exam: Soft. absent: Distended, Tenderness - Extremities Exam Extremities Exam: Full ROM - Neurological Exam Neurological Exam: Alert. absent: Awake, CN II-XII Intact, Oriented x3 - Skin Skin Exam: Dry, Intact, Normal Color Assessment and Plan - Assessment and Plan (Free Text) Assessment: 77 year old female with past medical history of questionable congestive heart failure with last EF of 50%, COPD, LUE DVT currently on eliquis, SLE, lupus nephritis (currently on prednisone and prograf), and osteoporosis presented with worsened, labored breathing. Patient was admitted for hypoxic, hypercarbic respiratory failure 2/2 to CHF exacerbation vs. bilobar pneumonia in the setting of immunosuppresive therapy vs. COPD exacerbation complicated by NSTEMI Plan: CKD Stage IV s/p renal transplant -BUN/Cr: 72/4.4 worsened from creatinine of 4.1 yesterday. Worsened from baseline -Continue with immunosuppresive regimen of home tacrolimus and prednisone -As per nephrology, renal biopsy by IR for further evaluation tomorrow. -Avoid nephrotoxic agents such as lisinopril, losartan, IV contrast -Administer lasix on as needed basis. Standing dose discontinued -No plans for dialysis at this time. Hyperkalemia -K: 5.2 -Likely 2/2 to CKD. -Mild elevation. -Continue to monitor at this time. Hypoxic respiratory failure likely 2/2 to CHF Exacerbation -Off Bipap and in respiratory distress -ABG 05/01: pH: 7.37, pO2: 76, pCO2: 41 -CXR 05/01: severe cardiomegaly with improvement in pulmonary venous congestion -B[place] upon admission was [address] with baseline of around 3000 on prior admissions -Echocardiogram 04/26: LVEF of 46.5%, LVH, LA dilated, moderate to severe TR, pulmonary hypertension -Chest CT 04/26: severe cardiomegaly, mild bibasilar consolidation and pleural effusions -Standing lasix stopped due to CKD with renal transplant -Lasix should be given as needed -Consider beta blockers for congestive heart failure Delirium -AAOx0 -Geodon was given for agitation. -Will continue to monitor the patient as it wears off -Avoid sedatives including anti-psychotics, haldol, benzodiazepines. -CT Head: no acute intracranial findings -Dr. Traylor, Psychiatry, consulted for recommendations and psych medication management. Atrial Fibrillation -Patient with documented history of atrial fibrillation -Continue with Eliquis 2.5 mg Q12. Hold eliquis prior to renal biopsy tomorrow. -Converted IV cardizem drip to PO cardizem. -Increased cardizem PO to 90 mg Q6 NSTEMI -EKG: atrial fibrillation with HR: 93 -Troponin: 0.27, 1.64, 1.72, 1.21 -Continue with aspirin 81 mg daily, lipitor 10 mg daily, cardizem 60 mg Q8, eliquis Normocytic Anemia -Hgb: 9.9 -Status post 2 U of PRBCs -Unremarkable iron and ferritin levels. Low TIBC at 187. -Stool guiaic negative -Goal hemoglobin>8 due to cardiac issues Bilateral Interstitial Pneumonia -Blood culture was negative for 5 days, MRSA negative, urine culture negative. -Lactate: last was 1.6 from 2.7 -Negative influenza, urine legionella -Procalcitonin: 0.69 -CXR: bilateral lower lobe effusion -Continue with doxycycline and cefepime day 6. Continue with renally dose vancomycin as per [facility], Dr. Hayden COPD -Continue with duonebs, and pulmicort -Started home prednisone 10 mg daily -Taper down steroids as tolerated GI prophylaxis: protonix 40 mg daily DVT prophylaxis: eliquis 2.5 mg Q12. Hold eliquis prior to renal biopsy tomorrow. Disposition: Palliative care has been consulted and family now wants patient to be DNR/DNI Patient plan was discussed with attending. <Marlen Mckeon - Last Filed: 05/01/18 17:43> Objective - Vital Signs/Intake and Output Vital Signs (last 24 hours): Temp Pulse Resp BP Pulse Ox 99.9 F H 100 H 31 H 140/90 92 L 05/01/18 16:00 05/01/18 16:00 05/01/18 16:00 05/01/18 16:00 05/01/18 16:00 Intake and Output: 05/01/18 05/01/18 06:59 18:59 Intake Total 380 60 Output Total 500 Balance -120 60 - Medications Medications: Current Medications Albuterol/Ipratropium (Duoneb 3 Mg/0.5 Mg (3 Ml) Ud) 3 ml IH Q4H PRN PRN Reason: Shortness of Breath Last Admin: 04/29/18 19:47 Dose: 3 ml Amlodipine Besylate (Norvasc) 5 mg PO DAILY [facility] Last Admin: 05/01/18 15:54 Dose: Not Given Apixaban (Eliquis) 2.5 mg PO Q12 [facility]; Protocol Last Admin: 05/01/18 09:35 Dose: 2.5 mg Aspirin (Aspirin Chewable) 81 mg PO DAILY [facility] Last Admin: 05/01/18 09:37 Dose: 81 mg Atorvastatin Calcium (Lipitor) 10 mg PO DIN [facility] Last Admin: 05/01/18 16:29 Dose: Not Given Budesonide (Pulmicort Respules) 0.5 mg IH [id number] [facility] Last Admin: 05/01/18 07:17 Dose: 0.5 mg Diltiazem HCl (Cardizem) 90 mg PO QID [facility] Last Admin: 05/01/18 14:02 Dose: Not Given Doxycycline Hyclate (Doryx) 100 mg PO Q12 [facility]; Protocol Stop: 05/02/18 22:01 Last Admin: 05/01/18 09:34 Dose: 100 mg Cefepime HCl (Maxipime 1gm) 1 gm in 100 mls @ 100 mls/hr IVPB Q24H [facility]; Protocol Last Admin: 05/01/18 06:00 Dose: 100 mls/hr diltiaZEM IVPB 100mg in NS (Cardizem 100mg In Ns) 100 mls @ 5 mls/hr IV .Q20H PRN; Protocol PRN Reason: TITRATE PER MD ORDER Last Titration: 05/01/18 14:00 Dose: 0 mg/hr, 0 mls/hr Sodium Chloride (Sodium Chloride 0.9%) 1,000 mls @ 50 mls/hr IV .Q20H [facility] Last Admin: 05/01/18 15:54 Dose: 50 mls/hr Pantoprazole Sodium (Protonix Susp) 40 mg PO 0600 [facility] Last Admin: 05/01/18 05:25 Dose: 40 mg Prednisone (Prednisone Tab) 10 mg PO DAILY [facility] Tacrolimus (Prograf Cap) 3 mg PO BID [facility] Last Admin: 05/01/18 09:35 Dose: 3 mg - Labs Labs: 05/01/18 05:40 05/01/18 05:40 PT 21.2 SECONDS (9.4-12.5) H 04/25/18 12:35 INR 1.88 04/25/18 12:35 APTT 35.1 Seconds (26.9-38.3) 04/26/18 05:50 Attending/Attestation - Attestation I have personally seen and examined this patient.: Yes I have fully participated in the care of the patient.: Yes I have reviewed all pertinent clinical information, including history, physical exam and plan: Yes Notes (Text): 05/01/18 17:42 77 year old female with past medical history of CHF, COPD, LUE DVT on eliquis, SLE, lupus nephritis and atrial fibrillation who presented with acute hypoxic/hypercapneic failure likely multifactorial secondary to CHF/COPD/pneumonia. Also found to have AFib with RVR and possible NSTEMI in addition to acute on chronic renal failure. Patient is on cardizem drip with transition to po. She is on eliquis. Patient is DNR/DNI. Continue with conservative management as per cardiology. Nephrology is also following for acute on chronic renal failure. Consider kidney biopsy as per nephrology due to worsening renal function. Patient has on and off confusion; consider ICU delirium. Psychiatry evaluation is requested. Overall prognosis is poor. Patient is DNR/DNI. Marlen Mckeon MD Hospitalist.
--- NOTE | 2018-05-01 17:53 | PN ---
DATE: 05/01/2018 SUBJECTIVE: The patient is without distress. OBJECTIVE: VITAL SIGNS: Blood pressure is 144/94, heart rate is in the 90s to 100s, atrial fibrillation. NECK: Negative JVD. LUNGS: Decreased breath sounds. HEART: Reveal S1, S2. EXTREMITIES: Without change. LABORATORY DATA: Hemoglobin is 9.9. Chemistries, BUN and creatinine is 72 and 4.4. The glucose is 222. IMPRESSION: 1. Atrial fibrillation. 2. Renal insufficiency. 3. Pneumonia. 4. Severe pulmonary hypertension. PLAN: Given these findings, the patient is a DNR/DNI receiving antibiotics only. There is a question of renal biopsy pending? Travis Vides MD
[2018-05-01 19:39] LABS: CALCIUM 12.3 mg/dL (8.4-10.5)
[2018-05-02] MEDS: Pantoprazole 40 mg Susp UD PO SCH (06:07)
[2018-05-02] MEDS: Cefepime 1gm in NS 100ml 1 GM/100 ML BAG IVPB SCH (06:08)
[2018-05-02 06:26] LABS: BASO # 0.06 K/mm3 (0.0-2.0); BASO % 0.6 % (0.0-3.0); HEMOGLOBIN 9.9 g/dL (12.0-16.0); LYMPH # 1.6 (1.2-3.4); LYMPH % 16.9 % (22.0-35.0); MEAN CELL VOLUME 102.2 fl (80.0-105.0); MEAN CORPUSCULAR HEMOGLOBIN 30.9 pg (25.0-35.0); MEAN CORPUSCULAR HGB CONC 30.3 g/dl (31.0-37.0); MONO # 0.5 (0.1-0.6); MONO % 5.2 % (1.0-6.0); PLATELET COUNT 141 10^3/uL (120.0-450.0); RED CELL DISTRIBUTION WIDTH 17.3 % (11.5-14.5); WHITE BLOOD COUNT 9.5 10^3/uL (4.5-11.0)
--- NOTE | 2018-05-02 07:17 | CP.CCUPN ---
<Larissa Ernst - Last Filed: 05/02/18 09:58> CCU Subjective - Physician Review Subjective (Free Text): 05/02/18 07:16 Larissa Ernst, PGY-1 ICU Progress Note for Dr. Lopez: Pt was seen and examined this AM with the ICU team. Pt is AOx0, is delirious and agitated but can awaken when called. Pt is currently on bipap sating well. Cardizem drip was able to be weaned yesterday. ROS is limited due to pts current status. CCU Objective - Vital Signs / Intake & Output Vital Signs (Last 4 hours): Vital Signs Temp Pulse Resp BP Pulse Ox 05/02/18 06:00 104 H 31 H 158/86 H 96 05/02/18 05:00 117 H 32 H 157/105 H 92 L 05/02/18 04:00 98.6 F 150/93 H Intake and Output (Last 8hrs): Intake & Output 05/01/18 05/02/18 05/02/18 22:59 06:59 14:59 Intake Total 170 700 Output Total 270 250 Balance -100 450 Intake: IV 170 100 antibiotics 170 100 Oral 0 Tube Feeding 600 Output: Urine 270 250 Urethral (Fox) 270 250 Other: Voiding Method Indwelling Catheter # Bowel Movements 0 - Physical Exam Physical Exam Limitations: Positive for: Altered Mental Status Head: Positive for: Atraumatic, Normocephalic Pupils: Positive for: PERRL Extroacular Muscles: Positive for: EOMI Conjunctiva: Positive for: Normal Mouth: Positive for: Moist Mucous Membranes Neck: Positive for: Normal Range of Motion Respiratory/Chest: Positive for: Clear to Auscultation. Negative for: Good Air Exchange Cardiovascular: Positive for: Irregular Rhythm (irregularly irregular), Tachycardic. Negative for: Regular Rate and Rhythm, Murmurs, Rub, Gallop Abdomen: Positive for: Normal Bowel Sounds. Negative for: Tenderness, Distent ion, Peritoneal Signs Back: Positive for: Other (kyphosis) Upper Extremity: Positive for: Other (right AV fistula). Negative for: Cyanosis, Edema Lower Extremity: Positive for: Normal Inspection, Edema (trace pedal edema b/l) Neurological: Positive for: GCS=15, CN II-XII Intact, Speech Normal Skin: Positive for: Warm, Dry, Normal Color. Negative for: Rashes Psychiatric: Positive for: Alert. Negative for: Oriented x 3, Normal Insight, Normal Concentration - Medications Active Medications: Active Medications Generic Name Dose Route Start Last Admin Trade Name Freq PRN Reason Stop Dose Admin Albuterol/Ipratropium 3 ml 04/25/18 15:35 04/29/18 19:47 Duoneb 3 Mg/0.5 Mg (3 Ml) Ud IH 3 ml Q4H PRN Administration Shortness of Breath Amlodipine Besylate 5 mg 05/01/18 14:30 05/01/18 15:54 Norvasc PO Not Given DAILY BIJAN Apixaban 2.5 mg 04/28/18 10:00 05/01/18 09:35 Eliquis PO 2.5 mg Q12 BIJAN Administration Protocol Aspirin 81 mg 04/26/18 10:00 05/01/18 09:37 Aspirin Chewable PO 81 mg DAILY BIJAN Administration Atorvastatin Calcium 10 mg 05/01/18 17:00 05/01/18 16:29 Lipitor PO Not Given DIN BIJAN Budesonide 0.5 mg 04/26/18 20:00 05/01/18 20:15 Pulmicort Respules IH 0.5 mg [id number] BIJAN Administration Diltiazem HCl 90 mg 05/01/18 10:00 05/01/18 22:41 Cardizem PO Not Given QID BIJAN Doxycycline Hyclate 100 mg 04/27/18 22:00 05/01/18 22:41 Doryx PO 05/02/18 22:01 Not Given Q12 BIJAN Protocol Cefepime HCl 1 gm in 100 mls @ 100 mls/hr 04/26/18 06:45 05/02/18 06:08 Maxipime 1gm IVPB 100 mls/hr Q24H BIJAN Administration Protocol diltiaZEM IVPB 100mg in NS 100 mls @ 5 mls/hr 04/28/18 22:44 05/01/18 14:00 Cardizem 100mg In Ns IV 0 mg/hr .Q20H PRN 0 mls/hr TITRATE PER MD ORDER Titration Protocol 5 MG/HR Sodium Chloride 1,000 mls @ 50 mls/hr 05/01/18 13:00 05/01/18 15:54 Sodium Chloride 0.9% IV 50 mls/hr .Q20H BIJAN Administration Pantoprazole Sodium 40 mg 04/28/18 06:00 05/02/18 06:07 Protonix Susp PO 40 mg 0600 BIJAN Administration Prednisone 10 mg 05/02/18 10:00 Prednisone Tab PO DAILY BIJAN Tacrolimus 3 mg 04/25/18 18:00 05/01/18 17:47 Prograf Cap PO Not Given BID BIJAN - Patient Studies Lab Studies: Lab Studies 05/02/18 05/01/18 05/01/18 Range/Units 05:30 19:04 16:02 WBC 9.5 (4.5-11.0) 10^3/uL RBC 3.20 L (3.5-6.1) 10^6/uL Hgb 9.9 L (12.0-16.0) g/dL Hct 32.7 L (36.0-48.0) % MCV 102.2 (80.0-105.0) fl MCH 30.9 (25.0-35.0) pg MCHC 30.3 L (31.0-37.0) g/dl RDW 17.3 H (11.5-14.5) % Plt Count 141 (120.0-450.0) 10^3/uL MPV 11.0 (7.0-11.0) fl Neut % (Auto) 77.3 H (50.0-68.0) % Lymph % (Auto) 16.9 L (22.0-35.0) % [place] % (Auto) 5.2 (1.0-6.0) % Eos % (Auto) 0.0 L (1.5-5.0) % Baso % (Auto) 0.6 (0.0-3.0) % Lymph # (Auto) 1.6 (1.2-3.4) [place] # (Auto) 0.5 (0.1-0.6) Eos # (Auto) 0.0 (0.0-0.7) Baso # (Auto) 0.06 (0.0-2.0) K/mm3 Absolute Neuts (auto) 7.37 H (1.4-6.5) pCO2 (35-45) mm/Hg pO2 (80-100) mm/Hg HCO3 (21-28) mmol/L ABG pH (7.35-7.45) ABG Total CO2 (22-28) mmol.L ABG O2 Saturation (95-98) % ABG O2 Content (15-23) ML/dl ABG Base Excess (-2.0-3.0) mmol/L ABG Hemoglobin (11.7-17.4) g/dL ABG Carboxyhemoglobin (0.5-1.5) % POC ABG HHb (Measured) (0-5) % ABG Methemoglobin (0.0-3.0) % ABG O2 Capacity (16-24) mL/dl Hgb O2 Saturation (95.0-98.0) % FiO2 % Sodium 145 (132-148) mmol/L Potassium 5.2 H (3.6-5.0) mmol/L Chloride 112 H (98-107) mmol/L Carbon Dioxide 23 (21-33) mmol/L Anion Gap 15 (10-20) BUN 79 H (7-21) mg/dL Creatinine 4.3 H (0.7-1.2) mg/dl Est GFR ( Amer) 12 Est GFR (Non-Af Amer) 10 POC Glucose (mg/dL) 204 H (65-110) mg/dL Random Glucose 212 H (70-110) mg/dL Calcium 12.3 H* (8.4-10.5) mg/dL Total Bilirubin (0.2-1.3) mg/dL AST (14-36) U/L ALT (7-56) U/L Alkaline Phosphatase (38-126) U/L Total Protein (5.8-8.3) g/dL Albumin (3.0-4.8) g/dL Globulin gm/dL Albumin/Globulin Ratio (1.1-1.8) 05/01/18 05/01/18 Range/Units 08:30 05:40 WBC (4.5-11.0) 10^3/uL RBC (3.5-6.1) 10^6/uL Hgb (12.0-16.0) g/dL Hct (36.0-48.0) % MCV (80.0-105.0) fl MCH (25.0-35.0) pg MCHC (31.0-37.0) g/dl RDW (11.5-14.5) % Plt Count (120.0-450.0) 10^3/uL MPV (7.0-11.0) fl Neut % (Auto) (50.0-68.0) % Lymph % (Auto) (22.0-35.0) % [place] % (Auto) (1.0-6.0) % Eos % (Auto) (1.5-5.0) % Baso % (Auto) (0.0-3.0) % Lymph # (Auto) (1.2-3.4) [place] # (Auto) (0.1-0.6) Eos # (Auto) (0.0-0.7) Baso # (Auto) (0.0-2.0) K/mm3 Absolute Neuts (auto) (1.4-6.5) pCO2 41 (35-45) mm/Hg pO2 76.0 L (80-100) mm/Hg HCO3 23.7 (21-28) mmol/L ABG pH 7.37 (7.35-7.45) ABG Total CO2 25.0 (22-28) mmol.L ABG O2 Saturation 97.7 (95-98) % ABG O2 Content 13.2 L (15-23) ML/dl ABG Base Excess -1.5 (-2.0-3.0) mmol/L ABG Hemoglobin 9.9 L (11.7-17.4) g/dL ABG Carboxyhemoglobin 2.2 H (0.5-1.5) % POC ABG HHb (Measured) 2.2 (0-5) % ABG Methemoglobin 1.1 (0.0-3.0) % ABG O2 Capacity 13.5 L (16-24) mL/dl Hgb O2 Saturation 94.5 L (95.0-98.0) % FiO2 36.0 % Sodium 146 (132-148) mmol/L Potassium 5.2 H (3.6-5.0) mmol/L Chloride 112 H (98-107) mmol/L Carbon Dioxide 24 (21-33) mmol/L Anion Gap 15 (10-20) BUN 72 H (7-21) mg/dL Creatinine 4.4 H (0.7-1.2) mg/dl Est GFR ( Amer) 12 Est GFR (Non-Af Amer) 10 POC Glucose (mg/dL) (65-110) mg/dL Random Glucose 222 H (70-110) mg/dL Calcium 12.2 H* (8.4-10.5) mg/dL Total Bilirubin 0.9 (0.2-1.3) mg/dL AST 50 H D (14-36) U/L ALT 71 H (7-56) U/L Alkaline Phosphatase 88 (38-126) U/L Total Protein 7.1 (5.8-8.3) g/dL Albumin 4.0 (3.0-4.8) g/dL Globulin 3.1 gm/dL Albumin/Globulin Ratio 1.3 (1.1-1.8) Laboratory Results - last 24 hr 05/01/18 05/01/18 05/01/18 05:40 08:30 16:02 WBC RBC Hgb Hct MCV MCH MCHC RDW Plt Count MPV Neut % (Auto) Lymph % (Auto) [place] % (Auto) Eos % (Auto) Baso % (Auto) Lymph # (Auto) [place] # (Auto) Eos # (Auto) Baso # (Auto) Absolute Neuts (auto) pCO2 41 pO2 76.0 L HCO3 23.7 ABG pH 7.37 ABG Total CO2 25.0 ABG O2 Saturation 97.7 ABG O2 Content 13.2 L ABG Base Excess -1.5 ABG Hemoglobin 9.9 L ABG Carboxyhemoglobin 2.2 H POC ABG HHb (Measured) 2.2 ABG Methemoglobin 1.1 ABG O2 Capacity 13.5 L Hgb O2 Saturation 94.5 L FiO2 36.0 Sodium 146 Potassium 5.2 H Chloride 112 H Carbon Dioxide 24 Anion Gap 15 BUN 72 H Creatinine 4.4 H Est GFR ( Amer) 12 Est GFR (Non-Af Amer) 10 POC Glucose (mg/dL) 204 H Random Glucose 222 H Calcium 12.2 H* Total Bilirubin 0.9 AST 50 H D ALT 71 H Alkaline Phosphatase 88 Total Protein 7.1 Albumin 4.0 Globulin 3.1 Albumin/Globulin Ratio 1.3 05/01/18 05/02/18 19:04 05:30 WBC 9.5 RBC 3.20 L Hgb 9.9 L Hct 32.7 L MCV 102.2 MCH 30.9 MCHC 30.3 L RDW 17.3 H Plt Count 141 MPV 11.0 Neut % (Auto) 77.3 H Lymph % (Auto) 16.9 L [place] % (Auto) 5.2 Eos % (Auto) 0.0 L Baso % (Auto) 0.6 Lymph # (Auto) 1.6 [place] # (Auto) 0.5 Eos # (Auto) 0.0 Baso # (Auto) 0.06 Absolute Neuts (auto) 7.37 H pCO2 pO2 HCO3 ABG pH ABG Total CO2 ABG O2 Saturation ABG O2 Content ABG Base Excess ABG Hemoglobin ABG Carboxyhemoglobin POC ABG HHb (Measured) ABG Methemoglobin ABG O2 Capacity Hgb O2 Saturation FiO2 Sodium 145 Potassium 5.2 H Chloride 112 H Carbon Dioxide 23 Anion Gap 15 BUN 79 H Creatinine 4.3 H Est GFR ( Amer) 12 Est GFR (Non-Af Amer) 10 POC Glucose (mg/dL) Random Glucose 212 H Calcium 12.3 H* Total Bilirubin AST ALT Alkaline Phosphatase Total Protein Albumin Globulin Albumin/Globulin Ratio Radiology Impressions: Radiology Impressions Chest X-Ray 05/01/18 08:22 IMPRESSION: Severe cardiomegaly Head CT 05/01/18 10:44 IMPRESSION: No acute intracranial findings Fingerstick Blood Sugar Results: 180 Review of Systems - Review of Systems Systems not reviewed;Unavailable: Altered Mental Status Critical Care Progress Note - Nutrition Nutrition: Nutrition Category Date Time Status Dysphagia/Modified Consistency Diet [DIET] Diets 04/28/18 Dinner Ordered Assessment/Plan - Assessment and Plan (Free Text) Assessment: 7 year old female with past medical history of questionable congestive heart failure with last EF of 50%, COPD, LUE DVT currently on eliquis, SLE, lupus nephritis (currently on prednisone and prograf), and osteoporosis presents with worsened, labored breathing. Patient was admitted for hypoxic, hypercarbic respiratory failure 2/2 to CHF exacerbation vs. bilobar pneumonia in the setting of immunosuppresive therapy vs. COPD exacerbation. Pt back on bipap this AM. Will f/u with renal about plans for dialysis vs conservative management. Plan: Neuro: - Pt remains AOx0 - Pt is easily arousable when called. - CT Head (-) Pulm: Hypercarbic respiratory failure likely 2/2 to CHF Exacerbation - Saturating well on Bipap - CXR: severe cardiomegaly and mild vascular congestion - Last echocardiogram from prior admission in 04/26/18 showed EF of 46.5% with mild impairment of systolic function - Consider beta blockers for congestive heart failure - Maintain O2 sat >88% Bilateral Interstitial Pneumonia - CXR: bilateral lower lobe effusion - Negative influenza, urine legionella - Procalcitonin: 0.69 - Lactate: last was 1.6 from 2.7 - Follow up BCx, UCx, strep urine antigen - Continue with doxycycline and cefepime day 7. Continue with renally dose vancomycin as per ID, Dr. Hayden COPD - Continue with duonebs, and pulmicort - Solu-medrol 40 Q12 - Will consider tapering once pt improves Cardio: Atrial Fibrillation - Patient with documented history of atrial fibrillation - Heparin drip was stopped due to decrease in hemoglobin to less than 7 - Pt off cardizem drip, now only on 90 mg PO QID - If pt cant take PO, will restart Cardizem drip. NSTEMI - EKG: atrial fibrillation with HR: 93 - Continue with aspirin, eliquis - Held heparin drip due to reduced hemoglobin. - Cardio recs appreciated Heme Normocytic Anemia s/p 2u PRBC transfusion - Hgb: 9.9 and stable - Unremarkable iron and ferritin levels. Low TIBC at 187. - Stool guiaic (-), H&H is stable - Goal hemoglobin>8 due to cardiac issues F/E/N Hypercalcemia: - PTH, VIt D, Urine Ca, PTHrP - Unable to give fluids or loop diuretics due to current renal status. Nephro: CKD Stage IV s/p renal transplant - BUN/Cr: 83/4.2 Cr is stable from yesterday and pt was given IV fluids. - Continue with home tacrolimus and prednisone - Avoid nephrotoxic agents such as lisinopril, losartan, IV contrast - Administer lasix on as needed basis. Standing dose discontinued - Nephro consulted, recs appreciated - cont to keep pt euvolemic - Pt output through fox was 950cc over the past 24 hours. - Maintain euvolemia - Renal biopsy today @ 3PM with Dr. Blevins GI prophylaxis: protonix 40 mg daily DVT prophylaxis: eliquis Dispo: Discussion made by hospice team and confirmed by a separate call placed by myself that the pt will be made DNR/DNI as per all of the families wishes. Pt seen and discussed with Dr. Jessica Ernst, PGY-1 <Fausto Lopez - Last Filed: 05/02/18 11:43> CCU Objective - Vital Signs / Intake & Output Vital Signs (Last 4 hours): Vital Signs Pulse 05/02/18 07:54 117 H Intake and Output (Last 8hrs): Intake & Output 05/01/18 05/02/18 05/02/18 22:59 06:59 14:59 Intake Total 170 700 40 Output Total 270 250 Balance -100 450 40 Intake: IV 170 100 40 antibiotics 170 100 Oral 0 Tube Feeding 600 Output: Urine 270 250 Urethral (Fox) 270 250 Other: Voiding Method Indwelling Catheter # Bowel Movements 0 - Medications Active Medications: Active Medications Generic Name Dose Route Start Last Admin Trade Name Freq PRN Reason Stop Dose Admin Albuterol/Ipratropium 3 ml 04/25/18 15:35 05/02/18 07:25 Duoneb 3 Mg/0.5 Mg (3 Ml) Ud IH 3 ml Q4H PRN Administration Shortness of Breath Amlodipine Besylate 5 mg 05/01/18 14:30 05/01/18 15:54 Norvasc PO Not Given DAILY BIJAN Apixaban 2.5 mg 04/28/18 10:00 05/01/18 09:35 Eliquis PO 2.5 mg Q12 BIJAN Administration Protocol Aspirin 81 mg 04/26/18 10:00 05/01/18 09:37 Aspirin Chewable PO 81 mg DAILY BIJAN Administration Atorvastatin Calcium 10 mg 05/01/18 17:00 05/01/18 16:29 Lipitor PO Not Given DIN BIJAN Budesonide 0.5 mg 04/26/18 20:00 05/02/18 07:25 Pulmicort Respules IH 0.5 mg [id number] BIJAN Administration Diltiazem HCl 90 mg 05/01/18 10:00 05/01/18 22:41 Cardizem PO Not Given QID BIJAN Doxycycline Hyclate 100 mg 04/27/18 22:00 05/01/18 22:41 Doryx PO 05/02/18 22:01 Not Given Q12 BIJAN Protocol Cefepime HCl 1 gm in 100 mls @ 100 mls/hr 04/26/18 06:45 05/02/18 06:08 Maxipime 1gm IVPB 100 mls/hr Q24H BIJAN Administration Protocol diltiaZEM IVPB 100mg in NS 100 mls @ 5 mls/hr 04/28/18 22:44 05/02/18 10:39 Cardizem 100mg In Ns IV 5 mg/hr .Q20H PRN 5 mls/hr TITRATE PER MD ORDER Administration Protocol 5 MG/HR Methylprednisolone 40 mg 05/02/18 10:00 05/02/18 10:26 Solu-Medrol IVP 40 mg Q12 BIJAN Administration Pantoprazole Sodium 40 mg 04/28/18 06:00 05/02/18 06:07 Protonix Susp PO 40 mg 0600 BIJAN Administration Tacrolimus 3 mg 04/25/18 18:00 05/01/18 17:47 Prograf Cap PO Not Given BID BIJAN - Patient Studies Lab Studies: Lab Studies 05/02/18 05/02/18 05/01/18 Range/Units 05:30 05:30 19:04 WBC 9.5 (4.5-11.0) 10^3/uL RBC 3.20 L (3.5-6.1) 10^6/uL Hgb 9.9 L (12.0-16.0) g/dL Hct 32.7 L (36.0-48.0) % MCV 102.2 (80.0-105.0) fl MCH 30.9 (25.0-35.0) pg MCHC 30.3 L (31.0-37.0) g/dl RDW 17.3 H (11.5-14.5) % Plt Count 141 (120.0-450.0) 10^3/uL MPV 11.0 (7.0-11.0) fl Neut % (Auto) 77.3 H (50.0-68.0) % Lymph % (Auto) 16.9 L (22.0-35.0) % [place] % (Auto) 5.2 (1.0-6.0) % Eos % (Auto) 0.0 L (1.5-5.0) % Baso % (Auto) 0.6 (0.0-3.0) % Lymph # (Auto) 1.6 (1.2-3.4) [place] # (Auto) 0.5 (0.1-0.6) Eos # (Auto) 0.0 (0.0-0.7) Baso # (Auto) 0.06 (0.0-2.0) K/mm3 Absolute Neuts (auto) 7.37 H (1.4-6.5) Corrected WBC (Man) 8.7 (4.5-11.0) K/mm3 Neutrophils % (Manual) 79 H (50.0-70.0) % Lymphocytes % (Manual) 10 L (22.0-35.0) % Monocytes % (Manual) 9 H (1.0-6.0) % Myelocytes % 2 % Nucleated RBC % 9 % Sodium 147 145 (132-148) mmol/L Potassium 5.1 H 5.2 H (3.6-5.0) mmol/L Chloride 115 H 112 H (98-107) mmol/L Carbon Dioxide 24 23 (21-33) mmol/L Anion Gap 13 15 (10-20) BUN 83 H 79 H (7-21) mg/dL Creatinine 4.2 H 4.3 H (0.7-1.2) mg/dl Est GFR ( Amer) 12 12 Est GFR (Non-Af Amer) 10 10 POC Glucose (mg/dL) (65-110) mg/dL Random Glucose 172 H 212 H (70-110) mg/dL Calcium 12.5 H* 12.3 H* (8.4-10.5) mg/dL Total Bilirubin 1.0 (0.2-1.3) mg/dL AST 43 H (14-36) U/L ALT 79 H (7-56) U/L Alkaline Phosphatase 81 (38-126) U/L Total Protein 6.9 (5.8-8.3) g/dL Albumin 3.8 (3.0-4.8) g/dL Globulin 3.1 gm/dL Albumin/Globulin Ratio 1.2 (1.1-1.8) 05/01/18 Range/Units 16:02 WBC (4.5-11.0) 10^3/uL RBC (3.5-6.1) 10^6/uL Hgb (12.0-16.0) g/dL Hct (36.0-48.0) % MCV (80.0-105.0) fl MCH (25.0-35.0) pg MCHC (31.0-37.0) g/dl RDW (11.5-14.5) % Plt Count (120.0-450.0) 10^3/uL MPV (7.0-11.0) fl Neut % (Auto) (50.0-68.0) % Lymph % (Auto) (22.0-35.0) % [place] % (Auto) (1.0-6.0) % Eos % (Auto) (1.5-5.0) % Baso % (Auto) (0.0-3.0) % Lymph # (Auto) (1.2-3.4) [place] # (Auto) (0.1-0.6) Eos # (Auto) (0.0-0.7) Baso # (Auto) (0.0-2.0) K/mm3 Absolute Neuts (auto) (1.4-6.5) Corrected WBC (Man) (4.5-11.0) K/mm3 Neutrophils % (Manual) (50.0-70.0) % Lymphocytes % (Manual) (22.0-35.0) % Monocytes % (Manual) (1.0-6.0) % Myelocytes % % Nucleated RBC % % Sodium (132-148) mmol/L Potassium (3.6-5.0) mmol/L Chloride (98-107) mmol/L Carbon Dioxide (21-33) mmol/L Anion Gap (10-20) BUN (7-21) mg/dL Creatinine (0.7-1.2) mg/dl Est GFR ( Amer) Est GFR (Non-Af Amer) POC Glucose (mg/dL) 204 H (65-110) mg/dL Random Glucose (70-110) mg/dL Calcium (8.4-10.5) mg/dL Total Bilirubin (0.2-1.3) mg/dL AST (14-36) U/L ALT (7-56) U/L Alkaline Phosphatase (38-126) U/L Total Protein (5.8-8.3) g/dL Albumin (3.0-4.8) g/dL Globulin gm/dL Albumin/Globulin Ratio (1.1-1.8) Laboratory Results - last 24 hr 05/01/18 05/01/18 05/02/18 16:02 19:04 05:30 WBC 9.5 RBC 3.20 L Hgb 9.9 L Hct 32.7 L MCV 102.2 MCH 30.9 MCHC 30.3 L RDW 17.3 H Plt Count 141 MPV 11.0 Neut % (Auto) 77.3 H Lymph % (Auto) 16.9 L [place] % (Auto) 5.2 Eos % (Auto) 0.0 L Baso % (Auto) 0.6 Lymph # (Auto) 1.6 [place] # (Auto) 0.5 Eos # (Auto) 0.0 Baso # (Auto) 0.06 Absolute Neuts (auto) 7.37 H Corrected WBC (Man) 8.7 Neutrophils % (Manual) 79 H Lymphocytes % (Manual) 10 L Monocytes % (Manual) 9 H Myelocytes % 2 Nucleated RBC % 9 Sodium 145 Potassium 5.2 H Chloride 112 H Carbon Dioxide 23 Anion Gap 15 BUN 79 H Creatinine 4.3 H Est GFR ( Amer) 12 Est GFR (Non-Af Amer) 10 POC Glucose (mg/dL) 204 H Random Glucose 212 H Calcium 12.3 H* Total Bilirubin AST ALT Alkaline Phosphatase Total Protein Albumin Globulin Albumin/Globulin Ratio 05/02/18 05:30 WBC RBC Hgb Hct MCV MCH MCHC RDW Plt Count MPV Neut % (Auto) Lymph % (Auto) [place] % (Auto) Eos % (Auto) Baso % (Auto) Lymph # (Auto) [place] # (Auto) Eos # (Auto) Baso # (Auto) Absolute Neuts (auto) Corrected WBC (Man) Neutrophils % (Manual) Lymphocytes % (Manual) Monocytes % (Manual) Myelocytes % Nucleated RBC % Sodium 147 Potassium 5.1 H Chloride 115 H Carbon Dioxide 24 Anion Gap 13 BUN 83 H Creatinine 4.2 H Est GFR ( Amer) 12 Est GFR (Non-Af Amer) 10 POC Glucose (mg/dL) Random Glucose 172 H Calcium 12.5 H* Total Bilirubin 1.0 AST 43 H ALT 79 H Alkaline Phosphatase 81 Total Protein 6.9 Albumin 3.8 Globulin 3.1 Albumin/Globulin Ratio 1.2 Radiology Impressions: Radiology Impressions Head CT 05/01/18 10:44 IMPRESSION: No acute intracranial findings Critical Care Progress Note - Nutrition Nutrition: Nutrition Category Date Time Status Dysphagia/Modified Consistency Diet [DIET] Diets 04/28/18 Dinner Ordered Assessment/Plan - Assessment and Plan (Free Text) Plan: Patient seen and examined on rounds with resident, agree with note with following additions/exceptions: Patient is 77 year old female wPMHX congestive heart failure with last EF of 50%, COPD, LUE DVT currently on eliquis, SLE, lupus nephritis (currently on prednisone and prograf), and osteoporosis, presented with hypercapnic hypoxic resp failure, CHF exacerbation. On cadrizem Drip, difficult to control Afib Labs, imaging, chart reviewed Worsening renal function in setting of renal transplant hx, ?rejection, for renal biopsy by IR today Renal following CT head negative ABG normal Renal failure Hx of renal transplant CHF COPD Afib on A/C Lupus nephritis AMS Recommend: - Supp o2 as needed, duonebs PRN - would DC abx, cultures negative - BP control - rate control, Cardizem PO 90mg QID - Hold Eliquis, renal biopsy today - Hold LAsix, ACEI - follow up renal - GI ppx - DVT ppx - Monitor in MICU DNR/DNI Poor Prognosis Palliative care follow up
[2018-05-02 07:24] LABS: ALB/GLOB RATIO 1.2 (1.1-1.8); ALBUMIN 3.8 g/dL (3.0-4.8); CALCIUM 12.5 mg/dL (8.4-10.5)
[2018-05-02] MEDS: Budesonide 0.5 mg/2 ml Inhal Susp UD IH SCH ×2 (07:25→20:46)
[2018-05-02] MEDS: Albuterol-Ipratrop 3 mg / 0.5 (3 ml) UD IH PRN ×2 (07:25→20:46)
[2018-05-02] MEDS: MethylPREDNISolone 40 mg Vial IVP SCH ×2 (10:26→21:56)
[2018-05-02] MEDS: diltiaZEM IVPB 100mg in NS 100 ML IV PRN (10:39)
[2018-05-02 10:56] LABS: CORRECTED WBC 8.7 K/mm3 (4.5-11.0); LYMPHOCYTE 10 % (22.0-35.0); MONOCYTE 9 % (1.0-6.0); MYELOCYTE 2 %; NEUTROPHIL 79 % (50.0-70.0); NUCLEATED RED BLOOD CELL 9 %
--- NOTE | 2018-05-02 13:03 | CP.PCM.PN ---
Subjective - Date & Time of Evaluation Date of Evaluation: 05/02/18 Time of Evaluation: 09:00 - Subjective Subjective: Patient is agitated, no fevers. Objective - Vital Signs/Intake and Output Vital Signs (last 24 hours): Temp Pulse Resp BP Pulse Ox 98.5 F 100 H 36 H 144/94 H 98 05/01/18 08:00 05/01/18 10:00 05/01/18 10:00 05/01/18 10:00 05/01/18 10:00 Intake and Output: 05/01/18 05/01/18 06:59 18:59 Intake Total 380 Output Total 500 Balance -120 - Medications Medications: Current Medications Albuterol/Ipratropium (Duoneb 3 Mg/0.5 Mg (3 Ml) Ud) 3 ml IH Q4H PRN PRN Reason: Shortness of Breath Last Admin: 04/29/18 19:47 Dose: 3 ml Apixaban (Eliquis) 2.5 mg PO Q12 BIJAN; Protocol Last Admin: 05/01/18 09:35 Dose: 2.5 mg Aspirin (Aspirin Chewable) 81 mg PO DAILY BIJAN Last Admin: 05/01/18 09:37 Dose: 81 mg Budesonide (Pulmicort Respules) 0.5 mg IH [id number] BIJAN Last Admin: 05/01/18 07:17 Dose: 0.5 mg Diltiazem HCl (Cardizem) 90 mg PO QID BIJAN Last Admin: 05/01/18 09:35 Dose: 90 mg Doxycycline Hyclate (Doryx) 100 mg PO Q12 BIJAN; Protocol Stop: 05/02/18 22:01 Last Admin: 05/01/18 09:34 Dose: 100 mg Cefepime HCl (Maxipime 1gm) 1 gm in 100 mls @ 100 mls/hr IVPB Q24H BIJAN; Protocol Last Admin: 05/01/18 06:00 Dose: 100 mls/hr diltiaZEM IVPB 100mg in NS (Cardizem 100mg In Ns) 100 mls @ 5 mls/hr IV .Q20H PRN; Protocol PRN Reason: TITRATE PER MD ORDER Last Admin: 05/01/18 08:25 Dose: 10 mg/hr, 10 mls/hr Methylprednisolone (Solu-Medrol) 20 mg IVP Q12 BIJAN Last Admin: 05/01/18 09:38 Dose: 20 mg Pantoprazole Sodium (Protonix Susp) 40 mg PO 0600 [facility] Last Admin: 05/01/18 05:25 Dose: 40 mg Tacrolimus (Prograf Cap) 3 mg PO BID [facility] Last Admin: 05/01/18 09:35 Dose: 3 mg - Labs Labs: 05/01/18 05:40 05/01/18 05:40 PT 21.2 SECONDS (9.4-12.5) H 04/25/18 12:35 INR 1.88 04/25/18 12:35 APTT 35.1 Seconds (26.9-38.3) 04/26/18 05:50 - Constitutional Appears: Agitated, Confused - Respiratory Exam Respiratory Exam: Decreased Breath Sounds - Cardiovascular Exam Cardiovascular Exam: +S1, +S2 - GI/Abdominal Exam GI & Abdominal Exam: Soft. absent: Tenderness Assessment and Plan - Assessment and Plan (Free Text) Plan: Assessment possible pneumonia in this patient with probable CHF exacerbation, R/O Influenza agitation, etiology to be determined chronic CHF with EF 50% COPD DVT on anticoagulation SLE with lupus nephritis S/P renal transplant osteoporosis Plan continue Cefepime and Doxycycline day 7 and completed Tamiflu discussed with ICU team about agitation will continue to monitor clinically cultures have been negative overall prognosis is poor
--- NOTE | 2018-05-02 13:49 | CP.PCM.PN ---
<Sage Ford - Last Filed: 05/02/18 13:51> Subjective - Date & Time of Evaluation Date of Evaluation: 05/02/18 Time of Evaluation: 07:00 - Subjective Subjective: Nephrology progress note: Patient seen and examined at bedside. No acute events overnight. Pt is more confused and agitated today. 12 point ROS unobtainable 2/2 mental status Objective - Vital Signs/Intake and Output Vital Signs (last 24 hours): Temp Pulse Resp BP Pulse Ox 98.6 F 117 H 31 H 158/86 H 96 05/02/18 04:00 05/02/18 07:54 05/02/18 06:00 05/02/18 06:00 05/02/18 06:00 Intake and Output: 05/02/18 05/02/18 06:59 18:59 Intake Total 700 40 Output Total 250 Balance 450 40 - Medications Medications: Current Medications Albuterol/Ipratropium (Duoneb 3 Mg/0.5 Mg (3 Ml) Ud) 3 ml IH Q4H PRN PRN Reason: Shortness of Breath Last Admin: 05/02/18 07:25 Dose: 3 ml Amlodipine Besylate (Norvasc) 5 mg PO DAILY [facility] Last Admin: 05/02/18 12:43 Dose: Not Given Apixaban (Eliquis) 2.5 mg PO Q12 [facility]; Protocol Last Admin: 05/01/18 09:35 Dose: 2.5 mg Aspirin (Aspirin Chewable) 81 mg PO DAILY [facility] Last Admin: 05/02/18 12:45 Dose: Not Given Atorvastatin Calcium (Lipitor) 10 mg PO DIN [facility] Last Admin: 05/01/18 16:29 Dose: Not Given Budesonide (Pulmicort Respules) 0.5 mg IH [id number] [facility] Last Admin: 05/02/18 07:25 Dose: 0.5 mg Diltiazem HCl (Cardizem) 90 mg PO QID [facility] Last Admin: 05/02/18 12:44 Dose: Not Given Doxycycline Hyclate (Doryx) 100 mg PO Q12 [facility]; Protocol Stop: 05/02/18 22:01 Last Admin: 05/02/18 12:44 Dose: Not Given Cefepime HCl (Maxipime 1gm) 1 gm in 100 mls @ 100 mls/hr IVPB Q24H [facility]; Protocol Last Admin: 05/02/18 06:08 Dose: 100 mls/hr diltiaZEM IVPB 100mg in NS (Cardizem 100mg In Ns) 100 mls @ 5 mls/hr IV .Q20H PRN; Protocol PRN Reason: TITRATE PER MD ORDER Last Admin: 05/02/18 10:39 Dose: 5 mg/hr, 5 mls/hr Methylprednisolone (Solu-Medrol) 40 mg IVP Q12 [facility] Last Admin: 05/02/18 10:26 Dose: 40 mg Pantoprazole Sodium (Protonix Susp) 40 mg PO 0600 [facility] Last Admin: 05/02/18 06:07 Dose: 40 mg Tacrolimus (Prograf Cap) 3 mg PO BID [facility] Last Admin: 05/02/18 12:44 Dose: Not Given - Labs Labs: 05/02/18 05:30 05/02/18 05:30 PT 21.2 SECONDS (9.4-12.5) H 04/25/18 12:35 INR 1.88 04/25/18 12:35 APTT 35.1 Seconds (26.9-38.3) 04/26/18 05:50 - Constitutional Appears: No Acute Distress - Head Exam Head Exam: ATRAUMATIC, NORMOCEPHALIC - Eye Exam Eye Exam: EOMI - Respiratory Exam Respiratory Exam: Clear to Ausculation Bilateral. absent: Rales, Wheezes - Cardiovascular Exam Cardiovascular Exam: Tachycardia, +S1, +S2 - GI/Abdominal Exam GI & Abdominal Exam: Soft. absent: Distended, Tenderness - Extremities Exam Extremities Exam: absent: Calf Tenderness, Pedal Edema - Neurological Exam Neurological Exam: Alert, Awake, Oriented x3 - Psychiatric Exam Psychiatric exam: Normal Mood - Skin Skin Exam: Dry, Warm Assessment and Plan - Assessment and Plan (Free Text) Assessment: 1. Acute kidney injury with CKD, stage IV 2. Status post donor kidney transplant 3. Hypercalcemia 4. Anemia 5. Influenza infection 6. Atrial fibrillation 7. Lupus nephritis 8. SLE 9. Nephrolithiasis of the right kidney 10. Left renal cyst 11. Hearing impairment Patient is more confused today, CT of the head was performed yesterday and was negative. We will continue to monitor for any changes. We recommend a kidney biopsy to check if transplanted kidney is being rejected, IR was consulted for kidney biopsy. We will consider increase the dose of steroids to induce immunosuppression. Monitor I's and O's and avoid any nephrotoxic medications. Continue her immunosuppressive regimen with tacrolimus and Solu-Medrol. Cont to monitor the hypercalcemia. 1 dose of Aranesp was given for her anemia, cont to monitor. We will hold Eliquis is given for A. fib for possible kidney biopsy. Cardizem drip converted to PO, will follow-up cardiology recommendations. For her pneumonia continue with cefepime and doxycycline as per infectious disease. Patient completed 5 days of Tamiflu for influenza. Septic workup thus far negative. Immunologic workup thus far negative as well. Will cont to monitor. Case and plan was reviewed and discussed with Dr. Yin. <Kenton Yin S - Last Filed: 05/05/18 20:18> Objective - Vital Signs/Intake and Output Vital Signs (last 24 hours): Temp Pulse Resp BP Pulse Ox 99.4 F 103 H 20 130/64 100 05/05/18 16:00 05/05/18 18:00 05/05/18 16:00 05/05/18 16:00 05/05/18 16:00 Intake and Output: 05/05/18 05/06/18 18:59 06:59 Intake Total 902 Balance 902 - Medications Medications: Current Medications Acetaminophen (Tylenol 160mg/5ml Oral Soln) 320 mg PO Q6 PRN PRN Reason: Fever >100.4 F Last Admin: 05/05/18 11:24 Dose: 320 mg Albuterol/Ipratropium (Duoneb 3 Mg/0.5 Mg (3 Ml) Ud) 3 ml IH Q4H PRN PRN Reason: Shortness of Breath Last Admin: 05/05/18 07:53 Dose: 3 ml Amino Acid Protein (Prostat 15 G Packet) 15 gm GT DAILY [facility] Last Admin: 05/05/18 14:18 Dose: 15 gm Amlodipine Besylate (Norvasc) 5 mg PO DAILY [facility] Last Admin: 05/05/18 09:34 Dose: 5 mg Apixaban (Eliquis) 2.5 mg PO Q12 [facility]; Protocol Last Admin: 05/05/18 09:35 Dose: 2.5 mg Aspirin (Aspirin Chewable) 81 mg PO DAILY [facility] Last Admin: 05/05/18 09:33 Dose: 81 mg Budesonide (Pulmicort Respules) 0.5 mg IH [id number] [facility] Last Admin: 05/05/18 07:53 Dose: 0.5 mg Diltiazem HCl (Cardizem) 60 mg PO QID [facility] Last Admin: 05/05/18 17:47 Dose: 60 mg Furosemide (Lasix) 40 mg IVP DAILY [facility] Last Admin: 05/05/18 09:33 Dose: 40 mg Hydromorphone HCl (Dilaudid) 0.5 mg IVP Q4H PRN PRN Reason: Pain, moderate (4-7) Insulin Human Regular (Humulin R Low) 0 units SC ACHS [facility]; Protocol Last Admin: 05/05/18 17:45 Dose: Not Given Methylprednisolone (Solu-Medrol) 40 mg IVP Q12 [facility] Last Admin: 05/05/18 09:33 Dose: 40 mg Pantoprazole Sodium (Protonix Susp) 40 mg PO 0600 [facility] Last Admin: 05/05/18 05:12 Dose: 40 mg Quetiapine Fumarate (Seroquel) 12.5 mg PO HS PRN; Protocol PRN Reason: agitation Tacrolimus (Prograf Cap) 3 mg PO BID [facility] Last Admin: 05/05/18 17:47 Dose: 3 mg - Labs Labs: 05/05/18 05:20 05/05/18 05:20 PT 21.2 SECONDS (9.4-12.5) H 04/25/18 12:35 INR 1.88 04/25/18 12:35 APTT 35.1 Seconds (26.9-38.3) 04/26/18 05:50 Assessment and Plan - Assessment and Plan (Free Text) Assessment: Pt seen and examined by me. This is a late entry. I have reviewed the note of the medical lab assistant and I agree with it. I have discussed the assessment and plan with the resident. I have reviewed the medications and the last labs. Pt with JAGDISH that is stable. He is on Solumedrol and Tacrolimus for his donor kidney transplant. Pt completed Tamiflu for flu. She has been on Cardizem for her A fib. She will be continuing with Doxy and Cefepime. Pt was given Aranesp for his anemia. POA wants to continue with aggressive treatment.
--- NOTE | 2018-05-02 14:42 | CP.PCM.PN ---
Subjective - Date & Time of Evaluation Date of Evaluation: 05/02/18 Time of Evaluation: 12:00 - Subjective Subjective: Confused, moaning. Objective - Vital Signs/Intake and Output Vital Signs (last 24 hours): Temp Pulse Resp BP Pulse Ox 98.6 F 138 H 31 H 158/86 H 96 05/02/18 04:00 05/02/18 13:57 05/02/18 06:00 05/02/18 06:00 05/02/18 06:00 Intake and Output: 05/02/18 05/02/18 06:59 18:59 Intake Total 700 40 Output Total 250 Balance 450 40 - Medications Medications: Current Medications Albuterol/Ipratropium (Duoneb 3 Mg/0.5 Mg (3 Ml) Ud) 3 ml IH Q4H PRN PRN Reason: Shortness of Breath Last Admin: 05/02/18 07:25 Dose: 3 ml Amlodipine Besylate (Norvasc) 5 mg PO DAILY [facility] Last Admin: 05/02/18 12:43 Dose: Not Given Apixaban (Eliquis) 2.5 mg PO Q12 [facility]; Protocol Last Admin: 05/01/18 09:35 Dose: 2.5 mg Aspirin (Aspirin Chewable) 81 mg PO DAILY [facility] Last Admin: 05/02/18 12:45 Dose: Not Given Atorvastatin Calcium (Lipitor) 10 mg PO DIN [facility] Last Admin: 05/01/18 16:29 Dose: Not Given Budesonide (Pulmicort Respules) 0.5 mg IH [id number] [facility] Last Admin: 05/02/18 07:25 Dose: 0.5 mg Diltiazem HCl (Cardizem) 90 mg PO QID [facility] Last Admin: 05/02/18 12:44 Dose: Not Given Doxycycline Hyclate (Doryx) 100 mg PO Q12 [facility]; Protocol Stop: 05/02/18 22:01 Last Admin: 05/02/18 12:44 Dose: Not Given Cefepime HCl (Maxipime 1gm) 1 gm in 100 mls @ 100 mls/hr IVPB Q24H [facility]; Protocol Last Admin: 05/02/18 06:08 Dose: 100 mls/hr diltiaZEM IVPB 100mg in NS (Cardizem 100mg In Ns) 100 mls @ 5 mls/hr IV .Q20H PRN; Protocol PRN Reason: TITRATE PER MD ORDER Last Admin: 05/02/18 10:39 Dose: 5 mg/hr, 5 mls/hr Methylprednisolone (Solu-Medrol) 40 mg IVP Q12 [facility] Last Admin: 05/02/18 10:26 Dose: 40 mg Pantoprazole Sodium (Protonix Susp) 40 mg PO 0600 [facility] Last Admin: 05/02/18 06:07 Dose: 40 mg Tacrolimus (Prograf Cap) 3 mg PO BID [facility] Last Admin: 05/02/18 12:44 Dose: Not Given - Labs Labs: 05/02/18 05:30 05/02/18 05:30 PT 21.2 SECONDS (9.4-12.5) H 04/25/18 12:35 INR 1.88 04/25/18 12:35 APTT 35.1 Seconds (26.9-38.3) 04/26/18 05:50 - Constitutional Appears: Chronically Ill - Head Exam Head Exam: NORMAL INSPECTION - Eye Exam Eye Exam: Normal appearance - ENT Exam ENT Exam: Mucous Membranes Moist - Respiratory Exam Respiratory Exam: Decreased Breath Sounds, Rhonchi - Cardiovascular Exam Cardiovascular Exam: Tachycardia, +S1, +S2 - GI/Abdominal Exam GI & Abdominal Exam: Soft, Hypoactive Bowel Sounds - Neurological Exam Neurological Exam: Altered - Skin Skin Exam: Dry, Pallor Assessment and Plan - Assessment and Plan (Free Text) Assessment: 77 marko old female with history of SLE, kidney transplant, COPD who is admitted with bilateral pneumonia, N STEMI, A Fib, JAGDISH on CKD, hypercalcemia, delerium. Patient's daughter Marbella at bedside. Goals of care discussion initiated. I explained that patients condition was not improving despite medical interventions. Family waiting renal biopsy. Encouraged family to consider patient's quality of life when considering goals of care. Option for comfort care also offered. Family undecided at this point in time. Psychosocial support provided. Time spent with family in goals of care discussion, 20 minutes Plan: Goals of care Pulmonary: BiPAP as needed,nebulizers,solumedrol, maintain O2 sat above 88%. Pneumonia: ID following .Repeat bedolla cultures. Continue Doxycycline,Cefepime and Vancomycin at renal dosing A fib; Continue Cardizem
--- NOTE | 2018-05-02 15:16 | PN ---
DATE: 05/02/2018 SUBJECTIVE: The patient is confused and agitated. PHYSICAL EXAMINATION: VITAL SIGNS: Blood pressure 158/86, heart rate is 104. NECK: Negative JVD. LUNGS: Decreased breath sounds. HEART: Reveal S1, S2. EXTREMITIES: Without change. LABORATORY DATA: Hemoglobin is 9.9. Chemistries; BUN and creatinine is 83 and 4.2. IMPRESSION: 1. Renal failure. 2. Dementia. 3. Pneumonia. 4. Severe pulmonary hypertension. Given these findings, the patient is scheduled for renal biopsy which is unclear why this is being done for somebody who is a DNR/DNI with severe comorbidities. Travis Vides MD
--- NOTE | 2018-05-02 15:21 | CP.PCM.PN ---
<Marivel Simental - Last Filed: 05/02/18 15:16> Subjective - Date & Time of Evaluation Date of Evaluation: 05/02/18 Time of Evaluation: 15:18 - Subjective Subjective: Marivel Simental, PGY-1, Internal medicine note for Dr. Mckeon Patient was seen and evaluated at bedside. Overnight, no acute overnight events. This morning, patient was lethargic and in respiratory distress. Patient was minimally responsive to stimuli. Patient was using accessory muscles for respiration. However, patient's saturation was more than 90%. Patient was tachycardic in 110s and respiratory rate ranged from 30-40. Patient was placed on BiPap again. 12-point ROS was unattainable due to patient's mental status. Objective - Vital Signs/Intake and Output Vital Signs (last 24 hours): Temp Pulse Resp BP Pulse Ox 98.6 F 138 H 31 H 158/86 H 96 05/02/18 04:00 05/02/18 13:57 05/02/18 06:00 05/02/18 06:00 05/02/18 06:00 Intake and Output: 05/02/18 05/02/18 06:59 18:59 Intake Total 700 40 Output Total 250 Balance 450 40 - Medications Medications: Current Medications Albuterol/Ipratropium (Duoneb 3 Mg/0.5 Mg (3 Ml) Ud) 3 ml IH Q4H PRN PRN Reason: Shortness of Breath Last Admin: 05/02/18 07:25 Dose: 3 ml Amlodipine Besylate (Norvasc) 5 mg PO DAILY [facility] Last Admin: 05/02/18 12:43 Dose: Not Given Apixaban (Eliquis) 2.5 mg PO Q12 [facility]; Protocol Last Admin: 05/01/18 09:35 Dose: 2.5 mg Aspirin (Aspirin Chewable) 81 mg PO DAILY [facility] Last Admin: 05/02/18 12:45 Dose: Not Given Atorvastatin Calcium (Lipitor) 10 mg PO DIN [facility] Last Admin: 05/01/18 16:29 Dose: Not Given Budesonide (Pulmicort Respules) 0.5 mg IH [id number] [facility] Last Admin: 05/02/18 07:25 Dose: 0.5 mg Diltiazem HCl (Cardizem) 90 mg PO QID [facility] Last Admin: 05/02/18 12:44 Dose: Not Given Doxycycline Hyclate (Doryx) 100 mg PO Q12 [facility]; Protocol Stop: 05/02/18 22:01 Last Admin: 05/02/18 12:44 Dose: Not Given Cefepime HCl (Maxipime 1gm) 1 gm in 100 mls @ 100 mls/hr IVPB Q24H [facility]; Protocol Last Admin: 05/02/18 06:08 Dose: 100 mls/hr diltiaZEM IVPB 100mg in NS (Cardizem 100mg In Ns) 100 mls @ 5 mls/hr IV .Q20H PRN; Protocol PRN Reason: TITRATE PER MD ORDER Last Admin: 05/02/18 10:39 Dose: 5 mg/hr, 5 mls/hr Methylprednisolone (Solu-Medrol) 40 mg IVP Q12 [facility] Last Admin: 05/02/18 10:26 Dose: 40 mg Pantoprazole Sodium (Protonix Susp) 40 mg PO 0600 [facility] Last Admin: 05/02/18 06:07 Dose: 40 mg Tacrolimus (Prograf Cap) 3 mg PO BID [facility] Last Admin: 05/02/18 12:44 Dose: Not Given - Labs Labs: 05/02/18 05:30 05/02/18 05:30 PT 21.2 SECONDS (9.4-12.5) H 04/25/18 12:35 INR 1.88 04/25/18 12:35 APTT 35.1 Seconds (26.9-38.3) 04/26/18 05:50 - Constitutional Appears: In Acute Distress, Older Than Stated Age - Head Exam Head Exam: ATRAUMATIC, NORMAL INSPECTION, NORMOCEPHALIC - Eye Exam Eye Exam: PERRL - ENT Exam ENT Exam: Mucous Membranes Moist - Neck Exam Neck Exam: Full ROM - Respiratory Exam Respiratory Exam: Accessory Muscle Use, Respiratory Distress. absent: Rales, Rhonchi, Wheezes - Cardiovascular Exam Cardiovascular Exam: Tachycardia, Irregular Rhythm - GI/Abdominal Exam GI & Abdominal Exam: Soft, Normal Bowel Sounds. absent: Tenderness - Extremities Exam Extremities Exam: Full ROM - Neurological Exam Neurological Exam: Awake. absent: Alert, Oriented x3 Assessment and Plan - Assessment and Plan (Free Text) Assessment: 77 year old female with past medical history of questionable congestive heart failure with last EF of 50%, COPD, LUE DVT currently on eliquis, SLE, lupus nephritis (currently on prednisone and prograf), and osteoporosis presented with worsened, labored breathing. Patient was admitted for hypoxic, hypercarbic respiratory failure 2/2 to CHF exacerbation vs. bilobar pneumonia in the setting of immunosuppresive therapy vs. COPD exacerbation complicated by NSTEMI Plan: CKD Stage IV s/p renal transplant -BUN/Cr: 83/4.2 improved from creatinine of 4.4 yesterday. Worsened from baseline -Continue with immunosuppresive regimen of home tacrolimus and prednisone -As per nephrology, renal biopsy by IR for further evaluation today. -Avoid nephrotoxic agents such as lisinopril, losartan, IV contrast -Administer lasix on as needed basis. Standing dose discontinued -Conversations about dialysis with family today. At this time family wants all interventions except for resuscitation and intubation. -Dr. Reed is considering dialysis based on consideration of uremic cause of altered mental status. Hyperkalemia -K: 5.1 -Likely 2/2 to CKD. -Mild elevation. -Continue to monitor at this time. Hypoxic respiratory failure likely 2/2 to CHF Exacerbation -Off Bipap and in respiratory distress -ABG 05/01: pH: 7.37, pO2: 76, pCO2: 41 -CXR 05/01: severe cardiomegaly with worsening in pulmonary venous congestion -BNP [place] admission was [address]252 with baseline of around 3000 on prior admissions -Echocardiogram 04/26: LVEF of 46.5%, LVH, LA dilated, moderate to severe TR, pulmonary hypertension -Chest CT 04/26: severe cardiomegaly, mild bibasilar consolidation and pleural effusions -Standing lasix stopped due to CKD with renal transplant -Lasix should be given as needed -Consider beta blockers for congestive heart failure Altered mental status due to likely uremia -AAOx0. lethargic today -Avoid sedatives including anti-psychotics, haldol, benzodiazepines. -CT Head: no acute intracranial findings -Dr. Traylor, Psychiatry, consulted for recommendations and psych medication management. -Dr. Reed is considering dialysis based on consideration of uremic cause of altered mental status. Atrial Fibrillation -Patient with documented history of atrial fibrillation -Continue with Eliquis 2.5 mg Q12. Held eliquis prior to renal biopsy today. -IV cardizem restarted because patient failed PO intake today. -Increased cardizem PO to 90 mg Q6 NSTEMI -EKG: atrial fibrillation with HR: 93 -Troponin: 0.27, 1.64, 1.72, 1.21 -Continue with aspirin 81 mg daily, lipitor 10 mg daily, cardizem mg 90 Q6 as tolerates PO -Cardizem drip restarted -Held eliquis Hypertension -Continue with cardizem, norvasc Normocytic Anemia -Hgb: 9.9 -Status post 2 U of PRBCs -Unremarkable iron and ferritin levels. Low TIBC at 187. -Stool guiaic negative -Goal hemoglobin>8 due to cardiac issues Bilateral Interstitial Pneumonia -Blood culture was negative for 5 days, MRSA negative, urine culture negative. -Lactate: last was 1.6 from 2.7 -Negative influenza, urine legionella -Procalcitonin: 0.69 -CXR: bilateral lower lobe effusion -Continue with doxycycline and cefepime day 7. Continue with renally dose vancomycin as per Dr. Jackelyn PALM COPD -Continue with duonebs, and pulmicort -Increased prednisone to 20 mg daily. Restarted methylprednisone 40 mg Q12 -Taper down steroids as tolerated GI prophylaxis: protonix 40 mg daily DVT prophylaxis: eliquis 2.5 mg Q12. Held eliquis prior to renal biopsy today. Disposition: Palliative care has been consulted and family now wants patient to be DNR/DNI. Conversations about dialysis with family today. At this time family wants all interventions except for resuscitation and intubation. Family undecided at this time about comfort care. Patient plan was discussed with attending. <Marlen Mckeon - Last Filed: 05/02/18 18:31> Objective - Vital Signs/Intake and Output Vital Signs (last 24 hours): Temp Pulse Resp BP Pulse Ox 98.6 F 145 H 31 H 158/86 H 96 05/02/18 04:00 05/02/18 17:27 05/02/18 06:00 05/02/18 06:00 05/02/18 06:00 Intake and Output: 05/02/18 05/02/18 06:59 18:59 Intake Total 700 40 Output Total 250 Balance 450 40 - Medications Medications: Current Medications Albuterol/Ipratropium (Duoneb 3 Mg/0.5 Mg (3 Ml) Ud) 3 ml IH Q4H PRN PRN Reason: Shortness of Breath Last Admin: 05/02/18 07:25 Dose: 3 ml Amlodipine Besylate (Norvasc) 5 mg PO DAILY [facility] Last Admin: 05/02/18 12:43 Dose: Not Given Apixaban (Eliquis) 2.5 mg PO Q12 [facility]; Protocol Last Admin: 05/01/18 09:35 Dose: 2.5 mg Aspirin (Aspirin Chewable) 81 mg PO DAILY [facility] Last Admin: 05/02/18 12:45 Dose: Not Given Atorvastatin Calcium (Lipitor) 10 mg PO DIN [facility] Last Admin: 05/02/18 17:33 Dose: Not Given Budesonide (Pulmicort Respules) 0.5 mg IH [id number] [facility] Last Admin: 05/02/18 07:25 Dose: 0.5 mg Diltiazem HCl (Cardizem) 90 mg PO QID [facility] Last Admin: 05/02/18 17:27 Dose: Not Given Doxycycline Hyclate (Doryx) 100 mg PO Q12 [facility]; Protocol Stop: 05/02/18 22:01 Last Admin: 05/02/18 12:44 Dose: Not Given Cefepime HCl (Maxipime 1gm) 1 gm in 100 mls @ 100 mls/hr IVPB Q24H [facility]; Protocol Last Admin: 05/02/18 06:08 Dose: 100 mls/hr diltiaZEM IVPB 100mg in NS (Cardizem 100mg In Ns) 100 mls @ 5 mls/hr IV .Q20H PRN; Protocol PRN Reason: TITRATE PER MD ORDER Last Admin: 05/02/18 10:39 Dose: 5 mg/hr, 5 mls/hr Methylprednisolone (Solu-Medrol) 40 mg IVP Q12 [facility] Last Admin: 05/02/18 10:26 Dose: 40 mg Pantoprazole Sodium (Protonix Susp) 40 mg PO 0600 [facility] Last Admin: 05/02/18 06:07 Dose: 40 mg Quetiapine Fumarate (Seroquel) 12.5 mg PO HS PRN; Protocol PRN Reason: agitation Tacrolimus (Prograf Cap) 3 mg PO BID [facility] Last Admin: 05/02/18 17:31 Dose: Not Given - Labs Labs: 02/14/19 05:30 05/02/18 05:30 PT 21.2 SECONDS (9.4-12.5) H 04/25/18 12:35 INR 1.88 04/25/18 12:35 APTT 35.1 Seconds (26.9-38.3) 04/26/18 05:50 Attending/Attestation - Attestation I have personally seen and examined this patient.: Yes I have fully participated in the care of the patient.: Yes I have reviewed all pertinent clinical information, including history, physical exam and plan: Yes Notes (Text): 05/02/18 18:29 77 year old female with past medical history of CHF, COPD, LUE DVT on eliquis, SLE, lupus nephritis and atrial fibrillation who presented with acute hypoxic/hypercapneic failure likely multifactorial secondary to CHF/COPD/pneumonia. Also found to have AFib with RVR and possible NSTEMI in addition to acute on chronic renal failure. Patient is on cardizem drip with transition to po. Continue with conservative management as per cardiology. Nephrology is also following for acute on chronic renal failure. Will discuss with nephrology given worsening renal function ?dialysis. Steroids were increased today and plan is for kidney biopsy. Overall prognosis is poor. Patient is DNR/DNI. Family is at bedside. Marlen Mckeon MD Hospitalist.
[2018-05-02] MEDS ORDERED: Midazolam 2 MG/2 ML VIAL ONE (16:31)
[2018-05-02] MEDS ORDERED: Lidocaine 1% Inj (20ml) ONE (16:32)
--- NOTE | 2018-05-02 19:59 | CON ---
DATE OF CONSULTATION: 05/02/2018 HISTORY OF PRESENT ILLNESS: In short, the patient is 77 years old -[place] female with reported history of multiple medical issues including COPD, CHF, DVT, status post kidney transplant. The patient was admitted to ICU for evaluation of shortness of breath. Psych consult was called because the patient has periods of agitation and delirium stage. The patient was seen and examined today, discussed with her family, daughter, Marbella [phone], which was next to the patient today, discussed with the medical records library professor. The patient presented to be in acute respiratory distress. The patient is on BiPAP machine, was not able to participate in interview. As per daughter, the patient does not have history of mental illness and what they are looking for is discomfort for the mother. This food writer educated the patient about Seroquel and possible lower dose of benzodiazepines. Risks, benefits and alternatives discussed with the family, and family agreed. As per resident, prognosis overall is very poor. PHYSICAL EXAMINATION: VITAL SIGNS: Reviewed. Pulse 138, blood pressure 158/86, respirations 31, oxygen saturation is 96. MEDICATIONS: Reviewed. The patient is on multiple medications, but the patient was not taking anything because of the lethargy. Labs reviewed. Hematology and coagulation reviewed. Chemistry reviewed. Mental status examination was not able to be assessed because the patient is on BiPAP machine and also not able to participate in the interview, but as per staff, the patient at times hallucinating, restless, and seems to be in delirium stage. IMPRESSION: Most likely, the patient is in hyperactive delirium due to general medical condition and multiple medical issues. The patient does not have history of Alzheimer's dementia. The patient does not have history of mental illness. PLAN: Seroquel could be given as needed at the nighttime in order to help the patient with the delirium stage. Medical team was advised, if needed, Ativan 0.5 mg three times a day of IV push should be given. This treatment plan was discussed with the patient's daughter as well as resident. At this point periods of agitation related to the delirium stage, which is obviously related to multiple medical issues. This food writer will sign off. Should you have any questions give me a call back. Marie Abduakhadov, MD [facility] # [phone] [place]TD[place]augh[place]
[2018-05-03] MEDS ORDERED: Morphine 2 mg/ml ISec IVP STA (00:21)
[2018-05-03] MEDS: Pantoprazole 40 mg Susp UD PO SCH (06:00)
[2018-05-03] MEDS: Cefepime 1gm in NS 100ml 1 GM/100 ML BAG IVPB SCH (06:16)
[2018-05-03] MEDS: diltiaZEM IVPB 100mg in NS 100 ML IV PRN ×3 (06:17→21:26)
[2018-05-03 06:54] LABS: BASO # 0.04 K/mm3 (0.0-2.0); BASO % 0.5 % (0.0-3.0); HEMOGLOBIN 9.3 g/dL (12.0-16.0); LYMPH # 1.2 (1.2-3.4); LYMPH % 14.2 % (22.0-35.0); MEAN CELL VOLUME 102.7 fl (80.0-105.0); MEAN CORPUSCULAR HEMOGLOBIN 30.9 pg (25.0-35.0); MEAN CORPUSCULAR HGB CONC 30.1 g/dl (31.0-37.0); MEAN PLATELET VOLUME 11.7 fl (7.0-11.0); MONO # 0.3 (0.1-0.6); PLATELET COUNT 120 10^3/uL (120.0-450.0); RBC 3.01 10^6/uL (3.5-6.1); RED CELL DISTRIBUTION WIDTH 17.4 % (11.5-14.5); WHITE BLOOD COUNT 8.6 10^3/uL (4.5-11.0)
[2018-05-03 07:24] LABS: ALB/GLOB RATIO 1.2 (1.1-1.8); ALBUMIN 3.4 g/dL (3.0-4.8); CALCIUM 12.4 mg/dL (8.4-10.5)
[2018-05-03] MEDS: Budesonide 0.5 mg/2 ml Inhal Susp UD IH SCH ×2 (07:33→21:16)
[2018-05-03 08:10] LABS: CORRECTED WBC 7.8 K/mm3 (4.5-11.0); LYMPHOCYTE 3 % (22.0-35.0); MONOCYTE 4 % (1.0-6.0); NEUTROPHIL 93 % (50.0-70.0); NUCLEATED RED BLOOD CELL 10 %; PLATELET ESTIMATE NORMAL (NORMAL)
--- NOTE | 2018-05-03 08:16 | CP.PCM.PN ---
<Sage Ford - Last Filed: 05/03/18 09:25> Subjective - Date & Time of Evaluation Date of Evaluation: 05/03/18 Time of Evaluation: 07:00 - Subjective Subjective: Nephrology progress note: Patient seen and examined at bedside. No acute events overnight. She is currently on Bipap. Pt is still confused and agitated. 12 point ROS unobtainable 2/2 mental status Objective - Vital Signs/Intake and Output Vital Signs (last 24 hours): Temp Pulse Resp BP Pulse Ox 98.2 F 108 H 30 H 129/66 97 05/03/18 04:00 05/03/18 06:00 05/03/18 06:00 05/03/18 06:00 05/03/18 06:00 Intake and Output: 05/03/18 05/03/18 06:59 18:59 Intake Total 360 Balance 360 - Medications Medications: Current Medications Albuterol/Ipratropium (Duoneb 3 Mg/0.5 Mg (3 Ml) Ud) 3 ml IH Q4H PRN PRN Reason: Shortness of Breath Last Admin: 05/02/18 20:46 Dose: 3 ml Amlodipine Besylate (Norvasc) 5 mg PO DAILY [facility] Last Admin: 05/02/18 12:43 Dose: Not Given Apixaban (Eliquis) 2.5 mg PO Q12 [facility]; Protocol Last Admin: 05/01/18 09:35 Dose: 2.5 mg Aspirin (Aspirin Chewable) 81 mg PO DAILY [facility] Last Admin: 05/02/18 12:45 Dose: Not Given Atorvastatin Calcium (Lipitor) 10 mg PO DIN [facility] Last Admin: 05/02/18 17:33 Dose: Not Given Budesonide (Pulmicort Respules) 0.5 mg IH [id number] [facility] Last Admin: 05/03/18 07:33 Dose: 0.5 mg Diltiazem HCl (Cardizem) 90 mg PO QID [facility] Last Admin: 05/02/18 22:00 Dose: Not Given Cefepime HCl (Maxipime 1gm) 1 gm in 100 mls @ 100 mls/hr IVPB Q24H [facility]; Protocol Last Admin: 05/03/18 06:16 Dose: 100 mls/hr diltiaZEM IVPB 100mg in NS (Cardizem 100mg In Ns) 100 mls @ 5 mls/hr IV .Q20H PRN; Protocol PRN Reason: TITRATE PER MD ORDER Last Admin: 05/03/18 06:17 Dose: 5 mg/hr, 5 mls/hr Dextrose (Dextrose 5% In Water 1000 Ml) 1,000 mls @ 75 mls/hr IV .[id number] [facility] Stop: 05/04/18 10:24 Methylprednisolone (Solu-Medrol) 40 mg IVP Q12 [facility] Last Admin: 05/02/18 21:56 Dose: 40 mg Pantoprazole Sodium (Protonix Susp) 40 mg PO 0600 [facility] Last Admin: 05/02/18 06:07 Dose: 40 mg Quetiapine Fumarate (Seroquel) 12.5 mg PO HS PRN; Protocol PRN Reason: agitation Tacrolimus (Prograf Cap) 3 mg PO BID [facility] Last Admin: 05/02/18 17:31 Dose: Not Given - Labs Labs: 05/03/18 05:40 05/03/18 05:40 PT 21.2 SECONDS (9.4-12.5) H 04/25/18 12:35 INR 1.88 04/25/18 12:35 APTT 35.1 Seconds (26.9-38.3) 04/26/18 05:50 - Constitutional Appears: No Acute Distress - Head Exam Head Exam: ATRAUMATIC, NORMOCEPHALIC - Eye Exam Eye Exam: EOMI, PERRL - ENT Exam ENT Exam: Mucous Membranes Moist - Respiratory Exam Respiratory Exam: Clear to Ausculation Bilateral (no r/r/w) - Cardiovascular Exam Cardiovascular Exam: Tachycardia, REGULAR RHYTHM, +S1, +S2 - GI/Abdominal Exam GI & Abdominal Exam: Soft (NTND) - Extremities Exam Extremities Exam: absent: Calf Tenderness, Pedal Edema - Neurological Exam Neurological Exam: Altered, Awake - Psychiatric Exam Psychiatric exam: Agitated - Skin Skin Exam: Dry, Warm Assessment and Plan - Assessment and Plan (Free Text) Assessment: 1. Acute kidney injury with CKD, stage IV 2. Status post donor kidney transplant 3. Hypercalcemia 4. Anemia 5. Influenza infection 6. Atrial fibrillation 7. Lupus nephritis 8. SLE 9. Nephrolithiasis of the right kidney 10. Left renal cyst 11. Hearing impairment 12. Delirium 2/2 medical condition 13. Hypernatremia Kidney biopsy was performed yesterday with no complications. Awaiting pathology report. We will consider increase the dose of steroids to induce immunosuppression. Monitor I's and O's and avoid any nephrotoxic medications. Continue her immunosuppressive regimen with tacrolimus and Solu-Medrol. F/u prograf level tomorrow. Patient was started on 75 mL/hr of D5W for her hypernatremia. Psychiatry was consulted for delirium, and was started on seroquel. Cont to monitor the hypercalcemia. 1 dose of Aranesp was given for her anemia, cont to monitor. We will hold Eliquis is given for A. fib for possible kidney biopsy. Cardizem drip converted to PO, will follow-up cardiology recommendations. For her pneumonia continue with cefepime and doxycycline as per infectious disease. Patient completed 5 days of Tamiflu for influenza. Septic workup thus far negative. Immunologic workup thus far negative as well. Will cont to monitor. Case and plan was reviewed and discussed with Dr. Yin. <Kenton Yin S - Last Filed: 05/03/18 17:32> Objective - Vital Signs/Intake and Output Vital Signs (last 24 hours): Temp Pulse Resp BP Pulse Ox 98.2 F 123 H 24 150/66 92 L 05/03/18 04:00 05/03/18 14:03 05/03/18 14:00 05/03/18 14:03 05/03/18 14:00 Intake and Output: 05/03/18 05/03/18 06:59 18:59 Intake Total 360 100 Balance 360 100 - Medications Medications: Current Medications Albuterol/Ipratropium (Duoneb 3 Mg/0.5 Mg (3 Ml) Ud) 3 ml IH Q4H PRN PRN Reason: Shortness of Breath Last Admin: 05/02/18 20:46 Dose: 3 ml Amino Acid Protein (Prostat 15 G Packet) 15 gm GT DAILY [facility] Amlodipine Besylate (Norvasc) 5 mg PO DAILY [facility] Last Admin: 05/03/18 14:03 Dose: 5 mg Apixaban (Eliquis) 2.5 mg PO Q12 [facility]; Protocol Last Admin: 05/01/18 09:35 Dose: 2.5 mg Aspirin (Aspirin Chewable) 81 mg PO DAILY [facility] Last Admin: 05/03/18 13:53 Dose: 81 mg Atorvastatin Calcium (Lipitor) 10 mg PO DIN [facility] Last Admin: 05/02/18 17:33 Dose: Not Given Budesonide (Pulmicort Respules) 0.5 mg IH [id number] [facility] Last Admin: 05/03/18 07:33 Dose: 0.5 mg Diltiazem HCl (Cardizem) 60 mg PO QID [facility] Last Admin: 05/03/18 13:54 Dose: 60 mg Hydromorphone HCl (Dilaudid) 0.5 mg IVP Q6H PRN PRN Reason: Pain, moderate (4-7) Last Admin: 05/03/18 13:57 Dose: 0.5 mg diltiaZEM IVPB 100mg in NS (Cardizem 100mg In Ns) 100 mls @ 5 mls/hr IV .Q20H PRN; Protocol PRN Reason: TITRATE PER MD ORDER Last Admin: 05/03/18 14:10 Dose: 5 mg/hr, 5 mls/hr Dextrose (Dextrose 5% In Water 1000 Ml) 1,000 mls @ 75 mls/hr IV .[id number] [facility] Stop: 05/04/18 10:24 Last Admin: 05/03/18 08:25 Dose: 75 mls/hr Methylprednisolone (Solu-Medrol) 40 mg IVP Q12 [facility] Last Admin: 05/03/18 11:28 Dose: 40 mg Pantoprazole Sodium (Protonix Susp) 40 mg PO 0600 [facility] Last Admin: 05/02/18 06:07 Dose: 40 mg Quetiapine Fumarate (Seroquel) 12.5 mg PO HS PRN; Protocol PRN Reason: agitation Tacrolimus (Prograf Cap) 3 mg PO BID [facility] Last Admin: 05/03/18 14:06 Dose: 3 mg - Labs Labs: 05/03/18 05:40 05/03/18 05:40 PT 21.2 SECONDS (9.4-12.5) H 04/25/18 12:35 INR 1.88 04/25/18 12:35 APTT 35.1 Seconds (26.9-38.3) 04/26/18 05:50 Assessment and Plan - Assessment and Plan (Free Text) Assessment: Pt seen and examined by me. I have reviewed the note of the medical record specialist and I agree with it. I have discussed the assessment and plan with the resident. I have reviewed the medications and the last labs. Pt with JAGDISH that is staring to improve. Pt's family have not decided to change the goals of care and so I will need to continue with aggressive treatment. 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 The pt has CKD. The JAGDISH is multifactorial, with the flu causing the initial insult. The proteinuria is low so acute lupus flare is unlikely. Will need to check Prograf levels. The pt has hypernatremia due to insensible loss and I have started the pt on D5W to replace the free water deficit. May restart Eliquis. Await results of kidney bx. Unlikely that the pt has BK nephropathy or CMV. Most likely ATN that may be improving, since the sepsis and flu are improved. Even if the kidney function improves prognosis is still guarded. She is confused and moans at times. She is not able to eat and drink well. She is on the BIPAP and has tachycardia. Palliative care following the pt. She is DNR/DNI. She was given Aranesp for her anemia. She has a R arm AVF and can be used if HD is required. She does not need HD at this time. Confusion is not likely to uremia. She also moves her R arm and will no likely be able to tolerate HD and will most likely move her arm. She would need to be sedated and that has risks. Hypercalemia work up in progress. Unlikely causing confusion.
--- NOTE | 2018-05-03 09:24 | CP.CCUPN ---
<Larissa Ernst - Last Filed: 05/03/18 12:06> CCU Subjective - Physician Review Subjective (Free Text): 05/02/18 07:16 Larissa Ernst, PGY-1 ICU Progress Note for Dr. Lee Pt was seen and examined this AM with the ICU team. Pt is AOx0, is delirious and agitated but can awaken when called. Pt is currently on bipap sating well. Cardizem drip on running at 15. ROS is limited due to pts current status. CCU Objective - Vital Signs / Intake & Output Vital Signs (Last 4 hours): Vital Signs Pulse Resp BP Pulse Ox 05/03/18 06:00 108 H 30 H 129/66 97 Intake and Output (Last 8hrs): Intake & Output 05/02/18 05/03/18 05/03/18 22:59 06:59 14:59 Intake Total 360 Balance 360 Intake: IV 360 antibiotics 100 cardizem 160 - Physical Exam Physical Exam Limitations: Positive for: Altered Mental Status Head: Positive for: Atraumatic, Normocephalic Pupils: Positive for: PERRL Extroacular Muscles: Positive for: EOMI Conjunctiva: Positive for: Normal Mouth: Positive for: Dry Neck: Positive for: Normal Range of Motion Respiratory/Chest: Positive for: Clear to Auscultation. Negative for: Good Air Exchange Cardiovascular: Positive for: Irregular Rhythm (irregularly irregular), Tachycardic. Negative for: Regular Rate and Rhythm, Murmurs, Rub, Gallop Abdomen: Positive for: Normal Bowel Sounds. Negative for: Tenderness, Distention, Peritoneal Signs Back: Positive for: Other (kyphosis) Upper Extremity: Positive for: Other (right AV fistula). Negative for: Cyanosis, Edema Lower Extremity: Positive for: Normal Inspection, Edema (trace pedal edema b/l) Neurological: Positive for: Other (confused, agitated) Skin: Positive for: Warm, Dry, Normal Color. Negative for: Rashes Psychiatric: Positive for: Alert. Negative for: Oriented x 3, Normal Insight, Normal Concentration - Medications Active Medications: Active Medications Generic Name Dose Route Start Last Admin Trade Name Freq PRN Reason Stop Dose Admin Albuterol/Ipratropium 3 ml 04/25/18 15:35 05/02/18 20:46 Duoneb 3 Mg/0.5 Mg (3 Ml) Ud IH 3 ml Q4H PRN Administration Shortness of Breath Amlodipine Besylate 5 mg 05/01/18 14:30 05/02/18 12:43 Norvasc PO Not Given DAILY BIJAN Apixaban 2.5 mg 04/28/18 10:00 05/01/18 09:35 Eliquis PO 2.5 mg Q12 BIJAN Administration Protocol Aspirin 81 mg 04/26/18 10:00 05/02/18 12:45 Aspirin Chewable PO Not Given DAILY BIJAN Atorvastatin Calcium 10 mg 05/01/18 17:00 05/02/18 17:33 Lipitor PO Not Given DIN BIJAN Budesonide 0.5 mg 04/26/18 20:00 05/03/18 07:33 Pulmicort Respules IH 0.5 mg [id number] BIJAN Administration Diltiazem HCl 90 mg 05/01/18 10:00 05/02/18 22:00 Cardizem PO Not Given QID BIJAN Cefepime HCl 1 gm in 100 mls @ 100 mls/hr 04/26/18 06:45 05/03/18 06:16 Maxipime 1gm IVPB 100 mls/hr Q24H BJIAN Administration Protocol diltiaZEM IVPB 100mg in NS 100 mls @ 5 mls/hr 04/28/18 22:44 05/03/18 06:17 Cardizem 100mg In Ns IV 5 mg/hr .Q20H PRN 5 mls/hr TITRATE PER MD ORDER Administration Protocol 5 MG/HR Dextrose 1,000 mls @ 75 mls/hr 05/03/18 07:45 Dextrose 5% In Water 1000 Ml IV 05/04/18 10:24 .[id number] [facility] Methylprednisolone 40 mg 05/02/18 10:00 05/02/18 21:56 Solu-Medrol IVP 40 mg Q12 BIJAN Administration Pantoprazole Sodium 40 mg 04/28/18 06:00 05/02/18 06:07 Protonix Susp PO 40 mg 0600 BIJAN Administration Quetiapine Fumarate 12.5 mg 05/02/18 16:22 Seroquel PO HS PRN agitation Protocol Tacrolimus 3 mg 04/25/18 18:00 05/02/18 17:31 Prograf Cap PO Not Given BID BIJAN - Patient Studies Lab Studies: Lab Studies 05/03/18 05/03/18 05/02/18 Range/Units 05:40 05:40 10:40 WBC 8.6 (4.5-11.0) 10^3/uL RBC 3.01 L (3.5-6.1) 10^6/uL Hgb 9.3 L (12.0-16.0) g/dL Hct 30.9 L (36.0-48.0) % MCV 102.7 (80.0-105.0) fl MCH 30.9 (25.0-35.0) pg MCHC 30.1 L (31.0-37.0) g/dl RDW 17.4 H (11.5-14.5) % Plt Count 120 (120.0-450.0) 10^3/uL MPV 11.7 H (7.0-11.0) fl Neut % (Auto) 82.3 H (50.0-68.0) % Lymph % (Auto) 14.2 L (22.0-35.0) % [place] % (Auto) 3.0 (1.0-6.0) % Eos % (Auto) 0.0 L (1.5-5.0) % Baso % (Auto) 0.5 (0.0-3.0) % Lymph # (Auto) 1.2 (1.2-3.4) [place] # (Auto) 0.3 (0.1-0.6) Eos # (Auto) 0.0 (0.0-0.7) Baso # (Auto) 0.04 (0.0-2.0) K/mm3 Absolute Neuts (auto) 7.04 H (1.4-6.5) Corrected WBC (Man) 7.8 (4.5-11.0) K/mm3 Neutrophils % (Manual) 93 H (50.0-70.0) % Lymphocytes % (Manual) 3 L (22.0-35.0) % Monocytes % (Manual) 4 (1.0-6.0) % Myelocytes % % Nucleated RBC % 10 % Platelet Evaluation Normal (NORMAL) Sodium 151 H (132-148) mmol/L Potassium 5.2 H (3.6-5.0) mmol/L Chloride 119 H (98-107) mmol/L Carbon Dioxide 23 (21-33) mmol/L Anion Gap 14 (10-20) BUN 91 H (7-21) mg/dL Creatinine 3.9 H (0.7-1.2) mg/dl Est GFR ( Amer) 14 Est GFR (Non-Af Amer) 11 Random Glucose 180 H (70-110) mg/dL Calcium 12.4 H* (8.4-10.5) mg/dL Total Bilirubin 1.1 (0.2-1.3) mg/dL AST 36 (14-36) U/L ALT 79 H (7-56) U/L Alkaline Phosphatase 73 (38-126) U/L Total Protein 6.2 (5.8-8.3) g/dL Albumin 3.4 (3.0-4.8) g/dL Globulin 2.8 gm/dL Albumin/Globulin Ratio 1.2 (1.1-1.8) Ur Random Calcium 9.4 mg/dL Anti-ds DNA Titer (Crith) Anti-ds DNA (Crithidia) (NEGATIVE) Actin IgG Antibody U Thyroperoxidase Ab (<9) IU/mL Anti-Parietal Cell Ab U 05/02/18 04/30/18 Range/Units 05:30 05:30 WBC (4.5-11.0) 10^3/uL RBC (3.5-6.1) 10^6/uL Hgb (12.0-16.0) g/dL Hct (36.0-48.0) % MCV (80.0-105.0) fl MCH (25.0-35.0) pg MCHC (31.0-37.0) g/dl RDW (11.5-14.5) % Plt Count (120.0-450.0) 10^3/uL MPV (7.0-11.0) fl Neut % (Auto) (50.0-68.0) % Lymph % (Auto) (22.0-35.0) % [place] % (Auto) (1.0-6.0) % Eos % (Auto) (1.5-5.0) % Baso % (Auto) (0.0-3.0) % Lymph # (Auto) (1.2-3.4) [place] # (Auto) (0.1-0.6) Eos # (Auto) (0.0-0.7) Baso # (Auto) (0.0-2.0) K/mm3 Absolute Neuts (auto) (1.4-6.5) Corrected WBC (Man) 8.7 (4.5-11.0) K/mm3 Neutrophils % (Manual) 79 H (50.0-70.0) % Lymphocytes % (Manual) 10 L (22.0-35.0) % Monocytes % (Manual) 9 H (1.0-6.0) % Myelocytes % 2 % Nucleated RBC % 9 % Platelet Evaluation (NORMAL) Sodium (132-148) mmol/L Potassium (3.6-5.0) mmol/L Chloride (98-107) mmol/L Carbon Dioxide (21-33) mmol/L Anion Gap (10-20) BUN (7-21) mg/dL Creatinine (0.7-1.2) mg/dl Est GFR ( Amer) Est GFR (Non-Af Amer) Random Glucose (70-110) mg/dL Calcium (8.4-10.5) mg/dL Total Bilirubin (0.2-1.3) mg/dL AST (14-36) U/L ALT (7-56) U/L Alkaline Phosphatase (38-126) U/L Total Protein (5.8-8.3) g/dL Albumin (3.0-4.8) g/dL Globulin gm/dL Albumin/Globulin Ratio (1.1-1.8) Ur Random Calcium mg/dL Anti-ds DNA Titer (Crith) TNP Anti-ds DNA (Crithidia) Negative (NEGATIVE) Actin IgG Antibody <20 U Thyroperoxidase Ab <1 (<9) IU/mL Anti-Parietal Cell Ab <20.0 U Laboratory Results - last 24 hr 04/30/18 05/02/18 05/02/18 05:30 05:30 10:40 WBC RBC Hgb Hct MCV MCH MCHC RDW Plt Count MPV Neut % (Auto) Lymph % (Auto) [place] % (Auto) Eos % (Auto) Baso % (Auto) Lymph # (Auto) [place] # (Auto) Eos # (Auto) Baso # (Auto) Absolute Neuts (auto) Corrected WBC (Man) 8.7 Neutrophils % (Manual) 79 H Lymphocytes % (Manual) 10 L Monocytes % (Manual) 9 H Myelocytes % 2 Nucleated RBC % 9 Platelet Evaluation Sodium Potassium Chloride Carbon Dioxide Anion Gap BUN Creatinine Est GFR ( Amer) Est GFR (Non-Af Amer) Random Glucose Calcium Total Bilirubin AST ALT Alkaline Phosphatase Total Protein Albumin Globulin Albumin/Globulin Ratio Ur Random Calcium 9.4 Anti-ds DNA Titer (Crith) TNP Anti-ds DNA (Crithidia) Negative Actin IgG Antibody <20 Thyroperoxidase Ab <1 Anti-Parietal Cell Ab <20.0 05/03/18 05/03/18 05:40 05:40 WBC 8.6 RBC 3.01 L Hgb 9.3 L Hct 30.9 L MCV 102.7 MCH 30.9 MCHC 30.1 L RDW 17.4 H Plt Count 120 MPV 11.7 H Neut % (Auto) 82.3 H Lymph % (Auto) 14.2 L [place] % (Auto) 3.0 Eos % (Auto) 0.0 L Baso % (Auto) 0.5 Lymph # (Auto) 1.2 [place] # (Auto) 0.3 Eos # (Auto) 0.0 Baso # (Auto) 0.04 Absolute Neuts (auto) 7.04 H Corrected WBC (Man) 7.8 Neutrophils % (Manual) 93 H Lymphocytes % (Manual) 3 L Monocytes % (Manual) 4 Myelocytes % Nucleated RBC % 10 Platelet Evaluation Normal Sodium 151 H Potassium 5.2 H Chloride 119 H Carbon Dioxide 23 Anion Gap 14 BUN 91 H Creatinine 3.9 H Est GFR ( Amer) 14 Est GFR (Non-Af Amer) 11 Random Glucose 180 H Calcium 12.4 H* Total Bilirubin 1.1 AST 36 ALT 79 H Alkaline Phosphatase 73 Total Protein 6.2 Albumin 3.4 Globulin 2.8 Albumin/Globulin Ratio 1.2 Ur Random Calcium Anti-ds DNA Titer (Crith) Anti-ds DNA (Crithidia) Actin IgG Antibody Thyroperoxidase Ab Anti-Parietal Cell Ab Fingerstick Blood Sugar Results: 180 Review of Systems - Review of Systems Systems not reviewed;Unavailable: Altered Mental Status (12 Point ROS unable to be reviewed due to pts agitation.) Critical Care Progress Note - Nutrition Nutrition: Nutrition Category Date Time Status Dysphagia/Modified Consistency Diet [DIET] Diets 04/28/18 Dinner Ordered Assessment/Plan - Assessment and Plan (Free Text) Assessment: 77 year old female with past medical history of questionable congestive heart failure with last EF of 50%, COPD, LUE DVT currently on eliquis, SLE, lupus ne phritis (currently on prednisone and prograf), and osteoporosis presents with worsened, labored breathing. Patient was admitted for hypoxic, hypercarbic respiratory failure 2/2 to CHF exacerbation vs. bilobar pneumonia in the setting of immunosuppresive therapy vs. COPD exacerbation. Pt back on bipap this AM. Will f/u with renal about plans for dialysis vs conservative management. Plan: Neuro: AMS 2/2 hypercalcemia vs metabolic encephalopathy - Pt remains AOx0 - Pt is easily arousable when called. - CT Head (-) Pulm: Hypercarbic respiratory failure likely 2/2 to CHF Exacerbation - Saturating well on Bipap - CXR: severe cardiomegaly - Last echocardiogram from prior admission in 04/26/18 showed EF of 46.5% with mild impairment of systolic function - Consider beta blockers for congestive heart failure - Maintain O2 sat >88% Bilateral Interstitial Pneumonia - CXR: bilateral lower lobe effusion - Negative influenza, urine legionella - Procalcitonin: 0.69 - Lactate: last was 1.6 from 2.7 - Follow up BCx, UCx, strep urine antigen - d/c abx today per ID COPD - Continue with duonebs, and pulmicort - Solu-medrol 40 Q12 - Will consider tapering once pt improves Cardio: Atrial Fibrillation - Patient with documented history of atrial fibrillation - Heparin drip was stopped due to decrease in hemoglobin to less than 7 - Pt on cardizem drip running at 15, will attempt to wean - NGT for PO meds - If pt cant take PO, will restart Cardizem drip. NSTEMI - EKG: atrial fibrillation with HR: 93 - Continue with aspirin, eliquis - Held heparin drip due to reduced hemoglobin. - Cardio recs appreciated Heme Normocytic Anemia s/p 2u PRBC transfusion - Hgb: 9.9 and stable - Unremarkable iron and ferritin levels. Low TIBC at 187. - Stool guiaic (-), H&H is stable - Goal hemoglobin>8 due to cardiac issues F/E/N Hypercalcemia: - PTH, VIt D, Urine Ca, PTHrP - Unable to give fluids or loop diuretics due to current renal status. Nephro: CKD Stage IV s/p renal transplant - BUN/Cr: 91/3.9 Cr is improving from yesterday and pt was given IV fluids. - Continue with home tacrolimus and prednisone - Avoid nephrotoxic agents such as lisinopril, losartan, IV contrast - Administer lasix on as needed basis. Standing dose discontinued - Nephro consulted, recs appreciated - cont to keep pt euvolemic - Pt output through fox was 520cc over the past 24 hours. - Maintain euvolemia - Renal biopsy today @ 3PM with Dr. Blevins GI prophylaxis: protonix 40 mg daily DVT prophylaxis: eliquis Dispo: Discussion made by hospice team and confirmed by a separate call placed b y myself that the pt will be made DNR/DNI as per all of the families wishes. Pt seen and discussed with Dr. Rosa Ernst, PGY-1 <Peggy Lee - Last Filed: 05/03/18 18:07> CCU Objective - Vital Signs / Intake & Output Intake and Output (Last 8hrs): Intake & Output 05/03/18 05/03/18 05/03/18 06:59 14:59 22:59 Intake Total 360 100 Balance 360 100 Intake: IV 360 100 antibiotics 100 cardizem 160 - Medications Active Medications: Active Medications Generic Name Dose Route Start Last Admin Trade Name Freq PRN Reason Stop Dose Admin Albuterol/Ipratropium 3 ml 04/25/18 15:35 05/02/18 20:46 Duoneb 3 Mg/0.5 Mg (3 Ml) Ud IH 3 ml Q4H PRN Administration Shortness of Breath Amino Acid Protein 15 gm 05/04/18 10:00 Prostat 15 G Packet GT DAILY BIJAN Amlodipine Besylate 5 mg 05/01/18 14:30 05/03/18 14:03 Norvasc PO 5 mg DAILY BIJAN Administration Apixaban 2.5 mg 04/28/18 10:00 05/01/18 09:35 Eliquis PO 2.5 mg Q12 BIJAN Administration Protocol Aspirin 81 mg 04/26/18 10:00 05/03/18 13:53 Aspirin Chewable PO 81 mg DAILY BIJAN Administration Atorvastatin Calcium 10 mg 05/01/18 17:00 05/02/18 17:33 Lipitor PO Not Given DIN BIJAN Budesonide 0.5 mg 04/26/18 20:00 05/03/18 07:33 Pulmicort Respules IH 0.5 mg [id number] BIJAN Administration Diltiazem HCl 60 mg 05/03/18 11:08 05/03/18 13:54 Cardizem PO 60 mg QID BIJAN Administration Hydromorphone HCl 0.5 mg 05/03/18 13:23 05/03/18 13:57 Dilaudid IVP 0.5 mg Q6H PRN Administration Pain, moderate (4-7) diltiaZEM IVPB 100mg in NS 100 mls @ 5 mls/hr 04/28/18 22:44 05/03/18 14:10 Cardizem 100mg In Ns IV 5 mg/hr .Q20H PRN 5 mls/hr TITRATE PER MD ORDER Administration Protocol 5 MG/HR Dextrose 1,000 mls @ 75 mls/hr 05/03/18 07:45 05/03/18 08:25 Dextrose 5% In Water 1000 Ml IV 05/04/18 10:24 75 mls/hr .[id number] BIJAN Administration Methylprednisolone 40 mg 05/02/18 10:00 05/03/18 11:28 Solu-Medrol IVP 40 mg Q12 BIJAN Administration Pantoprazole Sodium 40 mg 04/28/18 06:00 05/02/18 06:07 Protonix Susp PO 40 mg 0600 BIJAN Administration Quetiapine Fumarate 12.5 mg 05/02/18 16:22 Seroquel PO HS PRN agitation Protocol Tacrolimus 3 mg 04/25/18 18:00 05/03/18 14:06 Prograf Cap PO 3 mg BID BIJAN Administration - Patient Studies Lab Studies: Lab Studies 05/03/18 05/03/18 05/03/18 Range/Units 11:33 05:40 05:40 WBC 8.6 (4.5-11.0) 10^3/uL RBC 3.01 L (3.5-6.1) 10^6/uL Hgb 9.3 L (12.0-16.0) g/dL Hct 30.9 L (36.0-48.0) % MCV 102.7 (80.0-105.0) fl MCH 30.9 (25.0-35.0) pg MCHC 30.1 L (31.0-37.0) g/dl RDW 17.4 H (11.5-14.5) % Plt Count 120 (120.0-450.0) 10^3/uL MPV 11.7 H (7.0-11.0) fl Neut % (Auto) 82.3 H (50.0-68.0) % Lymph % (Auto) 14.2 L (22.0-35.0) % [place] % (Auto) 3.0 (1.0-6.0) % Eos % (Auto) 0.0 L (1.5-5.0) % Baso % (Auto) 0.5 (0.0-3.0) % Lymph # (Auto) 1.2 (1.2-3.4) [place] # (Auto) 0.3 (0.1-0.6) Eos # (Auto) 0.0 (0.0-0.7) Baso # (Auto) 0.04 (0.0-2.0) K/mm3 Absolute Neuts (auto) 7.04 H (1.4-6.5) Corrected WBC (Man) 7.8 (4.5-11.0) K/mm3 Neutrophils % (Manual) 93 H (50.0-70.0) % Lymphocytes % (Manual) 3 L (22.0-35.0) % Monocytes % (Manual) 4 (1.0-6.0) % Nucleated RBC % 10 % Platelet Evaluation Normal (NORMAL) Sodium 151 H (132-148) mmol/L Potassium 5.2 H (3.6-5.0) mmol/L Chloride 119 H (98-107) mmol/L Carbon Dioxide 23 (21-33) mmol/L Anion Gap 14 (10-20) BUN 91 H (7-21) mg/dL Creatinine 3.9 H (0.7-1.2) mg/dl Est GFR ( Amer) 14 Est GFR (Non-Af Amer) 11 POC Glucose (mg/dL) 192 H (65-110) mg/dL Random Glucose 180 H (70-110) mg/dL Calcium 12.4 H* (8.4-10.5) mg/dL Total Bilirubin 1.1 (0.2-1.3) mg/dL AST 36 (14-36) U/L ALT 79 H (7-56) U/L Alkaline Phosphatase 73 (38-126) U/L Total Protein 6.2 (5.8-8.3) g/dL Albumin 3.4 (3.0-4.8) g/dL Globulin 2.8 gm/dL Albumin/Globulin Ratio 1.2 (1.1-1.8) 25-OH Vitamin D Total (30.0-100.0) NG/ML Rheumatoid Factor (<14) IU/mL ANAI Screen (NEGATIVE) ANAI Titer titer ANAI Pattern Anti-ds DNA Titer (Crith) Anti-ds DNA (Crithidia) (NEGATIVE) Actin IgG Antibody U Myocardial Ab Titer Anti-Myocardial Ab (NEGATIVE) Thyroperoxidase Ab (<9) IU/mL Anti-Parietal Cell Ab U Complement C3 (83-193) mg/dL Complement C4 (15-57) mg/dL 05/03/18 04/30/18 Range/Units 05:40 05:30 WBC (4.5-11.0) 10^3/uL RBC (3.5-6.1) 10^6/uL Hgb (12.0-16.0) g/dL Hct (36.0-48.0) % MCV (80.0-105.0) fl MCH (25.0-35.0) pg MCHC (31.0-37.0) g/dl RDW (11.5-14.5) % Plt Count (120.0-450.0) 10^3/uL MPV (7.0-11.0) fl Neut % (Auto) (50.0-68.0) % Lymph % (Auto) (22.0-35.0) % [place] % (Auto) (1.0-6.0) % Eos % (Auto) (1.5-5.0) % Baso % (Auto) (0.0-3.0) % Lymph # (Auto) (1.2-3.4) [place] # (Auto) (0.1-0.6) Eos # (Auto) (0.0-0.7) Baso # (Auto) (0.0-2.0) K/mm3 Absolute Neuts (auto) (1.4-6.5) Corrected WBC (Man) (4.5-11.0) K/mm3 Neutrophils % (Manual) (50.0-70.0) % Lymphocytes % (Manual) (22.0-35.0) % Monocytes % (Manual) (1.0-6.0) % Nucleated RBC % % Platelet Evaluation (NORMAL) Sodium (132-148) mmol/L Potassium (3.6-5.0) mmol/L Chloride (98-107) mmol/L Carbon Dioxide (21-33) mmol/L Anion Gap (10-20) BUN (7-21) mg/dL Creatinine (0.7-1.2) mg/dl Est GFR ( Amer) Est GFR (Non-Af Amer) POC Glucose (mg/dL) (65-110) mg/dL Random Glucose (70-110) mg/dL Calcium (8.4-10.5) mg/dL Total Bilirubin (0.2-1.3) mg/dL AST (14-36) U/L ALT (7-56) U/L Alkaline Phosphatase (38-126) U/L Total Protein (5.8-8.3) g/dL Albumin (3.0-4.8) g/dL Globulin gm/dL Albumin/Globulin Ratio (1.1-1.8) 25-OH Vitamin D Total 26.8 L (30.0-100.0) NG/ML Rheumatoid Factor <14 (<14) IU/mL ANAI Screen Positive H (NEGATIVE) ANAI Titer 1:320 H titer ANAI Pattern Few nuclear dots Anti-ds DNA Titer (Crith) TNP Anti-ds DNA (Crithidia) Negative (NEGATIVE) Actin IgG Antibody <20 U Myocardial Ab Titer TNP Anti-Myocardial Ab Negative (NEGATIVE) Thyroperoxidase Ab <1 (<9) IU/mL Anti-Parietal Cell Ab <20.0 U Complement C3 95 (83-193) mg/dL Complement C4 24 (15-57) mg/dL Laboratory Results - last 24 hr 04/30/18 05/03/18 05/03/18 05:30 05:40 05:40 WBC 8.6 RBC 3.01 L Hgb 9.3 L Hct 30.9 L MCV 102.7 MCH 30.9 MCHC 30.1 L RDW 17.4 H Plt Count 120 MPV 11.7 H Neut % (Auto) 82.3 H Lymph % (Auto) 14.2 L [place] % (Auto) 3.0 Eos % (Auto) 0.0 L Baso % (Auto) 0.5 Lymph # (Auto) 1.2 [place] # (Auto) 0.3 Eos # (Auto) 0.0 Baso # (Auto) 0.04 Absolute Neuts (auto) 7.04 H Corrected WBC (Man) 7.8 Neutrophils % (Manual) 93 H Lymphocytes % (Manual) 3 L Monocytes % (Manual) 4 Nucleated RBC % 10 Platelet Evaluation Normal Sodium Potassium Chloride Carbon Dioxide Anion Gap BUN Creatinine Est GFR ( Amer) Est GFR (Non-Af Amer) POC Glucose (mg/dL) Random Glucose Calcium Total Bilirubin AST ALT Alkaline Phosphatase Total Protein Albumin Globulin Albumin/Globulin Ratio 25-OH Vitamin D Total 26.8 L Rheumatoid Factor <14 ANAI Screen Positive H ANAI Titer 1:320 H ANAI Pattern Few nuclear dots Anti-ds DNA Titer (Crith) TNP Anti-ds DNA (Crithidia) Negative Actin IgG Antibody <20 Myocardial Ab Titer TNP Anti-Myocardial Ab Negative Thyroperoxidase Ab <1 Anti-Parietal Cell Ab <20.0 Complement C3 95 Complement C4 24 05/03/18 05/03/18 05:40 11:33 WBC RBC Hgb Hct MCV MCH MCHC RDW Plt Count MPV Neut % (Auto) Lymph % (Auto) [place] % (Auto) Eos % (Auto) Baso % (Auto) Lymph # (Auto) [place] # (Auto) Eos # (Auto) Baso # (Auto) Absolute Neuts (auto) Corrected WBC (Man) Neutrophils % (Manual) Lymphocytes % (Manual) Monocytes % (Manual) Nucleated RBC % Platelet Evaluation Sodium 151 H Potassium 5.2 H Chloride 119 H Carbon Dioxide 23 Anion Gap 14 BUN 91 H Creatinine 3.9 H Est GFR ( Amer) 14 Est GFR (Non-Af Amer) 11 POC Glucose (mg/dL) 192 H Random Glucose 180 H Calcium 12.4 H* Total Bilirubin 1.1 AST 36 ALT 79 H Alkaline Phosphatase 73 Total Protein 6.2 Albumin 3.4 Globulin 2.8 Albumin/Globulin Ratio 1.2 25-OH Vitamin D Total Rheumatoid Factor ANAI Screen ANAI Titer ANAI Pattern Anti-ds DNA Titer (Crith) Anti-ds DNA (Crithidia) Actin IgG Antibody Myocardial Ab Titer Anti-Myocardial Ab Thyroperoxidase Ab Anti-Parietal Cell Ab Complement C3 Complement C4 Radiology Impressions: Radiology Impressions Biopsy CT 05/02/18 09:39 IMPRESSION: 1. CT-guided renal transplant biopsy as described above. Chest X-Ray 05/03/18 11:44 IMPRESSION: Worsening opacities in the lungs mainly on the left since the prior study. Critical Care Progress Note - Nutrition Nutrition: Nutrition Category Date Time Status Dysphagia/Modified Consistency Diet [DIET] Diets 04/28/18 Dinner Ordered Addendum Addendum: 05/03/18 18:07 ICU Attending Addendum Patient seen and examined. Case reviewed on round with housestaff. Agree with resident note above with the following additions/exceptions 77F with chf, COPD, LUE DVT currently on eliquis, SLE, lupus nephritis (currently on prednisone and prograf), and osteoporosis presents being managed for hypoxic, hypercarbic respiratory failure 2/2 to CHF exacerbation vs. bilobar pneumonia in the setting of immunosuppresive therapy vs. COPD exacerbation. continues to be in rapid afib on cardizem drip not taking PO on bipap insert NG tube to deliver PO meds cardizem drip on for afib uncontrolled rate follow nephro recs regarding renal failure abx per ID d/w son and Yun from [facility] informed him about mulitorgan failure he is considering hospice cont to monitor in ICU for now Rest of care as above in housestaff note Peggy Lee MD Pulmonary Critical Care Attending CC time 31 mins
[2018-05-03] MEDS: MethylPREDNISolone 40 mg Vial IVP SCH ×2 (11:28→21:29)
--- NOTE | 2018-05-03 11:37 | CT ---
PROCEDURE: CT guided renal transplant biopsy HISTORY: Status post renal transplant. Acute renal failure. Needs biopsy for electron microscopy PHYSICIAN(S): Travis Blevins MD. TECHNIQUE: The relative risks and indications of the procedure were explained to the patient's family and consent obtained. The patient was placed supine on the CT scanner and preliminary images through the pelvis obtained. Monitoring was provided throughout the procedure by a nurse A transplanted kidney is seen in the right false pelvis. On these noncontrast images, the kidney is normal in size without evidence of hydronephrosis. An anterior oblique approach in the right lower quadrant was selected the area prepped and draped usual sterile fashion. 1 percent xylocaine was used to anesthetize the skin and soft tissues. A 17 gauge needle was advanced to the lateral renal cortex in its position confirmed with CT. Multiple biopsies of the renal cortex were performed with an 18 gauge Shine-Cut needle. The patient tolerated the procedure well. The postprocedure imaging showed no evidence of significant hemorrhage. IMPRESSION: 1. CT-guided renal transplant biopsy as described above.
--- NOTE | 2018-05-03 12:15 | CP.PCM.PN ---
<Marivel Simental - Last Filed: 05/03/18 12:05> Subjective - Date & Time of Evaluation Date of Evaluation: 05/03/18 Time of Evaluation: 12:05 - Subjective Subjective: Marivel Simental, PGY-1, Internal Medicine Progress Note for Dr. Mckeon Patient seen and evaluated at bedside. Patient had no acute overnight events other than one dose of ativan 0.5 mg for agitation. Patient is still lethargic and moaning at bedside but moaning has reduced. Patient is still minimally responsive to stimulation at bedside. Patient's respiratory distress has improved. 12-point ROS was unattainable due to mental status. Objective - Vital Signs/Intake and Output Vital Signs (last 24 hours): Temp Pulse Resp BP Pulse Ox 98.2 F 108 H 30 H 129/66 97 05/03/18 04:00 05/03/18 06:00 05/03/18 06:00 05/03/18 06:00 05/03/18 06:00 Intake and Output: 05/03/18 05/03/18 06:59 18:59 Intake Total 360 Balance 360 - Medications Medications: Current Medications Albuterol/Ipratropium (Duoneb 3 Mg/0.5 Mg (3 Ml) Ud) 3 ml IH Q4H PRN PRN Reason: Shortness of Breath Last Admin: 05/02/18 20:46 Dose: 3 ml Amlodipine Besylate (Norvasc) 5 mg PO DAILY COUNTS INCLUDE 234 BEDS AT [facility] Last Admin: 05/02/18 12:43 Dose: Not Given Apixaban (Eliquis) 2.5 mg PO Q12 COUNTS INCLUDE 234 BEDS AT THE [facility]; Protocol Last Admin: 05/01/18 09:35 Dose: 2.5 mg Aspirin (Aspirin Chewable) 81 mg PO DAILY COUNTS INCLUDE 234 BEDS AT THE [facility] Last Admin: 05/02/18 12:45 Dose: Not Given Atorvastatin Calcium (Lipitor) 10 mg PO DIN COUNTS INCLUDE 234 BEDS AT THE [facility] Last Admin: 05/02/18 17:33 Dose: Not Given Budesonide (Pulmicort Respules) 0.5 mg IH [id number] COUNTS INCLUDE 234 BEDS AT THE [facility] Last Admin: 05/03/18 07:33 Dose: 0.5 mg Diltiazem HCl (Cardizem) 60 mg PO QID [facility] Cefepime HCl (Maxipime 1gm) 1 gm in 100 mls @ 100 mls/hr IVPB Q24H [facility]; Protocol Last Admin: 05/03/18 06:16 Dose: 100 mls/hr diltiaZEM IVPB 100mg in NS (Cardizem 100mg In Ns) 100 mls @ 5 mls/hr IV .Q20H PRN; Protocol PRN Reason: TITRATE PER MD ORDER Last Admin: 05/03/18 06:17 Dose: 5 mg/hr, 5 mls/hr Dextrose (Dextrose 5% In Water 1000 Ml) 1,000 mls @ 75 mls/hr IV .[id number] COUNTS INCLUDE 234 BEDS AT THE [facility] Stop: 05/04/18 10:24 Last Admin: 05/03/18 08:25 Dose: 75 mls/hr Methylprednisolone (Solu-Medrol) 40 mg IVP Q12 COUNTS INCLUDE 234 BEDS AT THE [facility] Last Admin: 05/03/18 11:28 Dose: 40 mg Pantoprazole Sodium (Protonix Susp) 40 mg PO 0600 COUNTS INCLUDE 234 BEDS AT [facility] Last Admin: 05/02/18 06:07 Dose: 40 mg Quetiapine Fumarate (Seroquel) 12.5 mg PO HS PRN; Protocol PRN Reason: agitation Tacrolimus (Prograf Cap) 3 mg PO BID COUNTS INCLUDE 234 BEDS AT THE [facility] Last Admin: 05/02/18 17:31 Dose: Not Given - Labs Labs: 05/03/18 05:40 05/03/18 05:40 PT 21.2 SECONDS (9.4-12.5) H 04/25/18 12:35 INR 1.88 04/25/18 12:35 APTT 35.1 Seconds (26.9-38.3) 04/26/18 05:50 - Constitutional Appears: In Acute Distress, Older Than Stated Age - Head Exam Head Exam: ATRAUMATIC, NORMAL INSPECTION, NORMOCEPHALIC - Eye Exam Eye Exam: PERRL - Respiratory Exam Respiratory Exam: Accessory Muscle Use (improved), Clear to Ausculation Bilateral, NORMAL BREATHING PATTERN - Cardiovascular Exam Cardiovascular Exam: Tachycardia, Irregular Rhythm - GI/Abdominal Exam GI & Abdominal Exam: Soft, Normal Bowel Sounds. absent: Tenderness - Extremities Exam Extremities Exam: Full ROM - Neurological Exam Neurological Exam: Alert. absent: Oriented x3 - Skin Skin Exam: Dry, Intact Assessment and Plan - Assessment and Plan (Free Text) Assessment: 77 year old female with past medical history of questionable congestive heart fa ilure with last EF of 50%, COPD, LUE DVT currently on eliquis, SLE, lupus nephritis (currently on prednisone and prograf), and osteoporosis presented with worsened, labored breathing. Patient was admitted for hypoxic, hypercarbic respiratory failure 2/2 to CHF exacerbation vs. bilobar pneumonia in the setting of immunosuppresive therapy vs. COPD exacerbation complicated by NSTEMI Plan: CKD Stage IV s/p renal transplant -BUN/Cr: 91/3.9 improved from creatinine of 4.4 yesterday. Worsened from baseline -Continue with immunosuppresive regimen of home tacrolimus and methylprednisone -Follow up renal biopsy results -As per nephrology, sodium bicarbonate drip was started as gentle hydration for hypernatremia -Avoid nephrotoxic agents such as lisinopril, losartan, IV contrast -Administer lasix on as needed basis. Standing dose discontinued -Conversations about dialysis with family today. At this time family wants all interventions except for resuscitation and intubation. -Dr. Reed is considering dialysis based on consideration of uremic cause of altered mental status. Hyperkalemia -K: 5.2 -Likely 2/2 to CKD. -Mild elevation. -Continue to monitor at this time. Hypercalcemia -Ca: consistently high in the 12s -As per nephrology, will observe for now Hypernatremia -Na: 151 from 147 -As per nephrology, sodium bicarbonate drip was started as gentle hydration for hypernatremia Hypoxic respiratory failure likely 2/2 to CHF Exacerbation -Off Bipap and improved respiratory status. Saturating well on NC -ABG 05/01: pH: 7.37, pO2: 76, pCO2: 41 -CXR 05/01: severe cardiomegaly with worsening in pulmonary venous congestion -BNP upon admission was [address] with baseline of around 3000 on prior admissions -Echocardiogram 04/26: LVEF of 46.5%, LVH, LA dilated, moderate to severe TR, pulmonary hypertension -Chest CT 04/26: severe cardiomegaly, mild bibasilar consolidation and pleural effusions -Standing lasix stopped due to CKD with renal transplant -Lasix should be given as needed -Consider beta blockers for congestive heart failure Altered mental status due to likely uremia -AAOx0. lethargic today -Avoid sedatives including anti-psychotics, haldol, benzodiazepines. -CT Head: no acute intracranial findings -Dr. Traylor, Psychiatry, consulted for recommendations and psych medication management. She recommends seroquel as needed for altered mental status likely due ICU delirium. -Dr. Reed is considering dialysis based on consideration of possible uremic cause of altered mental status. Atrial Fibrillation -Patient with documented history of atrial fibrillation -Continue with Eliquis 2.5 mg Q12 -IV cardizem restarted because patient failed PO intake today. -Reduced cardizem to 60 mg QID NSTEMI -EKG: atrial fibrillation with HR: 93 -Troponin: 0.27, 1.64, 1.72, 1.21 -Continue with aspirin 81 mg daily, lipitor 10 mg daily, cardizem to 60 mg QID as tolerates PO -Cardizem drip continued -Held eliquis Hypertension -Continue with cardizem, norvasc Normocytic Anemia -Hgb: 9.3 -Status post 2 U of PRBCs -Unremarkable iron and ferritin levels. Low TIBC at 187. -Stool guiaic negative -Goal hemoglobin>8 due to cardiac issues Bilateral Interstitial Pneumonia -Blood culture was negative for 5 days, MRSA negative, urine culture negative. -Lactate: last was 1.6 from 2.7 -Negative influenza, urine legionella -Procalcitonin: 0.69 -CXR: bilateral lower lobe effusion -Continue with doxycycline and cefepime day 8. Continue with renally dose vancomycin as per [facility], Dr. Hayden COPD -Continue with duonebs, and pulmicort -Continue methylprednisone 40 mg Q12 -Taper down steroids as tolerated GI prophylaxis: protonix 40 mg daily DVT prophylaxis: eliquis 2.5 mg Q12. Held eliquis prior to renal biopsy today. Disposition: Palliative care has been consulted and family now wants patient to be DNR/DNI. Conversations about dialysis with family today. At this time family wants all interventions except for resuscitation and intubation. Family undecided at this time about comfort care. Patient plan was discussed with attending. <Marlen Mckeon - Last Filed: 05/03/18 18:15> Objective - Vital Signs/Intake and Output Vital Signs (last 24 hours): Temp Pulse Resp BP Pulse Ox 98.2 F 123 H 24 150/66 92 L 05/03/18 04:00 05/03/18 14:03 05/03/18 14:00 05/03/18 14:03 05/03/18 14:00 Intake and Output: 05/03/18 05/03/18 06:59 18:59 Intake Total 360 100 Balance 360 100 - Medications Medications: Current Medications Albuterol/Ipratropium (Duoneb 3 Mg/0.5 Mg (3 Ml) Ud) 3 ml IH Q4H PRN PRN Reason: Shortness of Breath Last Admin: 05/02/18 20:46 Dose: 3 ml Amino Acid Protein (Prostat 15 G Packet) 15 gm GT DAILY COUNTS INCLUDE 234 BEDS AT THE [facility] Amlodipine Besylate (Norvasc) 5 mg PO DAILY COUNTS INCLUDE 234 BEDS AT [facility] Last Admin: 05/03/18 14:03 Dose: 5 mg Apixaban (Eliquis) 2.5 mg PO Q12 COUNTS INCLUDE 234 BEDS AT [facility]; Protocol Last Admin: 05/01/18 09:35 Dose: 2.5 mg Aspirin (Aspirin Chewable) 81 mg PO DAILY COUNTS INCLUDE 234 BEDS AT [facility] Last Admin: 05/03/18 13:53 Dose: 81 mg Atorvastatin Calcium (Lipitor) 10 mg PO DIN COUNTS INCLUDE 234 BEDS AT [facility] Last Admin: 05/02/18 17:33 Dose: Not Given Budesonide (Pulmicort Respules) 0.5 mg IH [id number] COUNTS INCLUDE 234 BEDS AT [facility] Last Admin: 05/03/18 07:33 Dose: 0.5 mg Diltiazem HCl (Cardizem) 60 mg PO QID COUNTS INCLUDE 234 BEDS AT [facility] Last Admin: 05/03/18 13:54 Dose: 60 mg Hydromorphone HCl (Dilaudid) 0.5 mg IVP Q6H PRN PRN Reason: Pain, moderate (4-7) Last Admin: 05/03/18 13:57 Dose: 0.5 mg diltiaZEM IVPB 100mg in NS (Cardizem 100mg In Ns) 100 mls @ 5 mls/hr IV .Q20H PRN; Protocol PRN Reason: TITRATE PER MD ORDER Last Admin: 05/03/18 14:10 Dose: 5 mg/hr, 5 mls/hr Dextrose (Dextrose 5% In Water 1000 Ml) 1,000 mls @ 75 mls/hr IV .[id number] COUNTS INCLUDE 234 BEDS AT THE [facility] Stop: 05/04/18 10:24 Last Admin: 05/03/18 08:25 Dose: 75 mls/hr Methylprednisolone (Solu-Medrol) 40 mg IVP Q12 COUNTS INCLUDE 234 BEDS AT [facility] Last Admin: 02/15/19 11:28 Dose: 40 mg Pantoprazole Sodium (Protonix Susp) 40 mg PO 0600 COUNTS INCLUDE 234 BEDS AT [facility] Last Admin: 05/02/18 06:07 Dose: 40 mg Quetiapine Fumarate (Seroquel) 12.5 mg PO HS PRN; Protocol PRN Reason: agitation Tacrolimus (Prograf Cap) 3 mg PO BID COUNTS INCLUDE 234 BEDS AT THE [facility] Last Admin: 05/03/18 14:06 Dose: 3 mg - Labs Labs: 05/03/18 05:40 05/03/18 05:40 PT 21.2 SECONDS (9.4-12.5) H 04/25/18 12:35 INR 1.88 04/25/18 12:35 APTT 35.1 Seconds (26.9-38.3) 04/26/18 05:50 Attending/Attestation - Attestation I have personally seen and examined this patient.: Yes I have fully participated in the care of the patient.: Yes I have reviewed all pertinent clinical information, including history, physical exam and plan: Yes Notes (Text): 05/03/18 18:14 77 year old female with past medical history of CHF, COPD, LUE DVT on eliquis, SLE, lupus nephritis and atrial fibrillation who presented with acute hypoxic/hypercapneic failure likely multifactorial secondary to CHF/COPD/pneumonia. Also found to have AFib with RVR and possible NSTEMI in addition to acute on chronic renal failure. Patient is on cardizem drip with transition to po. Continue with conservative management as per cardiology. Nephrology is also following for acute on chronic renal failure which is slowly improving today. No plan for dialysis at this time as per nephrology. Patient is s/p kidney biopsy yesterday; results are pending. Palliative care follow up was appreciated. Overall prognosis is poor. Patient is DNR/DNI. Marlen Mckeon MD Hospitalist.
--- NOTE | 2018-05-03 12:37 | RAD ---
Date of service: 05/03/2018 HISTORY: NGT placement COMPARISON: Comparison is made with 05/01/2018 FINDINGS: LUNGS: Interval worsening of the previously seen patchy opacities in both lungs more on the right since the prior study. PLEURA: Suspicious for bilateral pleural effusions. CARDIOVASCULAR: Arctic atherosclerotic calcification is present The cardiac silhouette is enlarged possible pulmonary vascular congestion OSSEOUS STRUCTURES: No significant abnormalities. VISUALIZED UPPER ABDOMEN: There is NG tube extending to the abdomen OTHER FINDINGS: None. IMPRESSION: Worsening opacities in the lungs mainly on the left since the prior study.
--- NOTE | 2018-05-03 13:06 | CP.PCM.PN ---
Subjective - Date & Time of Evaluation Date of Evaluation: 05/03/18 Time of Evaluation: 11:00 - Subjective Subjective: ALTERED,moaning, tachycardia, tachypnea Objective - Vital Signs/Intake and Output Vital Signs (last 24 hours): Temp Pulse Resp BP Pulse Ox 98.2 F 108 H 30 H 129/66 97 05/03/18 04:00 05/03/18 06:00 05/03/18 06:00 05/03/18 06:00 05/03/18 06:00 Intake and Output: 05/03/18 05/03/18 06:59 18:59 Intake Total 360 Balance 360 - Medications Medications: Current Medications Albuterol/Ipratropium (Duoneb 3 Mg/0.5 Mg (3 Ml) Ud) 3 ml IH Q4H PRN PRN Reason: Shortness of Breath Last Admin: 05/02/18 20:46 Dose: 3 ml Amlodipine Besylate (Norvasc) 5 mg PO DAILY COUNTS INCLUDE 234 BEDS AT THE [facility] Last Admin: 05/02/18 12:43 Dose: Not Given Apixaban (Eliquis) 2.5 mg PO Q12 COUNTS INCLUDE 234 BEDS AT [facility]; Protocol Last Admin: 05/01/18 09:35 Dose: 2.5 mg Aspirin (Aspirin Chewable) 81 mg PO DAILY COUNTS INCLUDE 234 BEDS AT [facility] Last Admin: 05/02/18 12:45 Dose: Not Given Atorvastatin Calcium (Lipitor) 10 mg PO DIN COUNTS INCLUDE 234 BEDS AT [facility] Last Admin: 05/02/18 17:33 Dose: Not Given Budesonide (Pulmicort Respules) 0.5 mg IH [id number] COUNTS INCLUDE 234 BEDS AT [facility] Last Admin: 05/03/18 07:33 Dose: 0.5 mg Diltiazem HCl (Cardizem) 60 mg PO QID [facility] Cefepime HCl (Maxipime 1gm) 1 gm in 100 mls @ 100 mls/hr IVPB Q24H [facility]; Protocol Last Admin: 05/03/18 06:16 Dose: 100 mls/hr diltiaZEM IVPB 100mg in NS (Cardizem 100mg In Ns) 100 mls @ 5 mls/hr IV .Q20H PRN; Protocol PRN Reason: TITRATE PER MD ORDER Last Admin: 05/03/18 06:17 Dose: 5 mg/hr, 5 mls/hr Dextrose (Dextrose 5% In Water 1000 Ml) 1,000 mls @ 75 mls/hr IV .[id number] COUNTS INCLUDE 234 BEDS AT THE [facility] Stop: 05/04/18 10:24 Last Admin: 05/03/18 08:25 Dose: 75 mls/hr Methylprednisolone (Solu-Medrol) 40 mg IVP Q12 COUNTS INCLUDE 234 BEDS AT [facility] Last Admin: 05/03/18 11:28 Dose: 40 mg Pantoprazole Sodium (Protonix Susp) 40 mg PO 0600 COUNTS INCLUDE 234 BEDS AT [facility] Last Admin: 05/02/18 06:07 Dose: 40 mg Quetiapine Fumarate (Seroquel) 12.5 mg PO HS PRN; Protocol PRN Reason: agitation Tacrolimus (Prograf Cap) 3 mg PO BID COUNTS INCLUDE 234 BEDS AT [facility] Last Admin: 05/02/18 17:31 Dose: Not Given - Labs Labs: 05/03/18 05:40 05/03/18 05:40 PT 21.2 SECONDS (9.4-12.5) H 04/25/18 12:35 INR 1.88 04/25/18 12:35 APTT 35.1 Seconds (26.9-38.3) 04/26/18 05:50 - Constitutional Appears: Cachectic, Chronically Ill - Head Exam Head Exam: NORMOCEPHALIC - Eye Exam Eye Exam: Normal appearance, PERRL - Respiratory Exam Respiratory Exam: Decreased Breath Sounds, Rhonchi - Cardiovascular Exam Cardiovascular Exam: Tachycardia, +S1 - GI/Abdominal Exam GI & Abdominal Exam: Soft, Hypoactive Bowel Sounds - Exam Additional comments: oliguric - Extremities Exam Extremities Exam: Pedal Edema - Neurological Exam Neurological Exam: Altered Assessment and Plan - Assessment and Plan (Free Text) Assessment: 77 year old female with history of SLE,COPD, renal transplant who is admitted with pneumonia, NSTEMI, A Fib,JAGDISH on CKD,sepsis, AMS, hypercalcemia. She is s/p renal biopsy yesterday, result pending. The patient appears uncomfortable,restless. I spoke with patients daughter Marbella via phone. I explained that her mother was not improving. Daughter admits that her mother is doing poorly. Option for comfort care offered. Marbella states she needs to speak with her siblings. She intends to visit hospital later today. Will continue discussion at this time. Patient's son and daughter in law arrived later in the day. Dr Dwight Lee and I met with them. The family was updated them of patient's condition and prognosis. Goals of care and quality of life conversation ensued. Family recognizes that patient is not improving. Family expressed that they want her to be comfortable. Option for hospice care was explained in detail. Patients son will speak with his siblings this evening. Psychosocial support provided. time sepnt with family in goals of care conversation, 60 minutes Plan: Goals of care Renal biopsy pending Hypercalcemia> IVF's Tachycardia> Cardizem Bipap as needed, nebulizers. Pain: Dilaudid 0.5mg Iv prn
[2018-05-03] MEDS: HYDROmorphone 0.5 mg/0.5 ml ISec IVP PRN ×2 (13:57→20:15)
--- NOTE | 2018-05-03 15:41 | CP.PCM.PN ---
Subjective - Date & Time of Evaluation Date of Evaluation: 05/03/18 Time of Evaluation: 08:50 - Subjective Subjective: Continues to be agitated, no fevers. Objective - Vital Signs/Intake and Output Vital Signs (last 24 hours): Temp Pulse Resp BP Pulse Ox 98.6 F 117 H 31 H 158/86 H 96 05/02/18 04:00 05/02/18 07:54 05/02/18 06:00 05/02/18 06:00 05/02/18 06:00 Intake and Output: 05/02/18 05/02/18 06:59 18:59 Intake Total 700 40 Output Total 250 Balance 450 40 - Medications Medications: Current Medications Albuterol/Ipratropium (Duoneb 3 Mg/0.5 Mg (3 Ml) Ud) 3 ml IH Q4H PRN PRN Reason: Shortness of Breath Last Admin: 05/02/18 07:25 Dose: 3 ml Amlodipine Besylate (Norvasc) 5 mg PO DAILY [facility] Last Admin: 05/02/18 12:43 Dose: Not Given Apixaban (Eliquis) 2.5 mg PO Q12 [facility]; Protocol Last Admin: 05/01/18 09:35 Dose: 2.5 mg Aspirin (Aspirin Chewable) 81 mg PO DAILY [facility] Last Admin: 05/02/18 12:45 Dose: Not Given Atorvastatin Calcium (Lipitor) 10 mg PO DIN [facility] Last Admin: 05/01/18 16:29 Dose: Not Given Budesonide (Pulmicort Respules) 0.5 mg IH [id number] [facility] Last Admin: 05/02/18 07:25 Dose: 0.5 mg Diltiazem HCl (Cardizem) 90 mg PO QID [facility] Last Admin: 05/02/18 12:44 Dose: Not Given Doxycycline Hyclate (Doryx) 100 mg PO Q12 [facility]; Protocol Stop: 05/02/18 22:01 Last Admin: 05/02/18 12:44 Dose: Not Given Cefepime HCl (Maxipime 1gm) 1 gm in 100 mls @ 100 mls/hr IVPB Q24H [facility]; Protocol Last Admin: 05/02/18 06:08 Dose: 100 mls/hr diltiaZEM IVPB 100mg in NS (Cardizem 100mg In Ns) 100 mls @ 5 mls/hr IV .Q20H PRN; Protocol PRN Reason: TITRATE PER MD ORDER Last Admin: 05/02/18 10:39 Dose: 5 mg/hr, 5 mls/hr Methylprednisolone (Solu-Medrol) 40 mg IVP Q12 [facility] Last Admin: 05/02/18 10:26 Dose: 40 mg Pantoprazole Sodium (Protonix Susp) 40 mg PO 0600 [facility] Last Admin: 05/02/18 06:07 Dose: 40 mg Tacrolimus (Prograf Cap) 3 mg PO BID [facility] Last Admin: 05/02/18 12:44 Dose: Not Given - Labs Labs: 05/02/18 05:30 05/02/18 05:30 PT 21.2 SECONDS (9.4-12.5) H 04/25/18 12:35 INR 1.88 04/25/18 12:35 APTT 35.1 Seconds (26.9-38.3) 04/26/18 05:50 - Constitutional Appears: Chronically Ill - Head Exam Head Exam: NORMAL INSPECTION - Respiratory Exam Respiratory Exam: Decreased Breath Sounds - Cardiovascular Exam Cardiovascular Exam: +S1, +S2 - GI/Abdominal Exam GI & Abdominal Exam: Soft. absent: Tenderness Assessment and Plan - Assessment and Plan (Free Text) Plan: Assessment possible pneumonia in this patient with probable CHF exacerbation, R/O Influenza S/P treatment with antibiotics agitation, etiology to be determined chronic CHF with EF 50% COPD DVT on anticoagulation SLE with lupus nephritis S/P renal transplant osteoporosis Plan completed 7 day course of Cefepime and Doxycycline and completed 5 days of Tamiflu discussed with ICU team about agitation and they have consulted Psych will continue to monitor clinically cultures have been negative overall prognosis is poor
--- NOTE | 2018-05-03 18:42 | PN ---
DATE: 05/03/2018 SUBJECTIVE: The patient is status post renal biopsy. She is at the bedside, is lethargic. PHYSICAL EXAMINATION: VITAL SIGNS: Blood pressure 129/66, heart rate is in the 90s. NECK: Negative JVD. LUNGS: Decreased breath sounds. HEART: Reveal S1, S2. EXTREMITIES: Without change. LABORATORY DATA: Hemoglobin is 9.3. Chemistries, BUN and creatinine is 91 and 3.9. IMPRESSION: 1. Renal failure. 2. History of transplantation. 3. Marked weakness. 4. Dementia. 5. Pneumonia. 6. Severe pulmonary hypertension. PLAN: Given these findings, the patient's prognosis is poor, independent of the biopsy results. Travis Vides MD
[2018-05-03] MEDS: Albuterol-Ipratrop 3 mg / 0.5 (3 ml) UD IH PRN (21:16)
[2018-05-04] MEDS: HYDROmorphone 0.5 mg/0.5 ml ISec IVP PRN ×4 (02:46→23:54)
[2018-05-04] MEDS: Pantoprazole 40 mg Susp UD PO SCH (05:32)
[2018-05-04] MEDS: Albuterol-Ipratrop 3 mg / 0.5 (3 ml) UD IH PRN (07:53)
[2018-05-04] MEDS: Budesonide 0.5 mg/2 ml Inhal Susp UD IH SCH ×2 (07:53→20:30)
[2018-05-04] MEDS: MethylPREDNISolone 40 mg Vial IVP SCH ×2 (10:23→21:02)
--- NOTE | 2018-05-04 10:54 | PN ---
DATE: 05/04/2018 SUBJECTIVE: The patient remains confused. PHYSICAL EXAMINATION: VITAL SIGNS: Temperature is 98.6, pulse of 105, blood pressure 142/91, respirations 20. GENERAL: The patient is lying in bed, flat, comfortable. HEENT: No oral lesion. Anicteric sclerae. Moist mucosa. NECK: No JVD, adenopathy, or thyromegaly. CARDIOVASCULAR: S1 and S2, regular. No murmurs, rubs, or gallops. LUNGS: Clear to auscultation bilaterally. No wheeze, rales, or rhonchi. ABDOMEN: Bowel sounds are positive, soft, nontender and nondistended. EXTREMITIES: No cyanosis, clubbing or edema. Upper extremity, there is 1+ edema. LABORATORIES: No new labs. Last creatinine was 3.9 yesterday and sodium is 151. Chest x-ray shows worsening opacities in the lungs, mainly in the left. ASSESSMENT: 1. Acute kidney injury with underlying chronic kidney disease - stage 4. 2. Status post -donor kidney transplant. 3. Hypovolemia. 4. Hypercalcemia. 5. Influenza infection, improved. 6. Atrial fibrillation. 7. Lupus nephritis, stable. 8. Nephrolithiasis of the right kidney. 9. Left renal cyst. 10. Hearing impairment. 11. Hyponatremia. PLAN: The patient remained hypovolemic. The patient's creatinine did improve yesterday. She does have urine output at 500 since yesterday. She is on Lipitor for dyslipidemia. She is on her Prograf. She is going to continue with Protonix. She is on Seroquel, Solu-Medrol at 40 mg every 12 hours. We will give her dose of Lasix. Overall prognosis is poor. Continue to follow labs. Waiting for kidney biopsy results. Kenton Yin MD
[2018-05-04] MEDS: Prostat 15 g packet GT SCH (10:55)
--- NOTE | 2018-05-04 11:53 | CP.CCUPN ---
<Dinorah Feliz - Last Filed: 05/04/18 15:09> CCU Subjective - Physician Review Subjective (Free Text): CRITICAL CARE PROGRESS NOTE FOR DR. ROSA Feliz PGY1 Pt seen and examined at bedside in ICU this am. Pt is resting comfortably. She was agitated earlier, however currently pt is asleep. ROS unable to be obtained d/t mental status Currently on: Diltiazem drip 5mg/hr NGT with tube feeds @30mls/hr Rebreather @10L Fox in place 05/04/18 11:53 CCU Objective - Vital Signs / Intake & Output Vital Signs (Last 4 hours): Vital Signs Pulse BP 05/04/18 10:35 145/75 05/04/18 10:29 108 H 134/75 05/04/18 10:28 108 H 134/75 Intake and Output (Last 8hrs): Intake & Output 05/03/18 05/04/18 05/04/18 22:59 06:59 14:59 Intake Total 130 480 Output Total 300 200 Balance -170 280 Intake: IV 100 60 cardizem 60 Tube Feeding 30 360 Other 60 Output: Urine 300 200 Urethral (Fox) 300 200 - Physical Exam Head: Positive for: Atraumatic, Normocephalic Pupils: Positive for: PERRL Extroacular Muscles: Positive for: EOMI Conjunctiva: Positive for: Normal Mouth: Positive for: Dry Neck: Positive for: Normal Range of Motion Respiratory/Chest: Positive for: Clear to Auscultation. Negative for: Good Air Exchange Cardiovascular: Positive for: Irregular Rhythm (irregularly irregular), Tachycardic. Negative for: Regular Rate and Rhythm, Murmurs, Rub, Gallop Abdomen: Positive for: Normal Bowel Sounds. Negative for: Tenderness, Distention, Peritoneal Signs Back: Positive for: Other (kyphosis) Upper Extremity: Positive for: Other (right AV fistula). Negative for: Cyanosis, Edema Lower Extremity: Positive for: Normal Inspection, Edema (trace pedal edema b/l) Neurological: Positive for: Other (confused, agitated) Skin: Positive for: Warm, Dry, Normal Color. Negative for: Rashes Psychiatric: Positive for: Alert. Negative for: Oriented x 3, Normal Insight, Normal Concentration - Medications Active Medications: Active Medications Generic Name Dose Route Start Last Admin Trade Name Freq PRN Reason Stop Dose Admin Albuterol/Ipratropium 3 ml 04/25/18 15:35 05/04/18 07:53 Duoneb 3 Mg/0.5 Mg (3 Ml) Ud IH 3 ml Q4H PRN Administration Shortness of Breath Amino Acid Protein 15 gm 05/04/18 10:00 05/04/18 10:55 Prostat 15 G Packet GT 15 gm DAILY BIJAN Administration Amlodipine Besylate 5 mg 05/01/18 14:30 05/04/18 10:29 Norvasc PO 5 mg DAILY BIJAN Administration Apixaban 2.5 mg 04/28/18 10:00 05/04/18 10:29 Eliquis PO 2.5 mg Q12 BIJAN Administration Protocol Aspirin 81 mg 04/26/18 10:00 05/04/18 10:28 Aspirin Chewable PO 81 mg DAILY BIJAN Administration Atorvastatin Calcium 10 mg 05/01/18 17:00 05/03/18 18:04 Lipitor PO 10 mg DIN BIJAN Administration Budesonide 0.5 mg 04/26/18 20:00 05/04/18 07:53 Pulmicort Respules IH 0.5 mg [id number] BIJAN Administration Diltiazem HCl 60 mg 05/03/18 11:08 05/04/18 10:28 Cardizem PO 60 mg QID BIJAN Administration Furosemide 40 mg 05/04/18 10:00 05/04/18 10:35 Lasix IVP 40 mg DAILY BIJAN Administration Hydromorphone HCl 0.5 mg 05/03/18 13:23 05/04/18 09:03 Dilaudid IVP 0.5 mg Q6H PRN Administration Pain, moderate (4-7) diltiaZEM IVPB 100mg in NS 100 mls @ 5 mls/hr 04/28/18 22:44 05/03/18 21:26 Cardizem 100mg In Ns IV 5 mg/hr .Q20H PRN 5 mls/hr TITRATE PER MD ORDER Administration Protocol 5 MG/HR Methylprednisolone 40 mg 05/02/18 10:00 05/04/18 10:23 Solu-Medrol IVP 40 mg Q12 BIJAN Administration Pantoprazole Sodium 40 mg 04/28/18 06:00 05/04/18 05:32 Protonix Susp PO 40 mg 0600 BIJAN Administration Quetiapine Fumarate 12.5 mg 05/02/18 16:22 Seroquel PO HS PRN agitation Protocol Tacrolimus 3 mg 04/25/18 18:00 05/04/18 10:27 Prograf Cap PO 3 mg BID BIJAN Administration - Patient Studies Lab Studies: Lab Studies 05/03/18 05/03/18 05/03/18 Range/Units 11:33 05:40 05:40 POC Glucose (mg/dL) 192 H (65-110) mg/dL 25-OH Vitamin D Total 22 L 26.8 L (30.0-100.0) NG/ML ANAI Screen (NEGATIVE) ANAI Titer titer ANAI Pattern SS-A Antibody (<1.0 NEGATIVE) AI SS-B Antibody (<1.0 NEGATIVE) AI Sm (Blevins) Antibody (<1.0 NEGATIVE) AI SM/COFFEE BAR ATTENDANT Antibody (<1.0 NEGATIVE) AI Scl-70 Antibody (<1.0 NEGATIVE) AI Ribosomal P Prot Ab (<1.0 NEGATIVE) AI Myocardial Ab Titer Anti-Myocardial Ab (NEGATIVE) Reticulin Ab Titer Reticulin IgA Antibody (NEGATIVE) 04/30/18 Range/Units 05:30 POC Glucose (mg/dL) (65-110) mg/dL 25-OH Vitamin D Total (30.0-100.0) NG/ML ANAI Screen Positive H (NEGATIVE) ANAI Titer 1:320 H titer ANAI Pattern Few nuclear dots SS-A Antibody <1.0 neg (<1.0 NEGATIVE) AI SS-B Antibody <1.0 neg (<1.0 NEGATIVE) AI Sm (Blevins) Antibody <1.0 neg (<1.0 NEGATIVE) AI SM/COFFEE BAR ATTENDANT Antibody <1.0 neg (<1.0 NEGATIVE) AI Scl-70 Antibody <1.0 neg (<1.0 NEGATIVE) AI Ribosomal P Prot Ab <1.0 neg (<1.0 NEGATIVE) AI Myocardial Ab Titer TNP Anti-Myocardial Ab Negative (NEGATIVE) Reticulin Ab Titer TNP Reticulin IgA Antibody Negative (NEGATIVE) Laboratory Results - last 24 hr 04/30/18 05/03/18 05/03/18 05:30 05:40 05:40 POC Glucose (mg/dL) 25-OH Vitamin D Total 26.8 L 22 L ANAI Screen Positive H ANAI Titer 1:320 H ANAI Pattern Few nuclear dots SS-A Antibody <1.0 neg SS-B Antibody <1.0 neg Sm (Blevins) Antibody <1.0 neg SM/COFFEE BAR ATTENDANT Antibody <1.0 neg Scl-70 Antibody <1.0 neg Ribosomal P Prot Ab <1.0 neg Myocardial Ab Titer TNP Anti-Myocardial Ab Negative Reticulin Ab Titer TNP Reticulin IgA Antibody Negative 05/03/18 11:33 POC Glucose (mg/dL) 192 H 25-OH Vitamin D Total ANAI Screen ANAI Titer ANAI Pattern SS-A Antibody SS-B Antibody Sm (Blevins) Antibody SM/COFFEE BAR ATTENDANT Antibody Scl-70 Antibody Ribosomal P Prot Ab Myocardial Ab Titer Anti-Myocardial Ab Reticulin Ab Titer Reticulin IgA Antibody Radiology Impressions: Radiology Impressions Chest X-Ray 05/03/18 11:44 IMPRESSION: Worsening opacities in the lungs mainly on the left since the prior study. Fingerstick Blood Sugar Results: 180 Review of Systems - Review of Systems Review of Systems: per HPI Assessment/Plan - Assessment and Plan (Free Text) Assessment: 77 year old female with past medical history of questionable congestive heart failure with last EF of 50%, COPD, LUE DVT currently on eliquis, SLE, lupus ne phritis (currently on prednisone and prograf), and osteoporosis presents with worsened, labored breathing. Patient was admitted for hypoxic, hypercarbic respiratory failure 2/2 to CHF exacerbation vs. bilobar pneumonia in the setting of immunosuppresive therapy vs. COPD exacerbation. Plan: Neuro: AMS - Pt remains AOx0 - likely 2/2 hypercalcemia vs metabolic encephalopathy vs ICU delirium - Pt is easily arousable when called. - CT Head (-) - Optimize circadian rhythm, avoid light/noise at night, light during day Pulm: Hypercarbic respiratory failure likely 2/2 to CHF Exacerbation - continue rebreather treatment, NIPPV as necessary - CXR: severe cardiomegaly - Last echocardiogram from prior admission in 04/26/18 showed EF of 46.5% with mild impairment of systolic function - Consider beta blockers for congestive heart failure - Maintain O2 sat >88% Bilateral Interstitial Pneumonia - CXR: bilateral lower lobe effusion - Negative influenza, urine legionella - Procalcitonin: 0.69 - Lactate: last was 1.6 from 2.7 - cultures negative - d/c abx COPD - Continue with duonebs, and pulmicort - Solu-medrol 40 Q12 - Will consider tapering once pt improves Cardio: Atrial Fibrillation - Patient with documented history of atrial fibrillation - Pt on cardizem drip running at 5mg/h, will attempt to wean - continue eliquis - NGT for PO meds NSTEMI - EKG: atrial fibrillation, rate controlled on diltiazem - Continue with aspirin - Cardio recs appreciated Heme Normocytic Anemia s/p 2u PRBC transfusion - Hgb stable - Unremarkable iron and ferritin levels. Low TIBC . - Stool guiaic (-), H&H is stable - Goal hemoglobin>8 due to cardiac issues Nephro: CKD Stage IV s/p renal transplant - BUN/Cr: elevated, Cr is improving from yesterday - Continue with home tacrolimus and prednisone - Avoid nephrotoxic agents such as lisinopril, losartan, IV contrast - continue daily lasix per nephro recs - Nephro consulted, recs appreciated - cont to keep pt euvolemic - Monitor output through fox catheter - Maintain euvolemia - s/p renal biopsy. f/u results F/E/N Hypercalcemia: - PTH, VIt D, Urine Ca, PTHrP - Unable to give fluids or loop diuretics due to current renal status. - continue tube feeds, administer po meds through NG tube Hypernatremia/Hyperchloremia - switch from NS to D5W @50mls/hr GI prophylaxis: protonix DVT prophylaxis: eliquis Dispo: Discussion made by hospice team and confirmed by a separate call placed by myself that the pt will be made DNR/DNI as per all of the families wishes. Family undecided about hospice. Would like pt to be comfortable. Dilaudid 0.5mg started by palliative care. Dialysis is unlikely d/t pts current mental status. Case seen, examined and discussed with attending physician, Dr. Rosa Feliz PGY1 <Peggy Lee - Last Filed: 05/04/18 16:28> CCU Objective - Vital Signs / Intake & Output Vital Signs (Last 4 hours): Vital Signs Pulse BP Pulse Ox 05/04/18 15:00 113 H 149/73 93 L 05/04/18 14:02 108 H 183/112 H 93 L 05/04/18 14:00 120 H 95 05/04/18 13:00 98 H 124/81 95 Intake and Output (Last 8hrs): Intake & Output 05/04/18 05/04/18 05/04/18 06:59 14:59 22:59 Intake Total 480 Output Total 200 Balance 280 Intake: IV 60 cardizem 60 Tube Feeding 360 Other 60 Output: Urine 200 Urethral (Fox) 200 - Medications Active Medications: Active Medications Generic Name Dose Route Start Last Admin Trade Name Freq PRN Reason Stop Dose Admin Albuterol/Ipratropium 3 ml 04/25/18 15:35 05/04/18 07:53 Duoneb 3 Mg/0.5 Mg (3 Ml) Ud IH 3 ml Q4H PRN Administration Shortness of Breath Amino Acid Protein 15 gm 05/04/18 10:00 05/04/18 10:55 Prostat 15 G Packet GT 15 gm DAILY BIJAN Administration Amlodipine Besylate 5 mg 05/01/18 14:30 05/04/18 10:29 Norvasc PO 5 mg DAILY BIJAN Administration Apixaban 2.5 mg 04/28/18 10:00 05/04/18 10:29 Eliquis PO 2.5 mg Q12 BIJAN Administration Protocol Aspirin 81 mg 04/26/18 10:00 05/04/18 10:28 Aspirin Chewable PO 81 mg DAILY BIJAN Administration Atorvastatin Calcium 10 mg 05/01/18 17:00 05/03/18 18:04 Lipitor PO 10 mg DIN BIJAN Administration Budesonide 0.5 mg 04/26/18 20:00 05/04/18 07:53 Pulmicort Respules IH 0.5 mg [id number] BIJAN Administration Diltiazem HCl 60 mg 05/03/18 11:08 05/04/18 15:00 Cardizem PO 60 mg QID BIJAN Administration Furosemide 40 mg 05/04/18 10:00 05/04/18 10:35 Lasix IVP 40 mg DAILY BIJAN Administration Hydromorphone HCl 0.5 mg 05/03/18 13:23 05/04/18 15:07 Dilaudid IVP 0.5 mg Q6H PRN Administration Pain, moderate (4-7) diltiaZEM IVPB 100mg in NS 100 mls @ 5 mls/hr 04/28/18 22:44 05/03/18 21:26 Cardizem 100mg In Ns IV 5 mg/hr .Q20H PRN 5 mls/hr TITRATE PER MD ORDER Administration Protocol 5 MG/HR Dextrose 500 mls @ 50 mls/hr 05/04/18 15:00 05/04/18 15:14 Dextrose 5% In Water IV 50 mls/hr .Q10H BIJAN Administration Methylprednisolone 40 mg 05/02/18 10:00 05/04/18 10:23 Solu-Medrol IVP 40 mg Q12 BIJAN Administration Pantoprazole Sodium 40 mg 04/28/18 06:00 05/04/18 05:32 Protonix Susp PO 40 mg 0600 BIJAN Administration Quetiapine Fumarate 12.5 mg 05/02/18 16:22 Seroquel PO HS PRN agitation Protocol Tacrolimus 3 mg 04/25/18 18:00 05/04/18 10:27 Prograf Cap PO 3 mg BID BIJAN Administration - Patient Studies Lab Studies: Lab Studies 05/03/18 05/03/18 04/30/18 Range/Units 11:33 05:40 05:30 POC Glucose (mg/dL) 192 H (65-110) mg/dL 25-OH Vitamin D Total 22 L (30-100) ng/mL SS-A Antibody <1.0 neg (<1.0 NEGATIVE) AI SS-B Antibody <1.0 neg (<1.0 NEGATIVE) AI Sm (Blevins) Antibody <1.0 neg (<1.0 NEGATIVE) AI SM/COFFEE BAR ATTENDANT Antibody <1.0 neg (<1.0 NEGATIVE) AI Scl-70 Antibody <1.0 neg (<1.0 NEGATIVE) AI Ribosomal P Prot Ab <1.0 neg (<1.0 NEGATIVE) AI Myocardial Ab Titer TNP Anti-Myocardial Ab Negative (NEGATIVE) Reticulin Ab Titer TNP Reticulin IgA Antibody Negative (NEGATIVE) Laboratory Results - last 24 hr 04/30/18 05/03/18 05/03/18 05:30 05:40 11:33 POC Glucose (mg/dL) 192 H 25-OH Vitamin D Total 22 L SS-A Antibody <1.0 neg SS-B Antibody <1.0 neg Sm (Blevins) Antibody <1.0 neg SM/COFFEE BAR ATTENDANT Antibody <1.0 neg Scl-70 Antibody <1.0 neg Ribosomal P Prot Ab <1.0 neg Myocardial Ab Titer TNP Anti-Myocardial Ab Negative Reticulin Ab Titer TNP Reticulin IgA Antibody Negative Addendum Addendum: 05/04/18 16:24 ICU Attending Addendum Patient seen and examined. Case reviewed on round with housestaff. Agree with resident note above with the following additions/exceptions 77F with chf, COPD, LUE DVT currently on eliquis, SLE, lupus nephritis (currently on prednisone and prograf), and osteoporosis presents being managed for hypoxic, hypercarbic respiratory failure 2/2 to CHF exacerbation vs. bilobar pneumonia in the setting of immunosuppresive therapy vs. COPD exacerbation. continues to be in rapid afib on cardizem drip yesterday resumed PO meds via NGT tube cardizem drip down to 5 now eliquis for AC on varying o2 delivering NRB and bipap follow nephro recs regarding renal failure CR slightly improved still making some urine hyperNa and hyperCL - will start D5w @ 50 fluids will also tx hyperCA abx per ID on Wednesday 05/03 d/w son and Yun from [facility] informed him about mulitorgan failure he is considering hospice cont to monitor in ICU for now Rest of care as above in housestaff note DNR/DNI Peggy Lee MD Pulmonary Critical Care Attending 05/04/18 16:28
--- NOTE | 2018-05-04 11:55 | CP.PCM.PN ---
Subjective - Date & Time of Evaluation Date of Evaluation: 05/04/18 Time of Evaluation: 09:15 - Subjective Subjective: The patient is still confused and at times agitated. Objective - Vital Signs/Intake and Output Vital Signs (last 24 hours): Temp Pulse Resp BP Pulse Ox 98.2 F 123 H 24 150/66 92 L 05/03/18 04:00 05/03/18 14:03 05/03/18 14:00 05/03/18 14:03 05/03/18 14:00 Intake and Output: 05/03/18 05/03/18 06:59 18:59 Intake Total 360 100 Balance 360 100 - Medications Medications: Current Medications Albuterol/Ipratropium (Duoneb 3 Mg/0.5 Mg (3 Ml) Ud) 3 ml IH Q4H PRN PRN Reason: Shortness of Breath Last Admin: 05/02/18 20:46 Dose: 3 ml Amino Acid Protein (Prostat 15 G Packet) 15 gm GT DAILY BIJAN Amlodipine Besylate (Norvasc) 5 mg PO DAILY [facility] Last Admin: 05/03/18 14:03 Dose: 5 mg Apixaban (Eliquis) 2.5 mg PO Q12 [facility]; Protocol Last Admin: 05/01/18 09:35 Dose: 2.5 mg Aspirin (Aspirin Chewable) 81 mg PO DAILY [facility] Last Admin: 05/03/18 13:53 Dose: 81 mg Atorvastatin Calcium (Lipitor) 10 mg PO DIN [facility] Last Admin: 05/02/18 17:33 Dose: Not Given Budesonide (Pulmicort Respules) 0.5 mg IH [id number] [facility] Last Admin: 05/03/18 07:33 Dose: 0.5 mg Diltiazem HCl (Cardizem) 60 mg PO QID [facility] Last Admin: 05/03/18 13:54 Dose: 60 mg Hydromorphone HCl (Dilaudid) 0.5 mg IVP Q6H PRN PRN Reason: Pain, moderate (4-7) Last Admin: 05/03/18 13:57 Dose: 0.5 mg Cefepime HCl (Maxipime 1gm) 1 gm in 100 mls @ 100 mls/hr IVPB Q24H BIJAN; Protocol Last Admin: 05/03/18 06:16 Dose: 100 mls/hr diltiaZEM IVPB 100mg in NS (Cardizem 100mg In Ns) 100 mls @ 5 mls/hr IV .Q20H PRN; Protocol PRN Reason: TITRATE PER MD ORDER Last Admin: 05/03/18 14:10 Dose: 5 mg/hr, 5 mls/hr Dextrose (Dextrose 5% In Water 1000 Ml) 1,000 mls @ 75 mls/hr IV .[id number] [facility] Stop: 05/04/18 10:24 Last Admin: 05/03/18 08:25 Dose: 75 mls/hr Methylprednisolone (Solu-Medrol) 40 mg IVP Q12 [facility] Last Admin: 05/03/18 11:28 Dose: 40 mg Pantoprazole Sodium (Protonix Susp) 40 mg PO 0600 [facility] Last Admin: 05/02/18 06:07 Dose: 40 mg Quetiapine Fumarate (Seroquel) 12.5 mg PO HS PRN; Protocol PRN Reason: agitation Tacrolimus (Prograf Cap) 3 mg PO BID [facility] Last Admin: 05/03/18 14:06 Dose: 3 mg - Labs Labs: 05/03/18 05:40 05/03/18 05:40 PT 21.2 SECONDS (9.4-12.5) H 04/25/18 12:35 INR 1.88 04/25/18 12:35 APTT 35.1 Seconds (26.9-38.3) 04/26/18 05:50 - Constitutional Appears: Chronically Ill - Head Exam Head Exam: NORMAL INSPECTION - Respiratory Exam Respiratory Exam: Decreased Breath Sounds - Cardiovascular Exam Cardiovascular Exam: +S1, +S2 - GI/Abdominal Exam GI & Abdominal Exam: Soft. absent: Tenderness Assessment and Plan - Assessment and Plan (Free Text) Plan: Assessment S/P possible pneumonia in this patient with probable CHF exacerbation, R/O Influenza S/P treatment with antibiotics agitation, etiology to be determined worsening chronic renal failure chronic CHF with EF 50% COPD DVT on anticoagulation SLE with lupus nephritis S/P renal transplant osteoporosis Plan completed 7 day course of Cefepime and Doxycycline and completed 5 days of Tamiflu discussed with ICU team about agitation and they have consulted Psych will continue to follow clinically Renal following and follow up further recommendations cultures have been negative overall prognosis is poor
--- NOTE | 2018-05-04 11:59 | CP.PCM.PN ---
<Marivel Simental - Last Filed: 05/04/18 11:50> Subjective - Date & Time of Evaluation Date of Evaluation: 05/04/18 Time of Evaluation: 11:50 - Subjective Subjective: Marivel Simental, PGY-1, Internal Medicine Progress Note for Dr. Mckeon Patient seen and evaluated at bedside. Patient had no acute overnight events. Patient is still lethargic and moaning at bedside. Patient is still minimally responsive to stimulation at bedside. Patient's respiratory distress has mildly improved. 12-point ROS was unattainable due to mental status. Objective - Vital Signs/Intake and Output Vital Signs (last 24 hours): Temp Pulse Resp BP Pulse Ox 98.6 F 108 H 20 145/75 94 L 05/04/18 04:00 05/04/18 10:29 05/04/18 02:00 05/04/18 10:35 05/04/18 02:00 Intake and Output: 05/04/18 05/04/18 06:59 18:59 Intake Total 580 Output Total 200 Balance 380 - Medications Medications: Current Medications Albuterol/Ipratropium (Duoneb 3 Mg/0.5 Mg (3 Ml) Ud) 3 ml IH Q4H PRN PRN Reason: Shortness of Breath Last Admin: 05/04/18 07:53 Dose: 3 ml Amino Acid Protein (Prostat 15 G Packet) 15 gm GT DAILY [facility] Last Admin: 05/04/18 10:55 Dose: 15 gm Amlodipine Besylate (Norvasc) 5 mg PO DAILY [facility] Last Admin: 05/04/18 10:29 Dose: 5 mg Apixaban (Eliquis) 2.5 mg PO Q12 [facility]; Protocol Last Admin: 05/04/18 10:29 Dose: 2.5 mg Aspirin (Aspirin Chewable) 81 mg PO DAILY [facility] Last Admin: 05/04/18 10:28 Dose: 81 mg Atorvastatin Calcium (Lipitor) 10 mg PO DIN [facility] Last Admin: 05/03/18 18:04 Dose: 10 mg Budesonide (Pulmicort Respules) 0.5 mg IH [id number] [facility] Last Admin: 05/04/18 07:53 Dose: 0.5 mg Diltiazem HCl (Cardizem) 60 mg PO QID [facility] Last Admin: 05/04/18 10:28 Dose: 60 mg Furosemide (Lasix) 40 mg IVP DAILY [facility] Last Admin: 05/04/18 10:35 Dose: 40 mg Hydromorphone HCl (Dilaudid) 0.5 mg IVP Q6H PRN PRN Reason: Pain, moderate (4-7) Last Admin: 05/04/18 09:03 Dose: 0.5 mg diltiaZEM IVPB 100mg in NS (Cardizem 100mg In Ns) 100 mls @ 5 mls/hr IV .Q20H P RN; Protocol PRN Reason: TITRATE PER MD ORDER Last Admin: 05/03/18 21:26 Dose: 5 mg/hr, 5 mls/hr Methylprednisolone (Solu-Medrol) 40 mg IVP Q12 [facility] Last Admin: 05/04/18 10:23 Dose: 40 mg Pantoprazole Sodium (Protonix Susp) 40 mg PO 0600 [facility] Last Admin: 05/04/18 05:32 Dose: 40 mg Quetiapine Fumarate (Seroquel) 12.5 mg PO HS PRN; Protocol PRN Reason: agitation Tacrolimus (Prograf Cap) 3 mg PO BID [facility] Last Admin: 05/04/18 10:27 Dose: 3 mg - Labs Labs: 05/03/18 05:40 05/03/18 05:40 PT 21.2 SECONDS (9.4-12.5) H 04/25/18 12:35 INR 1.88 04/25/18 12:35 APTT 35.1 Seconds (26.9-38.3) 04/26/18 05:50 - Constitutional Appears: In Acute Distress, Older Than Stated Age - Head Exam Head Exam: ATRAUMATIC, NORMAL INSPECTION, NORMOCEPHALIC - Eye Exam Eye Exam: PERRL - Respiratory Exam Respiratory Exam: Accessory Muscle Use (improved), Clear to Ausculation Bilateral, NORMAL BREATHING PATTERN - Cardiovascular Exam Cardiovascular Exam: Tachycardia, Irregular Rhythm - GI/Abdominal Exam GI & Abdominal Exam: Soft, Normal Bowel Sounds. absent: Tenderness - Extremities Exam Extremities Exam: Full ROM - Neurological Exam Neurological Exam: Alert. absent: Oriented x3 - Skin Skin Exam: Dry, Intact Assessment and Plan - Assessment and Plan (Free Text) Assessment: 77 year old female with past medical history of questionable congestive heart failure with last EF of 50%, COPD, LUE DVT currently on eliquis, SLE, lupus nephritis (currently on prednisone and prograf), and osteoporosis presented with worsened, labored breathing. Patient was admitted for hypoxic, hypercarbic respiratory failure 2/2 to CHF exacerbation vs. bilobar pneumonia in the setting of immunosuppresive therapy vs. COPD exacerbation complicated by NSTEMI Plan: CKD Stage IV s/p renal transplant -BUN/Cr 05/03: 91/3.9 improved from creatinine of 4.4. Worsened from baseline -Continue with immunosuppresive regimen of home tacrolimus and methylprednisone -Follow up renal biopsy results -Avoid nephrotoxic agents such as lisinopril, losartan, IV contrast -Started Lasix 40 mg daily -Conversations about dialysis with family today. At this time family wants all interventions except for resuscitation and intubation. -Dr. Reed is considering dialysis based on consideration of uremic cause of altered mental status. Hyperkalemia -K: 5.2 yesterday -Likely 2/2 to CKD. -Mild elevation. -Continue to monitor at this time. Hypercalcemia -Ca: consistently high in the 12s yesterday -As per nephrology, will observe for now Hypernatremia -Na 05/03: 151 from 147 -As per nephrology, D5W stopped. Hypoxic respiratory failure likely 2/2 to CHF Exacerbation -Off Bipap and improved respiratory status. Saturating well on NC -ABG 05/01: pH: 7.37, pO2: 76, pCO2: 41 -CXR 05/01: severe cardiomegaly with worsening in pulmonary venous congestion -BNP upon admission was 27550 with baseline of around 3000 on prior admissions -Echocardiogram 04/26: LVEF of 46.5%, LVH, LA dilated, moderate to severe TR, pulmonary hypertension -Chest CT 04/26: severe cardiomegaly, mild bibasilar consolidation and pleural effusions -Started Lasix 40 mg daily -Consider beta blockers for congestive heart failure Altered mental status due to likely uremia -AAOx0. lethargic today -Avoid sedatives including anti-psychotics, haldol, benzodiazepines. -CT Head: no acute intracranial findings -Dr. Traylor, Psychiatry, consulted for recommendations and psych medication management. She recommended seroquel as needed for altered mental status likely due ICU delirium. Atrial Fibrillation -Patient with documented history of atrial fibrillation -Continue with Eliquis 2.5 mg Q12 -IV cardizem restarted because patient failed PO intake today. -Reduced cardizem to 60 mg QID NSTEMI -EKG: atrial fibrillation with HR: 93 -Troponin: 0.27, 1.64, 1.72, 1.21 -Continue with aspirin 81 mg daily, lipitor 10 mg daily, cardizem to 60 mg QID as tolerates PO -Cardizem drip continued -Restarted eliquis Hypertension -Continue with cardizem, norvasc Normocytic Anemia -Hgb: 9.3 on 05/03 -Status post 2 U of PRBCs -Unremarkable iron and ferritin levels. Low TIBC at 187. -Stool guiaic negative -Goal hemoglobin>8 due to cardiac issues Bilateral Interstitial Pneumonia -Blood culture was negative for 5 days, MRSA negative, urine culture negative. -Lactate: last was 1.6 from 2.7 -Negative influenza, urine legionella -Procalcitonin: 0.69 -CXR: bilateral lower lobe effusion -Antibiotics complete COPD -Continue with duonebs, and pulmicort -Continue methylprednisone 40 mg Q12 -Taper down steroids as tolerated GI prophylaxis: protonix 40 mg daily DVT prophylaxis: eliquis 2.5 mg Q12 Disposition: Palliative care has been consulted and family now wants patient to be DNR/DNI. Conversations about dialysis with family today. Family would like to have patient comfort care now. Family undecided about hospice. Dialysis unlikely at this point due to risks from sedation required to make the patient amenable to dialysis. Patient plan was discussed with attending. <Marlen Mckeon - Last Filed: 05/04/18 12:35> Objective - Vital Signs/Intake and Output Vital Signs (last 24 hours): Temp Pulse Resp BP Pulse Ox 98.6 F 108 H 20 145/75 94 L 05/04/18 04:00 05/04/18 10:29 05/04/18 02:00 05/04/18 10:35 05/04/18 02:00 Intake and Output: 05/04/18 05/04/18 06:59 18:59 Intake Total 580 Output Total 200 Balance 380 - Medications Medications: Current Medications Albuterol/Ipratropium (Duoneb 3 Mg/0.5 Mg (3 Ml) Ud) 3 ml IH Q4H PRN PRN Reason: Shortness of Breath Last Admin: 05/04/18 07:53 Dose: 3 ml Amino Acid Protein (Prostat 15 G Packet) 15 gm GT [facility]ILY [facility] Last Admin: 05/04/18 10:55 Dose: 15 gm Amlodipine Besylate (Norvasc) 5 mg PO DAILY [facility] Last Admin: 05/04/18 10:29 Dose: 5 mg Apixaban (Eliquis) 2.5 mg PO Q12 [facility]; Protocol Last Admin: 05/04/18 10:29 Dose: 2.5 mg Aspirin (Aspirin Chewable) 81 mg PO DAILY [facility] Last Admin: 05/04/18 10:28 Dose: 81 mg Atorvastatin Calcium (Lipitor) 10 mg PO DIN [facility] Last Admin: 05/03/18 18:04 Dose: 10 mg Budesonide (Pulmicort Respules) 0.5 mg IH [id number] [facility] Last Admin: 05/04/18 07:53 Dose: 0.5 mg Diltiazem HCl (Cardizem) 60 mg PO QID [facility] Last Admin: 05/04/18 10:28 Dose: 60 mg Furosemide (Lasix) 40 mg IVP DAILY [facility] Last Admin: 05/04/18 10:35 Dose: 40 mg Hydromorphone HCl (Dilaudid) 0.5 mg IVP Q6H PRN PRN Reason: Pain, moderate (4-7) Last Admin: 05/04/18 09:03 Dose: 0.5 mg diltiaZEM IVPB 100mg in NS (Cardizem 100mg In Ns) 100 mls @ 5 mls/hr IV .Q20H PRN; Protocol PRN Reason: TITRATE PER MD ORDER Last Admin: 05/03/18 21:26 Dose: 5 mg/hr, 5 mls/hr Methylprednisolone (Solu-Medrol) 40 mg IVP Q12 [facility] Last Admin: 05/04/18 10:23 Dose: 40 mg Pantoprazole Sodium (Protonix Susp) 40 mg PO 0600 [facility] Last Admin: 05/04/18 05:32 Dose: 40 mg Quetiapine Fumarate (Seroquel) 12.5 mg PO HS PRN; Protocol PRN Reason: agitation Tacrolimus (Prograf Cap) 3 mg PO BID [facility] Last Admin: 05/04/18 10:27 Dose: 3 mg - Labs Labs: 05/03/18 05:40 05/03/18 05:40 PT 21.2 SECONDS (9.4-12.5) H 04/25/18 12:35 INR 1.88 04/25/18 12:35 APTT 35.1 Seconds (26.9-38.3) 04/26/18 05:50 Attending/Attestation - Attestation I have personally seen and examined this patient.: Yes I have fully participated in the care of the patient.: Yes I have reviewed all pertinent clinical information, including history, physical exam and plan: Yes Notes (Text): 05/04/18 12:33 77 year old female with past medical history of CHF, COPD, LUE DVT on eliquis, SLE, lupus nephritis and atrial fibrillation who presented with acute hypoxic/hypercapneic failure likely multifactorial secondary to CHF/COPD/pneumonia. Also found to have AFib with RVR and possible NSTEMI in addition to acute on chronic renal failure. Patient is on cardizem drip with transition to po. Continue with conservative management as per cardiology. Nephrology is also following for acute on chronic renal failure which was beginning to improve yesterday. Labs are pending today. No plan for dialysis at this time as per nephrology. Patient is s/p kidney biopsy earlier this week with results pending. Palliative care follow up was appreciated. Overall prognosis is poor. Patient is DNR/DNI. Marlen Mckeon MD Hospitalist.
[2018-05-04] MEDS ORDERED: HYDROmorphone 0.5 mg/0.5 ml ISec IVP STA (15:06)
[2018-05-04] MEDS: diltiaZEM IVPB 100mg in NS 100 ML IV PRN (17:52)
[2018-05-04 19:07] LABS: BASO # 0.09 K/mm3 (0.0-2.0); BASO % 0.6 % (0.0-3.0); HEMOGLOBIN 9.6 g/dL (12.0-16.0); LYMPH # 1.4 (1.2-3.4); LYMPH % 8.9 % (22.0-35.0); MEAN CELL VOLUME 105.2 fl (80.0-105.0); MEAN CORPUSCULAR HEMOGLOBIN 31.5 pg (25.0-35.0); MEAN CORPUSCULAR HGB CONC 29.9 g/dl (31.0-37.0); MEAN PLATELET VOLUME 11.4 fl (7.0-11.0); MONO # 0.9 (0.1-0.6); MONO % 6.2 % (1.0-6.0); PLATELET COUNT 109 10^3/uL (120.0-450.0); RBC 3.05 10^6/uL (3.5-6.1); RED CELL DISTRIBUTION WIDTH 17.4 % (11.5-14.5); WHITE BLOOD COUNT 15.1 10^3/uL (4.5-11.0)
[2018-05-04 19:33] LABS: ALB/GLOB RATIO 1.2 (1.1-1.8); ALBUMIN 3.5 g/dL (3.0-4.8); CALCIUM 11.6 mg/dL (8.4-10.5)
[2018-05-04 20:01] LABS: BAND 4 % (0-2); CORRECTED WBC 13.7 K/mm3 (4.5-11.0); LYMPHOCYTE 4 % (22.0-35.0); METAMYELOCYTE 1 %; MONOCYTE 3 % (1.0-6.0); NEUTROPHIL 88 % (50.0-70.0); NUCLEATED RED BLOOD CELL 10 %
[2018-05-05] MEDS: diltiaZEM IVPB 100mg in NS 100 ML IV PRN ×2 (01:17→17:44)
[2018-05-05] MEDS: Pantoprazole 40 mg Susp UD PO SCH (05:12)
[2018-05-05 05:58] LABS: BASO # 0.07 K/mm3 (0.0-2.0); BASO % 0.3 % (0.0-3.0); HEMOGLOBIN 9.5 g/dL (12.0-16.0); LYMPH % 9.2 % (22.0-35.0); MEAN CELL VOLUME 103.3 fl (80.0-105.0); MEAN CORPUSCULAR HEMOGLOBIN 31.3 pg (25.0-35.0); MEAN CORPUSCULAR HGB CONC 30.3 g/dl (31.0-37.0); MEAN PLATELET VOLUME 12.6 fl (7.0-11.0); MONO # 0.8 (0.1-0.6); MONO % 3.7 % (1.0-6.0); PLATELET COUNT 118 10^3/uL (120.0-450.0); RBC 3.04 10^6/uL (3.5-6.1); RED CELL DISTRIBUTION WIDTH 17.2 % (11.5-14.5); WHITE BLOOD COUNT 21.5 10^3/uL (4.5-11.0)
[2018-05-05 06:14] LABS: ALB/GLOB RATIO 1.1 (1.1-1.8); ALBUMIN 3.3 g/dL (3.0-4.8); CALCIUM 11.3 mg/dL (8.4-10.5)
[2018-05-05] MEDS: Budesonide 0.5 mg/2 ml Inhal Susp UD IH SCH ×2 (07:53→20:45)
[2018-05-05] MEDS: Albuterol-Ipratrop 3 mg / 0.5 (3 ml) UD IH PRN (07:53)
[2018-05-05 08:22] LABS: CORRECTED WBC 19.9 K/mm3 (4.5-11.0); LYMPHOCYTE 4 % (22.0-35.0); MONOCYTE 6 % (1.0-6.0); NEUTROPHIL 90 % (50.0-70.0); NUCLEATED RED BLOOD CELL 8 %
--- NOTE | 2018-05-05 08:36 | CP.CCUPN ---
<Larissa Ernst - Last Filed: 05/05/18 13:17> CCU Subjective - Physician Review Subjective (Free Text): 05/05/18 08:31 Larissa Ernst, PGY-1 ICU Progress Note for Dr. Lee Pt was seen and examined this AM with the ICU team. Pt is AOx0, is arousable when called. Pt is currently on bipap sating well. Cardizem drip on running at 5. ROS is limited due to pts current status. CCU Objective - Vital Signs / Intake & Output Vital Signs (Last 4 hours): Vital Signs Pulse 05/05/18 06:00 118 H 05/05/18 05:55 118 H Intake and Output (Last 8hrs): Intake & Output 05/04/18 05/05/18 05/05/18 22:59 06:59 14:59 Intake Total 310 910 Output Total 120 50 Balance 190 860 Intake: IV 310 910 Left Antecubital 0 Left External Jugular 60 Left Forearm 750 Left Hand 0 antibiotics 150 cardizem 60 Oral 0 Output: Urine 120 50 Urethral (Fox) 120 50 Stool 0 Emesis 0 - Physical Exam Physical Exam Limitations: Positive for: Altered Mental Status Head: Positive for: Atraumatic, Normocephalic Pupils: Positive for: PERRL Extroacular Muscles: Positive for: EOMI Conjunctiva: Positive for: Normal Mouth: Positive for: Dry Neck: Positive for: Normal Range of Motion Respiratory/Chest: Positive for: Clear to Auscultation. Negative for: Good Air Exchange Cardiovascular: Positive for: Irregular Rhythm (irregularly irregular), Tachycardic. Negative for: Regular Rate and Rhythm, Murmurs, Rub, Gallop Abdomen: Positive for: Normal Bowel Sounds. Negative for: Tenderness, Distention, Peritoneal Signs Back: Positive for: Other (kyphosis) Upper Extremity: Positive for: Other (right AV fistula). Negative for: Cyanosis, Edema Lower Extremity: Positive for: Normal Inspection, Edema (trace pedal edema b/l) Neurological: Positive for: Other (confused, agitated) Skin: Positive for: Warm, Dry, Normal Color. Negative for: Rashes Psychiatric: Positive for: Alert. Negative for: Oriented x 3, Normal Insight, Normal Concentration - Medications Active Medications: Active Medications Generic Name Dose Route Start Last Admin Trade Name Freq PRN Reason Stop Dose Admin Albuterol/Ipratropium 3 ml 04/25/18 15:35 05/05/18 07:53 Duoneb 3 Mg/0.5 Mg (3 Ml) Ud IH 3 ml Q4H PRN Administration Shortness of Breath Amino Acid Protein 15 gm 05/04/18 10:00 05/04/18 10:55 Prostat 15 G Packet GT 15 gm DAILY BIJAN Administration Amlodipine Besylate 5 mg 05/01/18 14:30 05/04/18 10:29 Norvasc PO 5 mg DAILY BIJAN Administration Apixaban 2.5 mg 04/28/18 10:00 05/04/18 21:02 Eliquis PO 2.5 mg Q12 BIJAN Administration Protocol Aspirin 81 mg 04/26/18 10:00 05/04/18 10:28 Aspirin Chewable PO 81 mg DAILY BIJAN Administration Atorvastatin Calcium 10 mg 05/01/18 17:00 05/04/18 17:53 Lipitor PO 10 mg DIN BIJAN Administration Budesonide 0.5 mg 04/26/18 20:00 05/05/18 07:53 Pulmicort Respules IH 0.5 mg [id number] BIJAN Administration Diltiazem HCl 60 mg 05/03/18 11:08 05/04/18 21:02 Cardizem PO 60 mg QID BIJAN Administration Furosemide 40 mg 05/04/18 10:00 05/04/18 10:35 Lasix IVP 40 mg DAILY BIJAN Administration Hydromorphone HCl 0.5 mg 05/03/18 13:23 05/04/18 23:54 Dilaudid IVP 0.5 mg Q6H PRN Administration Pain, moderate (4-7) diltiaZEM IVPB 100mg in NS 100 mls @ 5 mls/hr 04/28/18 22:44 05/05/18 01:17 Cardizem 100mg In Ns IV 5 mg/hr .Q20H PRN 5 mls/hr TITRATE PER MD ORDER Administration Protocol 5 MG/HR Dextrose 500 mls @ 50 mls/hr 05/04/18 15:00 05/05/18 01:20 Dextrose 5% In Water IV 50 mls/hr .Q10H BIJAN Administration Methylprednisolone 40 mg 05/02/18 10:00 05/04/18 21:02 Solu-Medrol IVP 40 mg Q12 BIJAN Administration Pantoprazole Sodium 40 mg 04/28/18 06:00 05/05/18 05:12 Protonix Susp PO 40 mg 0600 BIJAN Administration Quetiapine Fumarate 12.5 mg 05/02/18 16:22 Seroquel PO HS PRN agitation Protocol Tacrolimus 3 mg 04/25/18 18:00 05/04/18 17:55 Prograf Cap PO 3 mg BID BIJAN Administration - Patient Studies Lab Studies: Lab Studies 05/05/18 05/05/18 05/04/18 Range/Units 05:20 05:20 18:50 WBC 21.5 H D (4.5-11.0) 10^3/uL RBC 3.04 L (3.5-6.1) 10^6/uL Hgb 9.5 L (12.0-16.0) g/dL Hct 31.4 L (36.0-48.0) % MCV 103.3 (80.0-105.0) fl MCH 31.3 (25.0-35.0) pg MCHC 30.3 L (31.0-37.0) g/dl RDW 17.2 H (11.5-14.5) % Plt Count 118 L (120.0-450.0) 10^3/uL MPV 12.6 H (7.0-11.0) fl Neut % (Auto) 86.8 H (50.0-68.0) % Lymph % (Auto) 9.2 L (22.0-35.0) % [place] % (Auto) 3.7 (1.0-6.0) % Eos % (Auto) 0.0 L (1.5-5.0) % Baso % (Auto) 0.3 (0.0-3.0) % Lymph # (Auto) 2.0 (1.2-3.4) [place] # (Auto) 0.8 H (0.1-0.6) Eos # (Auto) 0.0 (0.0-0.7) Baso # (Auto) 0.07 (0.0-2.0) K/mm3 Absolute Neuts (auto) 18.67 H (1.4-6.5) Corrected WBC (Man) 19.9 H (4.5-11.0) K/mm3 Neutrophils % (Manual) 90 H (50.0-70.0) % Band Neutrophils % (0-2) % Lymphocytes % (Manual) 4 L (22.0-35.0) % Monocytes % (Manual) 6 (1.0-6.0) % Metamyelocytes % % Nucleated RBC % 8 % Sodium 142 144 (132-148) mmol/L Potassium 4.8 5.0 (3.6-5.0) mmol/L Chloride 111 H 112 H (98-107) mmol/L Carbon Dioxide 22 24 (21-33) mmol/L Anion Gap 14 13 (10-20) BUN 115 H 104 H (7-21) mg/dL Creatinine 4.2 H 4.4 H (0.7-1.2) mg/dl Est GFR ( Amer) 12 12 Est GFR (Non-Af Amer) 10 10 Random Glucose 439 H* D 363 H* D (70-110) mg/dL Calcium 11.3 H 11.6 H (8.4-10.5) mg/dL Phosphorus 5.9 H (2.5-4.5) mg/dL Magnesium 1.9 (1.7-2.2) mg/dL Total Bilirubin 1.1 1.2 (0.2-1.3) mg/dL AST 62 H 63 H D (14-36) U/L ALT 100 H 100 H (7-56) U/L Alkaline Phosphatase 86 91 (38-126) U/L Total Protein 6.2 6.5 (5.8-8.3) g/dL Albumin 3.3 3.5 (3.0-4.8) g/dL Globulin 2.9 3.0 gm/dL Albumin/Globulin Ratio 1.1 1.2 (1.1-1.8) Anti-Mitochondrial Titr Anti-Mitochondrial Ab (NEGATIVE) 05/04/18 04/30/18 Range/Units 18:50 05:30 WBC 15.1 H D (4.5-11.0) 10^3/uL RBC 3.05 L (3.5-6.1) 10^6/uL Hgb 9.6 L (12.0-16.0) g/dL Hct 32.1 L (36.0-48.0) % MCV 105.2 H (80.0-105.0) fl MCH 31.5 (25.0-35.0) pg MCHC 29.9 L (31.0-37.0) g/dl RDW 17.4 H (11.5-14.5) % Plt Count 109 L (120.0-450.0) 10^3/uL MPV 11.4 H (7.0-11.0) fl Neut % (Auto) 84.3 H (50.0-68.0) % Lymph % (Auto) 8.9 L (22.0-35.0) % [place] % (Auto) 6.2 H (1.0-6.0) % Eos % (Auto) 0.0 L (1.5-5.0) % Baso % (Auto) 0.6 (0.0-3.0) % Lymph # (Auto) 1.4 (1.2-3.4) [place] # (Auto) 0.9 H (0.1-0.6) Eos # (Auto) 0.0 (0.0-0.7) Baso # (Auto) 0.09 (0.0-2.0) K/mm3 Absolute Neuts (auto) 12.75 H (1.4-6.5) Corrected WBC (Man) 13.7 H (4.5-11.0) K/mm3 Neutrophils % (Manual) 88 H (50.0-70.0) % Band Neutrophils % 4 H (0-2) % Lymphocytes % (Manual) 4 L (22.0-35.0) % Monocytes % (Manual) 3 (1.0-6.0) % Metamyelocytes % 1 % Nucleated RBC % 10 % Sodium (132-148) mmol/L Potassium (3.6-5.0) mmol/L Chloride (98-107) mmol/L Carbon Dioxide (21-33) mmol/L Anion Gap (10-20) BUN (7-21) mg/dL Creatinine (0.7-1.2) mg/dl Est GFR ( Amer) Est GFR (Non-Af Amer) Random Glucose (70-110) mg/dL Calcium (8.4-10.5) mg/dL Phosphorus (2.5-4.5) mg/dL Magnesium (1.7-2.2) mg/dL Total Bilirubin (0.2-1.3) mg/dL AST (14-36) U/L ALT (7-56) U/L Alkaline Phosphatase (38-126) U/L Total Protein (5.8-8.3) g/dL Albumin (3.0-4.8) g/dL Globulin gm/dL Albumin/Globulin Ratio (1.1-1.8) Anti-Mitochondrial Titr TNP Anti-Mitochondrial Ab Negative (NEGATIVE) Laboratory Results - last 24 hr 04/30/18 05/04/18 05/04/18 05:30 18:50 18:50 WBC 15.1 H D RBC 3.05 L Hgb 9.6 L Hct 32.1 L MCV 105.2 H MCH 31.5 MCHC 29.9 L RDW 17.4 H Plt Count 109 L MPV 11.4 H Neut % (Auto) 84.3 H Lymph % (Auto) 8.9 L [place] % (Auto) 6.2 H Eos % (Auto) 0.0 L Baso % (Auto) 0.6 Lymph # (Auto) 1.4 [place] # (Auto) 0.9 H Eos # (Auto) 0.0 Baso # (Auto) 0.09 Absolute Neuts (auto) 12.75 H Corrected WBC (Man) 13.7 H Neutrophils % (Manual) 88 H Band Neutrophils % 4 H Lymphocytes % (Manual) 4 L Monocytes % (Manual) 3 Metamyelocytes % 1 Nucleated RBC % 10 Sodium 144 Potassium 5.0 Chloride 112 H Carbon Dioxide 24 Anion Gap 13 BUN 104 H Creatinine 4.4 H Est GFR ( Amer) 12 Est GFR (Non-Af Amer) 10 Random Glucose 363 H* D Calcium 11.6 H Phosphorus 5.9 H Magnesium 1.9 Total Bilirubin 1.2 AST 63 H D ALT 100 H Alkaline Phosphatase 91 Total Protein 6.5 Albumin 3.5 Globulin 3.0 Albumin/Globulin Ratio 1.2 Anti-Mitochondrial Titr TNP Anti-Mitochondrial Ab Negative 05/05/18 05/05/18 05:20 05:20 WBC 21.5 H D RBC 3.04 L Hgb 9.5 L Hct 31.4 L MCV 103.3 MCH 31.3 MCHC 30.3 L RDW 17.2 H Plt Count 118 L MPV 12.6 H Neut % (Auto) 86.8 H Lymph % (Auto) 9.2 L [place] % (Auto) 3.7 Eos % (Auto) 0.0 L Baso % (Auto) 0.3 Lymph # (Auto) 2.0 [place] # (Auto) 0.8 H Eos # (Auto) 0.0 Baso # (Auto) 0.07 Absolute Neuts (auto) 18.67 H Corrected WBC (Man) 19.9 H Neutrophils % (Manual) 90 H Band Neutrophils % Lymphocytes % (Manual) 4 L Monocytes % (Manual) 6 Metamyelocytes % Nucleated RBC % 8 Sodium 142 Potassium 4.8 Chloride 111 H Carbon Dioxide 22 Anion Gap 14 BUN 115 H Creatinine 4.2 H Est GFR ( Amer) 12 Est GFR (Non-Af Amer) 10 Random Glucose 439 H* D Calcium 11.3 H Phosphorus Magnesium Total Bilirubin 1.1 AST 62 H ALT 100 H Alkaline Phosphatase 86 Total Protein 6.2 Albumin 3.3 Globulin 2.9 Albumin/Globulin Ratio 1.1 Anti-Mitochondrial Titr Anti-Mitochondrial Ab Fingerstick Blood Sugar Results: 180 Assessment/Plan - Assessment and Plan (Free Text) Assessment: 77 year old female with past medical history of questionable congestive heart failure with last EF of 50%, COPD, LUE DVT currently on eliquis, SLE, lupus nephritis (currently on prednisone and prograf), and osteoporosis presents with worsened, labored breathing. Patient was admitted for hypoxic, hypercarbic respiratory failure 2/2 to CHF exacerbation vs. bilobar pneumonia in the setting of immunosuppresive therapy vs. COPD exacerbation. Pt back on bipap this AM. Will f/u with renal about plans for dialysis vs conservative management. Plan: Neuro: AMS 2/2 hypercalcemia vs metabolic encephalopathy - Pt remains AOx0 - Pt is easily arousable when called. - CT Head (-) Pulm: Hypercarbic respiratory failure likely 2/2 to CHF Exacerbation - Saturating well on Bipap - CXR: severe cardiomegaly - Last echocardiogram from prior admission in 04/26/18 showed EF of 46.5% with mild impairment of systolic function - Consider beta blockers for congestive heart failure - Maintain O2 sat >88% Bilateral Interstitial Pneumonia - CXR: bilateral lower lobe effusion - Negative influenza, urine legionella - Procalcitonin: 0.69 - Lactate: last was 1.6 from 2.7 - Blood Cx (-) - d/c abx today per ID COPD - Continue with duonebs, and pulmicort - Solu-medrol 40 Q12 - Will consider tapering once pt improves Cardio: Atrial Fibrillation - Patient with documented history of atrial fibrillation - Heparin drip was stopped due to decrease in hemoglobin to less than 7 - Pt on cardizem drip running at 5, will attempt to wean - NGT for PO meds NSTEMI - EKG: atrial fibrillation with HR: 93 - Continue with aspirin, eliquis - Held heparin drip due to reduced hemoglobin. - Cardio recs appreciated Heme Normocytic Anemia s/p 2u PRBC transfusion - Hgb: 9.9 and stable - Unremarkable iron and ferritin levels. Low TIBC at 187. - Stool guiaic (-), H&H is stable - Goal hemoglobin>8 due to cardiac issues F/E/N Hypercalcemia: - PTH, VIt D, Urine Ca, PTHrP - Unable to give fluids or loop diuretics due to current renal status. ID: Fever of 102: - F/u blood, urine and sputum cxs - CXR ordered f/u official read - Emperic Vanc started per ID - Tylenol for fevers - Will f/u in AM Nephro: CKD Stage IV s/p renal transplant - BUN/Cr: 91/3.9 Cr is improving from yesterday and pt was given IV fluids. - Continue with home tacrolimus and prednisone - Avoid nephrotoxic agents such as lisinopril, losartan, IV contrast - Administer lasix on as needed basis. Standing dose discontinued - Nephro consulted, recs appreciated - cont to keep pt euvolemic - Pt output through fox was 520cc over the past 24 hours. - Maintain euvolemia - Renal biopsy done with Dr. jalloh - Awaiting biopsy results GI prophylaxis: protonix 40 mg daily DVT prophylaxis: eliquis Dispo: Discussion made by hospice team and confirmed by a separate call placed by myself that the pt will be made DNR/DNI as per all of the families wishes. Family undecided about hospice. Would like pt to be comfortable. Dilaudid 0.5mg started by palliative care. Dialysis is unlikely d/t pts current mental status. Pt seen and discussed with Dr. Rosa Ernst, PGY-1 <Lee,Bilal - Last Filed: 05/05/18 16:13> CCU Objective - Vital Signs / Intake & Output Vital Signs (Last 4 hours): Vital Signs Pulse BP 05/05/18 14:15 96 H 155/86 H 05/05/18 14:00 99 H Intake and Output (Last 8hrs): Intake & Output 05/05/18 05/05/18 05/05/18 06:59 14:59 22:59 Intake Total 910 Output Total 50 Balance 860 Intake: IV 910 Left Antecubital 0 Left Forearm 750 Left Hand 0 cardizem 60 Oral 0 Output: Urine 50 Urethral (Fxo) 50 Stool 0 Emesis 0 - Medications Active Medications: Active Medications Generic Name Dose Route Start Last Admin Trade Name Freq PRN Reason Stop Dose Admin Acetaminophen 320 mg 05/05/18 11:12 05/05/18 11:24 Tylenol 160mg/5ml Oral Soln PO 320 mg Q6 PRN Administration Fever >100.4 F Albuterol/Ipratropium 3 ml 04/25/18 15:35 05/05/18 07:53 Duoneb 3 Mg/0.5 Mg (3 Ml) Ud IH 3 ml Q4H PRN Administration Shortness of Breath Amino Acid Protein 15 gm 05/04/18 10:00 05/05/18 14:18 Prostat 15 G Packet GT 15 gm DAILY BIJAN Administration Amlodipine Besylate 5 mg 05/01/18 14:30 05/05/18 09:34 Norvasc PO 5 mg DAILY BIJAN Administration Apixaban 2.5 mg 04/28/18 10:00 05/05/18 09:35 Eliquis PO 2.5 mg Q12 BIJAN Administration Protocol Aspirin 81 mg 04/26/18 10:00 05/05/18 09:33 Aspirin Chewable PO 81 mg DAILY BIJAN Administration Atorvastatin Calcium 10 mg 05/01/18 17:00 05/04/18 17:53 Lipitor PO 10 mg DIN BIJAN Administration Budesonide 0.5 mg 04/26/18 20:00 05/05/18 07:53 Pulmicort Respules IH 0.5 mg [id number] BIJAN Administration Diltiazem HCl 60 mg 05/03/18 11:08 05/05/18 14:15 Cardizem PO 60 mg QID BIJAN Administration Furosemide 40 mg 05/04/18 10:00 05/05/18 09:33 Lasix IVP 40 mg DAILY BIJAN Administration Hydromorphone HCl 0.5 mg 05/03/18 13:23 05/05/18 11:41 Dilaudid IVP 0.5 mg Q6H PRN Administration Pain, moderate (4-7) diltiaZEM IVPB 100mg in NS 100 mls @ 5 mls/hr 04/28/18 22:44 05/05/18 01:17 Cardizem 100mg In Ns IV 5 mg/hr .Q20H PRN 5 mls/hr TITRATE PER MD ORDER Administration Protocol 5 MG/HR Insulin Human Regular 0 units 05/05/18 11:30 05/05/18 14:18 Humulin R Low SC Not Given ACHS BIJAN Protocol Methylprednisolone 40 mg 05/02/18 10:00 05/05/18 09:33 Solu-Medrol IVP 40 mg Q12 BIJAN Administration Pantoprazole Sodium 40 mg 04/28/18 06:00 05/05/18 05:12 Protonix Susp PO 40 mg 0600 BIJAN Administration Quetiapine Fumarate 12.5 mg 05/02/18 16:22 Seroquel PO HS PRN agitation Protocol Tacrolimus 3 mg 04/25/18 18:00 05/05/18 09:33 Prograf Cap PO 3 mg BID BIJAN Administration - Patient Studies Lab Studies: Lab Studies 05/05/18 05/05/18 05/04/18 Range/Units 05:20 05:20 18:50 WBC 21.5 H D (4.5-11.0) 10^3/uL RBC 3.04 L (3.5-6.1) 10^6/uL Hgb 9.5 L (12.0-16.0) g/dL Hct 31.4 L (36.0-48.0) % MCV 103.3 (80.0-105.0) fl MCH 31.3 (25.0-35.0) pg MCHC 30.3 L (31.0-37.0) g/dl RDW 17.2 H (11.5-14.5) % Plt Count 118 L (120.0-450.0) 10^3/uL MPV 12.6 H (7.0-11.0) fl Neut % (Auto) 86.8 H (50.0-68.0) % Lymph % (Auto) 9.2 L (22.0-35.0) % [place] % (Auto) 3.7 (1.0-6.0) % Eos % (Auto) 0.0 L (1.5-5.0) % Baso % (Auto) 0.3 (0.0-3.0) % Lymph # (Auto) 2.0 (1.2-3.4) [place] # (Auto) 0.8 H (0.1-0.6) Eos # (Auto) 0.0 (0.0-0.7) Baso # (Auto) 0.07 (0.0-2.0) K/mm3 Absolute Neuts (auto) 18.67 H (1.4-6.5) Corrected WBC (Man) 19.9 H (4.5-11.0) K/mm3 Neutrophils % (Manual) 90 H (50.0-70.0) % Band Neutrophils % (0-2) % Lymphocytes % (Manual) 4 L (22.0-35.0) % Monocytes % (Manual) 6 (1.0-6.0) % Metamyelocytes % % Nucleated RBC % 8 % Sodium 142 144 (132-148) mmol/L Potassium 4.8 5.0 (3.6-5.0) mmol/L Chloride 111 H 112 H (98-107) mmol/L Carbon Dioxide 22 24 (21-33) mmol/L Anion Gap 14 13 (10-20) BUN 115 H 104 H (7-21) mg/dL Creatinine 4.2 H 4.4 H (0.7-1.2) mg/dl Est GFR ( Amer) 12 12 Est GFR (Non-Af Amer) 10 10 Random Glucose 439 H* D 363 H* D (70-110) mg/dL Calcium 11.3 H 11.6 H (8.4-10.5) mg/dL Phosphorus 5.9 H (2.5-4.5) mg/dL Magnesium 1.9 (1.7-2.2) mg/dL Total Bilirubin 1.1 1.2 (0.2-1.3) mg/dL AST 62 H 63 H D (14-36) U/L ALT 100 H 100 H (7-56) U/L Alkaline Phosphatase 86 91 (38-126) U/L Total Protein 6.2 6.5 (5.8-8.3) g/dL Albumin 3.3 3.5 (3.0-4.8) g/dL Globulin 2.9 3.0 gm/dL Albumin/Globulin Ratio 1.1 1.2 (1.1-1.8) Anti-Mitochondrial Titr Anti-Mitochondrial Ab (NEGATIVE) 05/04/18 04/30/18 Range/Units 18:50 05:30 WBC 15.1 H D (4.5-11.0) 10^3/uL RBC 3.05 L (3.5-6.1) 10^6/uL Hgb 9.6 L (12.0-16.0) g/dL Hct 32.1 L (36.0-48.0) % MCV 105.2 H (80.0-105.0) fl MCH 31.5 (25.0-35.0) pg MCHC 29.9 L (31.0-37.0) g/dl RDW 17.4 H (11.5-14.5) % Plt Count 109 L (120.0-450.0) 10^3/uL MPV 11.4 H (7.0-11.0) fl Neut % (Auto) 84.3 H (50.0-68.0) % Lymph % (Auto) 8.9 L (22.0-35.0) % [place] % (Auto) 6.2 H (1.0-6.0) % Eos % (Auto) 0.0 L (1.5-5.0) % Baso % (Auto) 0.6 (0.0-3.0) % Lymph # (Auto) 1.4 (1.2-3.4) [place] # (Auto) 0.9 H (0.1-0.6) Eos # (Auto) 0.0 (0.0-0.7) Baso # (Auto) 0.09 (0.0-2.0) K/mm3 Absolute Neuts (auto) 12.75 H (1.4-6.5) Corrected WBC (Man) 13.7 H (4.5-11.0) K/mm3 Neutrophils % (Manual) 88 H (50.0-70.0) % Band Neutrophils % 4 H (0-2) % Lymphocytes % (Manual) 4 L (22.0-35.0) % Monocytes % (Manual) 3 (1.0-6.0) % Metamyelocytes % 1 % Nucleated RBC % 10 % Sodium (132-148) mmol/L Potassium (3.6-5.0) mmol/L Chloride (98-107) mmol/L Carbon Dioxide (21-33) mmol/L Anion Gap (10-20) BUN (7-21) mg/dL Creatinine (0.7-1.2) mg/dl Est GFR ( Amer) Est GFR (Non-Af Amer) Random Glucose (70-110) mg/dL Calcium (8.4-10.5) mg/dL Phosphorus (2.5-4.5) mg/dL Magnesium (1.7-2.2) mg/dL Total Bilirubin (0.2-1.3) mg/dL AST (14-36) U/L ALT (7-56) U/L Alkaline Phosphatase (38-126) U/L Total Protein (5.8-8.3) g/dL Albumin (3.0-4.8) g/dL Globulin gm/dL Albumin/Globulin Ratio (1.1-1.8) Anti-Mitochondrial Titr TNP Anti-Mitochondrial Ab Negative (NEGATIVE) Laboratory Results - last 24 hr 04/30/18 05/04/18 05/04/18 05:30 18:50 18:50 WBC 15.1 H D RBC 3.05 L Hgb 9.6 L Hct 32.1 L MCV 105.2 H MCH 31.5 MCHC 29.9 L RDW 17.4 H Plt Count 109 L MPV 11.4 H Neut % (Auto) 84.3 H Lymph % (Auto) 8.9 L [place] % (Auto) 6.2 H Eos % (Auto) 0.0 L Baso % (Auto) 0.6 Lymph # (Auto) 1.4 [place] # (Auto) 0.9 H Eos # (Auto) 0.0 Baso # (Auto) 0.09 Absolute Neuts (auto) 12.75 H Corrected WBC (Man) 13.7 H Neutrophils % (Manual) 88 H Band Neutrophils % 4 H Lymphocytes % (Manual) 4 L Monocytes % (Manual) 3 Metamyelocytes % 1 Nucleated RBC % 10 Sodium 144 Potassium 5.0 Chloride 112 H Carbon Dioxide 24 Anion Gap 13 BUN 104 H Creatinine 4.4 H Est GFR ( Amer) 12 Est GFR (Non-Af Amer) 10 Random Glucose 363 H* D Calcium 11.6 H Phosphorus 5.9 H Magnesium 1.9 Total Bilirubin 1.2 AST 63 H D ALT 100 H Alkaline Phosphatase 91 Total Protein 6.5 Albumin 3.5 Globulin 3.0 Albumin/Globulin Ratio 1.2 Anti-Mitochondrial Titr TNP Anti-Mitochondrial Ab Negative 05/05/18 05/05/18 05:20 05:20 WBC 21.5 H D RBC 3.04 L Hgb 9.5 L Hct 31.4 L MCV 103.3 MCH 31.3 MCHC 30.3 L RDW 17.2 H Plt Count 118 L MPV 12.6 H Neut % (Auto) 86.8 H Lymph % (Auto) 9.2 L [place] % (Auto) 3.7 Eos % (Auto) 0.0 L Baso % (Auto) 0.3 Lymph # (Auto) 2.0 [place] # (Auto) 0.8 H Eos # (Auto) 0.0 Baso # (Auto) 0.07 Absolute Neuts (auto) 18.67 H Corrected WBC (Man) 19.9 H Neutrophils % (Manual) 90 H Band Neutrophils % Lymphocytes % (Manual) 4 L Monocytes % (Manual) 6 Metamyelocytes % Nucleated RBC % 8 Sodium 142 Potassium 4.8 Chloride 111 H Carbon Dioxide 22 Anion Gap 14 BUN 115 H Creatinine 4.2 H Est GFR ( Amer) 12 Est GFR (Non-Af Amer) 10 Random Glucose 439 H* D Calcium 11.3 H Phosphorus Magnesium Total Bilirubin 1.1 AST 62 H ALT 100 H Alkaline Phosphatase 86 Total Protein 6.2 Albumin 3.3 Globulin 2.9 Albumin/Globulin Ratio 1.1 Anti-Mitochondrial Titr Anti-Mitochondrial Ab Radiology Impressions: Radiology Impressions Chest X-Ray 05/05/18 11:21 IMPRESSION: Apparent persistent mild pulmonary venous congestion with patchy infiltrates seen throughout the right lung and some associated presumed atelectasis right mid lung field. There also appears to be left lower lobe atelectasis and or infiltrate and small left-sided effusion Addendum Addendum: 05/05/18 16:05 ICU Attending Addendum Patient seen and examined. Case reviewed on round with housestaff. Agree with resident note above with the following additions/exceptions 77F with chf, COPD, LUE DVT currently on eliquis, SLE, lupus nephritis (currently on prednisone and prograf), and osteoporosis presents being managed for hypoxic, hypercarbic respiratory failure 2/2 to CHF exacerbation vs. bilobar pneumonia in the setting of immunosuppresive therapy vs. COPD exacerbation. continues to be in rapid afib on cardizem drip resumed PO meds via NGT tube cardizem drip down to 5 now eliquis for AC on varying o2 delivering NRB and bipap still making some urine hyperNa and hyperCL - started D5w @ 50 however increase crackles on exam this AM She is clearly failing. Treatments such as fluids are causing complications in her breathing. Her mantal status is failing as well. I called her daughter Marbella this morning and planned to meet this afternoon in regards to goals of care. At 4pm Marbella and one of her brothers were at bedside and we met. I updated them on their mother's multiorgan failure and without intubation or dilaysis there is not much we could offer. Even with those measures, it may not change her overall outcome. THey informed me that they were concerned more about her comfort. I explained that we could make comfort a priority with the understanding that some of those meds (ie narcotics) can have a negative impact on her breathing and we would allow this as along as she was comfortable. THey both agreed and notified me that they were also in contact with their other brother and they are all " on the same page" They are requesting hospice. I will reach out and see if hospice is available today, if not tomorrow For now will initiate comfort measures I explained that she could pass away today so they should be prepared as this is unpredicatable They conveyed understanding I answered all questions DNR/DNI Comfort measures only Peggy Lee MD Pulmonary Critical Care Attending 45 minutes critical care time spent in the management, examination, planning and talking to family
[2018-05-05] MEDS: MethylPREDNISolone 40 mg Vial IVP SCH ×2 (09:33→21:28)
--- NOTE | 2018-05-05 11:03 | CP.PCM.PN ---
<Marivel Simental - Last Filed: 05/05/18 10:39> Subjective - Date & Time of Evaluation Date of Evaluation: 05/05/18 Time of Evaluation: 10:39 - Subjective Subjective: Marivel Simental, PGY-1, Internal Medicine Progress Note for Dr. Mckeon Patient seen and evaluated at bedside. Patient had no acute overnight events. Patient is still lethargic and moaning at bedside. Patient is still minimally responsive to stimulation at bedside. Patient's respiratory distress has worsened and is now on Bipap. 12-point ROS was unattainable due to mental status. Objective - Vital Signs/Intake and Output Vital Signs (last 24 hours): Temp Pulse Resp BP Pulse Ox 98.9 F 124 H 15 155/83 H 89 L 05/05/18 04:00 05/05/18 09:34 05/04/18 12:00 05/05/18 09:34 05/04/18 18:00 Intake and Output: 05/05/18 05/05/18 06:59 18:59 Intake Total 910 Output Total 50 Balance 860 - Medications Medications: Current Medications Albuterol/Ipratropium (Duoneb 3 Mg/0.5 Mg (3 Ml) Ud) 3 ml IH Q4H PRN PRN Reason: Shortness of Breath Last Admin: 05/05/18 07:53 Dose: 3 ml Amino Acid Protein (Prostat 15 G Packet) 15 gm GT DAILY [facility] Last Admin: 05/04/18 10:55 Dose: 15 gm Amlodipine Besylate (Norvasc) 5 mg PO DAILY [facility] Last Admin: 05/05/18 09:34 Dose: 5 mg Apixaban (Eliquis) 2.5 mg PO Q12 [facility]; Protocol Last Admin: 05/05/18 09:35 Dose: 2.5 mg Aspirin (Aspirin Chewable) 81 mg PO DAILY [facility] Last Admin: 05/05/18 09:33 Dose: 81 mg Atorvastatin Calcium (Lipitor) 10 mg PO DIN [facility] Last Admin: 05/04/18 17:53 Dose: 10 mg Budesonide (Pulmicort Respules) 0.5 mg IH [id number] [facility] Last Admin: 05/05/18 07:53 Dose: 0.5 mg Diltiazem HCl (Cardizem) 60 mg PO QID [facility] Last Admin: 05/05/18 09:34 Dose: 60 mg Furosemide (Lasix) 40 mg IVP DAILY [facility] Last Admin: 05/05/18 09:33 Dose: 40 mg Hydromorphone HCl (Dilaudid) 0.5 mg IVP Q6H PRN PRN Reason: Pain, moderate (4-7) Last Admin: 05/04/18 23:54 Dose: 0.5 mg diltiaZEM IVPB 100mg in NS (Cardizem 100mg In Ns) 100 mls @ 5 mls/hr IV .Q20H PRN; Protocol PRN Reason: TITRATE PER MD ORDER Last Admin: 05/05/18 01:17 Dose: 5 mg/hr, 5 mls/hr Methylprednisolone (Solu-Medrol) 40 mg IVP Q12 [facility] Last Admin: 05/05/18 09:33 Dose: 40 mg Pantoprazole Sodium (Protonix Susp) 40 mg PO 0600 [facility] Last Admin: 05/05/18 05:12 Dose: 40 mg Quetiapine Fumarate (Seroquel) 12.5 mg PO HS PRN; Protocol PRN Reason: agitation Tacrolimus (Prograf Cap) 3 mg PO BID [facility] Last Admin: 05/05/18 09:33 Dose: 3 mg - Labs Labs: 05/05/18 05:20 05/05/18 05:20 PT 21.2 SECONDS (9.4-12.5) H 04/25/18 12:35 INR 1.88 04/25/18 12:35 APTT 35.1 Seconds (26.9-38.3) 04/26/18 05:50 - Constitutional Appears: In Acute Distress, Older Than Stated Age - Head Exam Head Exam: ATRAUMATIC, NORMAL INSPECTION, NORMOCEPHALIC - Eye Exam Eye Exam: PERRL - Respiratory Exam Respiratory Exam: Accessory Muscle Use, Clear to Ausculation Bilateral, On Bipap - Cardiovascular Exam Cardiovascular Exam: Tachycardia, Irregular Rhythm - GI/Abdominal Exam GI & Abdominal Exam: Soft, Normal Bowel Sounds. absent: Tenderness - Extremities Exam Extremities Exam: Full ROM - Neurological Exam Neurological Exam: Alert. absent: Oriented x3 - Skin Skin Exam: Dry, Intact Assessment and Plan - Assessment and Plan (Free Text) Assessment: 77 year old female with past medical history of questionable congestive heart failure with last EF of 50%, COPD, LUE DVT currently on eliquis, SLE, lupus nephritis (currently on prednisone and prograf), and osteoporosis presented with worsened, labored breathing. Patient was admitted for hypoxic, hypercarbic respiratory failure 2/2 to CHF exacerbation vs. bilobar pneumonia in the setting of immunosuppresive therapy vs. COPD exacerbation complicated by NSTEMI Plan: CKD Stage IV s/p renal transplant -BUN/Cr 05/03: 115/4.2 worsened from creatinine of 3.9. Worsened from baseline -Continue with immunosuppresive regimen of home tacrolimus and methylprednisone -Follow up renal biopsy results -Avoid nephrotoxic agents such as lisinopril, losartan, IV contrast -Started Lasix 40 mg daily -At this time, not considering dialysis due to poor prognosis and patient's mental status. Hyperkalemia-resolved -K: 4.8 -Likely 2/2 to CKD. -Mild elevation. -Continue to monitor at this time. Hypercalcemia -Ca: 11.3 reduced from 12.4 -As per nephrology, will observe for now Hypernatremia -Na 05/03: 151 from 147 -D5W has been stopped due to improvement of sodium. Hyperchloremia -Cl: 111 from 119 -D5W has stopped due to improvement in chloride. Hypoxic respiratory failure likely 2/2 to CHF Exacerbation -Bipap restarted and improved respiratory status. Saturating well on NC -ABG 05/01: pH: 7.37, pO2: 76, pCO2: 41 -CXR 05/01: severe cardiomegaly with worsening in pulmonary venous congestion -BNP upon admission was [address] with baseline of around 3000 on prior admissions -Echocardiogram 04/26: LVEF of 46.5%, LVH, LA dilated, moderate to severe TR, pulmonary hypertension -Chest CT 04/26: severe cardiomegaly, mild bibasilar consolidation and pleural effusions -Continue Lasix 40 mg daily -Patient is DNR/DNI Altered mental status due to likely uremia -AAOx0. lethargic today -Avoid sedatives including anti-psychotics, haldol, benzodiazepines. -CT Head: no acute intracranial findings -Dr. Traylor, Psychiatry, consulted for recommendations and psych medication management. She recommended seroquel as needed for altered mental status likely due ICU delirium. Atrial Fibrillation -Patient with documented history of atrial fibrillation -Continue with Eliquis 2.5 mg Q12 -IV cardizem restarted because patient failed PO intake today. -Continue cardizem 60 mg QID PO as patient has NG tube in place now. NSTEMI -EKG: atrial fibrillation with HR: 93 -Troponin: 0.27, 1.64, 1.72, 1.21 -Continue with aspirin 81 mg daily, lipitor 10 mg daily, cardizem to 60 mg QID -Cardizem drip continued -Continue eliquis Hypertension -Continue with cardizem, norvasc Normocytic Anemia -Hgb: 9.5 -Status post 2 U of PRBCs -Unremarkable iron and ferritin levels. Low TIBC at 187. -Stool guiaic negative -Goal hemoglobin>8 due to cardiac issues Bilateral Interstitial Pneumonia -Blood culture was negative for 5 days, MRSA negative, urine culture negative. -Lactate: last was 1.6 from 2.7 -Negative influenza, urine legionella -Procalcitonin: 0.69 -CXR: bilateral lower lobe effusion -Antibiotics regimen complete COPD -Continue with duonebs, and pulmicort -Continue methylprednisone 40 mg Q12 -Taper down steroids as tolerated Failure to thrive -Continue with tube feedings. Hyperglycemia -Random glucose: 439 -Likely secondary to D5W and methylprednisone -Stopped D5W. Started low dose SSI -Accuchecks ACHS GI prophylaxis: protonix 40 mg daily DVT prophylaxis: eliquis 2.5 mg Q12 Disposition: Palliative care has been consulted and family wants patient to be DNR/DNI. Family would like to have patient comfort care. Family undecided about hospice. Dialysis unlikely at this point due to risks from sedation required to make the patient amenable to dialysis. Patient plan was discussed with attending. <Marlen Mckeon - Last Filed: 05/05/18 13:43> Objective - Vital Signs/Intake and Output Vital Signs (last 24 hours): Temp Pulse Resp BP Pulse Ox 102 F H 124 H 49 H 140/48 L 89 L 05/05/18 11:10 05/05/18 10:00 05/05/18 10:00 05/05/18 10:00 05/05/18 10:00 Intake and Output: 05/05/18 05/05/18 06:59 18:59 Intake Total 910 Output Total 50 Balance 860 - Medications Medications: Current Medications Acetaminophen (Tylenol 160mg/5ml Oral Soln) 320 mg PO Q6 PRN PRN Reason: Fever >100.4 F Last Admin: 05/05/18 11:24 Dose: 320 mg Albuterol/Ipratropium (Duoneb 3 Mg/0.5 Mg (3 Ml) Ud) 3 ml IH Q4H PRN PRN Reason: Shortness of Breath Last Admin: 05/05/18 07:53 Dose: 3 ml Amino Acid Protein (Prostat 15 G Packet) 15 gm GT DAILY [facility] Last Admin: 05/04/18 10:55 Dose: 15 gm Amlodipine Besylate (Norvasc) 5 mg PO DAILY [facility] Last Admin: 05/05/18 09:34 Dose: 5 mg Apixaban (Eliquis) 2.5 mg PO Q12 [facility]; Protocol Last Admin: 05/05/18 09:35 Dose: 2.5 mg Aspirin (Aspirin Chewable) 81 mg PO DAILY [facility] Last Admin: 05/05/18 09:33 Dose: 81 mg Atorvastatin Calcium (Lipitor) 10 mg PO DIN [facility] Last Admin: 05/04/18 17:53 Dose: 10 mg Budesonide (Pulmicort Respules) 0.5 mg IH [id number] [facility] Last Admin: 05/05/18 07:53 Dose: 0.5 mg Diltiazem HCl (Cardizem) 60 mg PO QID [facility] Last Admin: 05/05/18 09:34 Dose: 60 mg Furosemide (Lasix) 40 mg IVP DAILY [facility] Last Admin: 05/05/18 09:33 Dose: 40 mg Hydromorphone HCl (Dilaudid) 0.5 mg IVP Q6H PRN PRN Reason: Pain, moderate (4-7) Last Admin: 05/05/18 11:41 Dose: 0.5 mg diltiaZEM IVPB 100mg in NS (Cardizem 100mg In Ns) 100 mls @ 5 mls/hr IV .Q20H PRN; Protocol PRN Reason: TITRATE PER MD ORDER Last Admin: 05/05/18 01:17 Dose: 5 mg/hr, 5 mls/hr Vancomycin HCl 1.5 gm/ Sodium (Chloride) 500 mls @ 167 mls/hr IVPB ONCE ONE; Protocol Stop: 05/05/18 14:16 Last Admin: 05/05/18 13:13 Dose: 167 mls/hr Insulin Human Regular (Humulin R Low) 0 units SC ACHS [facility]; Protocol Methylprednisolone (Solu-Medrol) 40 mg IVP Q12 [facility] Last Admin: 05/05/18 09:33 Dose: 40 mg Pantoprazole Sodium (Protonix Susp) 40 mg PO 0600 [facility] Last Admin: 05/05/18 05:12 Dose: 40 mg Quetiapine Fumarate (Seroquel) 12.5 mg PO HS PRN; Protocol PRN Reason: agitation Tacrolimus (Prograf Cap) 3 mg PO BID [facility] Last Admin: 05/05/18 09:33 Dose: 3 mg - Labs Labs: 05/05/18 05:20 05/05/18 05:20 PT 21.2 SECONDS (9.4-12.5) H 04/25/18 12:35 INR 1.88 04/25/18 12:35 APTT 35.1 Seconds (26.9-38.3) 04/26/18 05:50 Attending/Attestation - Attestation I have personally seen and examined this patient.: Yes I have fully participated in the care of the patient.: Yes I have reviewed all pertinent clinical information, including history, physical exam and plan: Yes Notes (Text): 05/05/18 13:40 77 year old female with past medical history of CHF, COPD, LUE DVT on eliquis, SLE, lupus nephritis and atrial fibrillation who presented with acute hypoxic/hypercapneic failure likely multifactorial secondary to CHF/COPD/pneumon ia. Also found to have AFib with RVR and possible NSTEMI in addition to acute on chronic renal failure. Patient is on cardizem drip and po cardizem. Continue with conservative management as per cardiology. Nephrology is also following for acute on chronic renal failure. No plan for dialysis at this time as per nephrology. Patient is s/p kidney biopsy last week with results pending. She is on iv steroids. Palliative care follow up was appreciated. Overall prognosis is poor. Patient is DNR/DNI. Marlen Mckeon MD Hospitalist.
[2018-05-05] MEDS ORDERED: Acetaminophen 160 mg/5 ml UD PO PRN (11:12)
[2018-05-05] MEDS ORDERED: Vancomycin 1.5 GM in Sodium Chloride 0.9% 500 ML IVPB ONE (11:17)
--- NOTE | 2018-05-05 11:21 | CP.PCM.PN ---
Subjective - Date & Time of Evaluation Date of Evaluation: 05/05/18 Time of Evaluation: 11:00 - Subjective Subjective: Patient just developed fever now, WBC count is elevated, patient on BIPAP and in distress. Objective - Vital Signs/Intake and Output Vital Signs (last 24 hours): Temp Pulse Resp BP Pulse Ox 98.6 F 108 H 20 145/75 94 L 05/04/18 04:00 05/04/18 10:29 05/04/18 02:00 05/04/18 10:35 05/04/18 02:00 Intake and Output: 05/04/18 05/04/18 06:59 18:59 Intake Total 580 Output Total 200 Balance 380 - Medications Medications: Current Medications Albuterol/Ipratropium (Duoneb 3 Mg/0.5 Mg (3 Ml) Ud) 3 ml IH Q4H PRN PRN Reason: Shortness of Breath Last Admin: 05/04/18 07:53 Dose: 3 ml Amino Acid Protein (Prostat 15 G Packet) 15 gm GT DAILY [facility] Last Admin: 05/04/18 10:55 Dose: 15 gm Amlodipine Besylate (Norvasc) 5 mg PO DAILY [facility] Last Admin: 05/04/18 10:29 Dose: 5 mg Apixaban (Eliquis) 2.5 mg PO Q12 [facility]; Protocol Last Admin: 05/04/18 10:29 Dose: 2.5 mg Aspirin (Aspirin Chewable) 81 mg PO DAILY [facility] Last Admin: 05/04/18 10:28 Dose: 81 mg Atorvastatin Calcium (Lipitor) 10 mg PO DIN [facility] Last Admin: 05/03/18 18:04 Dose: 10 mg Budesonide (Pulmicort Respules) 0.5 mg IH [id number] [facility] Last Admin: 05/04/18 07:53 Dose: 0.5 mg Diltiazem HCl (Cardizem) 60 mg PO QID [facility] Last Admin: 05/04/18 10:28 Dose: 60 mg Furosemide (Lasix) 40 mg IVP DAILY [facility] Last Admin: 05/04/18 10:35 Dose: 40 mg Hydromorphone HCl (Dilaudid) 0.5 mg IVP Q6H PRN PRN Reason: Pain, moderate (4-7) Last Admin: 05/04/18 09:03 Dose: 0.5 mg diltiaZEM IVPB 100mg in NS (Cardizem 100mg In Ns) 100 mls @ 5 mls/hr IV .Q20H PRN; Protocol PRN Reason: TITRATE PER MD ORDER Last Admin: 05/03/18 21:26 Dose: 5 mg/hr, 5 mls/hr Methylprednisolone (Solu-Medrol) 40 mg IVP Q12 [facility] Last Admin: 05/04/18 10:23 Dose: 40 mg Pantoprazole Sodium (Protonix Susp) 40 mg PO 0600 [facility] Last Admin: 05/04/18 05:32 Dose: 40 mg Quetiapine Fumarate (Seroquel) 12.5 mg PO HS PRN; Protocol PRN Reason: agitation Tacrolimus (Prograf Cap) 3 mg PO BID [facility] Last Admin: 05/04/18 10:27 Dose: 3 mg - Labs Labs: 05/03/18 05:40 05/03/18 05:40 PT 21.2 SECONDS (9.4-12.5) H 04/25/18 12:35 INR 1.88 04/25/18 12:35 APTT 35.1 Seconds (26.9-38.3) 04/26/18 05:50 - Constitutional Appears: In Acute Distress, Chronically Ill - Head Exam Head Exam: NORMAL INSPECTION - Respiratory Exam Respiratory Exam: Decreased Breath Sounds - Cardiovascular Exam Cardiovascular Exam: +S1, +S2 - GI/Abdominal Exam GI & Abdominal Exam: Soft. absent: Tenderness Assessment and Plan - Assessment and Plan (Free Text) Plan: Assessment new onset systemic inflammatory response syndrome with fevers and acute hypoxic respiratory failure, consider severe sepsis due to aspiration hospital-acquired pneumonia in this patient with COPD and worsening renal failure R/O CHF S/P possible pneumonia in this patient with probable CHF exacerbation, R/O Influenza S/P treatment with antibiotics agitation, etiology to be determined worsening chronic renal failure chronic CHF with EF 50% COPD DVT on anticoagulation SLE with lupus nephritis S/P renal transplant osteoporosis Plan completed 7 day course of Cefepime and Doxycycline and completed 5 days of Tamiflu - with the new fever and respiratory distress, will repeat blood, urine cx, CXR and start with a loading dose of IV Vancomycin 25 mg/kg and start renally-adjusted Merrem will continue to follow clinically Renal following and follow up further recommendations overall prognosis is poor - patient is DNR/DNI
[2018-05-05] MEDS ORDERED: MEROPENEM 500 MG in NS 500 MG/50 ML BAG IVPB SCH (11:30)
[2018-05-05] MEDS: HYDROmorphone 0.5 mg/0.5 ml ISec IVP PRN (11:41)
--- NOTE | 2018-05-05 14:04 | RAD ---
Date of service: 05/05/2018 HISTORY: Rule out pneumonia COMPARISON: Comparison chest dated 05/03/2018. FINDINGS: In situ NGT, the tip of which lies left upper quadrant of the abdomen. LUNGS: Apparent persistent mild pulmonary venous congestion with patchy infiltrates seen throughout the right lung and some associated presumed atelectasis right mid lung field. There also appears to be left lower lobe atelectasis and or infiltrate and small left-sided effusion PLEURA: As above. No apparent pneumothorax CARDIOVASCULAR: Mild aortic atherosclerotic calcification present. Heart is markedly enlarged.. OSSEOUS STRUCTURES: No significant abnormalities. VISUALIZED UPPER ABDOMEN: Normal. OTHER FINDINGS: None. IMPRESSION: Apparent persistent mild pulmonary venous congestion with patchy infiltrates seen throughout the right lung and some associated presumed atelectasis right mid lung field. There also appears to be left lower lobe atelectasis and or infiltrate and small left-sided effusion
[2018-05-05] MEDS: Insulin Reg-LOW-Coverage SC SCH ×3 (14:18→21:28)
[2018-05-05] MEDS: Prostat 15 g packet GT SCH (14:18)
[2018-05-05] MEDS ORDERED: HYDROmorphone 0.5 mg/0.5 ml ISec IVP PRN (16:17)
[2018-05-06] MEDS: Pantoprazole 40 mg Susp UD PO SCH (05:32)
--- NOTE | 2018-05-06 06:06 | CP.PCM.PRO ---
Pronouncement of Note - Clinical Findings Physical Exam: No Response Verbal/Painful Stimuli, Absent Peripheral Puls es{Carotid & Femoral}, Absent Heart & Breath Sounds, No Pupillary Light Reflex, No Corneal Reflex, Absence of Vital Signs - Pronouncement Time Time of Pronouncement of : 06:00 - Notifications Pronouncement Notifications: Family Notified, Atending Notified Dental Nurse Notified: No - Autopsy Autopsy Requested: No - [place] [id number] Additional Comments: Called to evaluate a patient in asystole. Pupils were noted to be dilated and. unresponsive to light. No heart or lung sounds were noted on auscultation. Pt had no response to verbal or. painful stimuli. Asystole was noted on monitor.
[2018-05-06 06:24] VITALS: BP 160/86; PULSE 29; RESP 7; O2SAT 90
[2018-05-06 07:04] VITALS: TEMP 99.7
--- NOTE | 2018-05-06 17:39 | CP.PCM.DIS ---
<Marivel Simental - Last Filed: 05/06/18 17:12> Provider - Provider Date of Admission: 04/25/18 14:27 Attending physician: Marlen Mckeon MD Primary care physician: Shila Whipple MD Consults: 04/25/18 14:34 Nephrology Consult Stat Comment: Consulting Provider: Kenton Yin Consulting Physician: Kenton Yin Reason for Consult: jagdish, renal transplant 04/25/18 14:36 Cardiology Consult Stat Comment: Consulting Provider: Travis Vides Consulting Physician: Travis Vides Reason for Consult: chf exacerbation 04/25/18 14:56 Infectious Disease Consult Stat Comment: Consulting Provider: Noah Hayden Consulting Physician: Noah Hayden Reason for Consult: CAP, immunocompromized 04/26/18 09:53 Palliative Care Consult Routine Comment: Consulting Provider: Magda Shukla Physician Instructions: Reason For Exam: questionable DNR/DNI from last. Not DNR/DNI this 05/01/18 10:01 Consult [Physician Consult] Routine Comment: Consulting Provider: Travis Blevins Consulting Physician: Travis Blevins Reason for Consult: transplant kidney biopsy 05/01/18 12:17 Psychiatry Consult Routine Comment: Consulting Provider: Marie Traylor Consulting Physician: Marie Traylor Reason for Consult: delirium with lethargy post geodon Time Spent in preparation of Discharge (in minutes): 60 Diagnosis - Discharge Diagnosis (1) CHF (congestive heart failure) Status: Acute (2) NSTEMI (non-ST elevated myocardial infarction) Status: Acute (3) Respiratory distress Status: Acute Hospital Course - Lab Results Lab Results: Micro Results 05/05/18 11:45 Blood-Venous Blood Culture - Preliminary NO GROWTH AFTER 24 HOURS 05/05/18 11:30 Blood-Venous Blood Culture - Preliminary NO GROWTH AFTER 24 HOURS 04/25/18 13:00 Blood Blood Culture - Final NO GROWTH AFTER 5 DAYS 04/25/18 13:00 Blood Gram Stain - Final TEST NOT PERFORMED 04/25/18 12:35 Blood Blood Culture - Final NO GROWTH AFTER 5 DAYS 04/25/18 12:35 Blood Gram Stain - Final TEST NOT PERFORMED 04/25/18 15:30 Naris MRSA Culture (Admit) - Final MRSA NOT DETECTED 04/25/18 15:52 Urine Random Urine Culture - Final No Growth (<1,000 CFU/ML) Most Recent Lab Values WBC 21.5 10^3/uL (4.5-11.0) H D 05/05/18 05:20 RBC 3.04 10^6/uL (3.5-6.1) L 05/05/18 05:20 Hgb 9.5 g/dL (12.0-16.0) L 05/05/18 05:20 Hct 31.4 % (36.0-48.0) L 05/05/18 05:20 MCV 103.3 fl (80.0-105.0) 05/05/18 05:20 MCH 31.3 pg (25.0-35.0) 05/05/18 05:20 MCHC 30.3 g/dl (31.0-37.0) L 05/05/18 05:20 RDW 17.2 % (11.5-14.5) H 05/05/18 05:20 Plt Count 118 10^3/uL (120.0-450.0) L 05/05/18 05:20 MPV 12.6 fl (7.0-11.0) H 05/05/18 05:20 Neut % (Auto) 86.8 % (50.0-68.0) H 05/05/18 05:20 Lymph % (Auto) 9.2 % (22.0-35.0) L 05/05/18 05:20 [place] % (Auto) 3.7 % (1.0-6.0) 05/05/18 05:20 Eos % (Auto) 0.0 % (1.5-5.0) L 05/05/18 05:20 Baso % (Auto) 0.3 % (0.0-3.0) 05/05/18 05:20 Lymph # (Auto) 2.0 (1.2-3.4) 05/05/18 05:20 [place] # (Auto) 0.8 (0.1-0.6) H 05/05/18 05:20 Eos # (Auto) 0.0 (0.0-0.7) 05/05/18 05:20 Baso # (Auto) 0.07 K/mm3 (0.0-2.0) 05/05/18 05:20 Absolute Neuts (auto) 18.67 (1.4-6.5) H 05/05/18 05:20 Corrected WBC (Man) 19.9 K/mm3 (4.5-11.0) H 05/05/18 05:20 Neutrophils % (Manual) 90 % (50.0-70.0) H 05/05/18 05:20 Band Neutrophils % 4 % (0-2) H 05/04/18 18:50 Lymphocytes % (Manual) 4 % (22.0-35.0) L 05/05/18 05:20 Monocytes % (Manual) 6 % (1.0-6.0) 05/05/18 05:20 Metamyelocytes % 1 % 05/04/18 18:50 Myelocytes % 2 % 05/02/18 05:30 Nucleated RBC % 8 % 05/05/18 05:20 Differential Comment See pathology report 04/26/18 05:50 Platelet Evaluation Normal (NORMAL) 05/03/18 05:40 Retic Count 2.44 % (0.5-1.5) H 04/26/18 06:00 Haptoglobin 197.9 mg/dL (30.0-200.0) 04/26/18 06:00 PT 21.2 SECONDS (9.4-12.5) H 04/25/18 12:35 INR 1.88 04/25/18 12:35 APTT 35.1 Seconds (26.9-38.3) 04/26/18 05:50 pCO2 41 mm/Hg (35-45) 05/01/18 08:30 pO2 76.0 mm/Hg (80-100) L 05/01/18 08:30 HCO3 23.7 mmol/L (21-28) 05/01/18 08:30 ABG pH 7.37 (7.35-7.45) 05/01/18 08:30 ABG Total CO2 25.0 mmol.L (22-28) 05/01/18 08:30 ABG O2 Saturation 97.7 % (95-98) 05/01/18 08:30 ABG O2 Content 13.2 ML/dl (15-23) L 05/01/18 08:30 ABG Base Excess -1.5 mmol/L (-2.0-3.0) 05/01/18 08:30 ABG Hemoglobin 9.9 g/dL (11.7-17.4) L 05/01/18 08:30 ABG Carboxyhemoglobin 2.2 % (0.5-1.5) H 05/01/18 08:30 POC ABG HHb (Measured) 2.2 % (0-5) 05/01/18 08:30 ABG Methemoglobin 1.1 % (0.0-3.0) 05/01/18 08:30 ABG O2 Capacity 13.5 mL/dl (16-24) L 05/01/18 08:30 ABG Potassium 4.1 mmol/L (3.6-5.2) 04/25/18 12:40 VBG pH 7.35 (7.32-7.43) 04/25/18 15:30 VBG pCO2 59.0 (40-60) 04/25/18 15:30 VBG HCO3 32.6 mmol/l (21-28) H 04/25/18 15:30 VBG Total CO2 34.4 mmol.L (22-28) H 04/25/18 15:30 VBG O2 Sat (Calc) 78.2 % (40-65) H 04/25/18 15:30 VBG Base Excess 5.2 mmol/L (0.0-2.0) H 04/25/18 15:30 VBG Potassium 4.3 mmol/L (3.6-5.2) 04/25/18 15:30 Hgb O2 Saturation 94.5 % (95.0-98.0) L 05/01/18 08:30 Sodium 141.0 mmol/L (132-148) 04/25/18 15:30 Chloride 105.0 mmol/L (98-107) 04/25/18 15:30 Glucose 129 mg/dl (65-105) H 04/25/18 15:30 Lactate 1.6 mmol/L (0.7-2.1) 04/25/18 15:30 FiO2 36.0 % 05/01/18 08:30 Pressure Support 7 04/25/18 12:40 Inspiratory BiPAP 12 04/25/18 12:40 Blood Gas Comments Possible venous. notified po2,pco2,lactate cv reported 04/25/18 12:40 Crit Value Called To Chris alarcon 04/25/18 12:40 Crit Value Called By Rst 04/25/18 12:40 Blood Gas Notified Time 1250 04/25/18 12:40 Sodium 142 mmol/L (132-148) 05/05/18 05:20 Potassium 4.8 mmol/L (3.6-5.0) 05/05/18 05:20 Chloride 111 mmol/L (98-107) H 05/05/18 05:20 Carbon Dioxide 22 mmol/L (21-33) 05/05/18 05:20 Anion Gap 14 (10-20) 05/05/18 05:20 BUN 115 mg/dL (7-21) H 05/05/18 05:20 Creatinine 4.2 mg/dl (0.7-1.2) H 05/05/18 05:20 Est GFR ( Amer) 12 05/05/18 05:20 Est GFR (Non-Af Amer) 10 05/05/18 05:20 POC Glucose (mg/dL) 393 mg/dL (65-110) H 05/05/18 21:24 Random Glucose 439 mg/dL (70-110) H* D 05/05/18 05:20 Calcium 11.3 mg/dL (8.4-10.5) H 05/05/18 05:20 Phosphorus 5.9 mg/dL (2.5-4.5) H 05/04/18 18:50 Magnesium 1.9 mg/dL (1.7-2.2) 05/04/18 18:50 Iron 62 ug/dL (45-180) 04/26/18 05:50 TIBC 187 ug/dL (265-497) L 04/26/18 05:50 % Saturation 33 % (20-55) 04/26/18 05:50 Ferritin 1500.0 ng/mL 04/26/18 06:00 Total Bilirubin 1.1 mg/dL (0.2-1.3) 05/05/18 05:20 AST 62 U/L (14-36) H 05/05/18 05:20 ALT 100 U/L (7-56) H 05/05/18 05:20 Alkaline Phosphatase 86 U/L (38-126) 05/05/18 05:20 Lactate Dehydrogenase 630 U/L (333-699) 04/26/18 06:00 Total Creatine Kinase 35 U/L (35-230) 04/25/18 12:35 Troponin I 1.21 ng/mL H* D 04/26/18 05:50 NT-Pro-B Natriuret Pep 74077 pg/mL (0-450) H 04/25/18 12:35 Total Protein 6.2 g/dL (5.8-8.3) 05/05/18 05:20 Albumin 3.3 g/dL (3.0-4.8) 05/05/18 05:20 Globulin 2.9 gm/dL 05/05/18 05:20 Albumin/Globulin Ratio 1.1 (1.1-1.8) 05/05/18 05:20 Vitamin B12 913 pg/mL (239-931) 04/26/18 06:00 25-OH Vitamin D Total 22 ng/mL (30-100) L 05/03/18 05:40 Folate > 20.0 ng/mL 04/26/18 06:00 Procalcitonin 0.69 NG/ML (0.19-0.49) H 04/25/18 14:00 TSH 3rd Generation 1.11 mIU/mL (0.46-4.68) 04/26/18 05:50 PTH Intact Whole Molec 416 pg/mL (14-64) H 05/03/18 05:40 Arterial Blood Potassium 4.1 mmol/L (3.6-5.2) 04/25/18 12:40 Venous Blood Potassium 4.3 mmol/L (3.6-5.2) 04/25/18 15:30 Urine Color Yellow (YELLOW) 04/25/18 15:52 Urine Appearance Clear (CLEAR) 04/25/18 15:52 Urine pH 6.0 (4.7-8.0) 04/25/18 15:52 Ur Specific [place] 1.020 (1.005-1.035) 04/25/18 15:52 Urine Protein 30 mg/dL (<30 mg/dL) H 04/25/18 15:52 Urine Glucose (UA) 100 mg/dL (NEGATIVE) H 04/25/18 15:52 Urine Ketones Negative mg/dL (NEGATIVE) 04/25/18 15:52 Urine Blood Trace-intact (NEGATIVE) H 04/25/18 15:52 Urine Nitrate Negative (NEGATIVE) 04/25/18 15:52 Urine Bilirubin Negative (NEGATIVE) 04/25/18 15:52 Urine Urobilinogen 0.2 E.U./dL (<1 E.U./dL) 04/25/18 15:52 Ur Leukocyte Esterase Negative Nicky/uL (NEGATIVE) 04/25/18 15:52 Urine RBC 0 - 2 /hpf (0-2) 04/25/18 15:52 Urine WBC None /hpf (0-6) 04/25/18 15:52 Ur Epithelial Cells 0 - 2 /hpf (0-5) 04/25/18 15:52 Urine Bacteria Neg /hpf (NONE) 04/25/18 15:52 Hyaline Casts 0 - 2 /hpf (NONE) 04/25/18 15:52 Urine Eosinophils Negative 04/26/18 09:18 Ur Random Creatinine 125 mg/dL 04/26/18 09:18 U Random Total Protein 46 mg/L 04/26/18 09:18 Ur Random Calcium 9.4 mg/dL 05/02/18 10:40 Stool Occult Blood Negative (NEGATIVE) 04/28/18 01:00 Tacrolimus (LC/MS/MS) 7.0 mcg/L (5.0-20.0) 05/04/18 18:59 Rheumatoid Factor <14 IU/mL (<14) 04/30/18 05:30 Rheumatoid Arth Interp Negative (NEGATIVE) 04/29/18 14:00 ANAI Screen Positive (NEGATIVE) H 04/30/18 05:30 ANAI Titer 1:320 titer H 04/30/18 05:30 ANAI Pattern Few nuclear dots 04/30/18 05:30 SS-A Antibody <1.0 neg AI (<1.0 NEGATIVE) 04/30/18 05:30 SS-B Antibody <1.0 neg AI (<1.0 NEGATIVE) 04/30/18 05:30 Sm (Blevins) Antibody <1.0 neg AI (<1.0 NEGATIVE) 04/30/18 05:30 SM/STONE AND PLATE PREPARER APPRENTICE Antibody <1.0 neg AI (<1.0 NEGATIVE) 04/30/18 05:30 Scl-70 Antibody <1.0 neg AI (<1.0 NEGATIVE) 04/30/18 05:30 Double Strand DNA Ab <1 IU/mL 04/26/18 08:57 Anti-ds DNA Titer (Crith) TNP 04/30/18 05:30 Anti-ds DNA (Crithidia) Negative (NEGATIVE) 04/30/18 05:30 Ribosomal P Prot Ab <1.0 neg AI (<1.0 NEGATIVE) 04/30/18 05:30 Anti-Mitochondrial Titr TNP 04/30/18 05:30 Anti-Mitochondrial Ab Negative (NEGATIVE) 04/30/18 05:30 Actin IgG Antibody <20 U 04/30/18 05:30 Myocardial Ab Titer TNP 04/30/18 05:30 Anti-Myocardial Ab Negative (NEGATIVE) 04/30/18 05:30 Reticulin Ab Titer TNP 04/30/18 05:30 Reticulin IgA Antibody Negative (NEGATIVE) 04/30/18 05:30 Thyroperoxidase Ab <1 IU/mL (<9) 04/30/18 05:30 Anti-Parietal Cell Ab <20.0 U 04/30/18 05:30 Complement C3 95 mg/dL (83-193) 04/30/18 05:30 Complement C4 24 mg/dL (15-57) 04/30/18 05:30 Influenza Typ A,B (EIA) Negative for flu a/b (NEGATIVE) 04/25/18 18:30 Influenza Type A Ab 1:64 titer (<1:8) H 04/25/18 18:30 Influenza Type B Ab 1:16 titer (<1:8) H 04/25/18 18:30 Ur L.pneumophila Ag Negative (NEGATIVE) 04/25/18 15:52 Pneumocystis Source Serum 04/25/18 14:00 S. pneumoniae Antigen Not detected 04/25/18 14:00 Blood Type O POSITIVE 04/26/18 06:01 Blood Type Confirm O POSITIVE 04/26/18 08:20 Antibody Screen Negative 04/26/18 06:01 Crossmatch See Detail 04/26/18 06:01 BBK History Checked No verified bt 04/26/18 06:01 - Hospital Course Hospital Course: Marivel Simental, PGY-1, Internal Medicine Discharge Summary for Dr. Mckeon 77 year old female with past medical history of CHF (last Echo with EF of 50%), COPD, LUE DVT (on eliquis), SLE, lupus nephritis (previously on dialysis, s/p renal transplant), and osteoporosis presented with worsening, labored breathing. Patient had recently been at [facility] and was admitted for CHF concerns. Patient was thought to be short of breath due to CHF exacerbation vs. bilateral interstitial pneumonia vs. COPD on this admission. Upon admission, patient was found to have an NSTEMI. Patient was started on aspirin and cardizem and initially on a heparin drip. Heparin drip was held due to drop in hemoglobin to less than 7, and was transfused multiple units of pRBCs during this hospital stay. Stool guiaic was negative for blood. Patient additionally had atrial fibrillation and initially cardizem PO was started. Due to uncontrolled atrial fibrillation, cardizem IV was started without significant improvement in heart rate and rhythm. Patient continue with have HR of 130-140 until cardizem drip was increased and PO cardizem was increased to 90 mg Q6. It was later reduced to 60 mg QID which was later administered through NG tube when patient was unable to tolerate PO. ABG on admission initially showed hypoxic, hypercarbic respiratory failure. Chest X ray showed severe cardiomegaly and pulmonary venous congestion, bilateral lower lobe effusion. BNP was 34,900 on admission with baseline of 3000. Patient was initially started on lasix for diuresis but due to patient's JAGDISH on CKD, lasix was discontinued and given PRN, and after gental hydration was unsuccessful for improving renal status, renal biopsy was performed to evaluate for acute vs. chronic rejection of transplanted kidney or other renal pathology. Patient took only two medications for preventing renal transplant rejection, tacrolimus and prednisone, which was confirmed by her silk screen operator. Patient completed course of doxycycline, cefepime, and renally dosed vancomycin for 8 days for pneumonia. Patient was treated with duonebs, pulmicort, solumedrol for COPD exacerbation. Over the course of the hospital visit, patient was no longer hypoxic or hypercarbic on CXR but patient's respiratory effort continued to increase and mental status deteriorated. In addition, chest X ray continued to show dilated cardiomegaly with worsening in pulmonary vascular congestion even though patient was on BiPap. Due to patient's multiple comorbidities, option of dialysis was discussed with family. However, due to patient's worsening mental status and fact that she would have to be sedated for dialysis which would come with its own complications, Dr. Reed was wary regarding starting dialysis and relayed this information to the family. Patient was DNR/DNI as per son and daughter and as patient's mental status deteriorated, palliative care followed up with family and family made patient hospice care yesterday. Patient this morning at 6:00. Patient was found to be in asystole. On physical exam, patient had no response to verbal or painful stimuli, absent peripheral pulses, absent heart and breath sounds, no pupillary light reflex, no corneal reflex, and absence of vital signs. Family and attending were notified. This is a brief summary of the events that occurred at the hospital. For more details, please refer to EMR documentation. - Date & Time of H&P Date of H&P: 04/25/18 Time of H&P: 16:03 Discharge Exam - Additional Findings Additional findings: Please refer to pronouncement note for physical exam Discharge Plan - Follow Up Plan Condition: CRITICAL Disposition: WITH WITHOUT AUTOPSY Instructions: Myocardial Infarction (DC), Myocardial Infarction (GEN), Heart Failure (DC), Heart Failure (GEN), Pacemaker (DC), Pacemaker (GEN), Pulmonary E eduardo (DC), Pulmonary Edema (GEN), Ascites (DC), Ascites (GEN) Referrals: Shila Whipple MD [Primary Care Provider] - <Marlen Mckeon - Last Filed: 05/06/18 17:48> Provider - Provider Date of Admission: 04/25/18 14:27 Attending physician: Marlen Mckeon MD Primary care physician: Shila Whipple MD Consults: 04/25/18 14:34 Nephrology Consult Stat Comment: Consulting Provider: Kenton Yin Consulting Physician: Kenton Yin Reason for Consult: jagdish, renal transplant 04/25/18 14:36 Cardiology Consult Stat Comment: Consulting Provider: Travis Vides Consulting Physician: Travis Vides Reason for Consult: chf exacerbation 04/25/18 14:56 Infectious Disease Consult Stat Comment: Consulting Provider: Noah Hayden Consulting Physician: Noah Hayden Reason for Consult: CAP, immunocompromized 04/26/18 09:53 Palliative Care Consult Routine Comment: Consulting Provider: Magda Shukla Physician Instructions: Reason For Exam: questionable DNR/DNI from last. Not DNR/DNI this 05/01/18 10:01 Consult [Physician Consult] Routine Comment: Consulting Provider: Travis Blevins Consulting Physician: Travis Blevins Reason for Consult: transplant kidney biopsy 05/01/18 12:17 Psychiatry Consult Routine Comment: Consulting Provider: Marie Traylor Consulting Physician: Marie Traylor Reason for Consult: delirium with lethargy post [facility] Course - Lab Results Lab Results: Micro Results 05/05/18 11:45 Blood-Venous Blood Culture - Preliminary NO GROWTH AFTER 24 HOURS 05/05/18 11:30 Blood-Venous Blood Culture - Preliminary NO GROWTH AFTER 24 HOURS 04/25/18 13:00 Blood Blood Culture - Final NO GROWTH AFTER 5 DAYS 04/25/18 13:00 Blood Gram Stain - Final TEST NOT PERFORMED 04/25/18 12:35 Blood Blood Culture - Final NO GROWTH AFTER 5 DAYS 04/25/18 12:35 Blood Gram Stain - Final TEST NOT PERFORMED 04/25/18 15:30 Naris MRSA Culture (Admit) - Final MRSA NOT DETECTED 04/25/18 15:52 Urine Random Urine Culture - Final No Growth (<1,000 CFU/ML) Most Recent Lab Values WBC 21.5 10^3/uL (4.5-11.0) H D 05/05/18 05:20 RBC 3.04 10^6/uL (3.5-6.1) L 05/05/18 05:20 Hgb 9.5 g/dL (12.0-16.0) L 05/05/18 05:20 Hct 31.4 % (36.0-48.0) L 05/05/18 05:20 MCV 103.3 fl (80.0-105.0) 05/05/18 05:20 MCH 31.3 pg (25.0-35.0) 05/05/18 05:20 MCHC 30.3 g/dl (31.0-37.0) L 05/05/18 05:20 RDW 17.2 % (11.5-14.5) H 05/05/18 05:20 Plt Count 118 10^3/uL (120.0-450.0) L 05/05/18 05:20 MPV 12.6 fl (7.0-11.0) H 05/05/18 05:20 Neut % (Auto) 86.8 % (50.0-68.0) H 05/05/18 05:20 Lymph % (Auto) 9.2 % (22.0-35.0) L 05/05/18 05:20 [place] % (Auto) 3.7 % (1.0-6.0) 05/05/18 05:20 Eos % (Auto) 0.0 % (1.5-5.0) L 05/05/18 05:20 Baso % (Auto) 0.3 % (0.0-3.0) 05/05/18 05:20 Lymph # (Auto) 2.0 (1.2-3.4) 05/05/18 05:20 [place] # (Auto) 0.8 (0.1-0.6) H 05/05/18 05:20 Eos # (Auto) 0.0 (0.0-0.7) 05/05/18 05:20 Baso # (Auto) 0.07 K/mm3 (0.0-2.0) 05/05/18 05:20 Absolute Neuts (auto) 18.67 (1.4-6.5) H 05/05/18 05:20 Corrected WBC (Man) 19.9 K/mm3 (4.5-11.0) H 05/05/18 05:20 Neutrophils % (Manual) 90 % (50.0-70.0) H 05/05/18 05:20 Band Neutrophils % 4 % (0-2) H 05/04/18 18:50 Lymphocytes % (Manual) 4 % (22.0-35.0) L 05/05/18 05:20 Monocytes % (Manual) 6 % (1.0-6.0) 05/05/18 05:20 Metamyelocytes % 1 % 05/04/18 18:50 Myelocytes % 2 % 05/02/18 05:30 Nucleated RBC % 8 % 05/05/18 05:20 Differential Comment See pathology report 04/26/18 05:50 Platelet Evaluation Normal (NORMAL) 05/03/18 05:40 Retic Count 2.44 % (0.5-1.5) H 04/26/18 06:00 Haptoglobin 197.9 mg/dL (30.0-200.0) 04/26/18 06:00 PT 21.2 SECONDS (9.4-12.5) H 04/25/18 12:35 INR 1.88 04/25/18 12:35 APTT 35.1 Seconds (26.9-38.3) 04/26/18 05:50 pCO2 41 mm/Hg (35-45) 05/01/18 08:30 pO2 76.0 mm/Hg (80-100) L 05/01/18 08:30 HCO3 23.7 mmol/L (21-28) 05/01/18 08:30 ABG pH 7.37 (7.35-7.45) 05/01/18 08:30 ABG Total CO2 25.0 mmol.L (22-28) 05/01/18 08:30 ABG O2 Saturation 97.7 % (95-98) 05/01/18 08:30 ABG O2 Content 13.2 ML/dl (15-23) L 05/01/18 08:30 ABG Base Excess -1.5 mmol/L (-2.0-3.0) 05/01/18 08:30 ABG Hemoglobin 9.9 g/dL (11.7-17.4) L 05/01/18 08:30 ABG Carboxyhemoglobin 2.2 % (0.5-1.5) H 05/01/18 08:30 POC ABG HHb (Measured) 2.2 % (0-5) 05/01/18 08:30 ABG Methemoglobin 1.1 % (0.0-3.0) 05/01/18 08:30 ABG O2 Capacity 13.5 mL/dl (16-24) L 05/01/18 08:30 ABG Potassium 4.1 mmol/L (3.6-5.2) 04/25/18 12:40 VBG pH 7.35 (7.32-7.43) 04/25/18 15:30 VBG pCO2 59.0 (40-60) 04/25/18 15:30 VBG HCO3 32.6 mmol/l (21-28) H 04/25/18 15:30 VBG Total CO2 34.4 mmol.L (22-28) H 04/25/18 15:30 VBG O2 Sat (Calc) 78.2 % (40-65) H 04/25/18 15:30 VBG Base Excess 5.2 mmol/L (0.0-2.0) H 04/25/18 15:30 VBG Potassium 4.3 mmol/L (3.6-5.2) 04/25/18 15:30 Hgb O2 Saturation 94.5 % (95.0-98.0) L 05/01/18 08:30 Sodium 141.0 mmol/L (132-148) 04/25/18 15:30 Chloride 105.0 mmol/L (98-107) 04/25/18 15:30 Glucose 129 mg/dl (65-105) H 04/25/18 15:30 Lactate 1.6 mmol/L (0.7-2.1) 04/25/18 15:30 FiO2 36.0 % 05/01/18 08:30 Pressure Support 7 04/25/18 12:40 Inspiratory BiPAP 12 04/25/18 12:40 Blood Gas Comments Possible venous. notified po2,pco2,lactate cv reported 04/25/18 12:40 Crit Value Called To Chris alarcon 04/25/18 12:40 Crit Value Called By Rst 04/25/18 12:40 Blood Gas Notified Time 1250 04/25/18 12:40 Sodium 142 mmol/L (132-148) 05/05/18 05:20 Potassium 4.8 mmol/L (3.6-5.0) 05/05/18 05:20 Chloride 111 mmol/L (98-107) H 05/05/18 05:20 Carbon Dioxide 22 mmol/L (21-33) 05/05/18 05:20 Anion Gap 14 (10-20) 05/05/18 05:20 BUN 115 mg/dL (7-21) H 05/05/18 05:20 Creatinine 4.2 mg/dl (0.7-1.2) H 05/05/18 05:20 Est GFR ( Amer) 12 05/05/18 05:20 Est GFR (Non-Af Amer) 10 05/05/18 05:20 POC Glucose (mg/dL) 393 mg/dL (65-110) H 05/05/18 21:24 Random Glucose 439 mg/dL (70-110) H* D 05/05/18 05:20 Calcium 11.3 mg/dL (8.4-10.5) H 05/05/18 05:20 Phosphorus 5.9 mg/dL (2.5-4.5) H 05/04/18 18:50 Magnesium 1.9 mg/dL (1.7-2.2) 05/04/18 18:50 Iron 62 ug/dL (45-180) 04/26/18 05:50 TIBC 187 ug/dL (265-497) L 04/26/18 05:50 % Saturation 33 % (20-55) 04/26/18 05:50 Ferritin 1500.0 ng/mL 04/26/18 06:00 Total Bilirubin 1.1 mg/dL (0.2-1.3) 05/05/18 05:20 AST 62 U/L (14-36) H 05/05/18 05:20 ALT 100 U/L (7-56) H 05/05/18 05:20 Alkaline Phosphatase 86 U/L (38-126) 05/05/18 05:20 Lactate Dehydrogenase 630 U/L (333-699) 04/26/18 06:00 Total Creatine Kinase 35 U/L (35-230) 04/25/18 12:35 Troponin I 1.21 ng/mL H* D 04/26/18 05:50 NT-Pro-B Natriuret Pep 11270 pg/mL (0-450) H 04/25/18 12:35 Total Protein 6.2 g/dL (5.8-8.3) 05/05/18 05:20 Albumin 3.3 g/dL (3.0-4.8) 05/05/18 05:20 Globulin 2.9 gm/dL 05/05/18 05:20 Albumin/Globulin Ratio 1.1 (1.1-1.8) 05/05/18 05:20 Vitamin B12 913 pg/mL (239-931) 04/26/18 06:00 25-OH Vitamin D Total 22 ng/mL (30-100) L 05/03/18 05:40 Folate > 20.0 ng/mL 04/26/18 06:00 Procalcitonin 0.69 NG/ML (0.19-0.49) H 04/25/18 14:00 TSH 3rd Generation 1.11 mIU/mL (0.46-4.68) 04/26/18 05:50 PTH Intact Whole Molec 416 pg/mL (14-64) H 05/03/18 05:40 Arterial Blood Potassium 4.1 mmol/L (3.6-5.2) 04/25/18 12:40 Venous Blood Potassium 4.3 mmol/L (3.6-5.2) 04/25/18 15:30 Urine Color Yellow (YELLOW) 04/25/18 15:52 Urine Appearance Clear (CLEAR) 04/25/18 15:52 Urine pH 6.0 (4.7-8.0) 04/25/18 15:52 Ur Specific [place] 1.020 (1.005-1.035) 04/25/18 15:52 Urine Protein 30 mg/dL (<30 mg/dL) H 04/25/18 15:52 Urine Glucose (UA) 100 mg/dL (NEGATIVE) H 04/25/18 15:52 Urine Ketones Negative mg/dL (NEGATIVE) 04/25/18 15:52 Urine Blood Trace-intact (NEGATIVE) H 04/25/18 15:52 Urine Nitrate Negative (NEGATIVE) 04/25/18 15:52 Urine Bilirubin Negative (NEGATIVE) 04/25/18 15:52 Urine Urobilinogen 0.2 E.U./dL (<1 E.U./dL) 04/25/18 15:52 Ur Leukocyte Esterase Negative Nicky/uL (NEGATIVE) 04/25/18 15:52 Urine RBC 0 - 2 /hpf (0-2) 04/25/18 15:52 Urine WBC None /hpf (0-6) 04/25/18 15:52 Ur Epithelial Cells 0 - 2 /hpf (0-5) 04/25/18 15:52 Urine Bacteria Neg /hpf (NONE) 04/25/18 15:52 Hyaline Casts 0 - 2 /hpf (NONE) 04/25/18 15:52 Urine Eosinophils Negative 04/26/18 09:18 Ur Random Creatinine 125 mg/dL 04/26/18 09:18 U Random Total Protein 46 mg/L 04/26/18 09:18 Ur Random Calcium 9.4 mg/dL 05/02/18 10:40 Stool Occult Blood Negative (NEGATIVE) 04/28/18 01:00 Tacrolimus (LC/MS/MS) 7.0 mcg/L (5.0-20.0) 05/04/18 18:59 Rheumatoid Factor <14 IU/mL (<14) 04/30/18 05:30 Rheumatoid Arth Interp Negative (NEGATIVE) 04/29/18 14:00 ANAI Screen Positive (NEGATIVE) H 04/30/18 05:30 ANAI Titer 1:320 titer H 04/30/18 05:30 ANAI Pattern Few nuclear dots 04/30/18 05:30 SS-A Antibody <1.0 neg AI (<1.0 NEGATIVE) 04/30/18 05:30 SS-B Antibody <1.0 neg AI (<1.0 NEGATIVE) 04/30/18 05:30 Sm ([place]) Antibody <1.0 neg AI (<1.0 NEGATIVE) 04/30/18 05:30 SM/STONE AND PLATE PREPARER APPRENTICE Antibody <1.0 neg AI (<1.0 NEGATIVE) 04/30/18 05:30 Scl-70 Antibody <1.0 neg AI (<1.0 NEGATIVE) 04/30/18 05:30 Double Strand DNA Ab <1 IU/mL 04/26/18 08:57 Anti-ds DNA Titer (Crith) TNP 04/30/18 05:30 Anti-ds DNA (Crithidia) Negative (NEGATIVE) 04/30/18 05:30 Ribosomal P Prot Ab <1.0 neg AI (<1.0 NEGATIVE) 04/30/18 05:30 Anti-Mitochondrial Titr TNP 04/30/18 05:30 Anti-Mitochondrial Ab Negative (NEGATIVE) 04/30/18 05:30 Actin IgG Antibody <20 U 04/30/18 05:30 Myocardial Ab Titer TNP 04/30/18 05:30 Anti-Myocardial Ab Negative (NEGATIVE) 04/30/18 05:30 Reticulin Ab Titer TNP 04/30/18 05:30 Reticulin IgA Antibody Negative (NEGATIVE) 04/30/18 05:30 Thyroperoxidase Ab <1 IU/mL (<9) 04/30/18 05:30 Anti-Parietal Cell Ab <20.0 U 04/30/18 05:30 Complement C3 95 mg/dL (83-193) 04/30/18 05:30 Complement C4 24 mg/dL (15-57) 04/30/18 05:30 Influenza Typ A,B (EIA) Negative for flu a/b (NEGATIVE) 04/25/18 18:30 Influenza Type A Ab 1:64 titer (<1:8) H 04/25/18 18:30 Influenza Type B Ab 1:16 titer (<1:8) H 04/25/18 18:30 Ur L.pneumophila Ag Negative (NEGATIVE) 04/25/18 15:52 Pneumocystis Source Serum 04/25/18 14:00 S. 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 She was also found to have AFib with RVR and possible NSTEMI in addition to acute on chronic renal failure. She was on cardizem drip. Cardiology recommended conservative management. Nephrology was also following for acute on chronic renal failure. Patient had kidney biopsy last week. She was on iv steroids. There was no plan for dialysis as per nephrology. Overall prognosis remained poor. She was seen by palliative care and discussion with family they decided on DNR/DNI followed by comfort care measures. Patient early this morning prior to rounds. Marlen Mckeon MD Hospitalist.
== END 2018-05-06 06:00 ==
LOC: ED 12:19 → ERH 14:27 → CCU 15:36
PROVIDERS: ADMIT Internal Medicine; ATTEND Internal Medicine
PROC: 5A09357 Assistance with Respiratory Ventilation, Less than 24 Consecutive Hours, Continuous Positive Airway Pressure (ICD-10-PCS; 2018-04-25)
PROC: 30233N1 Transfusion of Nonautologous Red Blood Cells into Peripheral Vein, Percutaneous Approach (ICD-10-PCS; 2018-04-26)
PROC: 5A09557 Assistance with Respiratory Ventilation, Greater than 96 Consecutive Hours, Continuous Positive Airway Pressure (ICD-10-PCS; 2018-04-27)
PROC: BT2 Imaging, Urinary System, Computerized Tomography (CT Scan) (ICD-10-PCS; 2018-05-02)
PROC: 0TB03ZX Excision of Right Kidney, Percutaneous Approach, Diagnostic (ICD-10-PCS; principal; 2018-05-02 15:00)
DX: I21.4 Non-ST elevation (NSTEMI) myocardial infarction (principal); J96.01 Acute respiratory failure with hypoxia; J96.02 Acute respiratory failure with hypercapnia; N17.0 Acute kidney failure with tubular necrosis; I50.23 Acute on chronic systolic (congestive) heart failure; E87.0 Hyperosmolality and hypernatremia; F05 Delirium due to known physiological condition; I13.2 Hypertensive heart and chronic kidney disease with heart failure and with stage 5 chronic kidney disease, or end stage renal disease; R65.10 Systemic inflammatory response syndrome (SIRS) of non-infectious origin without acute organ dysfunction; J44.1 Chronic obstructive pulmonary disease with (acute) exacerbation; R64 Cachexia; Z94.4 Liver transplant status; N18.4 Chronic kidney disease, stage 4 (severe); I48.2 Chronic atrial fibrillation; E83.52 Hypercalcemia; E86.1 Hypovolemia; F03.90 Unspecified dementia, unspecified severity, without behavioral disturbance, psychotic disturbance, mood disturbance, and anxiety; G47.30 Sleep apnea, unspecified; H91.90 Unspecified hearing loss, unspecified ear; I27.20 Pulmonary hypertension, unspecified; I46.9 Cardiac arrest, cause unspecified; M32.14 Glomerular disease in systemic lupus erythematosus; M41.9 Scoliosis, unspecified; M81.0 Age-related osteoporosis without current pathological fracture; N28.1 Cyst of kidney, acquired; R13.10 Dysphagia, unspecified; Z86.718 Personal history of other venous thrombosis and embolism; Z87.01 Personal history of pneumonia (recurrent); Z79.01 Long term (current) use of anticoagulants; Z79.899 Other long term (current) drug therapy; Z87.891 Personal history of nicotine dependence; Z66 Do not resuscitate; Z51.5 Encounter for palliative care; M19.90 Unspecified osteoarthritis, unspecified site; D53.9 Nutritional anemia, unspecified; D63.1 Anemia in chronic kidney disease; Z79.82 Long term (current) use of aspirin